=== PATIENT | male | born 1990 | race Caucasian/White ===

== ENCOUNTER 2021-07-21 06:19 | Inpatient (IN) | payer OTHER ==
[2021-07-21 06:25] LABS: Glucose,Whole Blood 436 mg/dL (75-99)
[2021-07-21] MEDS ORDERED: ONDANSETRON 4 MG/2 ML VIAL IVP STA (06:31)
[2021-07-21] MEDS ORDERED: diphenhydrAMINE 50 MG/ML 1 ML VIAL IVP STA (06:31)
[2021-07-21] MEDS ORDERED: SODIUM CHLORIDE 0.9% 2,000 ML IV ONE (06:31)
[2021-07-21] MEDS ORDERED: AMPICILLIN-SULBACTAM 3 GM in SODIUM CHLORIDE 0.9% 100 ML IVPB STA (06:37)
--- NOTE | 2021-07-21 06:43 | ED ---
General Adult HPI <Edy Barraza - Last Filed: 07/21/21 08:09> - General Source: patient, family Mode of arrival: EMS Limitations: no limitations <Xochitl Rossi - Last Filed: 07/21/21 08:28> - General Chief complaint: Recheck/Abnormal Lab/Rx Stated complaint: DKA Time Seen by Provider: 07/21/21 06:26 - History of Present Illness Initial comments: 30 year-old male patient with past history significant for Type I diabetes presents for possible DKA. States symptoms started several days ago. States it has been "a long time" since he has had insulin. He reports fatigue, vomiting, and shortness of breath. He was seen a few days ago for facial infection and was started on antibiotics. He has been able to take the medication due to vomiting. He denies any fevers. Patient denies any recent rash, cough, chest pain, abdominal pain, diarrhea, constipation, back pain, numbness, tingling, dizziness, weakness, hematuria, dysuria, urinary urgency, headache, visual changes, or any other complaints. (Xochitl Rossi) - Related Data Previous Rx's Medication Instructions Recorded Cephalexin [Keflex] 500 mg PO QID #40 cap 07/17/21 Sulfamethox-Tmp 800-160Mg [Bactrim 1 tab PO Q12HR #28 tab 07/17/21 DS 800-160 mg] Allergies Allergy/AdvReac Type Severity Reaction Status Date / Time No Known Allergies Allergy Verified 07/17/21 21:18 Review of Systems ROS Other: All systems not noted in ROS Statement are negative. <Edy Barraza - Last Filed: 07/21/21 08:09> ROS Other: All systems not noted in ROS Statement are negative. <Xochitl Rossi - Last Filed: 07/21/21 08:28> ROS Statement: Those systems with pertinent positive or pertinent negative responses have been documented in the HPI. Past Medical History Past Medical History: Diabetes Mellitus Additional Past Medical History / Comment(s): Type 1 DM, childhood asthma History of Any Multi-Drug Resistant Organisms: None Reported Past Surgical History: No Surgical Hx Reported Past Psychological History: Anxiety, Bipolar, Depression, PTSD Smoking Status: Current every day smoker Past Alcohol Use History: None Reported Past Drug Use History: Marijuana <Xochitl Rossi - Last Filed: 07/21/21 08:28> General Exam Limitations: no limitations General appearance: alert, in no apparent distress, other (This is a well- developed, well-nourished adult male in mild distress.) Eye exam: Present: normal appearance, PERRL, EOMI. Absent: scleral icterus, conjunctival injection, periorbital swelling ENT exam: Present: normal oropharynx, mucous membranes moist, other (There is left maxillary facial abscess noted, area is fluctuant with overlying erythema.) Respiratory exam: Present: normal lung sounds bilaterally. Absent: respiratory distress, wheezes, rales, rhonchi, stridor Cardiovascular Exam: Present: normal rhythm, tachycardia, normal heart sounds. Absent: systolic murmur, diastolic murmur, rubs, gallop, clicks GI/Abdominal exam: Present: soft, normal bowel sounds. Absent: distended, tenderness, guarding, rebound, rigid Neurological exam: Present: alert, oriented X3, CN II-XII intact Psychiatric exam: Present: normal affect, normal mood Skin exam: Present: warm, dry, intact, normal color. Absent: rash <Xochitl Rossi M - Last Filed: 07/21/21 08:28> Course Vital Signs 07/21/21 07/21/21 06:20 07:04 Temperature 98.0 F Pulse Rate 134 H 128 H Respiratory 24 18 Rate Blood Pressure 148/100 145/107 O2 Sat by Pulse 100 100 Oximetry Medical Decision Making - Lab Data Result diagrams: 07/21/21 06:42 07/21/21 06:42 <Edy Barraza - Last Filed: 07/21/21 08:09> - Lab Data Result diagrams: 07/21/21 06:42 07/21/21 06:42 <Xochitl Rossi - Last Filed: 07/21/21 08:28> - Medical Decision Making Patient reevaluated and reexamined by myself, Dr. Barraza. Patient resting at bedside. Patient does appear dehydrated. Left-sided facial abscess. Results reviewed. I agree with PA findings. This includes diagnostic interpretation and treatment plan. Patient will need IV fluids and insulin as well as an tibiotics. Dr. León is made aware. (Edy Barraza) 30-year-old male patient with past history significant for type 1 diabetes mellitus presents to the today for evaluation of vomiting possible DKA. Physical saturation revealed soft nontender abdomen. Does have left-sided fa cial abscess. Labs reviewed and did reveal elevated white blood cell count of 16.2, hemoglobin 19.7, ABG shows pH 7.03, pCO2 24, HCO3 6, CO2 in the chemistry is less than 5, anion gap is unreadable. Blood glucose is 456. He was positive for acetone. COVID-19 negative. He did have CT of the face a few days ago which showed cutaneous abscess with no bony distraction, does not seem to be related to dentition. Culture of aspirate fluid was sent and was positive for group B strep. We'll start patient on Unasyn. Started on DKA protocol. Given 2L normal saline. Given nausea medication. Dr. Lezama will consult for evaluation of the abscess. Had been admitted to the ICU. Dr. Ji is accepting. Dr. León was contacted. Patient is agreeable with this plan. My attending is Dr. Barraza. (Xochitl Rossi) - Lab Data Lab Results 07/21/21 07/21/21 07/21/21 Range/Units 06:23 06:42 06:42 WBC 16.2 H (3.8-10.6) k/uL RBC 6.18 H (4.30-5.90) m/uL Hgb 19.7 H* D (13.0-17.5) gm/dL Hct 62.5 H* (39.0-53.0) % MCV 101.0 H D (80.0-100.0) fL MCH 31.9 (25.0-35.0) pg MCHC 31.6 (31.0-37.0) g/dL RDW 12.5 (11.5-15.5) % Plt Count 354 (150-450) k/uL MPV 9.0 Neutrophils % 89 % Lymphocytes % 6 % Monocytes % 3 % Eosinophils % 0 % Basophils % 0 % Neutrophils # 14.5 H (1.3-7.7) k/uL Lymphocytes # 1.0 (1.0-4.8) k/uL Monocytes # 0.5 (0-1.0) k/uL Eosinophils # 0.0 (0-0.7) k/uL Basophils # 0.1 (0-0.2) k/uL Hypochromasia Moderate VBG pH (7.31-7.41) VBG pCO2 (37-51) mmHg VBG HCO3 (24-28) mmol/L Sodium 131 L (137-145) mmol/L Potassium 5.0 (3.5-5.1) mmol/L Chloride 94 L (98-107) mmol/L Carbon Dioxide <5 L* (22-30) mmol/L Anion Gap mmol/L BUN 15 (9-20) mg/dL Creatinine 1.07 (0.66-1.25) mg/dL Est GFR (CKD-EPI)AfAm >90 (>60 ml/min/1.73 sqM) Est GFR (CKD-EPI)NonAf >90 (>60 ml/min/1.73 sqM) Glucose 456 H (74-99) mg/dL POC Glucose (mg/dL) 436 H (75-99) mg/dL POC Glu [employer] ID Allyson, Waldron Plasma Lactic Acid Son (0.7-2.0) mmol/L Calcium 10.5 H (8.4-10.2) mg/dL Phosphorus 5.3 H (2.5-4.5) mg/dL Magnesium 1.8 (1.6-2.3) mg/dL Total Bilirubin 0.7 (0.2-1.3) mg/dL AST 22 (17-59) U/L ALT 21 (4-49) U/L Alkaline Phosphatase 155 H (38-126) U/L Total Protein 9.4 H (6.3-8.2) g/dL Albumin 5.7 H (3.5-5.0) g/dL Acetone, Qual (Negative) Coronavirus (PCR) (Not Detectd) 07/21/21 07/21/21 07/21/21 Range/Units 06:42 06:42 06:42 WBC (3.8-10.6) k/uL RBC (4.30-5.90) m/uL Hgb (13.0-17.5) gm/dL Hct (39.0-53.0) % MCV (80.0-100.0) fL MCH (25.0-35.0) pg MCHC (31.0-37.0) g/dL RDW (11.5-15.5) % Plt Count (150-450) k/uL MPV Neutrophils % % Lymphocytes % % Monocytes % % Eosinophils % % Basophils % % Neutrophils # (1.3-7.7) k/uL Lymphocytes # (1.0-4.8) k/uL Monocytes # (0-1.0) k/uL Eosinophils # (0-0.7) k/uL Basophils # (0-0.2) k/uL Hypochromasia VBG pH 7.03 L* (7.31-7.41) VBG pCO2 24 L (37-51) mmHg VBG HCO3 6 L* (24-28) mmol/L Sodium (137-145) mmol/L Potassium (3.5-5.1) mmol/L Chloride (98-107) mmol/L Carbon Dioxide (22-30) mmol/L Anion Gap mmol/L BUN (9-20) mg/dL Creatinine (0.66-1.25) mg/dL Est GFR (CKD-EPI)AfAm (>60 ml/min/1.73 sqM) Est GFR (CKD-EPI)NonAf (>60 ml/min/1.73 sqM) Glucose (74-99) mg/dL POC Glucose (mg/dL) (75-99) mg/dL POC Glu [employer]amics Machine Operator ID Plasma Lactic Acid Son 2.0 (0.7-2.0) mmol/L Calcium (8.4-10.2) mg/dL Phosphorus (2.5-4.5) mg/dL Magnesium (1.6-2.3) mg/dL Total Bilirubin (0.2-1.3) mg/dL AST (17-59) U/L ALT (4-49) U/L Alkaline Phosphatase (38-126) U/L Total Protein (6.3-8.2) g/dL Albumin (3.5-5.0) g/dL Acetone, Qual (Negative) Coronavirus (PCR) Not Detected (Not Detectd) 07/21/21 Range/Units 06:42 WBC (3.8-10.6) k/uL RBC (4.30-5.90) m/uL Hgb (13.0-17.5) gm/dL Hct (39.0-53.0) % MCV (80.0-100.0) fL MCH (25.0-35.0) pg MCHC (31.0-37.0) g/dL RDW (11.5-15.5) % Plt Count (150-450) k/uL MPV Neutrophils % % Lymphocytes % % Monocytes % % Eosinophils % % Basophils % % Neutrophils # (1.3-7.7) k/uL Lymphocytes # (1.0-4.8) k/uL Monocytes # (0-1.0) k/uL Eosinophils # (0-0.7) k/uL Basophils # (0-0.2) k/uL Hypochromasia VBG pH (7.31-7.41) VBG pCO2 (37-51) mmHg VBG HCO3 (24-28) mmol/L Sodium (137-145) mmol/L Potassium (3.5-5.1) mmol/L Chloride (98-107) mmol/L Carbon Dioxide (22-30) mmol/L Anion Gap mmol/L BUN (9-20) mg/dL Creatinine (0.66-1.25) mg/dL Est GFR (CKD-EPI)AfAm (>60 ml/min/1.73 sqM) Est GFR (CKD-EPI)NonAf (>60 ml/min/1.73 sqM) Glucose (74-99) mg/dL POC Glucose (mg/dL) (75-99) mg/dL POC Glu Ceramics Machine Operator ID Plasma Lactic Acid Son (0.7-2.0) mmol/L Calcium (8.4-10.2) mg/dL Phosphorus (2.5-4.5) mg/dL Magnesium (1.6-2.3) mg/dL Total Bilirubin (0.2-1.3) mg/dL AST (17-59) U/L ALT (4-49) U/L Alkaline Phosphatase (38-126) U/L Total Protein (6.3-8.2) g/dL Albumin (3.5-5.0) g/dL Acetone, Qual Positive (Negative) Coronavirus (PCR) (Not Detectd) Disposition <Edy Barraza - Last Filed: 07/21/21 08:09> Decision to Admit Reason: Admit from EC Decision Date: 07/21/21 Decision Time: 07:44 <Xochitl Rossi - Last Filed: 07/21/21 08:28> Clinical Impression: DKA (diabetic ketoacidosis), Facial abscess Disposition: ADMITTED IP TO THIS [facility] Condition: Serious Referrals: None,Stated [Primary Care Provider] - 1-2 days
[2021-07-21 07:04] LABS: VBG PH 7.03 (7.31-7.41)
[2021-07-21 07:14] LABS: Basophils # (A) 0.1 k/uL (0-0.2); Basophils % (A) 0 %; Eosinophils % (A) 0 %; Hypochromasia Moderate; Lymphocytes % (A) 6 %; MCH 31.9 pg (25.0-35.0); MCHC 31.6 g/dL (31.0-37.0); Monocytes # (A) 0.5 k/uL (0-1.0); Monocytes % (A) 3 %; Neutrophils # (A) 14.5 k/uL (1.3-7.7); Neutrophils % (A) 89 %; Platelet Count 354 k/uL (150-450); RBC 6.18 m/uL (4.30-5.90); RDW 12.5 % (11.5-15.5); WBC 16.2 k/uL (3.8-10.6)
[2021-07-21 07:16] LABS: ALT 21 U/L (4-49); AST 22 U/L (17-59); African American GFR (CKD) >90 (>60 ml/min/1.73 sqM); Albumin 5.7 g/dL (3.5-5.0); Alkaline Phosphatase 155 U/L (38-126); Blood Urea Nitrogen 15 mg/dL (9-20); Calcium 10.5 mg/dL (8.4-10.2); Chloride 94 mmol/L (98-107); Glucose 456 mg/dL (74-99); Magnesium 1.8 mg/dL (1.6-2.3); Non-African American GFR(CKD) >90 (>60 ml/min/1.73 sqM); Phosphorus 5.3 mg/dL (2.5-4.5); Sodium 131 mmol/L (137-145); Total Bilirubin 0.7 mg/dL (0.2-1.3); Total Protein 9.4 g/dL (6.3-8.2)
[2021-07-21 07:18] LABS: Carbon Dioxide <5 mmol/L (22-30)
[2021-07-21 07:20] LABS: HGB 19.7 gm/dL (13.0-17.5)
[2021-07-21 07:21] LABS: HCT 62.5 % (39.0-53.0)
[2021-07-21] MEDS ORDERED: SODIUM CHLORIDE 0.9% 1,000 ML IV ONE ×2 (07:38→16:50)
[2021-07-21] MEDS ORDERED: Magnesium Replacement Protocol 1 EACH MISC MISCELLANE PRN (07:38)
[2021-07-21] MEDS ORDERED: INSULIN REGULAR BOLUS (FROM DRIP BAG) IV ONE (07:38)
[2021-07-21] MEDS ORDERED: Potassium Replacement Protocol 1 EACH MISC MISCELLANE PRN (07:38)
[2021-07-21] MEDS ORDERED: NALOXONE 0.4 MG/ML 1 ML VIAL IV PRN ×2 (08:13→11:14)
[2021-07-21] MEDS ORDERED: ONDANSETRON 4 MG/2 ML VIAL IVP PRN (08:14)
[2021-07-21] MEDS ORDERED: METOCLOPRAMIDE 5 MG/ML 2 ML VIAL IVP STA (08:15)
[2021-07-21] MEDS: INSULIN REGULAR 100 UNIT in SODIUM CHLORIDE 0.9% 100 ML IV SCH ×2 (08:26→23:48)
[2021-07-21] MEDS: SODIUM CHLORIDE 0.9% 1,000 ML IV SCH ×2 (08:32→13:30)
[2021-07-21 08:46] LABS: Glucose,Whole Blood 377 mg/dL (75-99)
--- NOTE | 2021-07-21 09:38 | P.GSCN ---
History of Present Illness Consult date: 07/21/21 Reason for Consult: Facial abscess History of present illness: Patient's a 30-year-old male the emergency department with nausea, vomiting, fatigue and shortness of breath. He was started on oral antibiotics for facial infection several days ago. A CT scan had been performed which showed no evidence of maxillary sinusitis or dental abscess. Because of the nausea and vomiting he hasn't been able to keep the antibiotics down in the infection is worsening. No prior history of MRSA Review of Systems All systems: negative Past Medical History Past Medical History: Diabetes Mellitus Additional Past Medical History / Comment(s): Type 1 DM, childhood asthma History of Any Multi-Drug Resistant Organisms: None Reported Past Surgical History: No Surgical Hx Reported Past Psychological History: Anxiety, Bipolar, Depression, PTSD Smoking Status: Current every day smoker Past Alcohol Use History: None Reported Past Drug Use History: Marijuana Medications and Allergies Home Medications Medication Instructions Recorded Confirmed Type Cephalexin [Keflex] 500 mg PO QID #40 cap 07/17/21 07/21/21 Rx Sulfamethox-Tmp 800-160Mg [Bactrim 1 tab PO Q12HR #28 tab 07/17/21 07/21/21 Rx DS 800-160 mg] Allergies Allergy/AdvReac Type Severity Reaction Status Date / Time No Known Allergies Allergy Verified 07/21/21 08:28 Surgical - Exam Osteopathic Statement: *. No significant issues noted on an osteopathic structural exam other than those noted in the History and Physical/Consult. Vital Signs Temp Pulse Resp BP Pulse Ox 98.0 F 134 H 24 148/100 100 07/21/21 06:20 07/21/21 06:20 07/21/21 06:20 07/21/21 06:20 07/21/21 06:20 - General well developed, well nourished - ENT 5 cm area of erythema, swelling, fluctuance and small eschar over the left maxillary region. - Neck trachea midline - Respiratory normal expansion - Cardiovascular Rhythm: regular Results - Labs 07/21/21 06:42 07/21/21 06:42 Abnormal Lab Results - Last 24 Hours (Table) 07/21/21 07/21/21 07/21/21 Range/Units 06:23 06:42 06:42 WBC 16.2 H (3.8-10.6) k/uL RBC 6.18 H (4.30-5.90) m/uL Hgb 19.7 H* D (13.0-17.5) gm/dL Hct 62.5 H* (39.0-53.0) % MCV 101.0 H D (80.0-100.0) fL Neutrophils # 14.5 H (1.3-7.7) k/uL VBG pH (7.31-7.41) VBG pCO2 (37-51) mmHg VBG HCO3 (24-28) mmol/L Sodium 131 L (137-145) mmol/L Chloride 94 L (98-107) mmol/L Carbon Dioxide <5 L* (22-30) mmol/L Glucose 456 H (74-99) mg/dL POC Glucose (mg/dL) 436 H (75-99) mg/dL Calcium 10.5 H (8.4-10.2) mg/dL Phosphorus 5.3 H (2.5-4.5) mg/dL Alkaline Phosphatase 155 H (38-126) U/L Total Protein 9.4 H (6.3-8.2) g/dL Albumin 5.7 H (3.5-5.0) g/dL 07/21/21 07/21/21 Range/Units 06:42 08:43 WBC (3.8-10.6) k/uL RBC (4.30-5.90) m/uL Hgb (13.0-17.5) gm/dL Hct (39.0-53.0) % MCV (80.0-100.0) fL Neutrophils # (1.3-7.7) k/uL VBG pH 7.03 L* (7.31-7.41) VBG pCO2 24 L (37-51) mmHg VBG HCO3 6 L* (24-28) mmol/L Sodium (137-145) mmol/L Chloride (98-107) mmol/L Carbon Dioxide (22-30) mmol/L Glucose (74-99) mg/dL POC Glucose (mg/dL) 377 H (75-99) mg/dL Calcium (8.4-10.2) mg/dL Phosphorus (2.5-4.5) mg/dL Alkaline Phosphatase (38-126) U/L Total Protein (6.3-8.2) g/dL Albumin (3.5-5.0) g/dL Diabetes panel 07/21/21 Range/Units 06:42 Sodium 131 L (137-145) mmol/L Potassium 5.0 (3.5-5.1) mmol/L Chloride 94 L (98-107) mmol/L Carbon Dioxide <5 L* (22-30) mmol/L BUN 15 (9-20) mg/dL Creatinine 1.07 (0.66-1.25) mg/dL Glucose 456 H (74-99) mg/dL Calcium 10.5 H (8.4-10.2) mg/dL AST 22 (17-59) U/L ALT 21 (4-49) U/L Alkaline Phosphatase 155 H (38-126) U/L Total Protein 9.4 H (6.3-8.2) g/dL Albumin 5.7 H (3.5-5.0) g/dL Calcium panel 07/21/21 Range/Units 06:42 Calcium 10.5 H (8.4-10.2) mg/dL Phosphorus 5.3 H (2.5-4.5) mg/dL Albumin 5.7 H (3.5-5.0) g/dL Pituitary panel 07/21/21 Range/Units 06:42 Sodium 131 L (137-145) mmol/L Potassium 5.0 (3.5-5.1) mmol/L Chloride 94 L (98-107) mmol/L Carbon Dioxide <5 L* (22-30) mmol/L BUN 15 (9-20) mg/dL Creatinine 1.07 (0.66-1.25) mg/dL Glucose 456 H (74-99) mg/dL Calcium 10.5 H (8.4-10.2) mg/dL Adrenal panel 07/21/21 Range/Units 06:42 Sodium 131 L (137-145) mmol/L Potassium 5.0 (3.5-5.1) mmol/L Chloride 94 L (98-107) mmol/L Carbon Dioxide <5 L* (22-30) mmol/L BUN 15 (9-20) mg/dL Creatinine 1.07 (0.66-1.25) mg/dL Glucose 456 H (74-99) mg/dL Calcium 10.5 H (8.4-10.2) mg/dL Total Bilirubin 0.7 (0.2-1.3) mg/dL AST 22 (17-59) U/L ALT 21 (4-49) U/L Alkaline Phosphatase 155 H (38-126) U/L Total Protein 9.4 H (6.3-8.2) g/dL Albumin 5.7 H (3.5-5.0) g/dL Assessment and Plan (1) DKA (diabetic ketoacidosis) Current Visit: Yes Status: Acute Code(s): E11.10 - TYPE 2 DIABETES MELLITUS WITH KETOACIDOSIS WITHOUT COMA SNOMED Code(s): 920909724 (2) Facial abscess Current Visit: Yes Status: Acute Code(s): L02.01 - CUTANEOUS ABSCESS OF FACE SNOMED Code(s): 252482887 Plan: The patient did have some vitamin water this morning which he threw up. Recommend the abscess been excised and drained in the OR. The procedure, risks and complications were discussed. Getting medical care for the DKA
[2021-07-21 09:50] LABS: Glucose,Whole Blood 251 mg/dL (75-99)
[2021-07-21] MEDS ORDERED: IV FLUID CONTINUATION 1,000 ML IV ONE ×2 (09:50)
[2021-07-21] MEDS: D5-0.45% NACL WITH KCL 20MEQ/L 1,000 ML IV SCH ×2 (10:22→18:07)
[2021-07-21] MEDS ORDERED: KETOROLAC 30 MG/ML 1 ML VIAL IVP PRN (11:14)
[2021-07-21] MEDS ORDERED: ACETAMINOPHEN TAB 325 MG TAB PO PRN (11:14)
[2021-07-21] MEDS ORDERED: IBUPROFEN 400 MG TAB PO PRN (11:14)
[2021-07-21 11:28] LABS: African American GFR (CKD) >90 (>60 ml/min/1.73 sqM); Anion Gap 20 mmol/L; Blood Urea Nitrogen 15 mg/dL (9-20); Chloride 107 mmol/L (98-107); Glucose 219 mg/dL (74-99); Non-African American GFR(CKD) >90 (>60 ml/min/1.73 sqM); Phosphorus 2.4 mg/dL (2.5-4.5); Potassium 3.7 mmol/L (3.5-5.1); Sodium 133 mmol/L (137-145)
[2021-07-21 11:30] LABS: Glucose,Whole Blood 180 mg/dL (75-99)
[2021-07-21 11:43] LABS: Carbon Dioxide 6 mmol/L (22-30)
--- NOTE | 2021-07-21 11:52 | P.HPIM ---
History of Present Illness H&P Date: 07/21/21 Chief Complaint: left facial abscess 30 year-old male patient with past history significant for Type I diabetes who has not been on any insulin over the last year. He was diagnosed with type 1 DM on age 15. He presents for worsening swelling on the left side of his jaw. The swelling is painless according to patient. It started with left upper teeth aches and progressed to the jaw swelling. States symptoms started several days ago. He reports fatigue, vomiting, and shortness of breath. He denies any fevers. Patient denies any recent rash, cough, chest pain, abdominal pain, diarrhea, constipation, back pain, numbness, tingling, dizziness, weakness, hematuria, dysuria, urinary urgency, headache, visual changes, or any other complaints. He was seen a few days ago here in the ER for this and was aspirated by the ER staff and was started on antibiotics. He has been unable to take the medication due to vomiting. In the emergency department and was found to have diabetic ketoacidosis with severe hyperglycemia. His pH was low at 7.03. He was started on insulin drip and was admitted for further evaluation and management. Review of Systems Complete review of system performed, pertinent positives per HPI, otherwise negative Past Medical History Past Medical History: Diabetes Mellitus Additional Past Medical History / Comment(s): Type 1 DM, childhood asthma History of Any Multi-Drug Resistant Organisms: None Reported Past Surgical History: No Surgical Hx Reported Past Psychological History: Anxiety, Bipolar, Depression, PTSD Smoking Status: Current every day smoker Past Alcohol Use History: None Reported Past Drug Use History: Marijuana Medications and Allergies Home Medications Medication Instructions Recorded Confirmed Type Cephalexin [Keflex] 500 mg PO QID #40 cap 07/17/21 07/21/21 Rx Sulfamethox-Tmp 800-160Mg [Bactrim 1 tab PO Q12HR #28 tab 07/17/21 07/21/21 Rx DS 800-160 mg] Allergies Allergy/AdvReac Type Severity Reaction Status Date / Time No Known Allergies Allergy Verified 07/21/21 08:28 Physical Exam Vitals: Vital Signs Temp Pulse Resp BP Pulse Ox 07/21/21 10:18 98.2 F 96 22 139/79 98 07/21/21 08:34 110 H 20 139/80 100 07/21/21 07:04 128 H 18 145/107 100 07/21/21 06:20 98.0 F 134 H 24 148/100 100 Intake and Output 07/20/21 07/21/21 07/21/21 22:59 06:59 14:59 Intake Total 19.67 Balance 19.67 Intake: Intake, IV Titration 19.67 Amount Insulin Regular 100 unit 19.67 In Sodium Chloride 0.9% 100 ml @ 0.1 UNITS/KG/HR 6.414 mls/hr IV .[id number] [facility] Rx#:[id number] Other: Weight 63.503 kg Constitutional: No acute distress, conversant, pleasant Eyes:Anicteric sclerae, moist conjunctiva, no lid-lag, PERRLA, ENMT: Left facial swelling, tender to palpation. Oropharynx clear, no erythema, exudates Neck: Supple, FROM, no masses, or JVD, No carotid bruits, No thyromegaly Lungs: Clear to auscultation, Clear to percussion, Normal respiratory effort, no accessory muscle use Cardiovascular: Tachycardic, regular, No murmurs, gallops, or rubs, No peripheral edema Abdominal: Soft, Nontender, no guarding, rebound or rigidity, Normoactive bowel sounds, No hepatomegaly, No splenomegaly, No palpable mass Skin: Normal temperature, tone, texture, turgor, no induration, No subcutaneous nodules, No rash, lesions, No ulcers Extremities: No digital cyanosis, No clubbing, Pedal pulses intact and symmetrical, Radial pulses intact and symmetrical, No calf tenderness Psychiatric: Alert and oriented to person, place and time, appropriate affect, intact judgement Neuro: Muscles Strength 5/5 in all 4 extremities, Sensation to light touch grossly present throughout, Cranial nerves II-XII grossly intact, no focal sensory deficits Results CBC & Chem 7: 07/21/21 06:42 07/21/21 06:42 Labs: Abnormal Lab Results - Last 24 Hours (Table) 07/21/21 07/21/21 07/21/21 Range/Units 06:23 06:42 06:42 WBC 16.2 H (3.8-10.6) k/uL RBC 6.18 H (4.30-5.90) m/uL Hgb 19.7 H* D (13.0-17.5) gm/dL Hct 62.5 H* (39.0-53.0) % MCV 101.0 H D (80.0-100.0) fL Neutrophils # 14.5 H (1.3-7.7) k/uL VBG pH (7.31-7.41) VBG pCO2 (37-51) mmHg VBG HCO3 (24-28) mmol/L Sodium 131 L (137-145) mmol/L Chloride 94 L (98-107) mmol/L Carbon Dioxide <5 L* (22-30) mmol/L Glucose 456 H (74-99) mg/dL POC Glucose (mg/dL) 436 H (75-99) mg/dL Calcium 10.5 H (8.4-10.2) mg/dL Phosphorus 5.3 H (2.5-4.5) mg/dL Alkaline Phosphatase 155 H (38-126) U/L Total Protein 9.4 H (6.3-8.2) g/dL Albumin 5.7 H (3.5-5.0) g/dL 07/21/21 07/21/21 07/21/21 Range/Units 06:42 08:43 09:49 WBC (3.8-10.6) k/uL RBC (4.30-5.90) m/uL Hgb (13.0-17.5) gm/dL Hct (39.0-53.0) % MCV (80.0-100.0) fL Neutrophils # (1.3-7.7) k/uL VBG pH 7.03 L* (7.31-7.41) VBG pCO2 24 L (37-51) mmHg VBG HCO3 6 L* (24-28) mmol/L Sodium (137-145) mmol/L Chloride (98-107) mmol/L Carbon Dioxide (22-30) mmol/L Glucose (74-99) mg/dL POC Glucose (mg/dL) 377 H 251 H (75-99) mg/dL Calcium (8.4-10.2) mg/dL Phosphorus (2.5-4.5) mg/dL Alkaline Phosphatase (38-126) U/L Total Protein (6.3-8.2) g/dL Albumin (3.5-5.0) g/dL 07/21/21 Range/Units 11:29 WBC (3.8-10.6) k/uL RBC (4.30-5.90) m/uL Hgb (13.0-17.5) gm/dL Hct (39.0-53.0) % MCV (80.0-100.0) fL Neutrophils # (1.3-7.7) k/uL VBG pH (7.31-7.41) VBG pCO2 (37-51) mmHg VBG HCO3 (24-28) mmol/L Sodium (137-145) mmol/L Chloride (98-107) mmol/L Carbon Dioxide (22-30) mmol/L Glucose (74-99) mg/dL POC Glucose (mg/dL) 180 H (75-99) mg/dL Calcium (8.4-10.2) mg/dL Phosphorus (2.5-4.5) mg/dL Alkaline Phosphatase (38-126) U/L Total Protein (6.3-8.2) g/dL Albumin (3.5-5.0) g/dL Assessment and Plan Plan: Diabetic ketoacidosis Insulin drip Glucose q 1 hr BMP q 4hrs. IV fluids Left facial abscess Likely the trigger for DKA Unasyn D/w surgery, will go to the OR for drainage, would send the pus for cx. Preoperative clearance D/w surgeon it is preferable to have PH above 7.2 to safely go to surgery Will follow ABG around 2:00PM Leukocytosis and erythrocytosis Likely due to severe dehydration and hemoconcentration. IV fluids as above. Admitted to inpatient expected length of stay more than 2 midnights
[2021-07-21 12:32] LABS: Glucose,Whole Blood 170 mg/dL (75-99)
[2021-07-21] MEDS: AMPICILLIN-SULBACTAM 3 GM in SODIUM CHLORIDE 0.9% 100 ML IVPB SCH ×3 (13:27→23:47)
[2021-07-21 13:42] LABS: Glucose,Whole Blood 172 mg/dL (75-99)
[2021-07-21] MEDS ORDERED: POTASSIUM CHLORIDE ER 20 MEQ TAB.ER PO STA (14:05)
[2021-07-21] MEDS ORDERED: POTASSIUM CHLORIDE 10 MEQ in WATER FOR INJECTION 1 100ML.BAG IVPB STA (14:05)
[2021-07-21 14:21] LABS: ABG Base Excess -13.2 mmol/L; ABG HCO3 13 mmol/L (21-25); ABG Oxygen Saturation 96.5 % (94-97); ABG PCO2 27 mmHg (35-45); ABG PO2 102 mmHg (83-108); ABG TCO2 14 mmol/L (19-24); Allen Test Performed? Yes
[2021-07-21 14:39] LABS: Glucose,Whole Blood 160 mg/dL (75-99)
[2021-07-21 15:13] LABS: African American GFR (CKD) >90 (>60 ml/min/1.73 sqM); Anion Gap 14 mmol/L; Blood Urea Nitrogen 13 mg/dL (9-20); Carbon Dioxide 11 mmol/L (22-30); Chloride 106 mmol/L (98-107); Glucose 174 mg/dL (74-99); Non-African American GFR(CKD) >90 (>60 ml/min/1.73 sqM); Phosphorus 2.4 mg/dL (2.5-4.5); Potassium 4.1 mmol/L (3.5-5.1); Sodium 131 mmol/L (137-145)
[2021-07-21 15:44] LABS: Glucose,Whole Blood 185 mg/dL (75-99)
[2021-07-21] MEDS ORDERED: fentaNYL (PF) 50 MCG/ML 2 ML AMP ONE (15:46)
[2021-07-21] MEDS ORDERED: LIDOCAINE 1% INJ 10MG/ML (20 ML MDV) ONE (15:46)
[2021-07-21] MEDS ORDERED: PROPOFOL 10 MG/ML 20 ML VIAL IV ONE (15:46)
[2021-07-21] MEDS ORDERED: MIDAZOLAM 2 MG/2 ML VIAL ONE (15:46)
[2021-07-21] MEDS ORDERED: SUCCINYLCHOLINE CHLORIDE 100 MG/5 ML SYR IV ONE (15:46)
[2021-07-21] MEDS ORDERED: traMADol 50 MG TAB PO PRN ×2 (16:08)
--- NOTE | 2021-07-21 16:11 | P.OP ---
Date of Procedure: 07/21/21 Preoperative Diagnosis: Abscess left face Postoperative Diagnosis: Abscess left face Procedure(s) Performed: Incision and drainage abscess left face Anesthesia: MELITON Surgeon: Amara Lezama Pathology: none sent Condition: stable Disposition: PACU Indications for Procedure: Patient presents with sepsis and lactic acidosis. There is an abscess on his left face Description of Procedure: Patient's taken the OR where he is prepped and draped in the usual sterile manner under a general endotracheal anesthetic. An incision was made into the abscess with drainage of creamy purulent material. Cultures were obtained. The wound was then irrigated and probed. It tracks superiorly 1.5 cm inferiorly 1 centimeter, medially 1 cm and laterally 1 cm. In the superior lateral position it undermines 2.5 cm. It was packed with Aquacel Ag rope and a dressing was applied. He tolerated the procedure without difficulty and is taken recovery room in satisfactory condition. According to or personnel, WERE correct.
[2021-07-21] MEDS ORDERED: HYDROmorphone 0.5 MG/0.5 ML SYRINGE IVP ONE ×2 (16:25→16:30)
[2021-07-21] MEDS ORDERED: HYDROmorphone 1 MG/ML 1 ML SYRINGE IVP ONE (16:25)
[2021-07-21 16:33] LABS: Glucose,Whole Blood 156 mg/dL (75-99)
[2021-07-21] MEDS: POTAS-SOD-PHOS 278-164-250 MG 1 EACH PACKET PO SCH ×2 (17:04→20:50)
[2021-07-21 17:39] LABS: Glucose,Whole Blood 153 mg/dL (75-99)
[2021-07-21 18:33] LABS: Glucose,Whole Blood 209 mg/dL (75-99)
[2021-07-21 18:54] LABS: African American GFR (CKD) >90 (>60 ml/min/1.73 sqM); Anion Gap 10 mmol/L; Blood Urea Nitrogen 10 mg/dL (9-20); Calcium 8.6 mg/dL (8.4-10.2); Carbon Dioxide 15 mmol/L (22-30); Chloride 106 mmol/L (98-107); Glucose 202 mg/dL (74-99); Non-African American GFR(CKD) >90 (>60 ml/min/1.73 sqM); Phosphorus 2.2 mg/dL (2.5-4.5); Potassium 4.7 mmol/L (3.5-5.1); Sodium 131 mmol/L (137-145)
[2021-07-21 19:35] LABS: Glucose,Whole Blood 231 mg/dL (75-99)
[2021-07-21 20:33] LABS: Glucose,Whole Blood 219 mg/dL (75-99)
[2021-07-21 21:34] LABS: Glucose,Whole Blood 191 mg/dL (75-99)
[2021-07-21 22:26] LABS: Glucose,Whole Blood 143 mg/dL (75-99)
[2021-07-21 23:46] LABS: Glucose,Whole Blood 143 mg/dL (75-99)
[2021-07-22 00:15] LABS: African American GFR (CKD) >90 (>60 ml/min/1.73 sqM); Anion Gap 7 mmol/L; Blood Urea Nitrogen 9 mg/dL (9-20); Calcium 8.4 mg/dL (8.4-10.2); Carbon Dioxide 17 mmol/L (22-30); Chloride 109 mmol/L (98-107); Glucose 128 mg/dL (74-99); Non-African American GFR(CKD) >90 (>60 ml/min/1.73 sqM); Phosphorus 2.2 mg/dL (2.5-4.5); Potassium 3.6 mmol/L (3.5-5.1); Sodium 133 mmol/L (137-145)
[2021-07-22 00:26] LABS: Glucose,Whole Blood 160 mg/dL (75-99)
[2021-07-22] MEDS: D5-0.45% NACL WITH KCL 20MEQ/L 1,000 ML IV SCH ×2 (00:59→06:38)
[2021-07-22] MEDS ORDERED: INSULIN DETEMIR (LEVEMIR) 100 UNIT/ML SYR SQ SCH (01:15)
[2021-07-22 01:55] LABS: Glucose,Whole Blood 161 mg/dL (75-99)
[2021-07-22 06:18] LABS: Glucose,Whole Blood 251 mg/dL (75-99)
[2021-07-22] MEDS: INSULIN ASPART (NovoLOG) 100 UNIT/ML VIAL SQ SCH ×3 (06:42→17:14)
[2021-07-22] MEDS: AMPICILLIN-SULBACTAM 3 GM in SODIUM CHLORIDE 0.9% 100 ML IVPB SCH ×3 (06:42→17:18)
[2021-07-22 08:00] LABS: Basophils % (A) 0 %; Eosinophils # (A) 0.1 k/uL (0-0.7); Eosinophils % (A) 1 %; HCT 41.3 % (39.0-53.0); Lymphocytes # (A) 1.9 k/uL (1.0-4.8); Lymphocytes % (A) 20 %; MCH 31.2 pg (25.0-35.0); MCHC 33.2 g/dL (31.0-37.0); Mean Platelet Volume 8.1; Monocytes # (A) 0.6 k/uL (0-1.0); Monocytes % (A) 7 %; Neutrophils # (A) 6.4 k/uL (1.3-7.7); Neutrophils % (A) 71 %; Platelet Count 257 k/uL (150-450); RDW 12.6 % (11.5-15.5); WBC 9.1 k/uL (3.8-10.6)
[2021-07-22 08:05] LABS: HGB 13.7 gm/dL (13.0-17.5)
[2021-07-22 08:15] LABS: ALT 13 U/L (4-49); AST 19 U/L (17-59); African American GFR (CKD) >90 (>60 ml/min/1.73 sqM); Alkaline Phosphatase 76 U/L (38-126); Anion Gap 7 mmol/L; Blood Urea Nitrogen 6 mg/dL (9-20); Calcium 8.4 mg/dL (8.4-10.2); Carbon Dioxide 20 mmol/L (22-30); Chloride 106 mmol/L (98-107); Glucose 209 mg/dL (74-99); Magnesium 1.7 mg/dL (1.6-2.3); Non-African American GFR(CKD) >90 (>60 ml/min/1.73 sqM); Phosphorus 1.7 mg/dL (2.5-4.5); Potassium 3.7 mmol/L (3.5-5.1); Sodium 133 mmol/L (137-145); Total Bilirubin 0.3 mg/dL (0.2-1.3); Total Protein 5.4 g/dL (6.3-8.2)
[2021-07-22] MEDS: POTAS-SOD-PHOS 278-164-250 MG 1 EACH PACKET PO SCH ×2 (08:59→17:18)
--- NOTE | 2021-07-22 09:34 | P.PN ---
Subjective Progress Note Date: 07/22/21 Is seen on rounds. He is feeling much better today. The pain and pressure he was having in the left cheek is gone. Objective - Vital Signs Vital signs: Vital Signs Temp 98.7 F 07/21/21 23:10 Pulse 96 07/22/21 03:00 Resp 16 07/22/21 03:00 BP 130/75 07/22/21 03:00 Pulse Ox 99 07/22/21 03:00 Intake & Output 07/21/21 07/22/21 07/22/21 18:59 06:59 18:59 Intake Total 419.67 66.706 600 Output Total 2 Balance 417.67 66.706 600 Weight 68.039 kg Intake: IV 400 Intake, IV Titration 19.67 66.706 Amount Insulin Regular 100 unit 19.67 66.706 In Sodium Chloride 0.9% 100 ml @ 0.1 UNITS/KG/HR 6.414 mls/hr IV .[id number] [facility] Rx#:[id number] Oral 600 Output: Estimated Blood Loss 2 Other: Voiding Method Toilet Toilet # Voids 1 - Constitutional General appearance: Present: cooperative, no acute distress - EENT EENT Comment(s): A little bloody drainage on the gauze. Marked improvement in the swelling and e rythema on the left cheek - Labs CBC & Chem 7: 07/22/21 06:44 07/22/21 06:44 Labs: Abnormal Lab Results - Last 24 Hours (Table) 07/21/21 07/21/21 07/21/21 Range/Units 09:49 10:37 11:29 ABG pH (7.35-7.45) ABG pCO2 (35-45) mmHg ABG HCO3 (21-25) mmol/L ABG Total CO2 (19-24) mmol/L Sodium 133 L (137-145) mmol/L Chloride (98-107) mmol/L Carbon Dioxide 6 L* (22-30) mmol/L BUN (9-20) mg/dL Creatinine 0.64 L (0.66-1.25) mg/dL Glucose 219 H (74-99) mg/dL POC Glucose (mg/dL) 251 H 180 H (75-99) mg/dL Hemoglobin A1c (4.0-6.0) % Phosphorus 2.4 L (2.5-4.5) mg/dL Total Protein (6.3-8.2) g/dL Albumin (3.5-5.0) g/dL 07/21/21 07/21/21 07/21/21 Range/Units 12:30 13:39 14:07 ABG pH (7.35-7.45) ABG pCO2 (35-45) mmHg ABG HCO3 (21-25) mmol/L ABG Total CO2 (19-24) mmol/L Sodium 131 L (137-145) mmol/L Chloride (98-107) mmol/L Carbon Dioxide 11 L (22-30) mmol/L BUN (9-20) mg/dL Creatinine 0.52 L (0.66-1.25) mg/dL Glucose 174 H (74-99) mg/dL POC Glucose (mg/dL) 170 H 172 H (75-99) mg/dL Hemoglobin A1c (4.0-6.0) % Phosphorus 2.4 L (2.5-4.5) mg/dL Total Protein (6.3-8.2) g/dL Albumin (3.5-5.0) g/dL 07/21/21 07/21/21 07/21/21 Range/Units 14:17 14:35 15:24 ABG pH 7.30 L (7.35-7.45) ABG pCO2 27 L (35-45) mmHg ABG HCO3 13 L (21-25) mmol/L ABG Total CO2 14 L (19-24) mmol/L Sodium (137-145) mmol/L Chloride (98-107) mmol/L Carbon Dioxide (22-30) mmol/L BUN (9-20) mg/dL Creatinine (0.66-1.25) mg/dL Glucose (74-99) mg/dL POC Glucose (mg/dL) 160 H 185 H (75-99) mg/dL Hemoglobin A1c (4.0-6.0) % Phosphorus (2.5-4.5) mg/dL Total Protein (6.3-8.2) g/dL Albumin (3.5-5.0) g/dL 07/21/21 07/21/21 07/21/21 Range/Units 16:31 17:29 17:57 ABG pH (7.35-7.45) ABG pCO2 (35-45) mmHg ABG HCO3 (21-25) mmol/L ABG Total CO2 (19-24) mmol/L Sodium (137-145) mmol/L Chloride (98-107) mmol/L Carbon Dioxide (22-30) mmol/L BUN (9-20) mg/dL Creatinine (0.66-1.25) mg/dL Glucose (74-99) mg/dL POC Glucose (mg/dL) 156 H 153 H (75-99) mg/dL Hemoglobin A1c 16.9 H (4.0-6.0) % Phosphorus (2.5-4.5) mg/dL Total Protein (6.3-8.2) g/dL Albumin (3.5-5.0) g/dL 07/21/21 07/21/21 07/21/21 Range/Units 17:57 18:30 19:32 ABG pH (7.35-7.45) ABG pCO2 (35-45) mmHg ABG HCO3 (21-25) mmol/L ABG Total CO2 (19-24) mmol/L Sodium 131 L (137-145) mmol/L Chloride (98-107) mmol/L Carbon Dioxide 15 L (22-30) mmol/L BUN (9-20) mg/dL Creatinine 0.54 L (0.66-1.25) mg/dL Glucose 202 H (74-99) mg/dL POC Glucose (mg/dL) 209 H 231 H (75-99) mg/dL Hemoglobin A1c (4.0-6.0) % Phosphorus 2.2 L (2.5-4.5) mg/dL Total Protein (6.3-8.2) g/dL Albumin (3.5-5.0) g/dL 07/21/21 07/21/21 07/21/21 Range/Units 20:32 21:33 22:23 ABG pH (7.35-7.45) ABG pCO2 (35-45) mmHg ABG HCO3 (21-25) mmol/L ABG Total CO2 (19-24) mmol/L Sodium (137-145) mmol/L Chloride (98-107) mmol/L Carbon Dioxide (22-30) mmol/L BUN (9-20) mg/dL Creatinine (0.66-1.25) mg/dL Glucose (74-99) mg/dL POC Glucose (mg/dL) 219 H 191 H 143 H (75-99) mg/dL Hemoglobin A1c (4.0-6.0) % Phosphorus (2.5-4.5) mg/dL Total Protein (6.3-8.2) g/dL Albumin (3.5-5.0) g/dL 07/21/21 07/21/21 07/22/21 Range/Units 22:49 23:34 00:25 ABG pH (7.35-7.45) ABG pCO2 (35-45) mmHg ABG HCO3 (21-25) mmol/L ABG Total CO2 (19-24) mmol/L Sodium 133 L (137-145) mmol/L Chloride 109 H (98-107) mmol/L Carbon Dioxide 17 L (22-30) mmol/L BUN (9-20) mg/dL Creatinine 0.46 L (0.66-1.25) mg/dL Glucose 128 H (74-99) mg/dL POC Glucose (mg/dL) 143 H 160 H (75-99) mg/dL Hemoglobin A1c (4.0-6.0) % Phosphorus 2.2 L (2.5-4.5) mg/dL Total Protein (6.3-8.2) g/dL Albumin (3.5-5.0) g/dL 07/22/21 07/22/21 07/22/21 Range/Units 01:34 05:39 06:44 ABG pH (7.35-7.45) ABG pCO2 (35-45) mmHg ABG HCO3 (21-25) mmol/L ABG Total CO2 (19-24) mmol/L Sodium 133 L (137-145) mmol/L Chloride (98-107) mmol/L Carbon Dioxide 20 L (22-30) mmol/L BUN 6 L (9-20) mg/dL Creatinine 0.50 L (0.66-1.25) mg/dL Glucose 209 H (74-99) mg/dL POC Glucose (mg/dL) 161 H 251 H (75-99) mg/dL Hemoglobin A1c (4.0-6.0) % Phosphorus 1.7 L (2.5-4.5) mg/dL Total Protein 5.4 L (6.3-8.2) g/dL Albumin 3.0 L (3.5-5.0) g/dL Microbiology - Last 24 Hours (Table) 07/21/21 06:45 Blood Culture - Preliminary Blood No Growth after 24 hours 07/21/21 06:32 Blood Culture - Preliminary Blood No Growth after 24 hours 07/21/21 16:00 Gram Stain - Preliminary Face Wound Culture - Preliminary 07/21/21 16:00 Anaerobic Culture - Preliminary Face Assessment and Plan (1) DKA (diabetic ketoacidosis) Current Visit: Yes Status: Acute Code(s): E11.10 - TYPE 2 DIABETES MELLITUS WITH KETOACIDOSIS WITHOUT COMA SNOMED Code(s): 335165132 (2) Facial abscess Current Visit: Yes Status: Acute Code(s): L02.01 - CUTANEOUS ABSCESS OF FACE SNOMED Code(s): 138546860 Plan: Await culture and sensitivity. Local wound care to the left cheek. He can follow-up with me as needed.
[2021-07-22] MEDS ORDERED: SODIUM CHLORIDE 0.45% 1,000 ML IV SCH (10:00)
[2021-07-22 12:24] LABS: Glucose,Whole Blood 189 mg/dL (75-99)
[2021-07-22 14:05] VITALS: BP 129/79; PULSE 78; RESP 18; TEMP 97.8
[2021-07-22 14:37] VITALS: BMI 20.3
--- NOTE | 2021-07-22 17:08 | P.PN ---
Subjective Progress Note Date: 07/22/21 (delayed charting seen at 0945) Principal diagnosis: left facial swelling Patient is a 30-year-old male for history of diabetes mellitus type 1, childhood asthma who presented to the ER with complaints of swelling of the left orbital area. In the ER he underwent extensive evaluation was diagnosed to get A. He was admitted with surgery consult. He was started on insulin drip for DKA protocol. Seen by Dr. Adrien meng underwent I&D. He has been transitioned off of his insulin drip and on to long-acting and sliding scale. Patient seen and examined at bedside. He states he is feeling fine. He denies any pain in his face. We discussed his needs for establishing a PCP, determining where he was given Astrid, needing insulin, as well as need to arrange for a glucometer. He became agitated and states "I know what I need to do" area and we also discussed that glucometer supplies to have an expiration date and test strips will not be accurate if they are be on the expiration date. He also reports he has been having lots of weight loss. General: non toxic, no distress, appears at stated age, thin and gaunt Derm: warm, dry, dressing and paced left infraorbital area with soap through. Eyes: EOMI, no lid lag, anicteric sclera Mouth: no lip lesion, mucus membranes moist Cardiovascular: S1S2 reg, no murmur, positive posterior tibial pulse bilateral, Lungs: CTA bilateral, no rhonchi, no rales , no accessory muscle use Abdominal: soft, nontender to palpation, no guarding, no appreciable organomegaly Ext: + gross muscle atrophy, no edema, no contractures Neuro: CN II-XI grossly intact, no focal neuro deficits Psych: Alert, oriented, appears agitated Assessment/Plan: DKA Diabetes mellitus type 1 Medical noncompliance -Continue with sliding scale insulin and long-acting insulin -Follow blood sugars -Change IV fluids to 0.45 normal saline -hemoglobin A1c 16.9 - establish outpatient PCP as well as insulin and glucometer supplies. Facial abscess status post I&D. -Await cultures -Continue with Unasyn Hypophosphatemia and hypomagnesemia -Replace -Recheck in a.m. Hyponatremia likely due to continued hyperglycemia and dehydration -Careful IV fluids -management of blood sugars After left the room I was informed by nursing that patient no longer wants to see me, Dr. Arora kindly accepted the patient to his service. Objective - Vital Signs Vital signs: Vital Signs Temp 97.8 F 07/22/21 14:05 Pulse 78 07/22/21 14:05 Resp 18 07/22/21 14:05 BP 129/79 07/22/21 14:05 Pulse Ox 86 L 07/22/21 14:05 Intake & Output 07/21/21 07/22/21 07/22/21 18:59 06:59 18:59 Intake Total 419.67 66.706 600 Output Total 2 Balance 417.67 66.706 600 Weight 68.039 kg 68.039 kg Intake: IV 400 Intake, IV Titration 19.67 66.706 Amount Insulin Regular 100 unit 19.67 66.706 In Sodium Chloride 0.9% 100 ml @ 0.1 UNITS/KG/HR 6.414 mls/hr IV .[id number] [facility] Rx#:[id number] Oral 600 Output: Estimated Blood Loss 2 Other: Voiding Method Toilet Toilet # Voids 1 - Labs CBC & Chem 7: 07/22/21 06:44 07/22/21 06:44 Labs: Abnormal Lab Results - Last 24 Hours (Table) 07/21/21 07/21/21 07/21/21 Range/Units 17:29 17:57 17:57 Sodium 131 L (137-145) mmol/L Chloride (98-107) mmol/L Carbon Dioxide 15 L (22-30) mmol/L BUN (9-20) mg/dL Creatinine 0.54 L (0.66-1.25) mg/dL Glucose 202 H (74-99) mg/dL POC Glucose (mg/dL) 153 H (75-99) mg/dL Hemoglobin A1c 16.9 H (4.0-6.0) % Phosphorus 2.2 L (2.5-4.5) mg/dL Total Protein (6.3-8.2) g/dL Albumin (3.5-5.0) g/dL 07/21/21 07/21/21 07/21/21 Range/Units 18:30 19:32 20:32 Sodium (137-145) mmol/L Chloride (98-107) mmol/L Carbon Dioxide (22-30) mmol/L BUN (9-20) mg/dL Creatinine (0.66-1.25) mg/dL Glucose (74-99) mg/dL POC Glucose (mg/dL) 209 H 231 H 219 H (75-99) mg/dL Hemoglobin A1c (4.0-6.0) % Phosphorus (2.5-4.5) mg/dL Total Protein (6.3-8.2) g/dL Albumin (3.5-5.0) g/dL 07/21/21 07/21/21 07/21/21 Range/Units 21:33 22:23 22:49 Sodium 133 L (137-145) mmol/L Chloride 109 H (98-107) mmol/L Carbon Dioxide 17 L (22-30) mmol/L BUN (9-20) mg/dL Creatinine 0.46 L (0.66-1.25) mg/dL Glucose 128 H (74-99) mg/dL POC Glucose (mg/dL) 191 H 143 H (75-99) mg/dL Hemoglobin A1c (4.0-6.0) % Phosphorus 2.2 L (2.5-4.5) mg/dL Total Protein (6.3-8.2) g/dL Albumin (3.5-5.0) g/dL 07/21/21 07/22/21 07/22/21 Range/Units 23:34 00:25 01:34 Sodium (137-145) mmol/L Chloride (98-107) mmol/L Carbon Dioxide (22-30) mmol/L BUN (9-20) mg/dL Creatinine (0.66-1.25) mg/dL Glucose (74-99) mg/dL POC Glucose (mg/dL) 143 H 160 H 161 H (75-99) mg/dL Hemoglobin A1c (4.0-6.0) % Phosphorus (2.5-4.5) mg/dL Total Protein (6.3-8.2) g/dL Albumin (3.5-5.0) g/dL 07/22/21 07/22/21 07/22/21 Range/Units 05:39 06:44 11:53 Sodium 133 L (137-145) mmol/L Chloride (98-107) mmol/L Carbon Dioxide 20 L (22-30) mmol/L BUN 6 L (9-20) mg/dL Creatinine 0.50 L (0.66-1.25) mg/dL Glucose 209 H (74-99) mg/dL POC Glucose (mg/dL) 251 H 189 H (75-99) mg/dL Hemoglobin A1c (4.0-6.0) % Phosphorus 1.7 L (2.5-4.5) mg/dL Total Protein 5.4 L (6.3-8.2) g/dL Albumin 3.0 L (3.5-5.0) g/dL Microbiology - Last 24 Hours (Table) 07/21/21 06:45 Blood Culture - Preliminary Blood No Growth after 24 hours 07/21/21 06:32 Blood Culture - Preliminary Blood No Growth after 24 hours 07/21/21 16:00 Gram Stain - Preliminary Face Wound Culture - Preliminary 07/21/21 16:00 Anaerobic Culture - Preliminary Face
[2021-07-22 17:10] LABS: Glucose,Whole Blood 396 mg/dL (75-99)
== END 2021-07-22 19:13 | disposition left against medical advice (07) | DRG 602 ==
LOC: EC 06:19 → 2SICU 08:13 → 3SCARD 10:59
PROVIDERS: ADMIT Hospitalist; ATTEND Hospitalist
PROC: 0H91XZZ Drainage of Face Skin, External Approach (ICD-10-PCS; principal; 2021-07-21 09:35)
DX: L02.01 Cutaneous abscess of face (principal); E10.10 Type 1 diabetes mellitus with ketoacidosis without coma; E87.1 Hypo-osmolality and hyponatremia; Z20.822 Contact with and (suspected) exposure to COVID-19; D75.1 Secondary polycythemia; E83.39 Other disorders of phosphorus metabolism; E83.42 Hypomagnesemia; E86.0 Dehydration; F17.210 Nicotine dependence, cigarettes, uncomplicated; F31.9 Bipolar disorder, unspecified; F43.10 Post-traumatic stress disorder, unspecified; J45.909 Unspecified asthma, uncomplicated; Z79.4 Long term (current) use of insulin; Z91.19 Patient's noncompliance with other medical treatment and regimen
CPT/HCPCS: 36415; 36600; 80048; 80051; 80053; 82009; 82565; 82803; 82805; 82947; 83036; 83605; 83735; 84100; 84520; 85025; 87040; 87070; 87075; 87205; 87635; 93005; 96365; 96366; 96367; 96375; 99285

== ENCOUNTER 2023-08-07 14:33 | Inpatient (IN) | payer OTHER ==
[2023-08-07] MEDS: SODIUM CHLORIDE 0.9% 500 ML 500 ML IV SCH ×3 (15:00→16:00)
[2023-08-07 15:01] LABS: Glucose,Whole Blood 585 mg/dL (70-110); Glucose,Whole Blood 596 mg/dL (70-110)
[2023-08-07] MEDS ORDERED: VANCOMYCIN IV PER PHARMACY 1 EACH MISC MISCELLANE PRN (15:12)
[2023-08-07] MEDS ORDERED: AMPICILLIN-SULBACTAM 3 GM in SODIUM CHLORIDE 0.9% 100 ML IVPB STA (15:13)
--- NOTE | 2023-08-07 15:17 | ED ---
General Adult HPI - General Chief complaint: Recheck/Abnormal Lab/Rx Stated complaint: hyperglycemic Time Seen by Provider: 08/07/23 14:49 Source: patient, EMS, RN notes reviewed Mode of arrival: EMS Limitations: no limitations - History of Present Illness Initial comments: Patient is a pleasant 32-year-old male presenting to the emergency department [facility] for not feeling well. Patient states he has not been feeling well for the past few days. Patient is a poor historian. Patient reportedly has been noncompliant with his diabetic medication as well as bipolar medication. Patient omits to feeling dry and thirsty. Patient is unclear what his blood sugars were at home. - Related Data Previous Rx's Medication Instructions Recorded INSULIN ASPART (NovoLOG) [NovoLOG 12 unit SQ ACHS 30 Days #6 each 02/10/23 (formulary)] Insulin Detemir (Levemir) [Levemir] 20 unit SQ BID@0700,2100 30 Days 02/10/23 #5 each Allergies Allergy/AdvReac Type Severity Reaction Status Date / Time No Known Allergies Allergy Verified 08/07/23 14:46 Review of Systems ROS Statement: Those systems with pertinent positive or pertinent negative responses have been documented in the HPI. ROS Other: All systems not noted in ROS Statement are negative. Respiratory: Denies: cough, dyspnea Endocrine: Reports: fatigue Gastrointestinal: Denies: vomiting Past Medical History Past Medical History: Diabetes Mellitus Additional Past Medical History / Comment(s): Type 1 DM, childhood asthma, OCD History of Any Multi-Drug Resistant Organisms: None Reported Past Surgical History: No Surgical Hx Reported Past Anesthesia/Blood Transfusion Reactions: Unable to Obtain Past Psychological History: Anxiety, Bipolar, Depression, PTSD Smoking Status: Current every day smoker Past Alcohol Use History: None Reported Past Drug Use History: Marijuana General Exam Limitations: no limitations General appearance: alert, cachectic Head exam: Present: normocephalic Eye exam: Present: normal appearance ENT exam: Present: mucous membranes dry Neck exam: Present: normal inspection Respiratory exam: Present: normal lung sounds bilaterally Cardiovascular Exam: Present: regular rate, normal rhythm GI/Abdominal exam: Present: soft. Absent: tenderness Extremities exam: Present: normal inspection Neurological exam: Present: alert Psychiatric exam: Present: flat affect Skin exam: Present: normal color Course Vital Signs 08/07/23 08/07/23 08/07/23 14:41 16:04 16:24 Temperature 88.7 F L Pulse Rate 80 76 Respiratory 22 20 Rate Blood Pressure 125/75 125/84 O2 Sat by Pulse 100 99 Oximetry EKG Findings - EKG Results: EKG: interpreted by TIMD (Artifact present. Normal QRS. Nonspecific T waves), sinus rhythm, normal axis Medical Decision Making - Medical Decision Making Was pt. sent in by a medical professional or institution (, PA, FEED INSPECTION SUPERVISOR, urgent care, hospital, or [place] health care facility...) When possible be specific @ -No Did you speak to anyone other than the patient for history (EMS, parent, family, police, friend...)? What history was obtained from this source @ -EMS provides history as patient is a poor historian Did you review nursing and triage notes (agree or disagree)? Why? @ -I reviewed and agree with nursing and triage notes Were old charts reviewed (outside hosp., previous admission, EMS record, old EKG, old radiological studies, urgent care reports/EKG's, [place] health care facility records)? Report findings @ -No old charts were reviewed Differential Diagnosis (chest pain, altered mental status, abdominal pain women, abdominal pain men, vaginal bleeding, weakness, fever, dyspnea, syncope, hea dache, dizziness, GI bleed, back pain, seizure, CVA, palpatations, mental health, musculoskeletal)? @ -Differential Weakness: Hypoglycemia, shock, sepsis, hyponatremia, anemia, infection, FL, ETOH, adverse medicine reaction, overdose, stroke, this is not meant to be an all-inclusive list. EKG interpreted by me (3pts min.). @ -As above X-rays interpreted by me (1pt min.). @ -Chest x-ray without acute abnormality. CT interpreted by me (1pt min.). @ -None done U/S interpreted by me (1pt. min.). @ -None done What testing was considered but not performed or refused? (CT, X-rays, U/S, labs)? Why? @ -None What meds were considered but not given or refused? Why? @ -None Did you discuss the management of the patient with other professionals (professionals i.e. , HIMANSHU, FEED INSPECTION SUPERVISOR, lab, RT, psych nurse, social media content specialist, cell tester, teacher, svp chief marketing officer, case management assistant)? Give summary @ -Case was discussed with practitioner Libai Talavera, who will admit coming hospital call. Case also discussed with Dr. steward will accept patient if there is available room. Was smoking cessation discussed for >3mins.? @ -No Was critical care preformed (if so, how long)? @ -33 minutes critical care time Were there social determinants of health that impacted care today? How? (Homelessness, low income, unemployed, alcoholism, drug addiction, transportation, low edu. Level, literacy, decrease access to med. care, [facility], rehab)? @ -No Was there de-escalation of care discussed even if they declined (Discuss DNR or withdrawal of care, Hospice)? DNR status @ -No What co-morbidities impacted this encounter? (DM, HTN, Smoking, COPD, CAD, Cancer, CVA, ARF, Chemo, Hep., AIDS, mental health diagnosis, sleep apnea, morbid obesity)? @ -None Was patient admitted / discharged? Hospital course, mention meds given and route, prescriptions, significant lab abnormalities, going to OR and other pertinent info. @ -Patient presents with DKA and sepsis and mastoiditis. Patient will be admitted with IV antibiotics and DKA protocol. Admission orders written. Undiagnosed new problem with uncertain prognosis? @ -No Drug Therapy requiring intensive monitoring for toxicity (Heparin, Nitro, Insulin, Cardizem)? @ -No Were any procedures done? @ -No Diagnosis/symptom? @ -Sepsis, DKA, mastoiditis Acute, or Chronic, or Acute on Chronic? @ -Acute, acute, acute Uncomplicated (without systemic symptoms) or Complicated (systemic symptoms)? @ -Complicated with hypothermia Side effects of treatment? @ -No Exacerbation, Progression, or Severe Exacerbation? @ -No Poses a threat to life or bodily function? How? (Chest pain, USA, FL, pneumonia, PE, COPD, DKA, ARF, appy, cholecystitis, CVA, Diverticulitis, Homicidal, Suicidal, threat to staff... and all critical care pts) @ -No - Lab Data Result diagrams: 08/07/23 15:15 08/07/23 15:15 Lab Results 08/07/23 08/07/23 08/07/23 Range/Units 14:54 14:54 15:15 WBC 27.6 H (3.8-10.6) k/uL RBC 5.26 (4.30-5.90) m/uL Hgb 16.7 (13.0-17.5) gm/dL Hct 52.4 (39.0-53.0) % MCV 99.6 (80.0-100.0) fL MCH 31.8 (25.0-35.0) pg MCHC 31.9 (31.0-37.0) g/dL RDW 12.8 (11.5-15.5) % Plt Count 380 (150-450) k/uL MPV 10.0 Neutrophils % 86 % Lymphocytes % 6 % Monocytes % 7 % Eosinophils % 0 % Basophils % 1 % Neutrophils # 23.8 H (1.3-7.7) k/uL Lymphocytes # 1.5 (1.0-4.8) k/uL Monocytes # 1.8 H (0-1.0) k/uL Eosinophils # 0.1 (0-0.7) k/uL Basophils # 0.2 (0-0.2) k/uL Manual Slide Review Performed Hypochromasia Marked Sodium (137-145) mmol/L Potassium (3.5-5.1) mmol/L Chloride (98-107) mmol/L Carbon Dioxide (22-30) mmol/L Anion Gap mmol/L BUN (9-20) mg/dL Creatinine (0.66-1.25) mg/dL Est GFR (CKD-EPI)AfAm (>60 ml/min/1.73 sqM) Est GFR (CKD-EPI)NonAf (>60 ml/min/1.73 sqM) Glucose (74-99) mg/dL POC Glucose (mg/dL) 585 H 596 H (70-110) mg/dL POC Glu Manager Database Adriana Quigley Maison Plasma Lactic Acid Son (0.7-2.0) mmol/L Calcium (8.4-10.2) mg/dL Total Bilirubin (0.2-1.3) mg/dL AST (17-59) U/L ALT (4-49) U/L Alkaline Phosphatase (38-126) U/L Total Protein (6.3-8.2) g/dL Albumin (3.5-5.0) g/dL Acetone, Qual (Negative) 08/07/23 08/07/23 Range/Units 15:15 15:15 WBC (3.8-10.6) k/uL RBC (4.30-5.90) m/uL Hgb (13.0-17.5) gm/dL Hct (39.0-53.0) % MCV (80.0-100.0) fL MCH (25.0-35.0) pg MCHC (31.0-37.0) g/dL RDW (11.5-15.5) % Plt Count (150-450) k/uL MPV Neutrophils % % Lymphocytes % % Monocytes % % Eosinophils % % Basophils % % Neutrophils # (1.3-7.7) k/uL Lymphocytes # (1.0-4.8) k/uL Monocytes # (0-1.0) k/uL Eosinophils # (0-0.7) k/uL Basophils # (0-0.2) k/uL Manual Slide Review Hypochromasia Sodium 124 L (137-145) mmol/L Potassium 6.1 H* (3.5-5.1) mmol/L Chloride 91 L (98-107) mmol/L Carbon Dioxide <5 L* (22-30) mmol/L Anion Gap mmol/L BUN 35 H (9-20) mg/dL Creatinine 1.43 H (0.66-1.25) mg/dL Est GFR (CKD-EPI)AfAm 75 (>60 ml/min/1.73 sqM) Est GFR (CKD-EPI)NonAf 65 (>60 ml/min/1.73 sqM) Glucose 623 H* (74-99) mg/dL POC Glucose (mg/dL) (70-110) mg/dL POC Glu Manager Database ID Plasma Lactic Acid Son 1.4 (0.7-2.0) mmol/L Calcium 9.8 (8.4-10.2) mg/dL Total Bilirubin 0.5 (0.2-1.3) mg/dL AST 36 (17-59) U/L ALT 13 (4-49) U/L Alkaline Phosphatase 198 H (38-126) U/L Total Protein 7.0 (6.3-8.2) g/dL Albumin 4.2 (3.5-5.0) g/dL Acetone, Qual Positive (Negative) Critical Care Time Critical Care Time: Yes Total Critical Care Time: 33 Disposition Clinical Impression: DKA (diabetic ketoacidosis), Mastoiditis, Sepsis Disposition: ADMITTED IP TO THIS HOSP Condition: Critical Is patient prescribed a controlled substance at d/c from ED?: No Referrals: None,Stated [Primary Care Provider] - 1-2 days Time of Disposition: 17:00
[2023-08-07] MEDS ORDERED: VANCOMYCIN 1,000 MG in SODIUM CHLORIDE 0.9% 250 ML IVPB STA (15:19)
[2023-08-07 15:54] LABS: ALT 13 U/L (4-49); AST 36 U/L (17-59); African American GFR (CKD) 75 (>60 ml/min/1.73 sqM); Albumin 4.2 g/dL (3.5-5.0); Alkaline Phosphatase 198 U/L (38-126); Blood Urea Nitrogen 35 mg/dL (9-20); Calcium 9.8 mg/dL (8.4-10.2); Chloride 91 mmol/L (98-107); Non-African American GFR(CKD) 65 (>60 ml/min/1.73 sqM); Sodium 124 mmol/L (137-145); Total Bilirubin 0.5 mg/dL (0.2-1.3)
[2023-08-07] MEDS: SODIUM CHLORIDE 0.9% 1,000 ML IV SCH ×4 (16:01→23:10)
[2023-08-07 16:11] LABS: Basophils # (A) 0.2 k/uL (0-0.2); Basophils % (A) 1 %; Eosinophils # (A) 0.1 k/uL (0-0.7); Eosinophils % (A) 0 %; HCT 52.4 % (39.0-53.0); HGB 16.7 gm/dL (13.0-17.5); Hypochromasia Marked; Lymphocytes # (A) 1.5 k/uL (1.0-4.8); Lymphocytes % (A) 6 %; MCH 31.8 pg (25.0-35.0); MCHC 31.9 g/dL (31.0-37.0); MCV 99.6 fL (80.0-100.0); Monocytes # (A) 1.8 k/uL (0-1.0); Monocytes % (A) 7 %; Neutrophils # (A) 23.8 k/uL (1.3-7.7); Neutrophils % (A) 86 %; Platelet Count 380 k/uL (150-450); RBC 5.26 m/uL (4.30-5.90); RDW 12.8 % (11.5-15.5); WBC 27.6 k/uL (3.8-10.6)
[2023-08-07 16:13] LABS: Carbon Dioxide <5 mmol/L (22-30); Glucose 623 mg/dL (74-99); Potassium 6.1 mmol/L (3.5-5.1)
[2023-08-07] MEDS ORDERED: SODIUM CHLORIDE 0.9% 1,000 ML IV ONE (17:00)
[2023-08-07] MEDS ORDERED: INSULIN REGULAR BOLUS (FROM DRIP BAG) IV ONE (17:00)
[2023-08-07 17:07] LABS: Partial Thromboplastin Time 32.4 sec (22.0-30.0); Prothrombin Time 11.2 sec (10.0-12.5)
[2023-08-07 17:08] LABS: Appearance,Urine Cloudy (Clear); Bacteria,Urine Rare /hpf; Bilirubin,Urine Negative (Negative); Blood,Urine Moderate (Negative); Color,Urine Colorless; Glucose,Urine (UA) 4+ (Negative); Hyaline Casts,Urine 1 /lpf (0-2); Leukocyte Esterase,Urine Negative (Negative); Mucus,Urine Rare /hpf; Nitrite,Urine Negative (Negative); Protein,Urine 1+ (Negative); RBC,Urine 1 /hpf (0-5); Specific Gravity,Urine 1.015 (1.001-1.035); Squamous Epithelial Cell,Urine 1 /hpf (0-4); Urobilinogen,Urine <2.0 mg/dL (<2.0); WBC,Urine 4 /hpf (0-5)
[2023-08-07 17:13] LABS: Ketones,Urine 3+ (Negative)
--- NOTE | 2023-08-07 17:16 | XR ---
EXAMINATION TYPE: XR chest 1V portable DATE OF EXAM: 08/07/2023 COMPARISON: 04/16/2011 INDICATION: Fever and altered mental status TECHNIQUE: Single frontal view of the chest is obtained. FINDINGS: The heart size is normal. The pulmonary vasculature is normal. The lungs are clear. IMPRESSION: 1. No acute pulmonary process.
[2023-08-07] MEDS: INSULIN REGULAR 100 UNIT in SODIUM CHLORIDE 0.9% 100 ML IV SCH (17:31)
[2023-08-07 18:51] LABS: Glucose,Whole Blood 452 mg/dL (70-110)
[2023-08-07 19:34] LABS: Glucose,Whole Blood 431 mg/dL (70-110)
[2023-08-07 20:32] LABS: Glucose,Whole Blood 363 mg/dL (70-110)
[2023-08-07 20:42] LABS: African American GFR (CKD) >90 (>60 ml/min/1.73 sqM); Blood Urea Nitrogen 34 mg/dL (9-20); Chloride 102 mmol/L (98-107); Glucose 443 mg/dL (74-99); Non-African American GFR(CKD) >90 (>60 ml/min/1.73 sqM); Potassium 5.1 mmol/L (3.5-5.1); Sodium 128 mmol/L (137-145)
[2023-08-07 20:56] LABS: Carbon Dioxide <5 mmol/L (22-30)
[2023-08-07 21:35] LABS: Glucose,Whole Blood 405 mg/dL (70-110)
[2023-08-07 22:35] LABS: Glucose,Whole Blood 294 mg/dL (70-110)
[2023-08-07] MEDS: D5-0.45% NACL WITH KCL 20MEQ/L 1,000 ML IV SCH (22:49)
[2023-08-07 23:32] LABS: Glucose,Whole Blood 283 mg/dL (70-110)
[2023-08-08 00:37] LABS: Glucose,Whole Blood 250 mg/dL (70-110)
[2023-08-08 00:41] LABS: African American GFR (CKD) >90 (>60 ml/min/1.73 sqM); Blood Urea Nitrogen 33 mg/dL (9-20); Chloride 105 mmol/L (98-107); Glucose 280 mg/dL (74-99); Non-African American GFR(CKD) >90 (>60 ml/min/1.73 sqM); Potassium 4.5 mmol/L (3.5-5.1); Sodium 130 mmol/L (137-145)
[2023-08-08 01:07] LABS: Carbon Dioxide <5 mmol/L (22-30)
[2023-08-08 02:02] LABS: Glucose,Whole Blood 218 mg/dL (70-110)
[2023-08-08] MEDS: SODIUM CHLORIDE 0.9% 1,000 ML IV SCH ×5 (02:30→21:25)
[2023-08-08 02:36] LABS: Glucose,Whole Blood 211 mg/dL (70-110)
[2023-08-08] MEDS: AMPICILLIN-SULBACTAM 1.5 GM in SODIUM CHLORIDE 0.9% 50 ML IVPB SCH ×2 (02:36→05:34)
[2023-08-08 03:40] LABS: Glucose,Whole Blood 221 mg/dL (70-110)
[2023-08-08 04:45] LABS: Glucose,Whole Blood 195 mg/dL (70-110)
[2023-08-08] MEDS: D5-0.45% NACL WITH KCL 20MEQ/L 1,000 ML IV SCH ×3 (04:50→20:34)
[2023-08-08 05:36] LABS: Glucose,Whole Blood 157 mg/dL (70-110)
[2023-08-08 06:33] LABS: Glucose,Whole Blood 137 mg/dL (70-110)
[2023-08-08] MEDS: INSULIN REGULAR 100 UNIT in SODIUM CHLORIDE 0.9% 100 ML IV SCH (06:45)
[2023-08-08 07:57] LABS: Glucose,Whole Blood 136 mg/dL (70-110)
[2023-08-08 09:00] LABS: Glucose,Whole Blood 130 mg/dL (70-110)
[2023-08-08] MEDS ORDERED: VANCOMYCIN 1,000 MG in SODIUM CHLORIDE 0.9% 250 ML IVPB SCH (09:00)
[2023-08-08 09:42] LABS: Basophils # (A) 0.1 k/uL (0-0.2); Basophils % (A) 0 %; Eosinophils % (A) 0 %; HCT 42.3 % (39.0-53.0); HGB 14.6 gm/dL (13.0-17.5); Lymphocytes # (A) 1.1 k/uL (1.0-4.8); Lymphocytes % (A) 6 %; MCHC 34.5 g/dL (31.0-37.0); Mean Platelet Volume 8.6; Monocytes # (A) 1.1 k/uL (0-1.0); Monocytes % (A) 7 %; Neutrophils # (A) 14.6 k/uL (1.3-7.7); Neutrophils % (A) 86 %; Platelet Count 293 k/uL (150-450); RBC 4.88 m/uL (4.30-5.90); RDW 13.4 % (11.5-15.5)
[2023-08-08 09:44] LABS: African American GFR (CKD) >90 (>60 ml/min/1.73 sqM); Anion Gap 13 mmol/L; Blood Urea Nitrogen 27 mg/dL (9-20); Calcium 9.3 mg/dL (8.4-10.2); Carbon Dioxide 11 mmol/L (22-30); Chloride 109 mmol/L (98-107); Glucose 145 mg/dL (74-99); Non-African American GFR(CKD) >90 (>60 ml/min/1.73 sqM); Phosphorus 1.4 mg/dL (2.5-4.5); Potassium 3.8 mmol/L (3.5-5.1); Sodium 133 mmol/L (137-145)
[2023-08-08 09:45] LABS: MCV 86.8 fL (80.0-100.0)
[2023-08-08 11:03] LABS: Glucose,Whole Blood 129 mg/dL (70-110)
--- NOTE | 2023-08-08 11:20 | P.HPIM ---
History of Present Illness This is a pleasant 32 years old male with past medical history of diabetes mellitus Presents because he was not compliant with his diabetes medication for unknown reasons, he was sitting in bed for the last 3 days and not eating well. And patient with evidence of sepsis and mastoiditis with possible ups is behind his right ear. When asked the patient why he was not taking his medication he could not give reason. He declines financial difficulty, he declines depression or suicidal/homicidal ideation or hallucination. However the patient looks withdrawn and their suspicion of bipolar disorder and emergency room staff. Patient was hypothermic on admission were temperature was 9-19.7, currently 98. He is tachycardic with heart rate around 117 and tachypnea, 21 and blood pressure 103/66. Admission patient has leukocytosis of 27,000 came back to 17,000 Carbon dioxide was low less than 5 and creatinine was elevated at 1.07 came down to 0.5. Urine analysis showed concentric is sampled with questionable for glucosuria and ketonuria Chest x-rays negative for acute processes. EKG showing sinus rhythm at [address]-T changes and QTC 407. Patient started on IV vancomycin and Unasyn, is on IV hydration D5 normal saline at 1:30 and insulin drip per protocol. He was admitted with ID and ENT consult Review of Systems Review of systems CONSTITUTIONAL: No fever, no malaise, no fatigue. HEENT: No recent visual problems or hearing problems. Denied any sore throat. CARDIOVASCULAR: No orthopnea, PND, no palpitations, no syncope. PULMONARY: No shortness of breath, no cough, no hemoptysis. GASTROINTESTINAL: No diarrhea, no nausea, no vomiting, no abdominal pain. Normoactive bowel sounds. NEUROLOGICAL: No headaches, no weakness, no numbness. HEMATOLOGICAL: Denies any bleeding or petechiae. GENITOURINARY: Denies any burning micturition, frequency, or urgency. MUSCULOSKELETAL/RHEUMATOLOGICAL: Denies any joint pain, swelling, or any muscle pain. ENDOCRINE: Denies any polyuria or polydipsia. Past Medical History Past Medical History: Diabetes Mellitus Additional Past Medical History / Comment(s): Type 1 DM, childhood asthma, OCD History of Any Multi-Drug Resistant Organisms: None Reported Past Surgical History: No Surgical Hx Reported Past Anesthesia/Blood Transfusion Reactions: Unable to Obtain Past Psychological History: Anxiety, Bipolar, Depression, PTSD Smoking Status: Current every day smoker Past Alcohol Use History: None Reported Past Drug Use History: Marijuana Medications and Allergies Home Medications Medication Instructions Recorded Confirmed Type Mupirocin 2% Oint [Bactroban 2% 1 applic TOPICAL TID 08/07/23 08/07/23 History Oint] Sulfamethox-Tmp 800-160Mg [Bactrim 1 tab PO BID 08/07/23 08/07/23 History DS 800-160 mg] Allergies Allergy/AdvReac Type Severity Reaction Status Date / Time No Known Allergies Allergy Verified 08/07/23 17:37 Physical Exam Vitals: Vital Signs Temp Pulse Resp BP Pulse Ox 08/08/23 09:22 117 H 21 128/75 98 08/08/23 08:16 98.0 F 122 H 19 108/72 99 08/08/23 06:34 99.0 F 123 H 22 116/79 98 08/08/23 05:08 124 H 24 119/81 97 08/08/23 04:02 98.4 F 123 H 22 122/78 98 08/08/23 02:00 97.2 F L 120 H 22 113/74 98 08/07/23 23:00 94.1 F L 106 H 20 103/66 98 08/07/23 22:00 105 H 20 101/66 98 08/07/23 21:00 89 20 107/66 98 08/07/23 20:30 92.3 F L 89 18 107/66 99 08/07/23 19:02 90.7 F L 82 18 110/81 99 08/07/23 17:42 90.1 F L 84 18 131/79 100 08/07/23 16:24 88.7 F L 08/07/23 16:04 76 20 125/84 99 08/07/23 14:41 80 22 125/75 100 Intake and Output 08/07/23 08/08/23 08/08/23 22:59 06:59 14:59 Intake Total 2026.955 57.336 316.716 Output Total 2291 100 Balance -264.045 57.336 216.716 Intake: IV 300 D5-0.45% NaCl with KCl 300 20Meq/l 1,000 ml @ 150 mls/hr IV .Q6H40M [facility] Rx# :[id number] Intake, IV Titration 1826.955 57.336 16.716 Amount Ampicillin-Sulbactam 1.5 50 gm In Sodium Chloride 0.9 % 50 ml @ 100 mls/hr IVPB Q6HR [facility] Rx#:[id number] Insulin Regular 100 unit 26.955 57.336 16.716 In Sodium Chloride 0.9% 100 ml @ 0.1 UNITS/KG/HR 5.268 mls/hr IV .[id number] [facility] Rx#:[id number] Sodium Chloride 0.9% 1, 1000 000 ml @ 500 mls/hr IV . Q2H [facility] Rx#:[id number] Sodium Chloride 0.9% 500 500 ml 500 ml @ 1000 mls/hr IV Q35M [facility] Rx#:[id number] Vancomycin 1,000 mg In 250 Sodium Chloride 0.9% 250 ml @ 125 mls/hr IVPB Q16H [facility] Rx#:[id number] Oral 200 Output: Urine 1500 100 Post Void Residual 791 GENERAL: The patient is alert and oriented x3, not in any acute distress. Well developed, well nourished. -HEENT: Pupils are round and equally reacting to light. EOMI. No scleral icterus. No conjunctival pallor. Normocephalic, atraumatic. No pharyngeal erythema. No thyromegaly. Patient has fluctuant area about 2 x 1.5" in dye metered behind his right ear with dried purulent discharge in the middle CARDIOVASCULAR: S1 and S2 present. No murmurs, rubs, or gallops. PULMONARY: Chest is clear to auscultation, no wheezing , no crackles. ABDOMEN: Soft, nontender, nondistended, normoactive bowel sounds. No palpable organomegaly. MUSCULOSKELETAL: No joint swelling or deformity. EXTREMITIES: No cyanosis, clubbing, or pedal edema. NEUROLOGICAL: Gross neurological examination did not reveal any focal deficits. SKIN: No rashes. no petechiae. Results CBC & Chem 7: 08/08/23 08:45 08/08/23 08:45 Labs: Abnormal Lab Results - Last 24 Hours (Table) 08/07/23 08/07/23 08/07/23 Range/Units 14:54 14:54 15:15 WBC 27.6 H (3.8-10.6) k/uL Neutrophils # 23.8 H (1.3-7.7) k/uL Monocytes # 1.8 H (0-1.0) k/uL APTT (22.0-30.0) sec Sodium (137-145) mmol/L Potassium (3.5-5.1) mmol/L Chloride (98-107) mmol/L Carbon Dioxide (22-30) mmol/L BUN (9-20) mg/dL Creatinine (0.66-1.25) mg/dL Glucose (74-99) mg/dL POC Glucose (mg/dL) 585 H 596 H (70-110) mg/dL Phosphorus (2.5-4.5) mg/dL Alkaline Phosphatase (38-126) U/L Urine Protein (Negative) Urine Glucose (UA) (Negative) Urine Ketones (Negative) Urine Blood (Negative) Urine Bacteria (None) /hpf Urine Mucus (None) /hpf 08/07/23 08/07/23 08/07/23 Range/Units 15:15 15:15 16:24 WBC (3.8-10.6) k/uL Neutrophils # (1.3-7.7) k/uL Monocytes # (0-1.0) k/uL APTT 32.4 H (22.0-30.0) sec Sodium 124 L (137-145) mmol/L Potassium 6.1 H* (3.5-5.1) mmol/L Chloride 91 L (98-107) mmol/L Carbon Dioxide <5 L* (22-30) mmol/L BUN 35 H (9-20) mg/dL Creatinine 1.43 H (0.66-1.25) mg/dL Glucose 623 H* (74-99) mg/dL POC Glucose (mg/dL) (70-110) mg/dL Phosphorus (2.5-4.5) mg/dL Alkaline Phosphatase 198 H (38-126) U/L Urine Protein 1+ H (Negative) Urine Glucose (UA) 4+ H (Negative) Urine Ketones 3+ H (Negative) Urine Blood Moderate H (Negative) Urine Bacteria Rare H (None) /hpf Urine Mucus Rare H (None) /hpf 08/07/23 08/07/23 08/07/23 Range/Units 18:50 19:32 19:53 WBC (3.8-10.6) k/uL Neutrophils # (1.3-7.7) k/uL Monocytes # (0-1.0) k/uL APTT (22.0-30.0) sec Sodium 128 L (137-145) mmol/L Potassium (3.5-5.1) mmol/L Chloride (98-107) mmol/L Carbon Dioxide <5 L* (22-30) mmol/L BUN 34 H (9-20) mg/dL Creatinine (0.66-1.25) mg/dL Glucose 443 H (74-99) mg/dL POC Glucose (mg/dL) 452 H 431 H (70-110) mg/dL Phosphorus (2.5-4.5) mg/dL Alkaline Phosphatase (38-126) U/L Urine Protein (Negative) Urine Glucose (UA) (Negative) Urine Ketones (Negative) Urine Blood (Negative) Urine Bacteria (None) /hpf Urine Mucus (None) /hpf 08/07/23 08/07/23 08/07/23 Range/Units 20:31 21:34 22:34 WBC (3.8-10.6) k/uL Neutrophils # (1.3-7.7) k/uL Monocytes # (0-1.0) k/uL APTT (22.0-30.0) sec Sodium (137-145) mmol/L Potassium (3.5-5.1) mmol/L Chloride (98-107) mmol/L Carbon Dioxide (22-30) mmol/L BUN (9-20) mg/dL Creatinine (0.66-1.25) mg/dL Glucose (74-99) mg/dL POC Glucose (mg/dL) 363 H 405 H 294 H (70-110) mg/dL Phosphorus (2.5-4.5) mg/dL Alkaline Phosphatase (38-126) U/L Urine Protein (Negative) Urine Glucose (UA) (Negative) Urine Ketones (Negative) Urine Blood (Negative) Urine Bacteria (None) /hpf Urine Mucus (None) /hpf 08/07/23 08/07/23 08/08/23 Range/Units 23:30 23:55 00:36 WBC (3.8-10.6) k/uL Neutrophils # (1.3-7.7) k/uL Monocytes # (0-1.0) k/uL APTT (22.0-30.0) sec Sodium 130 L (137-145) mmol/L Potassium (3.5-5.1) mmol/L Chloride (98-107) mmol/L Carbon Dioxide <5 L* (22-30) mmol/L BUN 33 H (9-20) mg/dL Creatinine (0.66-1.25) mg/dL Glucose 280 H (74-99) mg/dL POC Glucose (mg/dL) 283 H 250 H (70-110) mg/dL Phosphorus (2.5-4.5) mg/dL Alkaline Phosphatase (38-126) U/L Urine Protein (Negative) Urine Glucose (UA) (Negative) Urine Ketones (Negative) Urine Blood (Negative) Urine Bacteria (None) /hpf Urine Mucus (None) /hpf 08/08/23 08/08/23 08/08/23 Range/Units 02:00 02:35 03:38 WBC (3.8-10.6) k/uL Neutrophils # (1.3-7.7) k/uL Monocytes # (0-1.0) k/uL APTT (22.0-30.0) sec Sodium (137-145) mmol/L Potassium (3.5-5.1) mmol/L Chloride (98-107) mmol/L Carbon Dioxide (22-30) mmol/L BUN (9-20) mg/dL Creatinine (0.66-1.25) mg/dL Glucose (74-99) mg/dL POC Glucose (mg/dL) 218 H 211 H 221 H (70-110) mg/dL Phosphorus (2.5-4.5) mg/dL Alkaline Phosphatase (38-126) U/L Urine Protein (Negative) Urine Glucose (UA) (Negative) Urine Ketones (Negative) Urine Blood (Negative) Urine Bacteria (None) /hpf Urine Mucus (None) /hpf 08/08/23 08/08/23 08/08/23 Range/Units 04:43 05:35 06:30 WBC (3.8-10.6) k/uL Neutrophils # (1.3-7.7) k/uL Monocytes # (0-1.0) k/uL APTT (22.0-30.0) sec Sodium (137-145) mmol/L Potassium (3.5-5.1) mmol/L Chloride (98-107) mmol/L Carbon Dioxide (22-30) mmol/L BUN (9-20) mg/dL Creatinine (0.66-1.25) mg/dL Glucose (74-99) mg/dL POC Glucose (mg/dL) 195 H 157 H 137 H (70-110) mg/dL Phosphorus (2.5-4.5) mg/dL Alkaline Phosphatase (38-126) U/L Urine Protein (Negative) Urine Glucose (UA) (Negative) Urine Ketones (Negative) Urine Blood (Negative) Urine Bacteria (None) /hpf Urine Mucus (None) /hpf 08/08/23 08/08/23 08/08/23 Range/Units 07:56 08:45 08:45 WBC 17.0 H (3.8-10.6) k/uL Neutrophils # 14.6 H (1.3-7.7) k/uL Monocytes # 1.1 H (0-1.0) k/uL APTT (22.0-30.0) sec Sodium 133 L (137-145) mmol/L Potassium (3.5-5.1) mmol/L Chloride 109 H (98-107) mmol/L Carbon Dioxide 11 L (22-30) mmol/L BUN 27 H (9-20) mg/dL Creatinine 0.53 L (0.66-1.25) mg/dL Glucose 145 H (74-99) mg/dL POC Glucose (mg/dL) 136 H (70-110) mg/dL Phosphorus 1.4 L (2.5-4.5) mg/dL Alkaline Phosphatase (38-126) U/L Urine Protein (Negative) Urine Glucose (UA) (Negative) Urine Ketones (Negative) Urine Blood (Negative) Urine Bacteria (None) /hpf Urine Mucus (None) /hpf 08/08/23 08/08/23 Range/Units 08:59 11:01 WBC (3.8-10.6) k/uL Neutrophils # (1.3-7.7) k/uL Monocytes # (0-1.0) k/uL APTT (22.0-30.0) sec Sodium (137-145) mmol/L Potassium (3.5-5.1) mmol/L Chloride (98-107) mmol/L Carbon Dioxide (22-30) mmol/L BUN (9-20) mg/dL Creatinine (0.66-1.25) mg/dL Glucose (74-99) mg/dL POC Glucose (mg/dL) 130 H 129 H (70-110) mg/dL Phosphorus (2.5-4.5) mg/dL Alkaline Phosphatase (38-126) U/L Urine Protein (Negative) Urine Glucose (UA) (Negative) Urine Ketones (Negative) Urine Blood (Negative) Urine Bacteria (None) /hpf Urine Mucus (None) /hpf Assessment and Plan Assessment: mastoiditis with right post auricular abscess Sepsis, present on admission with hyperthermia, leukocytosis and tachypnea tachycardia None adherent to his medication Diabetic ketoacidosis Diabetes mellitus with hyperglycemiaContinue with IV hydration Plan: Continue with antibiotics Unasyn and IV vancomycin Follow-up culture results Continue with IV hydration Infectious disease consult ENT consult Critical care team consult Consult psychiatrist because patient was not taking medication Labs and medication were reviewed.. Continue same treatment. Continue with symptomatic treatment. Resume home medication. Monitor labs and vitals. DVT and GI prophylaxis. Further recommendations as per clinical course of the patient DVT prophylaxis: Subcutaneous heparin GI Prophylaxis: Pepcid Prognosis is guarded
--- NOTE | 2023-08-08 11:48 | P.CNPUL ---
History of Present Illness Consult date: 08/08/23 Requesting physician: Randal Barker Reason for consult: other (Critical care management) Chief complaint: Generalized weakness, dehydration History of present illness: This is a 32-year-old male patient with a known history of type 1 diabetes mellitus, anxiety/depression, bipolar disorder, PTSD, chronic and ongoing tobacco dependence. He presented here to the emergency room yesterday with a 2- 3 day history of not feeling well. Poor appetite. Feeling dry and thirsty. He admitted to being noncompliant with his diabetes medication as well as his bipolar medications. Presenting labs revealed a white count of 27.6. Sodium 130. Potassium 4.5. Bicarb less than 5. Unable to calculate anion gap. BUN 33. Creatinine 0.85. Glucose 623. Urinalysis with 1+ protein, 4+ glucose, 3+ ketones. Acetone positive. He was admitted to the intensive care unit for diabetic ketoacidosis. He is seen today in consultation. He is somewhat uncooperative. He keeps blanket over his head while talking. He states he does not have a primary care doctor. He states he has not been on insulin or any medications at home. He is currently maintaining good O2 saturations in the 90s on room air. He has D5.45 with 20 of KCl at 150 MLS per hour. Currently on insulin drip at 3.63 units per hour. He is noted to have suspected mastoiditis behind the right ear. He's been initiated on vancomycin and Unasyn. Today's labs reveal a white count of 17.0. Hemoccult 14.6. Platelets 293. Sodium 133. Potassium 3.8. Bicarb 11. Anion gap 13. BUN 27. Creatinine 0.53. Glucose 145. Review of Systems REVIEW OF SYSTEMS: CONSTITUTIONAL: Positive for generalized weakness. Denies any recent significant weight loss or weight gain. EYES: Denies change in vision. EARS, NOSE, MOUTH, THROAT: Denies headaches, denies sore throat. CARDIOVASCULAR: Denies chest pain, palpitations or syncopal episodes. RESPIRATORY: Denies shortness of breath, cough, congestion or hemoptysis. GASTROINTESTINAL: Positive for dryness and feeling thirsty. GENITOURINARY: Denies hematuria, denies infections. MUSKULOSKELETAL: Denies pain, denies swelling. INTEGUMENTARY: Denies rash, denies eczema. NEUROLOGICAL: Denies recent memory loss, no recent seizure activity. PSYCHIATRIC: Denies anxiety, denies depression. HEMATOLOGIC/LYMPHATIC: Denies anemia, denies enlarged lymph nodes. Past Medical History Past Medical History: Diabetes Mellitus Additional Past Medical History / Comment(s): Type 1 DM, childhood asthma, OCD History of Any Multi-Drug Resistant Organisms: None Reported Past Surgical History: No Surgical Hx Reported Past Anesthesia/Blood Transfusion Reactions: Unable to Obtain Past Psychological History: Anxiety, Bipolar, Depression, PTSD Smoking Status: Current every day smoker Past Alcohol Use History: None Reported Past Drug Use History: Marijuana Medications and Allergies Home Medications Medication Instructions Recorded Confirmed Type Mupirocin 2% Oint [Bactroban 2% 1 applic TOPICAL TID 08/07/23 08/07/23 History Oint] Sulfamethox-Tmp 800-160Mg [Bactrim 1 tab PO BID 08/07/23 08/07/23 History DS 800-160 mg] Allergies Allergy/AdvReac Type Severity Reaction Status Date / Time No Known Allergies Allergy Verified 08/07/23 17:37 Physical Exam Vitals: Vital Signs Temp Pulse Resp BP Pulse Ox 08/08/23 09:22 117 H 21 128/75 98 08/08/23 08:16 98.0 F 122 H 19 108/72 99 08/08/23 06:34 99.0 F 123 H 22 116/79 98 08/08/23 05:08 124 H 24 119/81 97 08/08/23 04:02 98.4 F 123 H 22 122/78 98 08/08/23 02:00 97.2 F L 120 H 22 113/74 98 08/07/23 23:00 94.1 F L 106 H 20 103/66 98 08/07/23 22:00 105 H 20 101/66 98 08/07/23 21:00 89 20 107/66 98 08/07/23 20:30 92.3 F L 89 18 107/66 99 08/07/23 19:02 90.7 F L 82 18 110/81 99 08/07/23 17:42 90.1 F L 84 18 131/79 100 08/07/23 16:24 88.7 F L 08/07/23 16:04 76 20 125/84 99 08/07/23 14:41 80 22 125/75 100 Intake and Output 08/07/23 08/08/23 08/08/23 22:59 06:59 14:59 Intake Total 2026.955 57.336 325.680 Output Total 2291 100 Balance -264.045 57.336 225.680 Intake: IV 300 D5-0.45% NaCl with KCl 300 20Meq/l 1,000 ml @ 150 mls/hr IV .Q6H40M [facility] Rx# :[id number] Intake, IV Titration 1826.955 57.336 25.680 Amount Ampicillin-Sulbactam 1.5 50 gm In Sodium Chloride 0.9 % 50 ml @ 100 mls/hr IVPB Q6HR [facility] Rx#:[id number] Insulin Regular 100 unit 26.955 57.336 25.680 In Sodium Chloride 0.9% 100 ml @ 0.1 UNITS/KG/HR 5.268 mls/hr IV .[id number] [facility] Rx#:[id number] Sodium Chloride 0.9% 1, 1000 000 ml @ 500 mls/hr IV . Q2H [facility] Rx#:[id number] Sodium Chloride 0.9% 500 500 ml 500 ml @ 1000 mls/hr IV Q35M [facility] Rx#:[id number] Vancomycin 1,000 mg In 250 Sodium Chloride 0.9% 250 ml @ 125 mls/hr IVPB Q16H [facility] Rx#:[id number] Oral 200 Output: Urine 1500 100 Post Void Residual 791 GENERAL EXAM: Alert, thin, uncooperative 32-year-old male, on room air, in no apparent distress. HEAD: Normocephalic. EYES: Normal reaction of pupils, equal size. NOSE: Clear with pink turbinates. THROAT: No erythema or exudates. NECK: No masses, no JVD. CHEST: No chest wall deformity. LUNGS: Equal air entry with no crackles, wheeze, rhonchi or dullness. CVS: S1 and S2 normal with no audible murmur, regular rhythm. ABDOMEN: No hepatosplenomegaly, normal bowel sounds, no guarding or rigidity. SPINE: No scoliosis or deformity SKIN: No rashes CENTRAL NERVOUS SYSTEM: No focal deficits, tone is normal in all 4 extremities. EXTREMITIES: There is no peripheral edema. No clubbing, no cyanosis. Perip heral pulses are intact. Results - Laboratory Findings CBC and BMP: 08/08/23 08:45 08/08/23 08:45 PT/INR, D-dimer PT 11.2 sec (10.0-12.5) 08/07/23 15:15 INR 1.0 (<1.2) 08/07/23 15:15 Abnormal lab findings: Abnormal Labs 08/07/23 08/07/23 08/07/23 14:54 14:54 15:15 WBC 27.6 H Neutrophils # 23.8 H Monocytes # 1.8 H APTT Sodium Potassium Chloride Carbon Dioxide BUN Creatinine Glucose POC Glucose (mg/dL) 585 H 596 H Phosphorus Alkaline Phosphatase Urine Protein Urine Glucose (UA) Urine Ketones Urine Blood Urine Bacteria Urine Mucus 08/07/23 08/07/23 08/07/23 15:15 15:15 16:24 WBC Neutrophils # Monocytes # APTT 32.4 H Sodium 124 L Potassium 6.1 H* Chloride 91 L Carbon Dioxide <5 L* BUN 35 H Creatinine 1.43 H Glucose 623 H* POC Glucose (mg/dL) Phosphorus Alkaline Phosphatase 198 H Urine Protein 1+ H Urine Glucose (UA) 4+ H Urine Ketones 3+ H Urine Blood Moderate H Urine Bacteria Rare H Urine Mucus Rare H 08/07/23 08/07/23 08/07/23 18:50 19:32 19:53 WBC Neutrophils # Monocytes # APTT Sodium 128 L Potassium Chloride Carbon Dioxide <5 L* BUN 34 H Creatinine Glucose 443 H POC Glucose (mg/dL) 452 H 431 H Phosphorus Alkaline Phosphatase Urine Protein Urine Glucose (UA) Urine Ketones Urine Blood Urine Bacteria Urine Mucus 08/07/23 08/07/23 08/07/23 20:31 21:34 22:34 WBC Neutrophils # Monocytes # APTT Sodium Potassium Chloride Carbon Dioxide BUN Creatinine Glucose POC Glucose (mg/dL) 363 H 405 H 294 H Phosphorus Alkaline Phosphatase Urine Protein Urine Glucose (UA) Urine Ketones Urine Blood Urine Bacteria Urine Mucus 08/07/23 08/07/23 08/08/23 23:30 23:55 00:36 WBC Neutrophils # Monocytes # APTT Sodium 130 L Potassium Chloride Carbon Dioxide <5 L* BUN 33 H Creatinine Glucose 280 H POC Glucose (mg/dL) 283 H 250 H Phosphorus Alkaline Phosphatase Urine Protein Urine Glucose (UA) Urine Ketones Urine Blood Urine Bacteria Urine Mucus 08/08/23 08/08/23 08/08/23 02:00 02:35 03:38 WBC Neutrophils # Monocytes # APTT Sodium Potassium Chloride Carbon Dioxide BUN Creatinine Glucose POC Glucose (mg/dL) 218 H 211 H 221 H Phosphorus Alkaline Phosphatase Urine Protein Urine Glucose (UA) Urine Ketones Urine Blood Urine Bacteria Urine Mucus 08/08/23 08/08/23 08/08/23 04:43 05:35 06:30 WBC Neutrophils # Monocytes # APTT Sodium Potassium Chloride Carbon Dioxide BUN Creatinine Glucose POC Glucose (mg/dL) 195 H 157 H 137 H Phosphorus Alkaline Phosphatase Urine Protein Urine Glucose (UA) Urine Ketones Urine Blood Urine Bacteria Urine Mucus 08/08/23 08/08/23 08/08/23 07:56 08:45 08:45 WBC 17.0 H Neutrophils # 14.6 H Monocytes # 1.1 H APTT Sodium 133 L Potassium Chloride 109 H Carbon Dioxide 11 L BUN 27 H Creatinine 0.53 L Glucose 145 H POC Glucose (mg/dL) 136 H Phosphorus 1.4 L Alkaline Phosphatase Urine Protein Urine Glucose (UA) Urine Ketones Urine Blood Urine Bacteria Urine Mucus 08/08/23 08/08/23 08:59 11:01 WBC Neutrophils # Monocytes # APTT Sodium Potassium Chloride Carbon Dioxide BUN Creatinine Glucose POC Glucose (mg/dL) 130 H 129 H Phosphorus Alkaline Phosphatase Urine Protein Urine Glucose (UA) Urine Ketones Urine Blood Urine Bacteria Urine Mucus - Diagnostic Findings Chest x-ray: image reviewed (No acute pulmonary process) Assessment and Plan Assessment: Acute diabetic ketoacidosis in a patient with a history of medication noncompliance Anion gap metabolic acidosis secondary to above History of bipolar disorder History of anxiety/depression History of posttraumatic stress disorder Previous history of medication noncompliance and DKA-like 2022 Chronic tobacco dependence Plan: The patient was seen and evaluated Chest x-ray, labs and medications reviewed Continue with the DKA protocol Educated regarding the importance of medication compliance Educated regarding the importance of close follow-up with a primary care provider Continue to monitor closely here in the intensive care unit We will continue to follow and make further recommendations based on his clinica l status I have personally seen and examined the patient, performed the documentation and the assessment and plan as written. Number of minutes spent on the visit: 20.
[2023-08-08] MEDS ORDERED: AMPICILLIN-SULBACTAM 3 GM in SODIUM CHLORIDE 0.9% 50 ML IVPB SCH (12:00)
[2023-08-08 13:14] VITALS: BMI 15.1
[2023-08-08 14:44] LABS: African American GFR (CKD) >90 (>60 ml/min/1.73 sqM); Anion Gap 13 mmol/L; Blood Urea Nitrogen 24 mg/dL (9-20); Carbon Dioxide 11 mmol/L (22-30); Chloride 108 mmol/L (98-107); Glucose 191 mg/dL (74-99); Non-African American GFR(CKD) >90 (>60 ml/min/1.73 sqM); Potassium 3.7 mmol/L (3.5-5.1); Sodium 132 mmol/L (137-145)
[2023-08-08 14:50] LABS: Glucose,Whole Blood 247 mg/dL (70-110)
[2023-08-08] MEDS: AMPICILLIN-SULBACTAM 3 GM in SODIUM CHLORIDE 0.9% 100 ML IVPB SCH ×2 (16:53→17:54)
[2023-08-08 16:54] LABS: Glucose,Whole Blood 256 mg/dL (70-110)
[2023-08-08 17:45] LABS: Glucose,Whole Blood 230 mg/dL (70-110)
[2023-08-08 18:31] LABS: African American GFR (CKD) >90 (>60 ml/min/1.73 sqM); Anion Gap 10 mmol/L; Blood Urea Nitrogen 21 mg/dL (9-20); Calcium 8.7 mg/dL (8.4-10.2); Carbon Dioxide 13 mmol/L (22-30); Chloride 108 mmol/L (98-107); Glucose 243 mg/dL (74-99); Non-African American GFR(CKD) >90 (>60 ml/min/1.73 sqM); Potassium 3.8 mmol/L (3.5-5.1); Sodium 131 mmol/L (137-145)
[2023-08-08] MEDS: VANCOMYCIN 1,000 MG in SODIUM CHLORIDE 0.9% 250 ML IVPB SCH (20:35)
[2023-08-08 20:43] LABS: Glucose,Whole Blood 224 mg/dL (70-110)
[2023-08-08] MEDS: HEPARIN SODIUM,PORCINE 5,000 UNIT/ML 1 ML VIAL SQ SCH (21:26)
[2023-08-08] MEDS: FAMOTIDINE 20 MG/2 ML VIAL IV SCH (21:26)
[2023-08-08 21:54] LABS: Glucose,Whole Blood 203 mg/dL (70-110)
[2023-08-08 22:00] LABS: African American GFR (CKD) >90 (>60 ml/min/1.73 sqM); Anion Gap 11 mmol/L; Blood Urea Nitrogen 17 mg/dL (9-20); Calcium 8.6 mg/dL (8.4-10.2); Carbon Dioxide 14 mmol/L (22-30); Chloride 107 mmol/L (98-107); Glucose 227 mg/dL (74-99); Non-African American GFR(CKD) >90 (>60 ml/min/1.73 sqM); Potassium 3.5 mmol/L (3.5-5.1); Sodium 132 mmol/L (137-145)
--- NOTE | 2023-08-08 22:33 | P.CONS ---
History of Present Illness - Reason for Consult Consult date: 08/08/23 Mastoiditis Requesting physician: Edy Barraza - Chief Complaint Not feeling well x few days - History of Present Illness Patient is a 32-year-old male with a past medical history significant for diabetes mellitus OCD anxiety depression PTSD current everyday smoker presenting to the ER yesterday afternoon for evaluation of not feeling well family patient was noncompliant with his diabetic medication and is complaining of feeling dry and thirsty patient also have developed a sore to the right mastoid area behind the right ear that apparently got worse over the last 1 week patient has been complaining of pain to the ear to be throbbing moderate intensity without any radiation with associated swelling redness and did have some drainage culture has been obtained from the area patient has been advised to because of DKA patient was started on vancomycin and Unasyn infectious disease was consulted for further management of antibiotic therapy on arrival to the ER patient was hypothermic and tachycardic but not hypotensive or hypoxic patient did have a white count of 27.6 with a left shift creatinine 0.45 liver exams are normal urine was negative serum restaurant was positive blood cultures obtained chest x-ray no acute pulmonary process Review of Systems Positive point and negatives has been mentioned in the HPI, complete review of systems was performed and all other systems are negative Past Medical History Past Medical History: Diabetes Mellitus Additional Past Medical History / Comment(s): Type 1 DM, childhood asthma, OCD History of Any Multi-Drug Resistant Organisms: None Reported Past Surgical History: No Surgical Hx Reported Past Anesthesia/Blood Transfusion Reactions: Unable to Obtain Past Psychological History: Anxiety, Bipolar, Depression, PTSD Smoking Status: Current every day smoker Past Alcohol Use History: None Reported Past Drug Use History: Marijuana Medications and Allergies Home Medications Medication Instructions Recorded Confirmed Type Mupirocin 2% Oint [Bactroban 2% 1 applic TOPICAL TID 08/07/23 08/07/23 History Oint] Sulfamethox-Tmp 800-160Mg [Bactrim 1 tab PO BID 08/07/23 08/07/23 History DS 800-160 mg] Allergies Allergy/AdvReac Type Severity Reaction Status Date / Time No Known Allergies Allergy Verified 08/07/23 17:37 Physical Exam Vitals: Vital Signs Temp Pulse Resp BP Pulse Ox 08/08/23 09:22 117 H 21 128/75 98 08/08/23 08:16 98.0 F 122 H 19 108/72 99 08/08/23 06:34 99.0 F 123 H 22 116/79 98 08/08/23 05:08 124 H 24 119/81 97 08/08/23 04:02 98.4 F 123 H 22 122/78 98 08/08/23 02:00 97.2 F L 120 H 22 113/74 98 08/07/23 23:00 94.1 F L 106 H 20 103/66 98 08/07/23 22:00 105 H 20 101/66 98 08/07/23 21:00 89 20 107/66 98 08/07/23 20:30 92.3 F L 89 18 107/66 99 08/07/23 19:02 90.7 F L 82 18 110/81 99 08/07/23 17:42 90.1 F L 84 18 131/79 100 08/07/23 16:24 88.7 F L 08/07/23 16:04 76 20 125/84 99 08/07/23 14:41 80 22 125/75 100 Intake and Output 08/07/23 08/08/23 08/08/23 22:59 06:59 14:59 Intake Total 2026.955 57.336 316.716 Output Total 2291 100 Balance -264.045 57.336 216.716 Intake: IV 300 D5-0.45% NaCl with KCl 300 20Meq/l 1,000 ml @ 150 mls/hr IV .Q6H40M [facility] Rx# :[id number] Intake, IV Titration 1826.955 57.336 16.716 Amount Ampicillin-Sulbactam 1.5 50 gm In Sodium Chloride 0.9 % 50 ml @ 100 mls/hr IVPB Q6HR [facility] Rx#:[id number] Insulin Regular 100 unit 26.955 57.336 16.716 In Sodium Chloride 0.9% 100 ml @ 0.1 UNITS/KG/HR 5.268 mls/hr IV .[id number] [facility] Rx#:[id number] Sodium Chloride 0.9% 1, 1000 000 ml @ 500 mls/hr IV . Q2H [facility] Rx#:[id number] Sodium Chloride 0.9% 500 500 ml 500 ml @ 1000 mls/hr IV Q35M [facility] Rx#:[id number] Vancomycin 1,000 mg In 250 Sodium Chloride 0.9% 250 ml @ 125 mls/hr IVPB Q16H [facility] Rx#:[id number] Oral 200 Output: Urine 1500 100 Post Void Residual 791 GENERAL DESCRIPTION: Middle-aged male lying in bed, no distress. No tachypnea or accessory muscle of respiration use. HEENT: Shows Pallor , no scleral icterus. Oral mucous membrane is dry. Patient did have a wound to the right mastoid area behind the ear with some skin necrosis and drainage NECK: Trachea central, no thyromegaly. LUNGS: Unlabored breathing. Clear to auscultation anteriorly. No wheeze or crackle. HEART: S1, S2, regular rate and rhythm. No loud murmur ABDOMEN: Soft, no tenderness , guarding or rigidity, no organomegaly EXTREMITIES: No edema of feet. SKIN: No rash, no masses palpable. NEUROLOGICAL: The patient is awake, alert, oriented x3, mood and affect normal. Results CBC & Chem 7: 08/08/23 08:45 08/08/23 21:32 Labs: Abnormal Lab Results - Last 24 Hours (Table) 08/07/23 08/07/23 08/07/23 Range/Units 14:54 14:54 15:15 WBC 27.6 H (3.8-10.6) k/uL Neutrophils # 23.8 H (1.3-7.7) k/uL Monocytes # 1.8 H (0-1.0) k/uL APTT (22.0-30.0) sec Sodium (137-145) mmol/L Potassium (3.5-5.1) mmol/L Chloride (98-107) mmol/L Carbon Dioxide (22-30) mmol/L BUN (9-20) mg/dL Creatinine (0.66-1.25) mg/dL Glucose (74-99) mg/dL POC Glucose (mg/dL) 585 H 596 H (70-110) mg/dL Phosphorus (2.5-4.5) mg/dL Alkaline Phosphatase (38-126) U/L Urine Protein (Negative) Urine Glucose (UA) (Negative) Urine Ketones (Negative) Urine Blood (Negative) Urine Bacteria (None) /hpf Urine Mucus (None) /hpf 08/07/23 08/07/23 08/07/23 Range/Units 15:15 15:15 16:24 WBC (3.8-10.6) k/uL Neutrophils # (1.3-7.7) k/uL Monocytes # (0-1.0) k/uL APTT 32.4 H (22.0-30.0) sec Sodium 124 L (137-145) mmol/L Potassium 6.1 H* (3.5-5.1) mmol/L Chloride 91 L (98-107) mmol/L Carbon Dioxide <5 L* (22-30) mmol/L BUN 35 H (9-20) mg/dL Creatinine 1.43 H (0.66-1.25) mg/dL Glucose 623 H* (74-99) mg/dL POC Glucose (mg/dL) (70-110) mg/dL Phosphorus (2.5-4.5) mg/dL Alkaline Phosphatase 198 H (38-126) U/L Urine Protein 1+ H (Negative) Urine Glucose (UA) 4+ H (Negative) Urine Ketones 3+ H (Negative) Urine Blood Moderate H (Negative) Urine Bacteria Rare H (None) /hpf Urine Mucus Rare H (None) /hpf 08/07/23 08/07/23 08/07/23 Range/Units 18:50 19:32 19:53 WBC (3.8-10.6) k/uL Neutrophils # (1.3-7.7) k/uL Monocytes # (0-1.0) k/uL APTT (22.0-30.0) sec Sodium 128 L (137-145) mmol/L Potassium (3.5-5.1) mmol/L Chloride (98-107) mmol/L Carbon Dioxide <5 L* (22-30) mmol/L BUN 34 H (9-20) mg/dL Creatinine (0.66-1.25) mg/dL Glucose 443 H (74-99) mg/dL POC Glucose (mg/dL) 452 H 431 H (70-110) mg/dL Phosphorus (2.5-4.5) mg/dL Alkaline Phosphatase (38-126) U/L Urine Protein (Negative) Urine Glucose (UA) (Negative) Urine Ketones (Negative) Urine Blood (Negative) Urine Bacteria (None) /hpf Urine Mucus (None) /hpf 08/07/23 08/07/23 08/07/23 Range/Units 20:31 21:34 22:34 WBC (3.8-10.6) k/uL Neutrophils # (1.3-7.7) k/uL Monocytes # (0-1.0) k/uL APTT (22.0-30.0) sec Sodium (137-145) mmol/L Potassium (3.5-5.1) mmol/L Chloride (98-107) mmol/L Carbon Dioxide (22-30) mmol/L BUN (9-20) mg/dL Creatinine (0.66-1.25) mg/dL Glucose (74-99) mg/dL POC Glucose (mg/dL) 363 H 405 H 294 H (70-110) mg/dL Phosphorus (2.5-4.5) mg/dL Alkaline Phosphatase (38-126) U/L Urine Protein (Negative) Urine Glucose (UA) (Negative) Urine Ketones (Negative) Urine Blood (Negative) Urine Bacteria (None) /hpf Urine Mucus (None) /hpf 08/07/23 08/07/23 08/08/23 Range/Units 23:30 23:55 00:36 WBC (3.8-10.6) k/uL Neutrophils # (1.3-7.7) k/uL Monocytes # (0-1.0) k/uL APTT (22.0-30.0) sec Sodium 130 L (137-145) mmol/L Potassium (3.5-5.1) mmol/L Chloride (98-107) mmol/L Carbon Dioxide <5 L* (22-30) mmol/L BUN 33 H (9-20) mg/dL Creatinine (0.66-1.25) mg/dL Glucose 280 H (74-99) mg/dL POC Glucose (mg/dL) 283 H 250 H (70-110) mg/dL Phosphorus (2.5-4.5) mg/dL Alkaline Phosphatase (38-126) U/L Urine Protein (Negative) Urine Glucose (UA) (Negative) Urine Ketones (Negative) Urine Blood (Negative) Urine Bacteria (None) /hpf Urine Mucus (None) /hpf 08/08/23 08/08/23 08/08/23 Range/Units 02:00 02:35 03:38 WBC (3.8-10.6) k/uL Neutrophils # (1.3-7.7) k/uL Monocytes # (0-1.0) k/uL APTT (22.0-30.0) sec Sodium (137-145) mmol/L Potassium (3.5-5.1) mmol/L Chloride (98-107) mmol/L Carbon Dioxide (22-30) mmol/L BUN (9-20) mg/dL Creatinine (0.66-1.25) mg/dL Glucose (74-99) mg/dL POC Glucose (mg/dL) 218 H 211 H 221 H (70-110) mg/dL Phosphorus (2.5-4.5) mg/dL Alkaline Phosphatase (38-126) U/L Urine Protein (Negative) Urine Glucose (UA) (Negative) Urine Ketones (Negative) Urine Blood (Negative) Urine Bacteria (None) /hpf Urine Mucus (None) /hpf 08/08/23 08/08/23 08/08/23 Range/Units 04:43 05:35 06:30 WBC (3.8-10.6) k/uL Neutrophils # (1.3-7.7) k/uL Monocytes # (0-1.0) k/uL APTT (22.0-30.0) sec Sodium (137-145) mmol/L Potassium (3.5-5.1) mmol/L Chloride (98-107) mmol/L Carbon Dioxide (22-30) mmol/L BUN (9-20) mg/dL Creatinine (0.66-1.25) mg/dL Glucose (74-99) mg/dL POC Glucose (mg/dL) 195 H 157 H 137 H (70-110) mg/dL Phosphorus (2.5-4.5) mg/dL Alkaline Phosphatase (38-126) U/L Urine Protein (Negative) Urine Glucose (UA) (Negative) Urine Ketones (Negative) Urine Blood (Negative) Urine Bacteria (None) /hpf Urine Mucus (None) /hpf 08/08/23 08/08/23 08/08/23 Range/Units 07:56 08:45 08:45 WBC 17.0 H (3.8-10.6) k/uL Neutrophils # 14.6 H (1.3-7.7) k/uL Monocytes # 1.1 H (0-1.0) k/uL APTT (22.0-30.0) sec Sodium 133 L (137-145) mmol/L Potassium (3.5-5.1) mmol/L Chloride 109 H (98-107) mmol/L Carbon Dioxide 11 L (22-30) mmol/L BUN 27 H (9-20) mg/dL Creatinine 0.53 L (0.66-1.25) mg/dL Glucose 145 H (74-99) mg/dL POC Glucose (mg/dL) 136 H (70-110) mg/dL Phosphorus 1.4 L (2.5-4.5) mg/dL Alkaline Phosphatase (38-126) U/L Urine Protein (Negative) Urine Glucose (UA) (Negative) Urine Ketones (Negative) Urine Blood (Negative) Urine Bacteria (None) /hpf Urine Mucus (None) /hpf 08/08/23 Range/Units 08:59 WBC (3.8-10.6) k/uL Neutrophils # (1.3-7.7) k/uL Monocytes # (0-1.0) k/uL APTT (22.0-30.0) sec Sodium (137-145) mmol/L Potassium (3.5-5.1) mmol/L Chloride (98-107) mmol/L Carbon Dioxide (22-30) mmol/L BUN (9-20) mg/dL Creatinine (0.66-1.25) mg/dL Glucose (74-99) mg/dL POC Glucose (mg/dL) 130 H (70-110) mg/dL Phosphorus (2.5-4.5) mg/dL Alkaline Phosphatase (38-126) U/L Urine Protein (Negative) Urine Glucose (UA) (Negative) Urine Ketones (Negative) Urine Blood (Negative) Urine Bacteria (None) /hpf Urine Mucus (None) /hpf Assessment and Plan (1) Sepsis Current Visit: Yes Status: Acute Code(s): A41.9 - SEPSIS, UNSPECIFIED ORGANISM SNOMED Code(s): 51862666 Plan: 1patient was in the hospital with sepsis in this patient who did have hypothermic tachycardia leukocytosis source is likely abscess and cellulitis to the right mastoid area and likely from gram-positive skin solomon underlying gram- negative pressure not entirely excluded because of uncontrolled diabetes mellitus 2-patient would benefit from surgical drainage of the area and deep culture 3 we will continue the patient vancomycin pharmacy to dose while watching his kidney function closely-however adjust the dose of Unasyn to 3 g every 6 hours We will follow on clinical condition and cultures to further adjust medication if needed Thank you for this consultation we will follow the patient along with you Dictation was produced using [employer] dictation software. please excuse any grammatical, word or spelling errors. Time with Patient: Greater than 30
[2023-08-08 23:02] LABS: Glucose,Whole Blood 272 mg/dL (70-110)
[2023-08-09] LABS: Glucose,Whole Blood 217 mg/dL (70-110)
[2023-08-09] MEDS: AMPICILLIN-SULBACTAM 3 GM in SODIUM CHLORIDE 0.9% 100 ML IVPB SCH ×4 (00:36→18:48)
[2023-08-09 01:16] LABS: Glucose,Whole Blood 262 mg/dL (70-110)
[2023-08-09 01:55] LABS: African American GFR (CKD) >90 (>60 ml/min/1.73 sqM); Anion Gap 9 mmol/L; Blood Urea Nitrogen 13 mg/dL (9-20); Calcium 8.4 mg/dL (8.4-10.2); Carbon Dioxide 15 mmol/L (22-30); Chloride 108 mmol/L (98-107); Glucose 241 mg/dL (74-99); Non-African American GFR(CKD) >90 (>60 ml/min/1.73 sqM); Potassium 3.2 mmol/L (3.5-5.1); Sodium 132 mmol/L (137-145)
[2023-08-09 02:22] LABS: Glucose,Whole Blood 232 mg/dL (70-110)
[2023-08-09] MEDS ORDERED: Potassium Replacement Protocol 1 EACH MISC MISCELLANE PRN (02:29)
[2023-08-09] MEDS: D5-0.45% NACL WITH KCL 20MEQ/L 1,000 ML IV SCH ×4 (02:37→15:34)
[2023-08-09] MEDS: POTASSIUM BICARBONATE/CIT AC 20 MEQ TABLET.EFF PO SCH ×2 (02:51→03:58)
[2023-08-09 02:57] LABS: Glucose,Whole Blood 227 mg/dL (70-110)
[2023-08-09] MEDS ORDERED: POTASSIUM CHLORIDE ER 20 MEQ TAB.ER PO SCH (03:00)
[2023-08-09 03:56] LABS: Glucose,Whole Blood 185 mg/dL (70-110)
[2023-08-09] MEDS: VANCOMYCIN 1,000 MG in SODIUM CHLORIDE 0.9% 250 ML IVPB SCH ×2 (03:59→13:39)
[2023-08-09 05:01] LABS: Glucose,Whole Blood 236 mg/dL (70-110)
[2023-08-09] MEDS: SODIUM CHLORIDE 0.9% 1,000 ML IV SCH ×2 (05:18→22:02)
[2023-08-09 05:52] LABS: Glucose,Whole Blood 230 mg/dL (70-110)
[2023-08-09 06:16] LABS: African American GFR (CKD) >90 (>60 ml/min/1.73 sqM); Anion Gap 8 mmol/L; Blood Urea Nitrogen 12 mg/dL (9-20); Calcium 8.2 mg/dL (8.4-10.2); Carbon Dioxide 17 mmol/L (22-30); Chloride 106 mmol/L (98-107); Glucose 233 mg/dL (74-99); Non-African American GFR(CKD) >90 (>60 ml/min/1.73 sqM); Potassium 3.4 mmol/L (3.5-5.1); Sodium 131 mmol/L (137-145)
[2023-08-09 08:01] LABS: Glucose,Whole Blood 168 mg/dL (70-110)
[2023-08-09] MEDS: INSULIN REGULAR 100 UNIT in SODIUM CHLORIDE 0.9% 100 ML IV SCH (08:02)
[2023-08-09] MEDS: FAMOTIDINE 20 MG/2 ML VIAL IV SCH ×2 (08:03→20:58)
[2023-08-09] MEDS: HEPARIN SODIUM,PORCINE 5,000 UNIT/ML 1 ML VIAL SQ SCH ×2 (08:03→20:58)
--- NOTE | 2023-08-09 08:41 | CT ---
EXAMINATION TYPE: CT iac wo/w con DATE OF EXAM: 08/08/2023 COMPARISON: None HISTORY: mastoiditis CT DLP: 470.2 mGycm Automated exposure control for dose reduction was used. Contrast: None Technique: Axial 1.5 mm thick sections. Reconstructed images. FINDINGS: There is near complete opacification of the left maxillary sinus with an air-fluid level. Mild mucosa l thickening is in anterior left ethmoid air cells. Frontal sinuses, sphenoid sinuses and remaining a ir cells are clear. Right and left mastoid air cells appear clear. The middle ears are clear. Incus and malleus normal or ientation. The external auditory canals are normal. Semicircular canals and cochlea are normal. No ex pansion or erosion of the internal auditory canals is evident. IMPRESSION: 1. CLINICAL CORRELATION RECOMMENDED FOR ACUTE LEFT MAXILLARY SINUSITIS. 2. NO SUSPICIOUS MASTOIDITIS
[2023-08-09 09:16] LABS: Glucose,Whole Blood 231 mg/dL (70-110)
[2023-08-09] MEDS ORDERED: VANCOMYCIN TROUGH DUE 1 EACH MISC MISCELLANE ONE (11:00)
[2023-08-09 11:47] LABS: Glucose,Whole Blood 234 mg/dL (70-110)
[2023-08-09] MEDS: INSULIN ASPART (NovoLOG) 100 UNIT/ML VIAL SQ SCH ×3 (12:04→20:57)
[2023-08-09] MEDS: INSULIN DETEMIR (LEVEMIR) 100 UNIT/ML SYR SQ SCH (12:04)
--- NOTE | 2023-08-09 12:04 | P.PN ---
Subjective Progress Note Date: 08/09/23 This is a 32-year-old male patient with a known history of type 1 diabetes mellitus, anxiety/depression, bipolar disorder, PTSD, chronic and ongoing tobacco dependence. He presented here to the emergency room yesterday with a 2- 3 day history of not feeling well. Poor appetite. Feeling dry and thirsty. He admitted to being noncompliant with his diabetes medication as well as his bipolar medications. Presenting labs revealed a white count of 27.6. Sodium 130. Potassium 4.5. Bicarb less than 5. Unable to calculate anion gap. BUN 33. Creatinine 0.85. Glucose 623. Urinalysis with 1+ protein, 4+ glucose, 3+ ketones. Acetone positive. He was admitted to the intensive care unit for diabetic ketoacidosis. He is seen today in consultation. He is somewhat uncooperative. He keeps blanket over his head while talking. He states he does not have a primary care doctor. He states he has not been on insulin or any medications at home. He is currently maintaining good O2 saturations in the 90s on room air. He has D5.45 with 20 of KCl at 150 MLS per hour. Currently on insulin drip at 3.63 units per hour. He is noted to have suspected mastoiditis behind the right ear. He's been initiated on vancomycin and Unasyn. Today's labs reveal a white count of 17.0. Hemoccult 14.6. Platelets 293. Sodium 133. Potassium 3.8. Bicarb 11. Anion gap 13. BUN 27. Creatinine 0.53. Glucose 1 45. The patient is seen today 08/09/2023 in follow-up in the intensive care unit. He is awake and alert in no acute distress. He is maintaining O2 saturations in the 90s on room air. He still has D5.45 normal saline with 20 of KCl at 150 ML's per hour. He is on a insulin drip at 4.8 units per hour. Labs revealed a sodium of 131. Potassium 3.4. Bicarb of 17. Anion gap 8. BUN 12. Creatinine 0.31. Glucose 233. Wound culture from behind the right ear revealed presumptive staph aureus. Computed tomography scan revealed acute left maxillary sinusitis. No suspicious mastoiditis. He is continued on Unasyn and vancomycin per ID services. Heparin for DVT prophylaxis. Objective - Vital Signs Vital signs: Vital Signs Temp 97.9 F 08/09/23 08:00 Pulse 101 H 08/09/23 11:00 Resp 20 08/09/23 11:00 BP 100/84 08/09/23 11:00 Pulse Ox 100 08/09/23 11:00 FiO2 Intake & Output 08/08/23 08/09/23 08/09/23 18:59 06:59 18:59 Intake Total 2935.462 2790.866 1132.515 Output Total 100 300 Balance 2835.462 2490.866 1132.515 Weight 52.163 kg 53.2 kg Intake: IV 1900 2225 600 Ampicillin-Sulbactam 1.5 50 gm In Sodium Chloride 0.9 % 50 ml @ 100 mls/hr IVPB Q6HR [facility] Rx#:[id number] D5-0.45% NaCl with KCl 1650 1800 600 20Meq/l 1,000 ml @ 150 mls/hr IV .Q6H40M [facility] Rx# :[id number] Vancomycin 1,000 mg In 250 375 Sodium Chloride 0.9% 250 ml @ 125 mls/hr IVPB Q8H [facility] Rx#:[id number] Intake, IV Titration 35.462 25.866 32.515 Amount Insulin Regular 100 unit 35.462 25.866 32.515 In Sodium Chloride 0.9% 100 ml @ 0.1 UNITS/KG/HR 5.268 mls/hr IV .[id number] [facility] Rx#:[id number] Oral 1000 540 500 Output: Urine 100 300 Other: Voiding Method Toilet Urinal Urinal # Voids 1 1 1 - Exam GENERAL EXAM: Alert, 32-year-old male, on room air, comfortable in no apparent distress. HEAD: Normocephalic. Redness and tenderness behind the right ear. EYES: Normal reaction of pupils, equal size. NOSE: Clear with pink turbinates. THROAT: No erythema or exudates. NECK: No masses, no JVD. CHEST: No chest wall deformity. LUNGS: Equal air entry with no crackles, wheeze, rhonchi or dullness. CVS: S1 and S2 normal with no audible murmur, regular rhythm. ABDOMEN: No hepatosplenomegaly, normal bowel sounds, no guarding or rigidity. SPINE: No scoliosis or deformity SKIN: No rashes CENTRAL NERVOUS SYSTEM: No focal deficits, tone is normal in all 4 extremities. EXTREMITIES: There is no peripheral edema. No clubbing, no cyanosis. Peripheral pulses are intact. - Labs CBC & Chem 7: 08/08/23 08:45 08/09/23 05:42 Labs: Abnormal Lab Results - Last 24 Hours (Table) 08/08/23 08/08/23 08/08/23 Range/Units 13:38 14:48 16:53 Sodium 132 L (137-145) mmol/L Potassium (3.5-5.1) mmol/L Chloride 108 H (98-107) mmol/L Carbon Dioxide 11 L (22-30) mmol/L BUN 24 H (9-20) mg/dL Creatinine 0.49 L (0.66-1.25) mg/dL Glucose 191 H (74-99) mg/dL POC Glucose (mg/dL) 247 H 256 H (70-110) mg/dL Calcium (8.4-10.2) mg/dL 08/08/23 08/08/23 08/08/23 Range/Units 17:41 17:42 20:41 Sodium 131 L (137-145) mmol/L Potassium (3.5-5.1) mmol/L Chloride 108 H (98-107) mmol/L Carbon Dioxide 13 L (22-30) mmol/L BUN 21 H (9-20) mg/dL Creatinine 0.45 L (0.66-1.25) mg/dL Glucose 243 H (74-99) mg/dL POC Glucose (mg/dL) 230 H 224 H (70-110) mg/dL Calcium (8.4-10.2) mg/dL 08/08/23 08/08/23 08/08/23 Range/Units 21:32 21:52 23:00 Sodium 132 L (137-145) mmol/L Potassium (3.5-5.1) mmol/L Chloride (98-107) mmol/L Carbon Dioxide 14 L (22-30) mmol/L BUN (9-20) mg/dL Creatinine 0.37 L (0.66-1.25) mg/dL Glucose 227 H (74-99) mg/dL POC Glucose (mg/dL) 203 H 272 H (70-110) mg/dL Calcium (8.4-10.2) mg/dL 08/08/23 08/09/23 08/09/23 Range/Units 23:59 01:14 01:25 Sodium 132 L (137-145) mmol/L Potassium 3.2 L (3.5-5.1) mmol/L Chloride 108 H (98-107) mmol/L Carbon Dioxide 15 L (22-30) mmol/L BUN (9-20) mg/dL Creatinine 0.38 L (0.66-1.25) mg/dL Glucose 241 H (74-99) mg/dL POC Glucose (mg/dL) 217 H 262 H (70-110) mg/dL Calcium (8.4-10.2) mg/dL 08/09/23 08/09/23 08/09/23 Range/Units 02:21 02:55 03:52 Sodium (137-145) mmol/L Potassium (3.5-5.1) mmol/L Chloride (98-107) mmol/L Carbon Dioxide (22-30) mmol/L BUN (9-20) mg/dL Creatinine (0.66-1.25) mg/dL Glucose (74-99) mg/dL POC Glucose (mg/dL) 232 H 227 H 185 H (70-110) mg/dL Calcium (8.4-10.2) mg/dL 08/09/23 08/09/23 08/09/23 Range/Units 04:59 05:42 05:50 Sodium 131 L (137-145) mmol/L Potassium 3.4 L (3.5-5.1) mmol/L Chloride (98-107) mmol/L Carbon Dioxide 17 L (22-30) mmol/L BUN (9-20) mg/dL Creatinine 0.31 L (0.66-1.25) mg/dL Glucose 233 H (74-99) mg/dL POC Glucose (mg/dL) 236 H 230 H (70-110) mg/dL Calcium 8.2 L (8.4-10.2) mg/dL 08/09/23 08/09/23 08/09/23 Range/Units 07:59 09:14 11:45 Sodium (137-145) mmol/L Potassium (3.5-5.1) mmol/L Chloride (98-107) mmol/L Carbon Dioxide (22-30) mmol/L BUN (9-20) mg/dL Creatinine (0.66-1.25) mg/dL Glucose (74-99) mg/dL POC Glucose (mg/dL) 168 H 231 H 234 H (70-110) mg/dL Calcium (8.4-10.2) mg/dL Microbiology - Last 24 Hours (Table) 08/07/23 15:15 Gram Stain - Preliminary Head Wound Culture - Preliminary Presumptive Staph aureus 08/07/23 15:15 Blood Culture - Preliminary Blood 08/07/23 15:15 Blood Culture - Preliminary Blood Assessment and Plan Assessment: Acute diabetic ketoacidosis in a patient with a history of medication noncompliance Anion gap metabolic acidosis secondary to above Redness and tenderness behind the right right ear, wound culture with presumptive staph aureus History of bipolar disorder History of anxiety/depression History of posttraumatic stress disorder Previous history of medication noncompliance and DKA-like 2022 Chronic tobacco dependence Plan: The patient was seen and evaluated CT scan, labs and medications reviewed Currently on Unasyn and vancomycin To be transitioned to Levemir and NovoLog scale once labs improve Continue with the DKA protocol Educated regarding the importance of medication compliance Educated regarding the importance of close follow-up with a primary care provider Could be transferred out of the ICU later today We will continue to follow I have personally seen and examined the patient, performed the documentation and the assessment and plan as written. Number of minutes spent on the visit: 10.
[2023-08-09 14:00] LABS: African American GFR (CKD) >90 (>60 ml/min/1.73 sqM); Anion Gap 12 mmol/L; Blood Urea Nitrogen 12 mg/dL (9-20); Calcium 8.5 mg/dL (8.4-10.2); Carbon Dioxide 21 mmol/L (22-30); Chloride 103 mmol/L (98-107); Glucose 354 mg/dL (74-99); Non-African American GFR(CKD) >90 (>60 ml/min/1.73 sqM); Sodium 136 mmol/L (137-145)
--- NOTE | 2023-08-09 16:04 | P.PN ---
Subjective Progress Note Date: 08/09/23 Principal diagnosis: Reason for follow-up with sepsis and right mastoid area abscess Patient is a 32-year-old male with a past medical history significant for diabetes mellitus OCD anxiety depression PTSD current everyday smoker presenting to the ER for evaluation of not feeling well patient was noticed to be in DKA and noticed to have wound behind the right ear with some purulent drainage concerning for abscess and cellulitis. On today's evaluation that is a 08/09/2023, the patient denies having any fever or any chills patient is feeling better he is breathing comfortably on room air still have some pain to the right side of the scalp behind the ear with minimal purulent drainage no chest pain shortness of the cough no abdominal pain no diarrhea. Patient did have a white count of 17,000 as of yesterday no CBC was done today creatinine 0.38 blood culture negative local culture growing Staph aureus Objective - Vital Signs Vital signs: Vital Signs Temp 97.9 F 08/09/23 08:00 Pulse 101 H 08/09/23 14:00 Resp 15 08/09/23 14:00 BP 133/83 08/09/23 13:00 Pulse Ox 99 08/09/23 12:00 FiO2 Intake & Output 08/08/23 08/09/23 08/09/23 18:59 06:59 18:59 Intake Total 2935.462 2790.866 1482.515 Output Total 100 300 Balance 2835.462 2490.866 1482.515 Weight 52.163 kg 53.2 kg Intake: IV 1900 2225 950 Ampicillin-Sulbactam 1.5 50 gm In Sodium Chloride 0.9 % 50 ml @ 100 mls/hr IVPB Q6HR [facility] Rx#:[id number] Ampicillin-Sulbactam 3 gm 100 In Sodium Chloride 0.9% 100 ml @ 200 mls/hr IVPB Q6HR [facility] Rx#:[id number] D5-0.45% NaCl with KCl 1650 1800 600 20Meq/l 1,000 ml @ 150 mls/hr IV .Q6H40M [facility] Rx# :[id number] Vancomycin 1,000 mg In 250 375 250 Sodium Chloride 0.9% 250 ml @ 125 mls/hr IVPB Q8H [facility] Rx#:[id number] Intake, IV Titration 35.462 25.866 32.515 Amount Insulin Regular 100 unit 35.462 25.866 32.515 In Sodium Chloride 0.9% 100 ml @ 0.1 UNITS/KG/HR 5.268 mls/hr IV .[id number] [facility] Rx#:[id number] Oral 1000 540 500 Output: Urine 100 300 Other: Voiding Method Toilet Urinal Toilet Urinal # Voids 1 1 1 - Exam GENERAL DESCRIPTION: Middle-age male lying in bed in no distress. HEENT: Right mastoid area did have a wound with some skin necrosis and purulent drainage RESPIRATORY SYSTEM: Unlabored breathing , decreased breath sounds at bases HEART: S1 S2 regular rate and rhythm , ABDOMEN: Soft , no tenderness EXTREMITIES: No edema feet - Labs CBC & Chem 7: 08/08/23 08:45 08/09/23 12:35 Labs: Abnormal Lab Results - Last 24 Hours (Table) 08/08/23 08/08/23 08/08/23 Range/Units 16:53 17:41 17:42 Sodium 131 L (137-145) mmol/L Potassium (3.5-5.1) mmol/L Chloride 108 H (98-107) mmol/L Carbon Dioxide 13 L (22-30) mmol/L BUN 21 H (9-20) mg/dL Creatinine 0.45 L (0.66-1.25) mg/dL Glucose 243 H (74-99) mg/dL POC Glucose (mg/dL) 256 H 230 H (70-110) mg/dL Calcium (8.4-10.2) mg/dL 08/08/23 08/08/23 08/08/23 Range/Units 20:41 21:32 21:52 Sodium 132 L (137-145) mmol/L Potassium (3.5-5.1) mmol/L Chloride (98-107) mmol/L Carbon Dioxide 14 L (22-30) mmol/L BUN (9-20) mg/dL Creatinine 0.37 L (0.66-1.25) mg/dL Glucose 227 H (74-99) mg/dL POC Glucose (mg/dL) 224 H 203 H (70-110) mg/dL Calcium (8.4-10.2) mg/dL 08/08/23 08/08/23 08/09/23 Range/Units 23:00 23:59 01:14 Sodium (137-145) mmol/L Potassium (3.5-5.1) mmol/L Chloride (98-107) mmol/L Carbon Dioxide (22-30) mmol/L BUN (9-20) mg/dL Creatinine (0.66-1.25) mg/dL Glucose (74-99) mg/dL POC Glucose (mg/dL) 272 H 217 H 262 H (70-110) mg/dL Calcium (8.4-10.2) mg/dL 08/09/23 08/09/23 08/09/23 Range/Units 01:25 02:21 02:55 Sodium 132 L (137-145) mmol/L Potassium 3.2 L (3.5-5.1) mmol/L Chloride 108 H (98-107) mmol/L Carbon Dioxide 15 L (22-30) mmol/L BUN (9-20) mg/dL Creatinine 0.38 L (0.66-1.25) mg/dL Glucose 241 H (74-99) mg/dL POC Glucose (mg/dL) 232 H 227 H (70-110) mg/dL Calcium (8.4-10.2) mg/dL 08/09/23 08/09/23 08/09/23 Range/Units 03:52 04:59 05:42 Sodium 131 L (137-145) mmol/L Potassium 3.4 L (3.5-5.1) mmol/L Chloride (98-107) mmol/L Carbon Dioxide 17 L (22-30) mmol/L BUN (9-20) mg/dL Creatinine 0.31 L (0.66-1.25) mg/dL Glucose 233 H (74-99) mg/dL POC Glucose (mg/dL) 185 H 236 H (70-110) mg/dL Calcium 8.2 L (8.4-10.2) mg/dL 08/09/23 08/09/23 08/09/23 Range/Units 05:50 07:59 09:14 Sodium (137-145) mmol/L Potassium (3.5-5.1) mmol/L Chloride (98-107) mmol/L Carbon Dioxide (22-30) mmol/L BUN (9-20) mg/dL Creatinine (0.66-1.25) mg/dL Glucose (74-99) mg/dL POC Glucose (mg/dL) 230 H 168 H 231 H (70-110) mg/dL Calcium (8.4-10.2) mg/dL 08/09/23 08/09/23 Range/Units 11:45 12:35 Sodium 136 L (137-145) mmol/L Potassium (3.5-5.1) mmol/L Chloride (98-107) mmol/L Carbon Dioxide 21 L (22-30) mmol/L BUN (9-20) mg/dL Creatinine 0.38 L (0.66-1.25) mg/dL Glucose 354 H (74-99) mg/dL POC Glucose (mg/dL) 234 H (70-110) mg/dL Calcium (8.4-10.2) mg/dL Microbiology - Last 24 Hours (Table) 08/07/23 15:15 Gram Stain - Preliminary Head Wound Culture - Preliminary Presumptive Staph aureus 08/07/23 15:15 Blood Culture - Preliminary Blood 08/07/23 15:15 Blood Culture - Preliminary Blood Assessment and Plan (1) Sepsis Current Visit: Yes Status: Acute Code(s): A41.9 - SEPSIS, UNSPECIFIED ORGANISM SNOMED Code(s): 42719988 (2) Scalp abscess Current Visit: Yes Status: Acute Code(s): L02.811 - CUTANEOUS ABSCESS OF HEAD [ANY PART, EXCEPT FACE] SNOMED Code(s): 00542923 Plan: 1patient was in the hospital with sepsis in this patient who did have h ypothermic tachycardia leukocytosis source is likely abscess and cellulitis to the right mastoid area and likely from gram-positive skin solomon underlying gram- negative pressure not entirely excluded because of uncontrolled diabetes mellitus 2-patient would benefit from surgical drainage of the area and deep culture for which general surgery has been consulted 3 local culture growing Staph aureus sensitivities pending patient to continue with Unasyn and vancomycin while waiting for the culture to finalize Dictation was produced using [employer] dictation software. please excuse any grammatical, word or spelling errors. Time with Patient: Less than 30
[2023-08-09 16:28] LABS: Glucose,Whole Blood 252 mg/dL (70-110)
[2023-08-09] MEDS: CIPROFLOXACIN-DEXAMETH 0.3-0.1% DROPS 7.5 ML BTL RIGHT EAR SCH ×2 (17:38→20:58)
[2023-08-09] MEDS: VANCOMYCIN 1,250 MG in SODIUM CHLORIDE 0.9% 250 ML IVPB SCH (20:58)
[2023-08-09 20:59] LABS: Glucose,Whole Blood 93 mg/dL (70-110)
--- NOTE | 2023-08-09 23:59 | P.PN ---
Subjective This is a pleasant 32 years old male with past medical history of diabetes mellitus Presents because he was not compliant with his diabetes medication for unknown reasons, he was sitting in bed for the last 3 days and not eating well. And patient with evidence of sepsis and mastoiditis with possible ups is behind his right ear. When asked the patient why he was not taking his medication he could not give reason. He declines financial difficulty, he declines depression or suicidal/homicidal ideation or hallucination. However the patient looks withdrawn and their suspicion of bipolar disorder and emergency room staff. Patient was hypothermic on admission were temperature was 9-19.7, currently 98. He is tachycardic with heart rate around 117 and tachypnea, 21 and blood pressure 103/66. Admission patient has leukocytosis of 27,000 came back to 17,000 Carbon dioxide was low less than 5 and creatinine was elevated at 1.07 came down to 0.5. Urine analysis showed concentric is sampled with questionable for glucosuria and ketonuria Chest x-rays negative for acute processes. EKG showing sinus rhythm at [address]-T changes and QTC 407. Patient started on IV vancomycin and Unasyn, is on IV hydration D5 normal saline at 1:30 and insulin drip per protocol. He was admitted with ID and ENT consult 08/09/2023 Patient will continue his room freely. We can oriented, no other new complaint Patient states that he was not taking his insulin medication because he was not on any medication he was treated his sugar with sporadic medication from different sources. He denies depression or source either homicidal ideation, no obvious induration or delusions. As some purulent discharge from behind his right ear, CAT scan was not suspici ous for ENT source therefore general surgery consult was placed BMP reviewed Patient remains on Unasyn IV vancomycin with infectious the case recommendation Wound culture is covering MSSA Review of systems CONSTITUTIONAL: No fever, no malaise, no fatigue. HEENT: No recent visual problems or hearing problems. Denied any sore throat. CARDIOVASCULAR: No orthopnea, PND, no palpitations, no syncope. PULMONARY: No shortness of breath, no cough, no hemoptysis. GASTROINTESTINAL: No diarrhea, no nausea, no vomiting, no abdominal pain. Normoactive bowel sounds. NEUROLOGICAL: No headaches, no weakness, no numbness. Active Medications Generic Name Dose Route Start Last Admin Trade Name Freq PRN Reason Stop Dose Admin Ciprofloxacin/Dexamethasone 4 drops 08/09/23 16:00 08/09/23 20:58 Ciprofloxacin-Dexameth 0.3-0.1% Drops 7.5 Ml Btl RIGHT EAR 4 drops TID [facility] Administration Famotidine 20 mg 08/08/23 21:00 08/09/23 20:58 Famotidine 20 Mg/2 Ml Vial IV 20 mg Q12HR [facility] Administration Heparin Sodium (Porcine) 5,000 unit 08/08/23 21:00 08/09/23 20:58 Heparin Sodium,Porcine 5,000 Unit/Ml 1 Ml Vial SQ 5,000 unit Q12HR [facility] Administration Ampicillin Sodium/Sulbactam 100 mls @ 200 mls/hr 08/08/23 12:00 08/09/23 18:48 Sodium 3 gm/ Sodium Chloride IVPB Not Given Q6HR [facility] Vancomycin HCl 1,250 mg/ 250 mls @ 125 mls/hr 08/09/23 20:00 08/09/23 20:58 Sodium Chloride IVPB 125 mls/hr Q8H [facility] Administration Insulin Aspart 0 unit 08/09/23 12:30 08/09/23 20:57 Insulin Aspart (Novolog) 100 Unit/Ml Vial SQ Not Given ACHS [facility] Protocol Insulin Detemir 8 unit 08/09/23 11:00 08/09/23 12:04 Insulin Detemir (Levemir) 100 Unit/Ml Syr 0.15 unit/kg (8 unit) 8 unit SQ Administration DAILY@0700 [facility] Miscellaneous Information 1 each 08/09/23 02:29 Potassium Replacement Protocol 1 Each Misc MISCELLANE DAILY PRN Per Protocol Protocol Objective - Vital Signs Vital signs: Vital Signs Temp 97.9 F 08/09/23 08:00 Pulse 110 H 08/09/23 12:00 Resp 13 08/09/23 12:00 BP 132/94 08/09/23 12:00 Pulse Ox 99 08/09/23 12:00 FiO2 Intake & Output 08/08/23 08/09/23 08/09/23 18:59 06:59 18:59 Intake Total 2935.462 2790.866 1232.515 Output Total 100 300 Balance 2835.462 2490.866 1232.515 Weight 52.163 kg 53.2 kg Intake: IV 1900 2225 700 Ampicillin-Sulbactam 1.5 50 gm In Sodium Chloride 0.9 % 50 ml @ 100 mls/hr IVPB Q6HR [facility] Rx#:[id number] Ampicillin-Sulbactam 3 gm 100 In Sodium Chloride 0.9% 100 ml @ 200 mls/hr IVPB Q6HR [facility] Rx#:[id number] D5-0.45% NaCl with KCl 1650 1800 600 20Meq/l 1,000 ml @ 150 mls/hr IV .Q6H40M [facility] Rx# :[id number] Vancomycin 1,000 mg In 250 375 Sodium Chloride 0.9% 250 ml @ 125 mls/hr IVPB Q8H [facility] Rx#:[id number] Intake, IV Titration 35.462 25.866 32.515 Amount Insulin Regular 100 unit 35.462 25.866 32.515 In Sodium Chloride 0.9% 100 ml @ 0.1 UNITS/KG/HR 5.268 mls/hr IV .[id number] [facility] Rx#:[id number] Oral 1000 540 500 Output: Urine 100 300 Other: Voiding Method Toilet Urinal Toilet Urinal # Voids 1 1 1 - Exam GENERAL: The patient is alert and oriented x3, not in any acute distress. Well developed, well nourished. -HEENT: Pupils are round and equally reacting to light. EOMI. No scleral icterus. No conjunctival pallor. Normocephalic, atraumatic. No pharyngeal erythema. No thyromegaly. Area of purulent discharge behind -the right auricle CARDIOVASCULAR: S1 and S2 present. No murmurs, rubs, or gallops. PULMONARY: Chest is clear to auscultation, no wheezing , no crackles. ABDOMEN: Soft, nontender, nondistended, normoactive bowel sounds. No palpable organomegaly. MUSCULOSKELETAL: No joint swelling or deformity. EXTREMITIES: No cyanosis, clubbing, or pedal edema. NEUROLOGICAL: Gross neurological examination did not reveal any focal deficits. SKIN: No rashes. no petechiae. - Labs CBC & Chem 7: 08/08/23 08:45 08/09/23 12:35 Labs: Abnormal Lab Results - Last 24 Hours (Table) 08/08/23 08/08/23 08/08/23 Range/Units 13:38 14:48 16:53 Sodium 132 L (137-145) mmol/L Potassium (3.5-5.1) mmol/L Chloride 108 H (98-107) mmol/L Carbon Dioxide 11 L (22-30) mmol/L BUN 24 H (9-20) mg/dL Creatinine 0.49 L (0.66-1.25) mg/dL Glucose 191 H (74-99) mg/dL POC Glucose (mg/dL) 247 H 256 H (70-110) mg/dL Calcium (8.4-10.2) mg/dL 08/08/23 08/08/23 08/08/23 Range/Units 17:41 17:42 20:41 Sodium 131 L (137-145) mmol/L Potassium (3.5-5.1) mmol/L Chloride 108 H (98-107) mmol/L Carbon Dioxide 13 L (22-30) mmol/L BUN 21 H (9-20) mg/dL Creatinine 0.45 L (0.66-1.25) mg/dL Glucose 243 H (74-99) mg/dL POC Glucose (mg/dL) 230 H 224 H (70-110) mg/dL Calcium (8.4-10.2) mg/dL 08/08/23 08/08/23 08/08/23 Range/Units 21:32 21:52 23:00 Sodium 132 L (137-145) mmol/L Potassium (3.5-5.1) mmol/L Chloride (98-107) mmol/L Carbon Dioxide 14 L (22-30) mmol/L BUN (9-20) mg/dL Creatinine 0.37 L (0.66-1.25) mg/dL Glucose 227 H (74-99) mg/dL POC Glucose (mg/dL) 203 H 272 H (70-110) mg/dL Calcium (8.4-10.2) mg/dL 08/08/23 08/09/23 08/09/23 Range/Units 23:59 01:14 01:25 Sodium 132 L (137-145) mmol/L Potassium 3.2 L (3.5-5.1) mmol/L Chloride 108 H (98-107) mmol/L Carbon Dioxide 15 L (22-30) mmol/L BUN (9-20) mg/dL Creatinine 0.38 L (0.66-1.25) mg/dL Glucose 241 H (74-99) mg/dL POC Glucose (mg/dL) 217 H 262 H (70-110) mg/dL Calcium (8.4-10.2) mg/dL 08/09/23 08/09/23 08/09/23 Range/Units 02:21 02:55 03:52 Sodium (137-145) mmol/L Potassium (3.5-5.1) mmol/L Chloride (98-107) mmol/L Carbon Dioxide (22-30) mmol/L BUN (9-20) mg/dL Creatinine (0.66-1.25) mg/dL Glucose (74-99) mg/dL POC Glucose (mg/dL) 232 H 227 H 185 H (70-110) mg/dL Calcium (8.4-10.2) mg/dL 08/09/23 08/09/23 08/09/23 Range/Units 04:59 05:42 05:50 Sodium 131 L (137-145) mmol/L Potassium 3.4 L (3.5-5.1) mmol/L Chloride (98-107) mmol/L Carbon Dioxide 17 L (22-30) mmol/L BUN (9-20) mg/dL Creatinine 0.31 L (0.66-1.25) mg/dL Glucose 233 H (74-99) mg/dL POC Glucose (mg/dL) 236 H 230 H (70-110) mg/dL Calcium 8.2 L (8.4-10.2) mg/dL 08/09/23 08/09/23 08/09/23 Range/Units 07:59 09:14 11:45 Sodium (137-145) mmol/L Potassium (3.5-5.1) mmol/L Chloride (98-107) mmol/L Carbon Dioxide (22-30) mmol/L BUN (9-20) mg/dL Creatinine (0.66-1.25) mg/dL Glucose (74-99) mg/dL POC Glucose (mg/dL) 168 H 231 H 234 H (70-110) mg/dL Calcium (8.4-10.2) mg/dL Microbiology - Last 24 Hours (Table) 08/07/23 15:15 Gram Stain - Preliminary Head Wound Culture - Preliminary Presumptive Staph aureus 08/07/23 15:15 Blood Culture - Preliminary Blood 08/07/23 15:15 Blood Culture - Preliminary Blood Assessment and Plan Assessment: mastoiditis with right post auricular abscess Sepsis, present on admission with hyperthermia, leukocytosis and tachypnea tachycardia None adherent to his medication Diabetic ketoacidosis Diabetes mellitus with hyperglycemiaContinue with IV hydration Plan: Continue with antibiotics Unasyn and IV vancomycin Follow-up culture results Continue with IV hydration Infectious disease consult General surgery consult Critical care team consult Consult psychiatrist because patient was not taking medication Labs and medication were reviewed.. Continue same treatment. Continue with symptomatic treatment. Resume home medication. Monitor labs and vitals. DVT and GI prophylaxis. Further recommendations as per clinical course of the patient DVT prophylaxis: Subcutaneous heparin GI Prophylaxis: Pepcid Prognosis is guarded
[2023-08-10] MEDS: AMPICILLIN-SULBACTAM 3 GM in SODIUM CHLORIDE 0.9% 100 ML IVPB SCH ×2 (00:31→06:19)
[2023-08-10 02:04] VITALS: RESP 16
--- NOTE | 2023-08-10 03:49 | CONS ---
CONSULTATION REASON FOR CONSULTATION: Right mastoiditis. HISTORY OF PRESENT ILLNESS: The patient is a pleasant 32-year-old male who was originally seen in the [facility] Emergency Room with complaints of weakness and some confusion. The patient is a non-compliant diabetic and does not check his blood sugars and probably does not use his insulin on a regular basis. He states that he has issues with OCD, manic depression, bipolar, anxiety, etc. He apparently feels that he has reactions to many of the medications that they have tried him on for psychiatric disorders. In addition to this, he is not currently seeing a psychiatrist nor does he have a primary care doctor. He relates that he has had issues with the area behind his right ear off and on for more than a year. In the past, he had developed an abscess behind the right ear, and this was drained. The patient relates that he unfortunately has tendency to continuously scratch the skin both of his face, ears, etc., and elsewhere. I advised him that certainly this could initiate a skin infection/cellulitis that could lead to soft tissue abscess formation. His current issue with regard to the right ear started approximately 1 week prior to his coming to [facility] Emergency Room. He states that the area behind the right ear was tender and swollen. He felt that it was beginning of a pimple, and therefore, he squeezed it, but nothing came out. Subsequently, the area began to swell even more, and he subsequently also developed drainage/pain from his right ear. He relates that he has a tendency to scratch the skin around both ears, and he does not quite understand the reason why he is constantly engaging in this activity. At the time that he was seen in the emergency room it was because of the fact that the right ear was draining and he had the swelling behind the ear. He was diagnosed with right mastoiditis and right postauricular abscess. At the time that I saw the patient, there was drainage coming from his right ear, but he was not complaining of any pain or tenderness. A CT scan of the IACs was ordered. I reviewed the CT scan personally and did not see any evidence of a mastoiditis. The mastoid was well aerated. There was evidence of a left maxillary fluid level suggesting sinusitis. Both of the patient's middle ear spaces were clear bilaterally. There did not appear to be evidence of any type of middle ear infection or middle ear effusion. PAST MEDICAL HISTORY: Reveals the patient has no known allergies. MEDICATIONS: Include insulin. REVIEW OF SYSTEMS: Positive with respect to metabolic and endocrine system in that the patient is a known noncompliant diabetic. PHYSICAL EXAMINATION: GENERAL: The patient is a pleasant 32-year-old, anorexic/malnourished appearing/who is alert and cooperative and is in no acute distress at this time. He is a good historian. HEENT: The patient is normocephalic. Examination of left ear is unremarkable. Examination of the right ear reveals that there is drainage from the right external auditory canal. Examination with the otoscope reveals that the canal skin is quite swollen, and the ear is somewhat tender to insertion of the speculum. His right tympanic membrane appears to be unremarkable and intact. The right postauricular area is slightly swollen, but there is actual purulent drainage coming from the right postauricular area where the previous postauricular abscess has apparently self- drained. Pupils are equal, round, and reactive to light and accommodation. Extraocular movements within normal limits. Intranasal examination reveals moderate septal deviation with compensatory hypertrophy of the inferior turbinates bilaterally and a moderate amount of mucus which is clear and draining down the posterior pharynx. Palpation of the neck and the remainder of the head and neck exam are unremarkable. CHEST/CARDIOVASCULAR: Both lung bryan are clear. The patient is in normal sinus rhythm. S1 and S2 are present without any murmurs. Peripheral pulses are bilaterally symmetrical. ABDOMEN: There is no evidence of any masses, megaly, or tenderness. The abdomen is soft. The remainder of physical exam is unremarkable. IMPRESS: 1. self draining right postauricular abscess. 2. right otorrhea. 3. Right adnexal otitis. PLAN: I reviewed the patient's CT scan of the IACs, and there was absolutely no evidence of a mastoiditis. Therefore, for the right external auditory canal drainage (right external otitis) I will start this patient on Ciprodex otic suspension, 4 drops in the right ear 3 times daily, to be used while the patient is in the hospital and to be continued once he is discharged until the medication is completely gone. I suspect that the cause of the right postauricular abscess was the patient most likely traumatized the skin by scratching and developed an infection which eventually evolved into a small soft tissue abscess. There is absolutely no connection between this patient's right postauricular abscess and the patient's mastoid. It is interesting to note that mastoiditis is actually quite rare in adults and is more common in young children. Fluid present in the mastoid air cells does not mean that the patient necessarily has a mastoiditis. Any middle ear infection (acute otitis media) may cause fluid in the middle ear space, which eventually will involve the mastoid air cells. This is normal. I suggested to the nurses after they try and place this patient in contact with both the primary care physician and also a psychiatrist, so that his psychiatric issues can be resolved. He certainly is quite thin, he weighs 115 pounds or less, and appears almost anorexic. Although he states he lives with his parents, I am not sure that this patient is getting appropriate diabetic care at home. Certainly, he cannot continue to lose weight. Although it is outside my specialty, I would wonder if this patient would benefit from an insulin pump. This might eliminate his need to check his blood sugars or even to self-administer insulin shots. The nursing staff has been instructed to give the patient any remaining Ciprodex to take home and use. I will at this time sign off on this case, and I will not need to see this patient in my office. I would like to take this opportunity to thank you for allowing me to assist in the care of your patient. If I could be of any further assistance, please feel free to call my office. SUNNI / DANIEL: [id number] / REY
[2023-08-10] MEDS: VANCOMYCIN 1,250 MG in SODIUM CHLORIDE 0.9% 250 ML IVPB SCH (04:01)
[2023-08-10] MEDS: INSULIN DETEMIR (LEVEMIR) 100 UNIT/ML SYR SQ SCH (06:20)
[2023-08-10 06:24] LABS: Glucose,Whole Blood 242 mg/dL (70-110)
[2023-08-10] MEDS: INSULIN ASPART (NovoLOG) 100 UNIT/ML VIAL SQ SCH ×4 (06:25→12:18)
[2023-08-10 08:40] LABS: Basophils % (A) 0 %; Eosinophils % (A) 0 %; HCT 40.3 % (39.0-53.0); HGB 13.2 gm/dL (13.0-17.5); Lymphocytes # (A) 2.1 k/uL (1.0-4.8); Lymphocytes % (A) 24 %; MCHC 32.8 g/dL (31.0-37.0); MCV 88.6 fL (80.0-100.0); Mean Platelet Volume 8.2; Monocytes # (A) 0.4 k/uL (0-1.0); Monocytes % (A) 5 %; Neutrophils # (A) 6.1 k/uL (1.3-7.7); Neutrophils % (A) 70 %; Platelet Count 278 k/uL (150-450); RBC 4.55 m/uL (4.30-5.90); RDW 14.2 % (11.5-15.5); WBC 8.7 k/uL (3.8-10.6)
--- NOTE | 2023-08-10 09:10 | P.PN ---
Subjective Progress Note Date: 08/10/23 08/10/2023, the patient is being seen for a follow-up. 33-year-old male patient hospitalized for acute DKA. The patient was treatment insulin drip and IV fluids. Anion gap closed and the patient was transitioned to long-acting insulin. Patient is type I diabetic. The patient also has history of anxie ty/depression, bipolar disorder and PTSD. Is a chronic smoker. He presented to us with severe dehydration and anion gap metabolic acidosis. CAT scan of the brain showed an acute left maxillary sinusitis. No mastoiditis. The patient also has a wound culture from the right ear revealing presumptive Staph aureus. Patient is currently on IV Unasyn. He was also given vancomycin. In terms of his cultures, there is presumptive Staph aureus from the left ear. Blood cultures are negative. In terms of insulin, the patient will transition to Levemir insulin along with NovoLog sliding scale coverage. He is receiving Ciprodex ear solution also. The patient was also seen by ENT regarding the w ound behind the right ear. There is a wound/abscess in the right posterior auricular area with evidence of some right otitis externa and the wound is approximately 2 inches in size with and there is a central ulceration. There is also crusting. No active drainage was noted. This is thought to be related to traumatic scratching with subsequent wound formation/ulceration and abscess formation. No connection between this wound and skin abscesses and the patient's mastoids. The patient was seen and evaluated by ENT. Wound debridement to be done at the later stage. Currently is on broad-spectrum antibiotics. In terms of his DKA, the patient's gap has closed in the morning blood sugar was at 242. His CBC is essentially within normal limits. His wounds culture finalized as MSSA. Infectious disease also on the case. The patient is on room air oxygen. The patient is afebrile. The patient is currently on Levemir insulin 8 units along with NovoLog 3 units with meals plus a sliding scale coverage. Objective - Vital Signs Vital signs: Vital Signs Temp 98.5 F 08/09/23 20:00 Pulse 94 08/10/23 01:53 Resp 16 08/10/23 01:53 BP 146/95 08/10/23 01:53 Pulse Ox 100 08/10/23 01:53 FiO2 Intake & Output 08/09/23 08/10/23 08/10/23 18:59 06:59 18:59 Intake Total 1982.515 900 Balance 1982.515 900 Intake: IV 950 Ampicillin-Sulbactam 3 gm 100 In Sodium Chloride 0.9% 100 ml @ 200 mls/hr IVPB Q6HR [facility] Rx#:[id number] D5-0.45% NaCl with KCl 600 20Meq/l 1,000 ml @ 150 mls/hr IV .Q6H40M [facility] Rx# :[id number] Vancomycin 1,000 mg In 250 Sodium Chloride 0.9% 250 ml @ 125 mls/hr IVPB Q8H [facility] Rx#:[id number] Intake, IV Titration 32.515 Amount Insulin Regular 100 unit 32.515 In Sodium Chloride 0.9% 100 ml @ 0.1 UNITS/KG/HR 5.268 mls/hr IV .[id number] [facility] Rx#:[id number] Oral 1000 900 Other: Voiding Method Toilet Toilet Toilet Urinal # Voids 2 2 - Exam GENERAL EXAM: Alert, 32-year-old male, on room air, comfortable in no apparent distress. HEAD: Normocephalic. Redness and tenderness behind the right ear. EYES: Normal reaction of pupils, equal size. NOSE: Clear with pink turbinates. THROAT: No erythema or exudates. NECK: No masses, no JVD., Wound measuring approximately 2 cm in size, edges are raised and the central is quite ulcerated and that is crusting and the area is erythematous and irregular without active drainage. CHEST: No chest wall deformity. LUNGS: Equal air entry with no crackles, wheeze, rhonchi or dullness. CVS: S1 and S2 normal with no audible murmur, regular rhythm. ABDOMEN: No hepatosplenomegaly, normal bowel sounds, no guarding or rigidity. SPINE: No scoliosis or deformity SKIN: No rashes CENTRAL NERVOUS SYSTEM: No focal deficits, tone is normal in all 4 extremities. EXTREMITIES: There is no peripheral edema. No clubbing, no cyanosis. Peripheral pulses are intact. - Labs CBC & Chem 7: 08/10/23 07:59 08/09/23 12:35 Labs: Abnormal Lab Results - Last 24 Hours (Table) 08/09/23 08/09/23 08/09/23 Range/Units 09:14 11:45 12:35 Sodium 136 L (137-145) mmol/L Carbon Dioxide 21 L (22-30) mmol/L Creatinine 0.38 L (0.66-1.25) mg/dL Glucose 354 H (74-99) mg/dL POC Glucose (mg/dL) 231 H 234 H (70-110) mg/dL Hemoglobin A1c (<=6.0) % 08/09/23 08/09/23 08/10/23 Range/Units 12:35 16:26 06:22 Sodium (137-145) mmol/L Carbon Dioxide (22-30) mmol/L Creatinine (0.66-1.25) mg/dL Glucose (74-99) mg/dL POC Glucose (mg/dL) 252 H 242 H (70-110) mg/dL Hemoglobin A1c 15.0 H (<=6.0) % Microbiology - Last 24 Hours (Table) 08/07/23 15:15 Blood Culture - Preliminary Blood 08/07/23 15:15 Blood Culture - Preliminary Blood 08/07/23 15:15 Gram Stain - Final Head Wound Culture - Final Staphylococcus aureus Assessment and Plan Plan: Acute diabetic ketoacidosis in a patient with a history of medication noncompliance, recovered and the patient is on Levemir insulin and Novolog SS Anion gap metabolic acidosis secondary to above, recovered Right posterior auricular wound with central ulceration and drainage and the culture showing MSSA. There is also Redness and tenderness behind the right right ear, suggestive of otitis externa. No evidence of any mastoiditis. History of bipolar disorder History of anxiety/depression History of posttraumatic stress disorder Previous history of medication noncompliance and DKA-like 2022 Chronic tobacco dependence Plan: Currently on Unasyn Vancomycin can be discontinued This will be coordinated with infectious disease Continue Levemir and NovoLog scale once labs improve Educated regarding the importance of medication compliance Educated regarding the importance of close follow-up with a primary care provider Could be transferred out of the ICU later today We will continue to follow
[2023-08-10 09:27] LABS: African American GFR (CKD) >90 (>60 ml/min/1.73 sqM); Anion Gap 10 mmol/L; Blood Urea Nitrogen 12 mg/dL (9-20); Calcium 9.2 mg/dL (8.4-10.2); Carbon Dioxide 22 mmol/L (22-30); Chloride 108 mmol/L (98-107); Glucose 145 mg/dL (74-99); Non-African American GFR(CKD) >90 (>60 ml/min/1.73 sqM); Potassium 3.7 mmol/L (3.5-5.1); Sodium 140 mmol/L (137-145)
[2023-08-10] MEDS: FAMOTIDINE 20 MG/2 ML VIAL IV SCH (09:28)
[2023-08-10] MEDS: HEPARIN SODIUM,PORCINE 5,000 UNIT/ML 1 ML VIAL SQ SCH (09:29)
[2023-08-10] MEDS: CIPROFLOXACIN-DEXAMETH 0.3-0.1% DROPS 7.5 ML BTL RIGHT EAR SCH (09:29)
[2023-08-10 10:01] VITALS: BP 132/88; PULSE 98; TEMP 98.3
[2023-08-10 11:16] LABS: Glucose,Whole Blood 143 mg/dL (70-110)
--- NOTE | 2023-08-10 15:35 | P.GSCN ---
History of Present Illness Consult date: 08/10/23 History of present illness: CHIEF COMPLAINT: Hyperglycemia HISTORY OF PRESENT ILLNESS: This is a 32-year-old male who presented to the hospital not feeling well and elevated blood sugars. He is found to be in DKA. Also had evidence of a postauricular abscess that is actively draining. Patient was seen by ENT service with no further recommendations on the abscess. Patient reports that he is feeling better. Abscess is getting smaller. Afebrile. White count has normalized. Patient has a known history of diabetes. PAST MEDICAL HISTORY: See below PAST SURGICAL HISTORY: See below MEDICATIONS: See below ALLERGIES: See below SOCIAL HISTORY: No illicit drug use. REVIEW OF SYSTEMS: CONSTITUTIONAL: Denies fever or chills. HEENT: Denies blurred vision, vision changes, or eye pain. Denies hemoptysis CARDIOVASCULAR: Denies chest pain or pressure. RESPIRATORY: No shortness of breath. GASTROINTESTINAL: See HPI for pertinent findings HEMATOLOGIC: Denies bleeding disorders. GENITOURINARY: Denies any blood in urine or increased urinary frequency. SKIN: Denies pruitis. Denies rash. PHYSICAL EXAM: VITAL SIGNS: Reviewed GENERAL: Well-developed in no acute distress. HEENT: Abscess behind the right ear with scabbing and purulent drainage. ABDOMEN: Soft. Nondistended. Nontender NEUROLOGIC: Alert and oriented. Cranial nerves II through XII grossly intact. LABORATORY DATA: WBC 17 down to 8.7 Hgb 13.2 Sodium 140 potassium 3.7 creatinine 0.40 IMAGING: ASSESSMENT: 1. Abscess behind the right ear with active drainage PLAN: -No surgical intervention planned -Patient can be discharged from surgical standpoint -Continue antibiotics per infectious disease Thank you for this consultation Physician Salvage Worker note has been reviewed by physician. Signing provider agrees with the documented findings, assessment, and plan of care. Past Medical History Past Medical History: Diabetes Mellitus Additional Past Medical History / Comment(s): Type 1 DM, childhood asthma, OCD History of Any Multi-Drug Resistant Organisms: None Reported Past Surgical History: No Surgical Hx Reported Additional Past Surgical History / Comment(s): Abcess drained on left face in 2020 Past Anesthesia/Blood Transfusion Reactions: Unable to Obtain Past Psychological History: Anxiety, Bipolar, Depression, PTSD Smoking Status: Current every day smoker Past Alcohol Use History: None Reported Past Drug Use History: Marijuana Medications and Allergies Home Medications Medication Instructions Recorded Confirmed Type Mupirocin 2% Oint [Bactroban 2% 1 applic TOPICAL TID 08/07/23 08/07/23 History Oint] Cephalexin [Keflex] 500 mg PO Q6HR 14 Days #56 cap 08/10/23 Rx Ciprofloxacin-Dexameth [Ciprodex 4 drops RIGHT EAR TID ml 08/10/23 Rx Otic Susp] INSULIN ASPART (NovoLOG) [NovoLOG 3 unit SQ AC-TID #3 pen 08/10/23 Rx (formulary)] Insulin Detemir (Levemir) [Levemir] 8 unit SQ DAILY@0700 #3 pen 08/10/23 Rx Allergies Allergy/AdvReac Type Severity Reaction Status Date / Time No Known Allergies Allergy Verified 08/07/23 17:37 Surgical - Exam Vital Signs Pulse Resp BP Pulse Ox 80 22 125/75 100 08/07/23 14:41 08/07/23 14:41 08/07/23 14:41 08/07/23 14:41 Results - Labs 08/10/23 07:59 08/10/23 07:59 Abnormal Lab Results - Last 24 Hours (Table) 08/09/23 08/09/23 08/09/23 Range/Units 12:35 12:35 16:26 Sodium 136 L (137-145) mmol/L Chloride (98-107) mmol/L Carbon Dioxide 21 L (22-30) mmol/L Creatinine 0.38 L (0.66-1.25) mg/dL Glucose 354 H (74-99) mg/dL POC Glucose (mg/dL) 252 H (70-110) mg/dL Hemoglobin A1c 15.0 H (<=6.0) % 08/10/23 08/10/23 08/10/23 Range/Units 06:22 07:59 11:14 Sodium (137-145) mmol/L Chloride 108 H (98-107) mmol/L Carbon Dioxide (22-30) mmol/L Creatinine 0.40 L (0.66-1.25) mg/dL Glucose 145 H (74-99) mg/dL POC Glucose (mg/dL) 242 H 143 H (70-110) mg/dL Hemoglobin A1c (<=6.0) % Microbiology - Last 24 Hours (Table) 08/07/23 15:15 Blood Culture - Preliminary Blood 08/07/23 15:15 Blood Culture - Preliminary Blood 08/07/23 15:15 Gram Stain - Final Head Wound Culture - Final Staphylococcus aureus Diabetes panel 08/09/23 08/09/23 08/10/23 Range/Units 12:35 12:35 07:59 Sodium 136 L 140 (137-145) mmol/L Potassium 4.0 3.7 (3.5-5.1) mmol/L Chloride 103 108 H (98-107) mmol/L Carbon Dioxide 21 L 22 (22-30) mmol/L BUN 12 12 (9-20) mg/dL Creatinine 0.38 L 0.40 L (0.66-1.25) mg/dL Glucose 354 H 145 H (74-99) mg/dL Hemoglobin A1c 15.0 H (<=6.0) % Calcium 8.5 9.2 (8.4-10.2) mg/dL Calcium panel 08/09/23 08/10/23 Range/Units 12:35 07:59 Calcium 8.5 9.2 (8.4-10.2) mg/dL Pituitary panel 08/09/23 08/10/23 Range/Units 12:35 07:59 Sodium 136 L 140 (137-145) mmol/L Potassium 4.0 3.7 (3.5-5.1) mmol/L Chloride 103 108 H (98-107) mmol/L Carbon Dioxide 21 L 22 (22-30) mmol/L BUN 12 12 (9-20) mg/dL Creatinine 0.38 L 0.40 L (0.66-1.25) mg/dL Glucose 354 H 145 H (74-99) mg/dL Calcium 8.5 9.2 (8.4-10.2) mg/dL Adrenal panel 08/09/23 08/10/23 Range/Units 12:35 07:59 Sodium 136 L 140 (137-145) mmol/L Potassium 4.0 3.7 (3.5-5.1) mmol/L Chloride 103 108 H (98-107) mmol/L Carbon Dioxide 21 L 22 (22-30) mmol/L BUN 12 12 (9-20) mg/dL Creatinine 0.38 L 0.40 L (0.66-1.25) mg/dL Glucose 354 H 145 H (74-99) mg/dL Calcium 8.5 9.2 (8.4-10.2) mg/dL
[2023-08-11] MEDS ORDERED: VANCOMYCIN TROUGH DUE 1 EACH MISC MISCELLANE ONE (11:00)
--- NOTE | 2023-08-12 17:05 | CDI ---
Documentation Clarification Form Date: 08/12/2023 04:50:13 PM From: Reina Grigsby Phone: Admit Date: 08/07/2023 05:01:00 PM Patient Name: Macho Johansen Visit Number: [id number] Discharge Date: 08/10/2023 05:25:00 PM ATTENTION: The Clinical Documentation Specialists (CDI) and [facility] Coding Staff appreciate your assistance in clarifying documentation. Please respond to the clarification below the line at the bottom and electronically sign. The CDI & [facility] Coding staff will review the response and follow-up if needed. Please note: Queries are made part of the Legal Health Record. If you have any questions, please contact the author of this message via ITS. Dr. Ware E Sheet The patients principal diagnosis the diagnosis that was chiefly responsible for the admission - has not been clearly identified and clarification is requested. The patient presented with the following: DKAandSepsis History/Risk factors: DMI in DKA, MSSA sepsis, Rt posterior auricularwoundwith centralulcerationanddrainage, BPD, anxiety, PTSD, recurrent medication/Tx noncompliance, smoker Clinical Indicators: His wounds culture finalized asMSSA. Glucose: 08/07 623-858 08/08 130- 623 Hemoglobin A1C 15.0 Treatment: Levemir insulin and Novolog SS; IV hydration Currently on Unasyn. Vancomycin can be discontinued. Educated regarding the importance of Rx compliance Educated regarding the importance ofclosefollow- upwith a PCP. In your professional opinion, can you please clarify which diagnosis, after study, was the reason chiefly responsible for the admission? [ ] MSSA Sepsis [ ] DKA [ ] Other, please specify [ ] Unable to determine (Template Last Revised: September 2020) mssa cellulitis DKA ,Present on admission , resolved MTDD
--- NOTE | 2023-08-13 11:37 | P.DS ---
Providers Date of admission: 08/07/23 17:01 Attending physician: Randal Barker Consults: 08/07/23 18:21 Consult Physician Urgent Consulting Provider: Alex Marie Consult Reason/Comments: Mastoiditis Do you want consulting provider notified?: Yes Consult Physician Urgent Consulting Provider: Phoenix Chavez Consult Reason/Comments: Mastoiditis Do you want consulting provider notified?: Yes 08/08/23 08:12 Consult Physician Routine Consulting Provider: Vidal Hurt Consult Reason/Comments: ICU management Do you want consulting provider notified?: Yes, Notify in am 08/09/23 15:40 Consult Physician Urgent Consulting Provider: Honey East Consult Reason/Comments: scalp asbcess Do you want consulting provider notified?: Yes Primary care physician: Stated None Hospital Course: Diagnoses: mastoiditis with right post auricular abscess Sepsis, present on admission with hyperthermia, leukocytosis and tachypnea tachycardia None adherent to his medication Diabetic ketoacidosis Diabetes mellitus with hyperglycemiaContinue with IV hydration Hospital course: This is a pleasant 32 years old male with past medical history of diabetes mellitus Presents because he was not compliant with his diabetes medication, he was sitting in bed for the last 3 days and not eating well. Patient was found to have cellulitis and skin abscess behind the right ear with active drainage. Patient was admitted to the hospital and treated with IV antibiotic, culture was growing MSSA, patient evaluated by surgical team ENT and general surgery team and patient did not was not found prior surgical intervention and patient was treated with antibiotic. Infectious disease team guidance, This has been stabilized and patient was cleared for discharge by all consultants including infectious disease team ENT, general surgery team as well as pulmonary/critical care team. patient will be discharged with outpatient course of oral antibiotics with Keflex for 2 weeks per recommendation of infectious disease team and prescription was sent to the pharmacy. Also patient will be discharged on ear drops antibiotics per recommendation of ENT physician and also sent to the pharmacy electronically upon patient request On admission patient was in diabetic ketoacidosis, was not compliant with his diabetes medication. His hemoglobin A1c was 15%, patient instructed to start insulin and he agrees. Patient states he knew how to inject insulin as he got before as well as he has insulin prescription at home as his brother is also diabetic. Nevertheless patient was treated with Levemir and short acting NovoLog with meals and his sugar stabilized. Patient was asymptomatic and medically stable and cleared for discharge today from this perspective. An insulin prescription was sent to the pharmacy electronically as well and patient told me he is going to pick him up On admission patient was not taking medication for unknown reason before psychiatry consult was requested. However at all from the psychiatrist malorie Mg stating she does not know why she was consulted and that she does not think she needs to see the pt , that day i discussed the case with the pt and then he denied to me any history of psychiastric illness and pt has no records of admission to the psych uint to this hospital and consult was cancelled upon her request. on the day of discharge pt told me he has history of PTSD, bipolar and OCD disease , however pt denies active signs or symptoms of depression . he is not overtly manic or psychotic. He denies any delusions or hallucinations to me. Besides he was able to imbricate appropriately and he confirmed to me on several occasions over several days his intention to take his medication and take care of his health as instructed. Also patient told me his intention to follow-up with CME in 1 week after discharge and that he has their contact information. Based upon my evaluation patient has capacity to make medical decision and medical team can not hold him against his will Patient was medically clear for discharge and he was cleared by all consultants. Patient denies any new complaint Retractors bedside nurse, patient was about to be discharged pending bed side nurse check in with his [facility] pharmacy to ensure his co-pay Patient refused to wait for this purpose and just left. Please refer to nursing for more details. as per bed side nurse javon Patient states he has a glucometer at home and he knows how to check his sugar although he was not compliant. To hospitalization. Patient agrees to monitor his sugar at least 4 times a day as for the first week after discharge and follow-up with PCP. a list of PCP's is provided for him by the insurance case manager. Also patient was instructed to follow up with his medical insurance provider to find a nearby PCP, primary care doctor and to call and make appointment in 1 week. another option is provided for him is [facility] and contact info is provided Problems and management plan were discussed with the patient and he verbalized understanding and acceptance Patient was found stable and can be discharged home in guarded prognosis however he needs follow-up as an outpatient. Patient was instructed to follow up with PCP within one week and patient agrees as above Patient was instructed to follow up with infectious disease doctor deangelo 1 week after discharge and general surgery Dr. Estrada in 1 week after discharge and he agrees to call and make his own appointments. Patient was instructed to follow up with Dr. Marie from ENT in 1-2 week after discharge and he agrees Physical exam -Gen: patient is a AAOx3, no distress. Small abscess behind right ear, with active draining, minimal purulent discharge on the dressing. Dressing is in a Place. No significant surrounding cellulitis CVS: S1-S2, RRR, no murmur Lungs: B/L CTA, no wheezing Abdomen: soft, no distention, no tenderness, positive bowel sounds Extremity: no leg edema or induration Time spent more than 35 minutes Patient Condition at Discharge: Critical Plan - Discharge Summary Discharge Rx Participant: Yes New Discharge Prescriptions: New RX: Ciprofloxacin-Dexameth [Ciprodex Otic Susp] 4 drops RIGHT EAR TID ml Cephalexin [Keflex] 500 mg PO Q6HR 14 Days #56 cap Insulin Detemir (Levemir) [Levemir] 8 unit SQ DAILY 30 Days #10 ml Insulin Aspart [NovoLOG] 0 units SQ AC-TID #10 ml Continue RX: Mupirocin 2% Oint [Bactroban 2% Oint] 1 applic TOPICAL TID Discontinued Sulfamethox-Tmp 800-160Mg [Bactrim DS 800-160 mg] 1 tab PO BID Discharge Medication List RX: Mupirocin 2% Oint [Bactroban 2% Oint] 1 applic TOPICAL TID 08/07/23 [History] Cephalexin [Keflex] 500 mg PO Q6HR 14 Days #56 cap 08/10/23 [Rx] Insulin Aspart [NovoLOG] 0 units SQ AC-TID #10 ml 08/10/23 [Rx] Insulin Detemir (Levemir) [Levemir] 8 unit SQ DAILY 30 Days #10 ml 08/10/23 [Rx] RX: Ciprofloxacin-Dexameth [Ciprodex Otic Susp] 4 drops RIGHT EAR TID ml 08/10/23 [Rx] Follow up Appointment(s)/Referral(s): None,Stated [Primary Care Provider] - 1-2 days [facility] [NON-STAFF] - 1 Week Alex Marie MD [STAFF PHYSICIAN] - 2 Weeks (ear doctor) Denise Sam [STAFF PHYSICIAN] - 2 Weeks (daibetes doctor ) Phoenix Chavez MD [STAFF PHYSICIAN] - 1 Week Freeman Estrada MD [STAFF PHYSICIAN] - 1 Week Activity/Diet/Wound Care/Special Instructions: heart healthy low carbohydrate diet Activity is restricted till you see your doctor we recommend to check her glucose 4 times a day, before each meal and at be [facility], gave the results in a log book and bring the results to her doctor on your appointment date If her glucose less than 70 or more than 400 then call 911 and come to emergency room We recommend to contact your health insurance provider to find a nearby primary care doctor, please call to make an appointment in 1 week Otherwise we recommend he follow[facility]up with [facility] and to call and make appointment in 1 week. please follow up with your [facility] office for your PTST, Bipolar and OCD, call to make appointment in one week Please call 911 on come to emergency room if your infection behind the ear get worse, more headache, more purulent discharge, more pain bleeding or more fever. Or any other worsening symptoms Discharge Disposition: HOME SELF-CARE
== END 2023-08-10 17:25 | disposition home or self-care (01) | DRG 720 ==
LOC: EC 14:33 → 2SICU 17:01
PROVIDERS: ADMIT Hospitalist; ATTEND Hospitalist
DX: A41.01 Sepsis due to Methicillin susceptible Staphylococcus aureus (principal); E10.10 Type 1 diabetes mellitus with ketoacidosis without coma; B95.61 Methicillin susceptible Staphylococcus aureus infection as the cause of diseases classified elsewhere; R64 Cachexia; I96 Gangrene, not elsewhere classified; L02.811 Cutaneous abscess of head [any part, except face]; F31.30 Bipolar disorder, current episode depressed, mild or moderate severity, unspecified; E86.0 Dehydration; L98.499 Non-pressure chronic ulcer of skin of other sites with unspecified severity; F17.210 Nicotine dependence, cigarettes, uncomplicated; T43.506A Underdosing of unspecified antipsychotics and neuroleptics, initial encounter; T38.3X6A Underdosing of insulin and oral hypoglycemic [antidiabetic] drugs, initial encounter; J01.00 Acute maxillary sinusitis, unspecified; F42.9 Obsessive-compulsive disorder, unspecified; F43.10 Post-traumatic stress disorder, unspecified; H60.91 Unspecified otitis externa, right ear; Z79.4 Long term (current) use of insulin; Z68.1 Body mass index [BMI] 19.9 or less, adult; Z91.148 Patient's other noncompliance with medication regimen for other reason; Z91.198 Patient's noncompliance with other medical treatment and regimen for other reason
CPT/HCPCS: 36415; 51798; 70482; 71045; 80048; 80051; 80053; 80202; 81001; 82009; 82565; 82947; 83036; 83605; 84100; 84520; 85025; 85610; 85730; 87040; 87070; 87077; 87186; 87205; 93005; 96361; 96365; 96366; 96367; 96368; 99291

== ENCOUNTER 2023-11-29 14:45 | Inpatient (IN) | payer OTHER ==
[2023-11-29 15:28] LABS: Glucose,Whole Blood 446 mg/dL (70-110)
--- NOTE | 2023-11-29 15:29 | ED ---
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 Patient is obsessed with police officers and has difficult time providing much history. Patient states he was at [facility] and then later states he was at [facility]. Patient later states he was on the bus. Patient states he did ask a friend for help however is unclear why he needed help. Patient does admit to having history of bipolar. Patient states he has been taking his medications. Patient does not feel like he is manic. Patient denies suicidal thoughts. Patient tries to elope during the conversation. - Related Data Home Medications Medication Instructions Recorded Confirmed No Known Home Medications 11/30/23 11/30/23 Allergies Allergy/AdvReac Type Severity Reaction Status Date / Time No Known Allergies Allergy Verified 11/30/23 09:36 Review of Systems ROS Statement: Those systems with pertinent positive or pertinent negative responses have been documented in the HPI. ROS Other: All systems not noted in ROS Statement are negative. Constitutional: Denies: fever Eyes: Denies: eye pain Psychiatric: Reports: as per HPI Past Medical History Past Medical History: Diabetes Mellitus Additional Past Medical History / Comment(s): Type 1 DM, childhood asthma, OCD History of Any Multi-Drug Resistant Organisms: None Reported Past Surgical History: No Surgical Hx Reported Additional Past Surgical History / Comment(s): Abcess drained on left face in 2020 Past Anesthesia/Blood Transfusion Reactions: Unable to Obtain Past Psychological History: Anxiety, Bipolar, Depression, PTSD Smoking Status: Current every day smoker Past Alcohol Use History: None Reported Past Drug Use History: Marijuana General Exam Limitations: no limitations General appearance: alert Head exam: Present: normocephalic Eye exam: Present: normal appearance ENT exam: Present: mucous membranes dry Neck exam: Present: normal inspection Respiratory exam: Present: normal lung sounds bilaterally Cardiovascular Exam: Present: regular rate, normal rhythm GI/Abdominal exam: Present: soft. Absent: tenderness Extremities exam: Present: normal inspection Neurological exam: Present: alert Psychiatric exam: Present: manic Expanded Focused psych exam: Present: restlessness, flight of ideas Skin exam: Present: normal color Course Vital Signs 11/29/23 11/29/23 11/29/23 14:48 18:00 19:00 Temperature 98.7 F Pulse Rate 87 91 Pulse Rate [ Candle Wrapping Machine Operator ] Respiratory 16 20 15 Rate Blood Pressure 151/85 146/81 Blood Pressure [Right Arm] O2 Sat by Pulse 98 98 Oximetry 11/30/23 11/30/23 11/30/23 04:00 05:00 05:51 Temperature Pulse Rate Pulse Rate [ Candle Wrapping Machine Operator ] Respiratory 20 20 20 Rate Blood Pressure Blood Pressure [Right Arm] O2 Sat by Pulse Oximetry 11/30/23 11/30/23 11/30/23 07:38 12:00 15:00 Temperature 97.5 F L Pulse Rate 110 H 100 100 Pulse Rate [ Candle Wrapping Machine Operator ] Respiratory 20 20 20 Rate Blood Pressure 128/84 120/86 140/68 Blood Pressure [Right Arm] O2 Sat by Pulse 100 98 98 Oximetry 11/30/23 11/30/23 11/30/23 17:47 21:52 22:11 Temperature 97.1 F L Pulse Rate 89 107 H Pulse Rate [ 114 H Candle Wrapping Machine Operator ] Respiratory 20 18 20 Rate Blood Pressure 140/86 117/66 Blood Pressure 131/77 [Right Arm] O2 Sat by Pulse 98 98 99 Oximetry Procedures - Restraint - Face to Face Restraint Occurrence 1 Patient's Immediate Situation: Endangers self safety Patient's Reaction to the Intervention: Uncooperative Patient's Medical & Behavioral Condition: Awake Need to Continue or Terminate Restraint or Seclusion: Continue Face to Face Eval of Restraint Date: 11/29/23 Face to Face Eval of Restraint Time: 15:50 Medical Decision Making - Medical Decision Making Was pt. sent in by a medical professional or institution (, PA, SEAT INSTALLER, urgent care, hospital, or fpc...) When possible be specific @ -No Did you speak to anyone other than the patient for history (EMS, parent, family, police, friend...)? What history was obtained from this source @ -officers help provide history as patient is reluctant Did you review nursing and triage notes (agree or disagree)? Why? @ -I reviewed and agree with nursing and triage notes Were old charts reviewed (outside hosp., previous admission, EMS record, old EKG, old radiological studies, urgent care reports/EKG's, fpc records)? Report findings @ -No old charts were reviewed Differential Diagnosis (chest pain, altered mental status, abdominal pain women, abdominal pain men, vaginal bleeding, weakness, fever, dyspnea, syncope, headache, dizziness, GI bleed, back pain, seizure, CVA, palpatations, mental h ealth, musculoskeletal)? @ -Differential Mental Health Depression, anxiety, bipolar, psychosis, schizophrenia, borderline personality, situational depression, adjustment disorder, behavioral disorder, brain tumor, malingering, substance abuse, encephalopathy, medication reaction, dementia, hypothyroidism, degenerative neurologic disorder, lupus.... This is not meant to be all-inclusive list EKG interpreted by me (3pts min.). @ -As above X-rays interpreted by me (1pt min.). @ -None done CT interpreted by me (1pt min.). @ -None done U/S interpreted by me (1pt. min.). @ -None done What testing was considered but not performed or refused? (CT, X-rays, U/S, labs)? Why? @ -None What meds were considered but not given or refused? Why? @ -None Did you discuss the management of the patient with other professionals (professionals i.e. , PA, SEAT INSTALLER, lab, RT, psych nurse, social service manager, swing saw operator, teacher, aeronautical engineering officer, medical case manager)? Give summary @ -Mental health nurse who will come evaluate Was smoking cessation discussed for >3mins.? @ -No Was critical care preformed (if so, how long)? @ -No Were there social determinants of health that impacted care today? How? (Homelessness, low income, unemployed, alcoholism, drug addiction, transportation, low edu. Level, literacy, decrease access to med. care, [facility], rehab)? @ -No Was there de-escalation of care discussed even if they declined (Discuss DNR or withdrawal of care, Hospice)? DNR status @ -No What co-morbidities impacted this encounter? (DM, HTN, Smoking, COPD, CAD, Cancer, CVA, ARF, Chemo, Hep., AIDS, mental health diagnosis, sleep apnea, morbid obesity)? @ -None Was patient admitted / discharged? Hospital course, mention meds given and route, prescriptions, significant lab abnormalities, going to OR and other perti nent info. @ -Patient presents manic. Patient is reluctant to be seen and does try to elope. Patient is held for mental health evaluation. Undiagnosed new problem with uncertain prognosis? @ -No Drug Therapy requiring intensive monitoring for toxicity (Heparin, Nitro, Insulin, Cardizem)? @ -No Were any procedures done? @ -No Diagnosis/symptom? @ -[Yvonne Acute, or Chronic, or Acute on Chronic? @ -Acute Uncomplicated (without systemic symptoms) or Complicated (systemic symptoms)? @ -Default Side effects of treatment? @ -No Exacerbation, Progression, or Severe Exacerbation? @ -No Poses a threat to life or bodily function? How? (Chest pain, [place], [place], pneumonia, PE, COPD, DKA, ARF, appy, cholecystitis, CVA, Diverticulitis, Homicidal, Suicidal, threat to staff... and all critical care pts) @ -No Patient was seen by mental health services with plans for admission. - Lab Data Result diagrams: 11/29/23 15:22 11/29/23 15:22 Lab Results 11/29/23 11/29/23 11/29/23 Range/Units 15:17 15:22 15:22 WBC 8.8 (3.8-10.6) k/uL RBC 4.75 (4.30-5.90) m/uL Hgb 13.9 (13.0-17.5) gm/dL Hct 43.4 (39.0-53.0) % MCV 91.5 (80.0-100.0) fL MCH 29.3 (25.0-35.0) pg MCHC 32.0 (31.0-37.0) g/dL RDW 13.7 (11.5-15.5) % Plt Count 313 (150-450) k/uL MPV 8.7 Neutrophils % 67 % Lymphocytes % 24 % Monocytes % 5 % Eosinophils % 2 % Basophils % 1 % Neutrophils # 5.9 (1.3-7.7) k/uL Lymphocytes # 2.1 (1.0-4.8) k/uL Monocytes # 0.4 (0-1.0) k/uL Eosinophils # 0.2 (0-0.7) k/uL Basophils # 0.1 (0-0.2) k/uL Sodium 133 L (137-145) mmol/L Potassium 4.0 (3.5-5.1) mmol/L Chloride 101 (98-107) mmol/L Carbon Dioxide 21 L (22-30) mmol/L Anion Gap 11 mmol/L BUN 12 (9-20) mg/dL Creatinine 0.40 L (0.66-1.25) mg/dL Est GFR (CKD-EPI)AfAm >90 (>60 ml/min/1.73 sqM) Est GFR (CKD-EPI)NonAf >90 (>60 ml/min/1.73 sqM) Glucose 430 H (74-99) mg/dL POC Glucose (mg/dL) 446 H (70-110) mg/dL POC Glu Display Artist ID Yanira Gracía [address] Glu mg/dL mg/dL Hemoglobin A1c (<=6.0) % Calcium 9.3 (8.4-10.2) mg/dL Total Bilirubin 0.5 (0.2-1.3) mg/dL AST 19 (17-59) U/L ALT 17 (4-49) U/L Alkaline Phosphatase 164 H (38-126) U/L Total Protein 6.6 (6.3-8.2) g/dL Albumin 4.2 (3.5-5.0) g/dL Urine Opiates Screen (NotDetected) Ur Oxycodone Screen (NotDetected) Urine Methadone Screen (NotDetected) Ur Barbiturates Screen (NotDetected) U Tricyclic Antidepress (NotDetected) Ur Phencyclidine Scrn (NotDetected) Ur Amphetamines Screen (NotDetected) U Methamphetamines Scrn (NotDetected) U Benzodiazepines Scrn (NotDetected) Urine Cocaine Screen (NotDetected) U Marijuana (THC) Screen (NotDetected) Serum Alcohol <10 mg/dL Acetone, Qual Negative (Negative) SARS-CoV-2 (PCR) (Not Detectd) 11/29/23 11/29/23 11/29/23 Range/Units 16:19 17:05 23:40 WBC (3.8-10.6) k/uL RBC (4.30-5.90) m/uL Hgb (13.0-17.5) gm/dL Hct (39.0-53.0) % MCV (80.0-100.0) fL MCH (25.0-35.0) pg MCHC (31.0-37.0) g/dL RDW (11.5-15.5) % Plt Count (150-450) k/uL MPV Neutrophils % % Lymphocytes % % Monocytes % % Eosinophils % % Basophils % % Neutrophils # (1.3-7.7) k/uL Lymphocytes # (1.0-4.8) k/uL Monocytes # (0-1.0) k/uL Eosinophils # (0-0.7) k/uL Basophils # (0-0.2) k/uL Sodium (137-145) mmol/L Potassium (3.5-5.1) mmol/L Chloride (98-107) mmol/L Carbon Dioxide (22-30) mmol/L Anion Gap mmol/L BUN (9-20) mg/dL Creatinine (0.66-1.25) mg/dL Est GFR (CKD-EPI)AfAm (>60 ml/min/1.73 sqM) Est GFR (CKD-EPI)NonAf (>60 ml/min/1.73 sqM) Glucose (74-99) mg/dL POC Glucose (mg/dL) 349 H 351 H 140 H (70-110) mg/dL POC Glu Display Artist ALEXYS Ayala, Ceasar Ayala, Ceasar Wallis, Adrienne [address] Glu mg/dL mg/dL Hemoglobin A1c (<=6.0) % Calcium (8.4-10.2) mg/dL Total Bilirubin (0.2-1.3) mg/dL AST (17-59) U/L ALT (4-49) U/L Alkaline Phosphatase (38-126) U/L Total Protein (6.3-8.2) g/dL Albumin (3.5-5.0) g/dL Urine Opiates Screen (NotDetected) Ur Oxycodone Screen (NotDetected) Urine Methadone Screen (NotDetected) Ur Barbiturates Screen (NotDetected) U Tricyclic Antidepress (NotDetected) Ur Phencyclidine Scrn (NotDetected) Ur Amphetamines Screen (NotDetected) U Methamphetamines Scrn (NotDetected) U Benzodiazepines Scrn (NotDetected) Urine Cocaine Screen (NotDetected) U Marijuana (THC) Screen (NotDetected) Serum Alcohol mg/dL Acetone, Qual (Negative) SARS-CoV-2 (PCR) (Not Detectd) 11/30/23 11/30/23 11/30/23 Range/Units 04:12 04:15 07:00 WBC (3.8-10.6) k/uL RBC (4.30-5.90) m/uL Hgb (13.0-17.5) gm/dL Hct (39.0-53.0) % MCV (80.0-100.0) fL MCH (25.0-35.0) pg MCHC (31.0-37.0) g/dL RDW (11.5-15.5) % Plt Count (150-450) k/uL MPV Neutrophils % % Lymphocytes % % Monocytes % % Eosinophils % % Basophils % % Neutrophils # (1.3-7.7) k/uL Lymphocytes # (1.0-4.8) k/uL Monocytes # (0-1.0) k/uL Eosinophils # (0-0.7) k/uL Basophils # (0-0.2) k/uL Sodium (137-145) mmol/L Potassium (3.5-5.1) mmol/L Chloride (98-107) mmol/L Carbon Dioxide (22-30) mmol/L Anion Gap mmol/L BUN (9-20) mg/dL Creatinine (0.66-1.25) mg/dL Est GFR (CKD-EPI)AfAm (>60 ml/min/1.73 sqM) Est GFR (CKD-EPI)NonAf (>60 ml/min/1.73 sqM) Glucose (74-99) mg/dL POC Glucose (mg/dL) (70-110) mg/dL POC Glu Display Artist ID Estimated Ave Glu mg/dL 441 mg/dL Hemoglobin A1c 17.0 H (<=6.0) % Calcium (8.4-10.2) mg/dL Total Bilirubin (0.2-1.3) mg/dL AST (17-59) U/L ALT (4-49) U/L Alkaline Phosphatase (38-126) U/L Total Protein (6.3-8.2) g/dL Albumin (3.5-5.0) g/dL Urine Opiates Screen Not Detected (NotDetected) Ur Oxycodone Screen Not Detected (NotDetected) Urine Methadone Screen Not Detected (NotDetected) Ur Barbiturates Screen Not Detected (NotDetected) U Tricyclic Antidepress Not Detected (NotDetected) Ur Phencyclidine Scrn Not Detected (NotDetected) Ur Amphetamines Screen Not Detected (NotDetected) U Methamphetamines Scrn Not Detected (NotDetected) U Benzodiazepines Scrn Detected H (NotDetected) Urine Cocaine Screen Not Detected (NotDetected) U Marijuana (THC) Screen Detected H (NotDetected) Serum Alcohol mg/dL Acetone, Qual (Negative) SARS-CoV-2 (PCR) Not Detected (Not Detectd) 11/30/23 11/30/23 11/30/23 Range/Units 13:58 15:21 16:46 WBC (3.8-10.6) k/uL RBC (4.30-5.90) m/uL Hgb (13.0-17.5) gm/dL Hct (39.0-53.0) % MCV (80.0-100.0) fL MCH (25.0-35.0) pg MCHC (31.0-37.0) g/dL RDW (11.5-15.5) % Plt Count (150-450) k/uL MPV Neutrophils % % Lymphocytes % % Monocytes % % Eosinophils % % Basophils % % Neutrophils # (1.3-7.7) k/uL Lymphocytes # (1.0-4.8) k/uL Monocytes # (0-1.0) k/uL Eosinophils # (0-0.7) k/uL Basophils # (0-0.2) k/uL Sodium (137-145) mmol/L Potassium (3.5-5.1) mmol/L Chloride (98-107) mmol/L Carbon Dioxide (22-30) mmol/L Anion Gap mmol/L BUN (9-20) mg/dL Creatinine (0.66-1.25) mg/dL Est GFR (CKD-EPI)AfAm (>60 ml/min/1.73 sqM) Est GFR (CKD-EPI)NonAf (>60 ml/min/1.73 sqM) Glucose (74-99) mg/dL POC Glucose (mg/dL) 541 H 386 H 385 H (70-110) mg/dL POC Glu Display Artist Shalonda Segura, Shalonda Aricniega [address] Glu mg/dL mg/dL Hemoglobin A1c (<=6.0) % Calcium (8.4-10.2) mg/dL Total Bilirubin (0.2-1.3) mg/dL AST (17-59) U/L ALT (4-49) U/L Alkaline Phosphatase (38-126) U/L Total Protein (6.3-8.2) g/dL Albumin (3.5-5.0) g/dL Urine Opiates Screen (NotDetected) Ur Oxycodone Screen (NotDetected) Urine Methadone Screen (NotDetected) Ur Barbiturates Screen (NotDetected) U Tricyclic Antidepress (NotDetected) Ur Phencyclidine Scrn (NotDetected) Ur Amphetamines Screen (NotDetected) U Methamphetamines Scrn (NotDetected) U Benzodiazepines Scrn (NotDetected) Urine Cocaine Screen (NotDetected) U Marijuana (THC) Screen (NotDetected) Serum Alcohol mg/dL Acetone, Qual (Negative) SARS-CoV-2 (PCR) (Not Detectd) 11/30/23 Range/Units 18:55 WBC (3.8-10.6) k/uL RBC (4.30-5.90) m/uL Hgb (13.0-17.5) gm/dL Hct (39.0-53.0) % MCV (80.0-100.0) fL MCH (25.0-35.0) pg MCHC (31.0-37.0) g/dL RDW (11.5-15.5) % Plt Count (150-450) k/uL MPV Neutrophils % % Lymphocytes % % Monocytes % % Eosinophils % % Basophils % % Neutrophils # (1.3-7.7) k/uL Lymphocytes # (1.0-4.8) k/uL Monocytes # (0-1.0) k/uL Eosinophils # (0-0.7) k/uL Basophils # (0-0.2) k/uL Sodium (137-145) mmol/L Potassium (3.5-5.1) mmol/L Chloride (98-107) mmol/L Carbon Dioxide (22-30) mmol/L Anion Gap mmol/L BUN (9-20) mg/dL Creatinine (0.66-1.25) mg/dL Est GFR (CKD-EPI)AfAm (>60 ml/min/1.73 sqM) Est GFR (CKD-EPI)NonAf (>60 ml/min/1.73 sqM) Glucose (74-99) mg/dL POC Glucose (mg/dL) 298 H (70-110) mg/dL POC Glu Display Artist ID Shalonda Foley [address] Glu mg/dL mg/dL Hemoglobin A1c (<=6.0) % Calcium (8.4-10.2) mg/dL Total Bilirubin (0.2-1.3) mg/dL AST (17-59) U/L ALT (4-49) U/L Alkaline Phosphatase (38-126) U/L Total Protein (6.3-8.2) g/dL Albumin (3.5-5.0) g/dL Urine Opiates Screen (NotDetected) Ur Oxycodone Screen (NotDetected) Urine Methadone Screen (NotDetected) Ur Barbiturates Screen (NotDetected) U Tricyclic Antidepress (NotDetected) Ur Phencyclidine Scrn (NotDetected) Ur Amphetamines Screen (NotDetected) U Methamphetamines Scrn (NotDetected) U Benzodiazepines Scrn (NotDetected) Urine Cocaine Screen (NotDetected) U Marijuana (THC) Screen (NotDetected) Serum Alcohol mg/dL Acetone, Qual (Negative) SARS-CoV-2 (PCR) (Not Detectd) Disposition Clinical Impression: Manic behavior Disposition: TRANSFER TO PSYCH HOSP/UNIT Is patient prescribed a controlled substance at d/c from ED?: No
[2023-11-29 15:32] LABS: Basophils # (A) 0.1 k/uL (0-0.2); Basophils % (A) 1 %; Eosinophils # (A) 0.2 k/uL (0-0.7); Eosinophils % (A) 2 %; HCT 43.4 % (39.0-53.0); HGB 13.9 gm/dL (13.0-17.5); Lymphocytes # (A) 2.1 k/uL (1.0-4.8); Lymphocytes % (A) 24 %; MCH 29.3 pg (25.0-35.0); MCV 91.5 fL (80.0-100.0); Mean Platelet Volume 8.7; Monocytes # (A) 0.4 k/uL (0-1.0); Monocytes % (A) 5 %; Neutrophils # (A) 5.9 k/uL (1.3-7.7); Neutrophils % (A) 67 %; Platelet Count 313 k/uL (150-450); RBC 4.75 m/uL (4.30-5.90); RDW 13.7 % (11.5-15.5); WBC 8.8 k/uL (3.8-10.6)
[2023-11-29] MEDS: ZIPRASIDONE 20 MG VIAL IM STA (15:37)
[2023-11-29] MEDS: LORazepam 2 MG/ML INJ IM STA (15:37)
[2023-11-29 15:44] LABS: ALT 17 U/L (4-49); AST 19 U/L (17-59); African American GFR (CKD) >90 (>60 ml/min/1.73 sqM); Albumin 4.2 g/dL (3.5-5.0); Alcohol <10 mg/dL; Alkaline Phosphatase 164 U/L (38-126); Anion Gap 11 mmol/L; Blood Urea Nitrogen 12 mg/dL (9-20); Calcium 9.3 mg/dL (8.4-10.2); Carbon Dioxide 21 mmol/L (22-30); Chloride 101 mmol/L (98-107); Glucose 430 mg/dL (74-99); Non-African American GFR(CKD) >90 (>60 ml/min/1.73 sqM); Sodium 133 mmol/L (137-145); Total Bilirubin 0.5 mg/dL (0.2-1.3); Total Protein 6.6 g/dL (6.3-8.2)
[2023-11-29 16:21] LABS: Glucose,Whole Blood 349 mg/dL (70-110)
[2023-11-29] MEDS: INSULIN REGULAR 100 UNIT/ML VIAL (IM/SQ) SQ ONE (16:26)
[2023-11-29 17:07] LABS: Glucose,Whole Blood 351 mg/dL (70-110)
[2023-11-29] MEDS ORDERED: DEXTROSE 50% SYRINGE 50 ML IVP PRN ×2 (20:45)
[2023-11-29 23:42] LABS: Glucose,Whole Blood 140 mg/dL (70-110)
[2023-11-30] MEDS: INSULIN ASPART (NovoLOG) 100 UNIT/ML VIAL SQ SCH (04:53)
[2023-11-30 05:34] LABS: Amphetamine Screen,Urine Not Detected (NotDetected); Barbiturate Screen,Urine Not Detected (NotDetected); Benzodiazepines Screen,Urine Detected (NotDetected); Cocaine Screen,Urine Not Detected (NotDetected); Methadone Screen, Urine Not Detected (NotDetected); Opiate Screen,Urine Not Detected (NotDetected); Oxycodone Screen, Urine Not Detected (NotDetected); Phencyclidine Screen,Urine Not Detected (NotDetected); Tricyclic Antidepressant,Urine Not Detected (NotDetected); Urn Cannabinoid Scrn Detected (NotDetected)
[2023-11-30 14:01] LABS: Glucose,Whole Blood 541 mg/dL (70-110)
[2023-11-30 15:24] LABS: Glucose,Whole Blood 386 mg/dL (70-110)
[2023-11-30 16:47] LABS: Glucose,Whole Blood 385 mg/dL (70-110)
[2023-11-30 18:58] LABS: Glucose,Whole Blood 298 mg/dL (70-110)
[2023-11-30] MEDS ORDERED: LORazepam 2 MG/ML INJ IM PRN (21:54)
[2023-11-30] MEDS ORDERED: haloperidoL 5 MG TAB PO PRN (21:54)
[2023-11-30] MEDS ORDERED: IBUPROFEN 600 MG TAB PO PRN (21:54)
[2023-11-30] MEDS ORDERED: MAGNESIUM HYDROXIDE 2,400 MG/30 ML CUP PO PRN (21:54)
[2023-11-30] MEDS ORDERED: LORazepam 1 MG TAB PO PRN (21:54)
[2023-11-30] MEDS ORDERED: ACETAMINOPHEN TAB 325 MG TAB PO PRN (21:54)
[2023-11-30] MEDS ORDERED: OLANZapine 10 MG VIAL IM PRN (21:54)
[2023-11-30] MEDS ORDERED: MAG HYDROX/AL HYDROX/SIMETH 355 ML BOTTLE PO PRN (21:54)
[2023-12-01] MEDS: NICOTINE 14MG/24HR PATCH TRANSDERM SCH (08:22)
[2023-12-01 08:23] LABS: Glucose,Whole Blood 365 mg/dL (70-110)
[2023-12-01 09:31] LABS: Chol/HDL Ratio 3.92 Ratio; LDL Cholesterol,Calculated 98.5 mg/dL (0.0-131.0)
[2023-12-01 12:53] LABS: Glucose,Whole Blood 367 mg/dL (70-110)
[2023-12-01] MEDS: INSULIN DETEMIR (LEVEMIR) 100 UNIT/ML SYR SQ ONE (14:20)
[2023-12-01 15:14] VITALS: BMI 15.8
[2023-12-01] MEDS ORDERED: LORazepam 2 MG/ML INJ IM PRN (16:16)
--- NOTE | 2023-12-01 16:25 | P.HP ---
Psychiatric H&P - . H&P Date: 12/01/23 History & Physical: Allergies Allergy/AdvReac Type Severity Reaction Status Date / Time No Known Allergies Allergy Verified 11/30/23 09:36 Vital Signs Temp 97.1 F L 11/30/23 21:52 Pulse 118 H 12/01/23 08:21 Resp 20 11/30/23 22:11 BP 127/75 12/01/23 08:21 Pulse Ox 99 11/30/23 22:11 FiO2 Intake & Output 11/30/23 12/01/23 12/01/23 18:59 06:59 18:59 Output Total 700 Balance -700 Weight 54.6 kg 54.6 kg Output: Urine 700 Laboratory Last Values WBC 8.8 k/uL (3.8-10.6) 11/29/23 15: RBC 4.75 m/uL (4.30-5.90) 11/29/23 15:22 Hgb 13.9 gm/dL (13.0-17.5) 11/29/23 15:22 Hct 43.4 % (39.0-53.0) 11/29/23 15:22 MCV 91.5 fL (80.0-100.0) 11/29/23 15:22 MCH 29.3 pg (25.0-35.0) 11/29/23 15:22 MCHC 32.0 g/dL (31.0-37.0) 11/29/23 15:22 RDW 13.7 % (11.5-15.5) 11/29/23 15:22 Plt Count 313 k/uL (150-450) 11/29/23 15:22 MPV 8.7 11/29/23 15:22 Neutrophils % 67 % 11/29/23 15:22 Lymphocytes % 24 % 11/29/23 15:22 Monocytes % 5 % 11/29/23 15:22 Eosinophils % 2 % 11/29/23 15:22 Basophils % 1 % 11/29/23 15:22 Neutrophils # 5.9 k/uL (1.3-7.7) 11/29/23 15:22 Lymphocytes # 2.1 k/uL (1.0-4.8) 11/29/23 15:22 Monocytes # 0.4 k/uL (0-1.0) 11/29/23 15:22 Eosinophils # 0.2 k/uL (0-0.7) 11/29/23 15:22 Basophils # 0.1 k/uL (0-0.2) 11/29/23 15:22 Sodium 133 mmol/L (137-145) L 11/29/23 15:22 Potassium 4.0 mmol/L (3.5-5.1) 11/29/23 15:22 Chloride 101 mmol/L (98-107) 11/29/23 15:22 Carbon Dioxide 21 mmol/L (22-30) L 11/29/23 15:22 Anion Gap 11 mmol/L 11/29/23 15:22 BUN 12 mg/dL (9-20) 11/29/23 15:22 Creatinine 0.40 mg/dL (0.66-1.25) L 11/29/23 15:22 Est GFR (CKD-EPI)AfAm >90 (>60 ml/min/1.73 sqM) 11/29/23 15:22 Est GFR (CKD-EPI)NonAf >90 (>60 ml/min/1.73 sqM) 11/29/23 15:22 Glucose 430 mg/dL (74-99) H 11/29/23 15:22 POC Glucose (mg/dL) 367 mg/dL (70-110) H 12/01/23 12:47 POC Glu Service Plumber ID Jeni Le 12/01/23 12:[address] Glu mg/dL 441 mg/dL 11/30/23 07:00 Hemoglobin A1c 17.0 % (<=6.0) H 11/30/23 07:00 Calcium 9.3 mg/dL (8.4-10.2) 11/29/23 15:22 Total Bilirubin 0.5 mg/dL (0.2-1.3) 11/29/23 15:22 AST 19 U/L (17-59) 11/29/23 15:22 ALT 17 U/L (4-49) 11/29/23 15:22 Alkaline Phosphatase 164 U/L (38-126) H 11/29/23 15:22 Total Protein 6.6 g/dL (6.3-8.2) 11/29/23 15:22 Albumin 4.2 g/dL (3.5-5.0) 11/29/23 15:22 Triglycerides 122.00 mg/dL (0.00-149.00) 11/29/23 15:22 Cholesterol 165.00 mg/dL (0.00-200.00) 11/29/23 15:22 LDL Cholesterol, Calc 98.5 mg/dL (0.0-131.0) 11/29/23 15:22 VLDL Cholesterol, Calc 24.40 mg/dL (5.00-40.00) 11/29/23 15:22 HDL Cholesterol 42.10 mg/dL (40.00-60.00) 11/29/23 15:22 Cholesterol/HDL Ratio 3.92 Ratio 11/29/23 15:22 TSH 0.582 mIU/L (0.465-4.680) 11/29/23 15:22 Urine Opiates Screen Not Detected (NotDetected) 11/30/23 04:15 Ur Oxycodone Screen Not Detected (NotDetected) 11/30/23 04:15 Urine Methadone Screen Not Detected (NotDetected) 11/30/23 04:15 Ur Barbiturates Screen Not Detected (NotDetected) 11/30/23 04:15 U Tricyclic Antidepress Not Detected (NotDetected) 11/30/23 04:15 Ur Phencyclidine Scrn Not Detected (NotDetected) 11/30/23 04:15 Ur Amphetamines Screen Not Detected (NotDetected) 11/30/23 04:15 U Methamphetamines Scrn Not Detected (NotDetected) 11/30/23 04:15 U Benzodiazepines Scrn Detected (NotDetected) H 11/30/23 04:15 Urine Cocaine Screen Not Detected (NotDetected) 11/30/23 04:15 U Marijuana (THC) Screen Detected (NotDetected) H 11/30/23 04:15 Serum Alcohol <10 mg/dL 11/29/23 15:22 Acetone, Qual Negative (Negative) 11/29/23 15:22 SARS-CoV-2 (PCR) Not Detected (Not Detectd) 11/30/23 04:12 12/01/23 16:24 Psychiatric Evaluation Identifying Data: Mr. Johansen is a 31 years old, single, WM, who lives in [place], [place] in an apartment by himself Chief Complaint: I just had an anxiety attack and bleeding form from the ear History of Psychiatric Illness- The patient noted that he had an anxiety attack seeing some blood coming from the ear. He called EMS and then police arrived. The patient noted that police misunderstood me. I might have been slightly confused. The said that he needed physical help not mental but things got misunderstood. The patient noted that he was agitated, distressed, and confused in the ER and resisted the police off icers. He noted being placed in restraints. He was moved to the MHU after that. The patient noted that he was last hospitalized to a psychiatric unit in 2009. He was diagnosed with bipolar disorder. He was hospitalized in this hospital. He was in the hospital for 1-2 week. He was discharged on Geodon 60 mg. He has taken this medication off and on since then. He was prescribed his medication by a psychiatrist in [place]. He lived in [place] before. He did not follow- up with any psychiatrist since he moved here 1-2 years ago. The patient is not under any psychiatric treatment for past 1-2 years. He has been off his medications for 1-2 years. Past Psychiatric History: As stated above. He has no history of any hospitalization or out patient treatment prior to . He has no history melba cidal or homicidal ideations or behavior. Past Medication History: Vraylar. Leading questions: The patient denied /admitted to Depression and Anxiety. Denied SI or HI. Denied symptoms consistent with psychosis Drugs and alcohol history: None. Tobacco use: One pack a day. Past Medical history: Juvenile Diabetic. Family History of Psychiatric Disorder: Social History and Family History: The patient denied. The patient was born and raised in [place], [place]. He grew up with two siblings. He finished [employer]. He has bachelors in Finance. 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 OTC: None. Allergies: None, Objective: MSE: Alert and attentive. Orientation times three Dressed and Groomed: Appropriately. Pleasant and cooperative. Psychomotor Activity: Normal. Speech: Normal in tone, quality, and quantity. Mood: Good. Affect: Appropriate to mood. SI or HI: None. Perceptual disturbance: None. Thought Content: No paranoia or other delusional thinking noted. Thought Process: Normal. Cognition: Intact Judgment and Insight: Good AIMS: Normal Labs: Reviewed Diagnosis: Adjustment disorder with mixed emotional disturbance. Plan and Recommendations: Reinstate Geodon 2o mg daily. Monitor MS and side effects of medications and adjust medications accordingly. Provide supportive psychotherapy and psychoeducation. Smoke cessation therapy. The patient to see a therapist on a regular basis once a week/ attend [facility]. Medication Consent with explanation of risk/benefits and side effects: Explained and obtained.
[2023-12-01 17:59] LABS: Glucose,Whole Blood 335 mg/dL (70-110)
[2023-12-01 20:24] LABS: Glucose,Whole Blood 392 mg/dL (70-110)
--- NOTE | 2023-12-02 01:46 | P.CONS ---
History of Present Illness - Reason for Consult Consult date: 12/02/23 - History of Present Illness The patient is a 33-year-old male with a PMH of type I DM, PTSD and tobacco abuse who was brought into the emergency room due to a manic episode and being uncooperative. The patient was admitted to the mental health unit where he was seen and evaluated. The patient reports that he was at [facility] and that somebody called 911 as he was not acting right. The patient reports that he has not been able to take his insulin at home due to an insurance issue. He denies any additional complaints at the time of interview. Denied experiencing chest discomfort, shortness of breath, fever, chills, cough, nausea, vomiting, abdominal pain, diarrhea. Review of systems: Pertinent positives and negatives as discussed in HPI, a complete review of systems was performed and all other systems are negative. Physical examination: General: non toxic, no distress, appears at stated age, thin Derm: no unusual rashes/lesions, no unusual ecchymoses, warm, dry Head: atraumatic, normocephalic, symmetric Eyes: EOMI, no lid lag, anicteric sclera ENT: Nose and ears atraumatic, no thrush, no pharyngeal erythema Neck: trachea midline, supple Mouth: no lip lesion, mucus membranes moist Cardiovascular: S1S2 reg, no murmur, no edema Lungs: CTA bilateral, no rhonchi, no rales , no accessory muscle use Abdominal: soft, nontender to palpation, no guarding Ext: no gross muscle atrophy, no contractures, Neuro: No gross focal neuro deficits noted Psych: Alert, oriented, pressured speech and flight of ideas Assessment: Type I DM with hyperglycemia Bipolar disorder Marijuana abuse Imaging: None performed Data Review: Laboratory evaluation was reviewed with glucose 430, urine toxicology positive for marijuana, sodium 133, and CO2 21 with A1c 17 Plan: Continue with insulin sliding scale with blood glucose monitoring and Levemir 10 units nightly Advised on the importance of cessation from marijuana use Defer management of bipolar disorder to primary psychiatry service Thank you for allowing us to participate in the care of this patient. We will follow peripherally. Do not hesitate to contact us with questions. Someone can be reached from the [facility][Note 3] hospitalist group at all hours of the day at [phone]. Past Medical History Past Medical History: Diabetes Mellitus Additional Past Medical History / Comment(s): Type 1 DM, childhood asthma, OCD History of Any Multi-Drug Resistant Organisms: None Reported Past Surgical History: No Surgical Hx Reported Additional Past Surgical History / Comment(s): Abcess drained on left face in 2020 Past Anesthesia/Blood Transfusion Reactions: Unable to Obtain Past Psychological History: Anxiety, Bipolar, Depression, PTSD Smoking Status: Current every day smoker Past Alcohol Use History: None Reported Past Drug Use History: Marijuana Medications and Allergies Home Medications Medication Instructions Recorded Confirmed Type No Known Home Medications 11/30/23 11/30/23 History Allergies Allergy/AdvReac Type Severity Reaction Status Date / Time No Known Allergies Allergy Verified 11/30/23 09:36 Physical Exam Vitals: Vital Signs Pulse BP 12/01/23 08:21 118 H 127/75 Intake and Output 12/01/23 12/01/23 12/02/23 14:59 22:59 06:59 Other: Weight 54.6 kg Results CBC & Chem 7: 11/29/23 15:22 11/29/23 15:22 Labs: Abnormal Lab Results - Last 24 Hours (Table) 12/01/23 12/01/23 12/01/23 Range/Units 08:22 12:47 17:56 POC Glucose (mg/dL) 365 H 367 H 335 H (70-110) mg/dL 12/01/23 Range/Units 20:22 POC Glucose (mg/dL) 392 H (70-110) mg/dL
[2023-12-02 04:09] LABS: Glucose,Whole Blood 424 mg/dL (70-110)
[2023-12-02 04:33] VITALS: BP 116/62; PULSE 115; RESP 14; TEMP 97.5
[2023-12-02] MEDS: INSULIN ASPART (NovoLOG) 100 UNIT/ML VIAL SQ ONE (04:35)
[2023-12-02 07:42] LABS: Glucose,Whole Blood 137 mg/dL (70-110)
[2023-12-02] MEDS: ZIPRASIDONE 20 MG CAP PO SCH (09:09)
[2023-12-02 12:45] LABS: Glucose,Whole Blood 510 mg/dL (70-110)
[2023-12-02 12:45] LABS: Glucose,Whole Blood 505 mg/dL (70-110)
[2023-12-02 14:50] LABS: African American GFR (CKD) >90 (>60 ml/min/1.73 sqM); Anion Gap 9 mmol/L; Blood Urea Nitrogen 22 mg/dL (9-20); Carbon Dioxide 26 mmol/L (22-30); Chloride 104 mmol/L (98-107); Glucose 235 mg/dL (74-99); Non-African American GFR(CKD) >90 (>60 ml/min/1.73 sqM); Potassium 3.8 mmol/L (3.5-5.1); Sodium 139 mmol/L (137-145)
--- NOTE | 2023-12-02 15:07 | P.PN ---
Progress Note - Text Progress Note Date: 12/02/23 BMP unremarkable. Patient has diabetes supplies and insulin at home. Continue levemir 10 at night. Check sugars 4 times a day. Needs close PCP follow up. Medically stable.
--- NOTE | 2023-12-02 17:14 | P.DS ---
Providers Date of admission: 11/30/23 21:42 Expected date of discharge: 12/02/23 Attending physician: Jr Paige MD Consults: 11/30/23 21:54 Consult Physician Routine Consulting Provider: Jimy Cage Consult Reason/Comments: medical management Do you want consulting provider notified?: Yes Primary care physician: Stated None - Discharge Diagnosis(es) (1) Adjustment disorder with emotional disturbance Current Visit: Yes Status: Acute Priority: Medium Hospital Course: Discharge Summary HPI: Psychiatric Evaluation Identifying Data: Mr. Johansen is 31 years old, single, WM, who lives in [place], [place] in an apartment by himself Chief Complaint: I just had an anxiety attack and bleeding from the ear History of Psychiatric Illness- The patient noted that he had an anxiety attack seeing some blood coming from the ear. He called EMS and then police arrived. The patient noted that police misunderstood me. I might have been slightly confused. The said that he needed physical help not mental but things got misunderstood. The patient noted that he was agitated, distressed, and confused in the ER and resisted the police officers. He noted being placed in restraints. He was moved to the MHU after that. The patient noted that he was last hospitalized to a psychiatric unit in 2009. He was diagnosed with bipolar disorder. He was hospitalized in this hospital. He was in the hospital for 1-2 week. He was discharged on Geodon 60 mg. He has taken this medication off and on since then. He was prescribed his medication by a psychiatrist in [place]. He lived in [place] before. He did not follow-up with any psychiatrist since he moved here 1-2 years ago. The patient is not under any psychiatric treatment for past 1-2 years. He has been off his medications for 1-2 years. Past Psychiatric History: As stated above. He has no history of any hospitalization or outpatient treatment prior to 2009. He has no history suicidal or homicidal ideations or behavior. No family h/o suicide or homicide. Past Medication History: Vraylar Leading questions: The patient denied /admitted to Depression and Anxiety. Denied SI or HI. Denied symptoms consistent with psychosis Drugs and alcohol history: None. Tobacco use: One pack a day. Hospital Course: After admission, the patient was provided pharmacotherapy, sanz milieu, and individual psychotherapy. The patient rapidly improved. He was reinstated on Geodon 20 mg. His dose was titrated to 40 mg daily. He participated in sanz milieu. He attended all the group meetings. He interacted with staff and peers well. He did not show any decline in his MS. He stayed in a stable condition since he came to the unit. No suicidal or Homicidal ideations were expressed or observed. No behavioral issues were noted. His stay remained uneventful. The patient was considered stable to be discharge to out-pt. The will resume care with psychiatrist on the out-pt. Social work to arrange for it. MSE: Alert and attentive. Orientation times three Dressed and Groomed: Appropriately. Pleasant and cooperative. Psychomotor Activity: Normal. Speech: Normal in tone, quality, and quantity. Mood: Good. Affect: Appropriate to mood. SI or HI: None. Perceptual disturbance: None. Thought Content: No paranoia or other delusional thinking noted. Thought Process: Normal. Cognition: Intact Judgment and Insight: Good Diagnosis: Adjustment disorder with mixed emotional disturbance. Hospital Course: MSE: Impression: Plan: The patient to be discharged today. The patient has attained good improvement since admission. He is stable to be followed as an outpatient. The patient is not suicidal or Homicidal. He does not pose any harm to self or others. The patient remains at a greater risk of self-harm or harm to others than general population on a chronic basis due to psychiatric illness and substance abuse. The patient will continue taking following medication post discharge. The importance of medication compliance and maintaining regular appointments at psychiatric out-pt and PCP clinic was explained and encouraged. tar pot worker to arrange for and conduct family meeting to ensure safety upon discharge and answer any questions. The social service coordinator to arrange for patients follow-up appointments at [facility] for psychiatric care along with follow-up with PCP. The patient provided psychoeducation. Advised to call 911 or go to nearest ED or call this hospital in case of acute worsening of symptomatology, severe side effects or having suicidal, homicidal thoughts and feeling unsafe at home. Health Concerns: BMP unremarkable. Patient has diabetes supplies and insulin at home. Continue levemir 10 at night. Check sugars 4 times a day. Need close PCP follow up. Medically stable. Patient Condition at Discharge: Stable Plan - Discharge Summary Discharge Rx Participant: Yes New Discharge Prescriptions: New Insulin Aspart [Insulin Aspart Flexpen] 3 unit SQ AC-TID #7 each Insulin Detemir [Levemir Flexpen] 10 units SQ DAILY #7 each Ziprasidone [Geodon] 40 mg PO AC-BRKFST 15 Days #15 cap INSULIN ASPART (NovoLOG) [NovoLOG (formulary)] 0 unit SQ ACHS each Insulin Detemir (Levemir) [Levemir] 10 unit SQ HS each Discharge Medication List INSULIN ASPART (NovoLOG) [NovoLOG (formulary)] 0 unit SQ ACHS each 12/02/23 [Rx] Insulin Aspart [Insulin Aspart Flexpen] 3 unit SQ AC-TID #7 each 12/02/23 [Rx] Insulin Detemir (Levemir) [Levemir] 10 unit SQ HS each 12/02/23 [Rx] Insulin Detemir [Levemir Flexpen] 10 units SQ DAILY #7 each 12/02/23 [Rx] Ziprasidone [Geodon] 40 mg PO AC-BRKFST 15 Days #15 cap 12/02/23 [Rx] Follow up Appointment(s)/Referral(s): [facility] [Outside] - 12/03/23 11:00 am (12/03/2023 11:00AM - 12:00PM VIVEK HAHN 12/08/2023 12:30PM - 1:30PM ANDREW HERRMANN ) [facility] [NON-STAFF] - 1 Week Patient Instructions/Handouts: Mood Disorders (DC) Activity/Diet/Wound Care/Special Instructions: Activity and diet as tolerated. Avoid the use of street drugs and alcohol. Take all medications as prescribed. When you need refills on your medications, please contact your medical provider and/or outpatient psychiatrist to have this done. Please go to scheduled outpatient appointment for aftercare treatment. If symptoms return or become worse, call the crisis line at and/or go to the nearest emergency room for evaluation. Pt given discharge instructions, copies of after care, Pt v/u of information. In stable condition. Aware of resources. Belongings returned to patient at discharge, see Personal Property Sheet. Discharge instructions given with verbal understanding, papers signed and copies given in discharge folder. Patient verbalized ready for discharge denying suicidal and homicidal thoughts, verbalized intent to follow up at scheduled psychiatric appointments and take prescribed medications as ordered. Please check your blood sugar 4 times a day, and take your insulin everyday. Please see a PCP. Discharge Disposition: HOME SELF-CARE
[2023-12-02] MEDS ORDERED: INSULIN DETEMIR (LEVEMIR) 100 UNIT/ML SYR SQ SCH (21:00)
[2023-12-03] MEDS ORDERED: ZIPRASIDONE 20 MG CAP PO SCH (07:30)
== END 2023-12-02 16:51 | disposition home or self-care (01) | DRG 882 ==
LOC: EC 14:45 → 3MHU 11-30 21:42
PROVIDERS: ADMIT Psychiatry & Neurology Psychiatry; ATTEND Psychiatry & Neurology Psychiatry
DX: F43.23 Adjustment disorder with mixed anxiety and depressed mood (principal); F41.0 Panic disorder [episodic paroxysmal anxiety]; H92.20 Otorrhagia, unspecified ear; F43.10 Post-traumatic stress disorder, unspecified; F31.9 Bipolar disorder, unspecified; F17.210 Nicotine dependence, cigarettes, uncomplicated; F12.10 Cannabis abuse, uncomplicated; R45.1 Restlessness and agitation; E10.65 Type 1 diabetes mellitus with hyperglycemia; F42.9 Obsessive-compulsive disorder, unspecified; J45.909 Unspecified asthma, uncomplicated; Z79.4 Long term (current) use of insulin; Z78.1 Physical restraint status; Z71.6 Tobacco abuse counseling; Z28.310 Unvaccinated for COVID-19; Z11.52 Encounter for screening for COVID-19
CPT/HCPCS: 36415; 80048; 80053; 80061; 80306; 80320; 82009; 83036; 84443; 85025; 87635; 96372; 99285

== ENCOUNTER 2024-06-10 04:53 | Inpatient (IN) | payer OTHER ==
--- NOTE | 2024-06-10 05:00 | ED ---
Lower Extremity Injury HPI <Christiano Mills - Last Filed: 06/10/24 08:58> - General Source: patient, RN notes reviewed, old records reviewed Mode of arrival: wheelchair Limitations: no limitations - History of Present Illness MD Complaint: leg injury, ankle injury, foot injury, fall -: hour(s) Injury: Ankle: Right, Foot: Right Type of Injury: blunt, inversion Place: home Severity: moderate Severity scale (1-10): 4 Improves With: nothing Worsens With: weight bearing Context: fall Associated Symptoms: swelling Treatments Prior to Arrival: other (0) <Christiano Fernández - Last Filed: 06/10/24 21:15> - General Chief Complaint: Extremity Injury, Lower Stated Complaint: Fall, R Leg Injury Time Seen by Provider: 06/10/24 04:58 - History of Present Illness Initial Comments: This is a 33-year-old male to the ER for evaluation of significant right ankle pain right foot pain, this occurred after a fall. Patient also feels week with significantly uncontrolled BS at home. (Christiano Fernández) - Related Data Home Medications Medication Instructions Recorded Confirmed No Known Home Medications 06/10/24 06/10/24 Allergies Allergy/AdvReac Type Severity Reaction Status Date / Time No Known Allergies Allergy Verified 06/10/24 09:53 Review of Systems ROS Other: All systems not noted in ROS Statement are negative. <Christiano Mills - Last Filed: 06/10/24 08:58> ROS Other: All systems not noted in ROS Statement are negative. <Christiano Fernández - Last Filed: 06/10/24 21:15> ROS Statement: Those systems with pertinent positive or pertinent negative responses have been documented in the HPI. Past Medical History Past Medical History: Diabetes Mellitus Additional Past Medical History / Comment(s): Type 1 DM, childhood asthma, OCD History of Any Multi-Drug Resistant Organisms: None Reported Past Surgical History: No Surgical Hx Reported Additional Past Surgical History / Comment(s): Abcess drained on left face in 2 021 Past Anesthesia/Blood Transfusion Reactions: Unable to Obtain Past Psychological History: Anxiety, Bipolar, Depression, PTSD Smoking Status: Current every day smoker, Vaper Past Alcohol Use History: None Reported Past Drug Use History: Marijuana <Christiano Fernández - Last Filed: 06/10/24 21:15> General Exam General appearance: alert, in no apparent distress Head exam: Present: atraumatic, normocephalic, normal inspection Eye exam: Present: normal appearance, PERRL, EOMI. Absent: scleral icterus, conjunctival injection, periorbital swelling ENT exam: Present: normal exam, mucous membranes moist Neck exam: Present: normal inspection. Absent: tenderness, meningismus, lymphadenopathy Respiratory exam: Present: normal lung sounds bilaterally. Absent: respiratory distress, wheezes, rales, rhonchi, stridor Cardiovascular Exam: Present: regular rate, normal rhythm, normal heart sounds. Absent: systolic murmur, diastolic murmur, rubs, gallop, clicks GI/Abdominal exam: Present: soft, normal bowel sounds. Absent: distended, tenderness, guarding, rebound, rigid Extremities exam: Present: normal inspection, full ROM, normal capillary refill. Absent: tenderness, pedal edema, joint swelling, calf tenderness Back exam: Present: normal inspection Neurological exam: Present: alert, oriented X3, CN II-XII intact Psychiatric exam: Present: normal affect, normal mood Skin exam: Present: warm, dry, intact, normal color. Absent: rash <Christiano Fernández - Last Filed: 06/10/24 21:15> Course <Christiano Fernández - Last Filed: 06/10/24 21:15> Vital Signs 06/10/24 06/10/24 06/10/24 04:55 07:37 08:00 Temperature 97.9 F Pulse Rate 104 H 96 98 Respiratory 18 18 17 Rate Blood Pressure 156/95 151/97 151/97 O2 Sat by Pulse 97 100 96 Oximetry 06/10/24 06/10/24 06/10/24 10:00 11:00 12:00 Temperature Pulse Rate 82 82 90 Respiratory 18 18 16 Rate Blood Pressure 148/96 151/99 144/83 O2 Sat by Pulse 96 96 96 Oximetry 06/10/24 06/10/24 13:00 13:44 Temperature Pulse Rate 87 98 Respiratory 18 18 Rate Blood Pressure 141/96 159/102 O2 Sat by Pulse 96 98 Oximetry - Reevaluation(s) Reevaluation #1: 06/10/24 04:59 Medical records reviewed (Christiano Fernández) Reevaluation #2: 06/10/24 BS continues to improve, pain controlled feeling improved (Christiano Fernández) Reevaluation #3: 06/10/24 patient informed of results and questions answered (Christiano Fernández) Reevaluation #4: Was pt. sent in by a medical professional or institution (, PA, CHIEF GROWTH OFFICER, urgent care, hospital, or longterm...) When possible be specific @ -no Did you speak to anyone other than the patient for history (EMS, parent, family, police, friend...)? What history was obtained from this source @ -no Did you review nursing and triage notes (agree or disagree)? Why? @ -agree Are old charts reviewed (outside hosp., previous admission, EMS record, old EKG, old radiological studies, urgent care reports/EKG's, longterm records)? Report findings @ -yes Differential Diagnosis (chest pain, altered mental status, abdominal pain women, abdominal pain men, vaginal bleeding, weakness, fever, dyspnea, syncope, headache, dizziness, GI bleed, back pain, seizure, CVA, palpatations, mental health, musculoskeletal)? @ -prior EKG interpreted by me (3pts min.). @ -yes X-rays interpreted by me (1pt min.). @ -yes negative for acute disease Undiagnosed new problem with uncertain prognosis? @ -no Drug Therapy requiring intensive monitoring for toxicity (Heparin, Nitro, Insulin, Cardizem)? @ -no Were any procedures done? @ -no Diagnosis/symptom? @ -HH,DKA, uncontrolled hyperglycemia, ankle sprain Acute, or Chronic, or Acute on Chronic? @ -Acute Uncomplicated (without systemic symptoms) or Complicated (systemic symptoms)? @ -Complicated Side effects of treatment? @ -no Exacerbation, Progression, or Severe Exacerbation? @ -exacerbation Poses a threat to life or bodily function? How? (Chest pain, USA, DC, pneumonia, PE, COPD, DKA, ARF, appy, cholecystitis, CVA, Diverticulitis, Homicidal, Suicidal, threat to staff... and all critical care pts) @ -yes DKA hyperglycemia (Christiano Fernández) Medical Decision Making - Lab Data Result diagrams: 06/10/24 05:36 11/15/24 05:36 <Christiano Mills - Last Filed: 06/10/24 08:58> - Lab Data Result diagrams: 06/10/24 05:36 06/10/24 19:45 - EKG Data -: EKG Interpreted by Me (EKG is sinus 94 NV 143 QRS 112 QTc 407) <Christiano Fernández - Last Filed: 06/10/24 21:15> - Medical Decision Making Was patient admitted / discharged? Hospital course, mention meds given and rou te, prescriptions, significant lab abnormalities, going to OR and other pertinent info. @ -Patient was signed out to me at 7 AM. Patient's sugar came back close at 900. Patient also had an elevated creatinine. Patient will receive fluids and insulin drip and the patient will be admitted to [facility] hospitalist who I spoke with. Undiagnosed new problem with uncertain prognosis? @ -No Drug Therapy requiring intensive monitoring for toxicity (Heparin, Nitro, Insulin, Cardizem)? @ -No Were any procedures done? @ -No Diagnosis/symptom? @ -Hyperosmolar glycemic state Acute, or Chronic, or Acute on Chronic? @ -Acute Uncomplicated (without systemic symptoms) or Complicated (systemic symptoms)? @ -Complicated Side effects of treatment? @ -No Exacerbation, Progression, or Severe Exacerbation? @ -No Poses a threat to life or bodily function? How? (Chest pain, USA, DC, pneumonia, PE, COPD, DKA, ARF, appy, cholecystitis, CVA, Diverticulitis, Homicidal, Suicidal, threat to staff... and all critical care pts) @ -Yes this can lead to severe dehydration and hypoperfusion with endorgan dy sfunction Diagnosis/symptom? @ -Renal insufficiency Acute, or Chronic, or Acute on Chronic? @ -Acute Uncomplicated (without systemic symptoms) or Complicated (systemic symptoms)? @ -Complicated Side effects of treatment? @ -None Exacerbation, Progression, or Severe Exacerbation] @ -No Poses a threat to life or bodily function? @ -No (Christiano Mills) - Lab Data Lab Results 06/10/24 06/10/24 06/10/24 Range/Units 05:15 05:30 05:36 WBC 7.5 (3.8-10.6) k/uL RBC 3.53 L (4.30-5.90) m/uL Hgb 10.2 L (13.0-17.5) gm/dL Hct 31.4 L (39.0-53.0) % MCV 89.0 (80.0-100.0) fL MCH 29.0 (25.0-35.0) pg MCHC 32.6 (31.0-37.0) g/dL RDW 12.8 (11.5-15.5) % Plt Count 307 (150-450) k/uL MPV 8.6 Neutrophils % 73 % Lymphocytes % 19 % Monocytes % 4 % Eosinophils % 2 % Basophils % 1 % Neutrophils # 5.5 (1.3-7.7) k/uL Lymphocytes # 1.4 (1.0-4.8) k/uL Monocytes # 0.3 (0-1.0) k/uL Eosinophils # 0.2 (0-0.7) k/uL Basophils # 0.0 (0-0.2) k/uL VBG pH (7.31-7.41) VBG pCO2 (37-51) mmHg VBG HCO3 (24-28) mmol/L Sodium (137-145) mmol/L Potassium (3.5-5.1) mmol/L Chloride (98-107) mmol/L Carbon Dioxide (22-30) mmol/L Anion Gap mmol/L BUN (9-20) mg/dL Creatinine (0.66-1.25) mg/dL Est GFR (CKD-EPI)AfAm (>60 ml/min/1.73 sqM) Est GFR (CKD-EPI)NonAf (>60 ml/min/1.73 sqM) Glucose (74-99) mg/dL POC Glucose (mg/dL) >600 H* (70-110) mg/dL POC Glu Pharmacy Resource Tech ID [place] Calcium (8.4-10.2) mg/dL Phosphorus (2.5-4.5) mg/dL Magnesium (1.6-2.3) mg/dL Total Bilirubin (0.2-1.3) mg/dL AST (17-59) U/L ALT (4-49) U/L Alkaline Phosphatase (38-126) U/L Total Protein (6.3-8.2) g/dL Albumin (3.5-5.0) g/dL Lipase (23-300) U/L Urine Color Colorless Urine Appearance Clear (Clear) Urine pH 5.0 (5.0-8.0) Ur Specific [place] 1.013 (1.001-1.035) Urine Protein Negative (Negative) Urine Glucose (UA) 4+ H (Negative) Urine Ketones Negative (Negative) Urine Blood Negative (Negative) Urine Nitrite Negative (Negative) Urine Bilirubin Negative (Negative) Urine Urobilinogen <2.0 (<2.0) mg/dL Ur Leukocyte Esterase Negative (Negative) Urine RBC 1 (0-5) /hpf Urine WBC <1 (0-5) /hpf Ur Squamous Epith Cells <1 (0-4) /hpf Urine Mucus Rare H (None) /hpf Serum Alcohol mg/dL Acetone, Qual (Negative) 06/10/24 06/10/24 06/10/24 Range/Units 05:36 05:36 08:10 WBC (3.8-10.6) k/uL RBC (4.30-5.90) m/uL Hgb (13.0-17.5) gm/dL Hct (39.0-53.0) % MCV (80.0-100.0) fL MCH (25.0-35.0) pg MCHC (31.0-37.0) g/dL RDW (11.5-15.5) % Plt Count (150-450) k/uL MPV Neutrophils % % Lymphocytes % % Monocytes % % Eosinophils % % Basophils % % Neutrophils # (1.3-7.7) k/uL Lymphocytes # (1.0-4.8) k/uL Monocytes # (0-1.0) k/uL Eosinophils # (0-0.7) k/uL Basophils # (0-0.2) k/uL VBG pH 7.25 L (7.31-7.41) VBG pCO2 45 (37-51) mmHg VBG HCO3 20 L (24-28) mmol/L Sodium 122 L (137-145) mmol/L Potassium 4.2 (3.5-5.1) mmol/L Chloride 92 L (98-107) mmol/L Carbon Dioxide 19 L (22-30) mmol/L Anion Gap 11 mmol/L BUN 39 H (9-20) mg/dL Creatinine 2.07 H (0.66-1.25) mg/dL Est GFR (CKD-EPI)AfAm 47 (>60 ml/min/1.73 sqM) Est GFR (CKD-EPI)NonAf 41 (>60 ml/min/1.73 sqM) Glucose 872 H* (74-99) mg/dL POC Glucose (mg/dL) (70-110) mg/dL POC Glu Pharmacy Resource Tech ID Calcium 8.4 (8.4-10.2) mg/dL Phosphorus 4.9 H (2.5-4.5) mg/dL Magnesium 1.7 (1.6-2.3) mg/dL Total Bilirubin 0.3 (0.2-1.3) mg/dL AST 18 (17-59) U/L ALT 13 (4-49) U/L Alkaline Phosphatase 350 H (38-126) U/L Total Protein 6.3 (6.3-8.2) g/dL Albumin 3.7 (3.5-5.0) g/dL Lipase 203 (23-300) U/L Urine Color Urine Appearance (Clear) Urine pH (5.0-8.0) Ur Specific [place] (1.001-1.035) Urine Protein (Negative) Urine Glucose (UA) (Negative) Urine Ketones (Negative) Urine Blood (Negative) Urine Nitrite (Negative) Urine Bilirubin (Negative) Urine Urobilinogen (<2.0) mg/dL Ur Leukocyte Esterase (Negative) Urine RBC (0-5) /hpf Urine WBC (0-5) /hpf Ur Squamous Epith Cells (0-4) /hpf Urine Mucus (None) /hpf Serum Alcohol <10 mg/dL Acetone, Qual Negative (Negative) Critical Care Time Critical Care Time: Yes Total Critical Care Time: 35 <Christiano Mills - Last Filed: 06/10/24 08:58> Disposition <Christiano Mills - Last Filed: 06/10/24 08:58> Is patient prescribed a controlled substance at d/c from ED?: No Time of Disposition: 06:30 <Christiano Fernández - Last Filed: 06/10/24 21:15> Clinical Impression: Right ankle sprain, Hyperosmolar hyperglycemic state (HHS), Hyponatremia, Hyperglycemia, Manic behavior Disposition: ADMITTED IP TO THIS HOSP Condition: Fair
[2024-06-10 05:18] LABS: Glucose,Whole Blood >600 mg/dL (70-110)
[2024-06-10] MEDS: ACETAMINOPHEN TAB 500 MG TAB PO STA (05:39)
[2024-06-10] MEDS: IBUPROFEN 600 MG TAB PO STA (05:39)
[2024-06-10] MEDS: SODIUM CHLORIDE 0.9% 1,000 ML IV STA ×2 (05:42→06:34)
[2024-06-10 06:16] LABS: Basophils % (A) 1 %; Eosinophils # (A) 0.2 k/uL (0-0.7); Eosinophils % (A) 2 %; HCT 31.4 % (39.0-53.0); HGB 10.2 gm/dL (13.0-17.5); Lymphocytes # (A) 1.4 k/uL (1.0-4.8); Lymphocytes % (A) 19 %; MCHC 32.6 g/dL (31.0-37.0); Mean Platelet Volume 8.6; Monocytes # (A) 0.3 k/uL (0-1.0); Monocytes % (A) 4 %; Neutrophils # (A) 5.5 k/uL (1.3-7.7); Neutrophils % (A) 73 %; Platelet Count 307 k/uL (150-450); RBC 3.53 m/uL (4.30-5.90); RDW 12.8 % (11.5-15.5); WBC 7.5 k/uL (3.8-10.6)
[2024-06-10] MEDS: INSULIN REGULAR 100 UNIT/ML VIAL (IV) IV ONE (06:40)
[2024-06-10 07:20] LABS: Appearance,Urine Clear (Clear); Bilirubin,Urine Negative (Negative); Blood,Urine Negative (Negative); Color,Urine Colorless; Glucose,Urine (UA) 4+ (Negative); Ketones,Urine Negative (Negative); Leukocyte Esterase,Urine Negative (Negative); Mucus,Urine Rare /hpf; Nitrite,Urine Negative (Negative); Protein,Urine Negative (Negative); RBC,Urine 1 /hpf (0-5); Specific Gravity,Urine 1.013 (1.001-1.035); Squamous Epithelial Cell,Urine <1 /hpf (0-4); Urobilinogen,Urine <2.0 mg/dL (<2.0); WBC,Urine <1 /hpf (0-5)
--- NOTE | 2024-06-10 07:34 | XR ---
EXAMINATION TYPE: XR ankle complete RT DATE OF EXAM: 06/10/2024 5:26 AM COMPARISON: None. CLINICAL INDICATION: Male, 33 years old with history of pain, fall TECHNIQUE: 3 view(s) obtained. FINDINGS: Ankle mortise is intact. Soft tissues are normal. No acute fracture or dislocation is evident. Follow up exams can be performed 7-10 days from acute trauma for continued pain. IMPRESSION: 1. No acute osseous abnormality right ankle [facility] Joao Rogel, , 06/10/2024 7:32 AM
[2024-06-10 08:12] LABS: ALT 13 U/L (4-49); AST 18 U/L (17-59); African American GFR (CKD) 47 (>60 ml/min/1.73 sqM); Albumin 3.7 g/dL (3.5-5.0); Alcohol <10 mg/dL; Alkaline Phosphatase 350 U/L (38-126); Anion Gap 11 mmol/L; Blood Urea Nitrogen 39 mg/dL (9-20); Calcium 8.4 mg/dL (8.4-10.2); Carbon Dioxide 19 mmol/L (22-30); Chloride 92 mmol/L (98-107); Magnesium 1.7 mg/dL (1.6-2.3); Non-African American GFR(CKD) 41 (>60 ml/min/1.73 sqM); Phosphorus 4.9 mg/dL (2.5-4.5); Potassium 4.2 mmol/L (3.5-5.1); Sodium 122 mmol/L (137-145); Total Bilirubin 0.3 mg/dL (0.2-1.3); Total Protein 6.3 g/dL (6.3-8.2)
[2024-06-10 08:29] LABS: Glucose 872 mg/dL (74-99)
[2024-06-10] MEDS: INSULIN REGULAR 100 UNIT/ML VIAL (IM/SQ) SQ ONE (08:55)
[2024-06-10 09:02] LABS: VBG PH 7.25 (7.31-7.41)
[2024-06-10] MEDS: SODIUM CHLORIDE 0.9% 1,000 ML IV SCH (09:28)
[2024-06-10] MEDS: INSULIN REGULAR 100 UNIT in SODIUM CHLORIDE 0.9% 100 ML IV SCH (09:30)
[2024-06-10] MEDS ORDERED: ACETAMINOPHEN TAB 325 MG TAB PO PRN (09:51)
[2024-06-10] MEDS ORDERED: ONDANSETRON 4 MG/2 ML VIAL IVP PRN (09:51)
[2024-06-10 10:04] LABS: Glucose,Whole Blood 576 mg/dL (70-110)
[2024-06-10] MEDS ORDERED: Magnesium Replacement Protocol 1 EACH MISC MISCELLANE PRN (10:43)
[2024-06-10] MEDS ORDERED: Phosphorus Replacement Protoco 1 EACH MISC MISCELLANE PRN (10:43)
[2024-06-10] MEDS ORDERED: Potassium Replacement Protocol 1 EACH MISC MISCELLANE PRN (10:43)
[2024-06-10 11:12] LABS: Glucose,Whole Blood 368 mg/dL (70-110)
--- NOTE | 2024-06-10 11:26 | CT ---
EXAMINATION TYPE: CT abdomen pelvis wo con DATE OF EXAM: 06/10/2024 COMPARISON: None CLINICAL INDICATION: Male, 33 years old with history of Nausea vomiting abdominal pain; PHH, diarrhea /vomiting TECHNIQUE: CT scan of the abdomen and pelvis is performed without oral or IV contrast. CT DLP: 406.[address] CTDI: mGy Automated exposure control for dose reduction was used. FINDINGS: Within the limitations of a non-contrast study, the following observations are made. The lungs are clear. The stomach is markedly distended with fluid and particulate matter region in qu estion gastric outlet obstruction. The bowel loops are nondilated. There is no free intraperitoneal a ir or fluid. Gallbladder is normal and there is no gallstone, wall thickening, pericholecystic fluid or distention . There is no organomegaly of the liver, pancreas, spleen or adrenal glands. There are no renal calcifications but there is marked bilateral hydronephrosis and hydroureter withou t evidence of radiopaque calculus or obstructing mass. There is marked distention of the urinary blad teddy raising the question of bladder outlet obstruction. There are prosthetic calcifications but the p rostate gland is not enlarged. The caliber of the abdominal aorta is normal and there is no retroperitoneal adenopathy or hemorrhage . There are scattered borderline superficial inguinal lymph nodes but they're not enlarged by CT criter ia. The osseous structures and soft tissues are unremarkable. IMPRESSION: 1. Limited study due to lack of contrast. 2. Markedly distended stomach raises the question of gastric outlet obstruction 3. Marked bilateral hydronephrosis and hydroureter without renal or ureteral calcification. 4. Markedly distended urinary bladder raising the question of bladder outlet obstruction. 5. No bowel obstruction, free intraperitoneal air or fluid. [facility], , 06/10/2024 11:23 AM
--- NOTE | 2024-06-10 11:49 | P.HPIM ---
History of Present Illness H&P Date: 06/10/24 History of present illness: 33-year-old male patient with past medical history significant for type 1 diabetes mellitus, PTSD, tobacco use, history of bipolar disorder who presented to ER with a complaint of left ankle pain, progressive generalized weakness, was not taking his insulin for the last 2 weeks, has his mother has a legal guardian. Patient's left ankle x-ray was negative in the ED. Patient denied any fever, chills, sore throat, productive cough, chest pain, palpitations, dysuria urgency frequency. Patient is a poor historian. Patient stated that he is progressively getting weaker, uses a walker to walk at home, had a fall and started to have left ankle pain. Patient also noted to have lower extremity edema bilaterally. Chest x-ray was negative for acute process. Patient was complaining of nausea and vomiting for the last few days along with abdominal pain. Patient complains of poor appetite. In the ED patient was afebrile, was initially tachycardic 104, respiratory rate 18, blood pressure 156/95, saturating 100% on room air. Left ankle x-ray was negative for any acute process WBCs 7.5, hemoglobin 10.2, platelet 307. ABG showed pH 7.25, pCO2 45, HCO3 20. Sodium 122 with blood sugars of 872. BUN 39, creatinine 2.07. GFR 41. AST ALT and bilirubin was unremarkable, alkaline phosphatase was elevated 350. UA was positive for glucose, negative for ketones. Serum alcohol level was negative. REVIEW OF SYSTEMS: CONSTITUTIONAL: Generalized weakness Difficult falls. HEENT: No recent visual problems or hearing problems. Denied any sore throat. CARDIOVASCULAR: No chest pain, orthopnea, PND, no palpitations, no syncope. PULMONARY: No shortness of breath, no cough, no hemoptysis. GASTROINTESTINAL: Nausea vomiting and abdominal pain. NEUROLOGICAL: No headaches, no weakness, no numbness. HEMATOLOGICAL: Denies any bleeding or petechiae. GENITOURINARY: Denies any burning micturition, frequency, or urgency. MUSCULOSKELETAL/RHEUMATOLOGICAL: Denies any joint pain, swelling, or any muscle pain. ENDOCRINE: Denies any polyuria or polydipsia. The rest of the 14-point review of systems is negative. PHYSICAL EXAMINATION: GENERAL: The patient is A&O x3, NAD HEENT: EOMI, Sclerae anicteric, Moist Mucous membranes Neck: Supple, Non tender, No JVD PULMONARY: Equal breath souds B/L, No wheezing, No crackles. CARDIOVASCULAR: S1, S2 present. No murmurs, rubs, or gallops. ABDOMEN: Soft, distended, voluntary guarding. Normoactive bowel sounds. No guarding or rebound tenderness. MUSCULOSKELETAL: ++ edema, No cyanosis. No clubbing. Normal ROM. Intact pe ripheral pulses. NEUROLOGICAL: CN 2-12 grossly intact. No FND Assessment and plan: HHS: Type 1 diabetes mellitus: Dehydration: Acute kidney injury: Urinary retention Distended stomach: Gastroparesis versus gastric outlet obstruction Nausea vomiting abdominal pain Lower extremity edema Deconditioning Falls Mood disorder: Noncompliant with medications per guardian Plan Aggressive IV fluids Continue IV fluids, insulin drip, Accu-Cheks every hour per [facility] protocol Switch IV fluids to D5 normal saline once blood sugar less than 300 Monitor electrolytes every 4 hours Replace electrolytes per protocol Per previous records patient was on Lantus 10 units twice daily +3 units 3 times daily plus scale, was not taking his insulin for last 2 weeks Ultrasound venous lower extremity for further evaluation of lower extremity edema Echocardiogram CT abdomen pelvis without contrast--- showed distended stomach concerning for gastric outlet obstruction, distended urinary bladder with bilateral hydro ure ter nephrosis General Surgery consult Urology consult Nephrology consult Psychiatry consulted for further evaluation of mood disorder with noncompliance with medications. Monitor BMP, avoid nephrotoxin PT/OT evaluation Fall precautions MRI lumbar spine DVT prophylaxis Subcutaneous heparin Monitor vital signs and labs Labs and medication were reviewed. Continue same treatment. Further recommendations as per clinical course of the patient Dictation was produced using [employer] dictation software. please excuse any grammatical, word or spelling errors. Past Medical History Past Medical History: Diabetes Mellitus Additional Past Medical History / Comment(s): Type 1 DM, childhood asthma, OCD History of Any Multi-Drug Resistant Organisms: None Reported Past Surgical History: No Surgical Hx Reported Additional Past Surgical History / Comment(s): Abcess drained on left face in 2020 Past Anesthesia/Blood Transfusion Reactions: Unable to Obtain Past Psychological History: Anxiety, Bipolar, Depression, PTSD Smoking Status: Current every day smoker, Vaper Past Alcohol Use History: None Reported Past Drug Use History: Marijuana Medications and Allergies Home Medications Medication Instructions Recorded Confirmed Type No Known Home Medications 06/10/24 06/10/24 History Allergies Allergy/AdvReac Type Severity Reaction Status Date / Time No Known Allergies Allergy Verified 06/10/24 09:53 Physical Exam Vitals: Vital Signs Temp Pulse Resp BP Pulse Ox 06/10/24 07:37 96 18 151/97 100 06/10/24 04:55 97.9 F 104 H 18 156/95 97 Intake and Output 06/09/24 06/10/24 06/10/24 22:59 06:59 14:59 Other: Weight 65.771 kg Results CBC & Chem 7: 06/10/24 05:36 06/10/24 11:53 Labs: Abnormal Lab Results - Last 24 Hours (Table) 06/10/24 06/10/24 06/10/24 Range/Units 05:15 05:30 05:36 RBC 3.53 L (4.30-5.90) m/uL Hgb 10.2 L (13.0-17.5) gm/dL Hct 31.4 L (39.0-53.0) % VBG pH (7.31-7.41) VBG HCO3 (24-28) mmol/L Sodium (137-145) mmol/L Chloride (98-107) mmol/L Carbon Dioxide (22-30) mmol/L BUN (9-20) mg/dL Creatinine (0.66-1.25) mg/dL Glucose (74-99) mg/dL POC Glucose (mg/dL) >600 H* (70-110) mg/dL Phosphorus (2.5-4.5) mg/dL Alkaline Phosphatase (38-126) U/L Urine Glucose (UA) 4+ H (Negative) Urine Mucus Rare H (None) /hpf 06/10/24 06/10/24 06/10/24 Range/Units 05:36 08:10 10:02 RBC (4.30-5.90) m/uL Hgb (13.0-17.5) gm/dL Hct (39.0-53.0) % VBG pH 7.25 L (7.31-7.41) VBG HCO3 20 L (24-28) mmol/L Sodium 122 L (137-145) mmol/L Chloride 92 L (98-107) mmol/L Carbon Dioxide 19 L (22-30) mmol/L BUN 39 H (9-20) mg/dL Creatinine 2.07 H (0.66-1.25) mg/dL Glucose 872 H* (74-99) mg/dL POC Glucose (mg/dL) 576 H* (70-110) mg/dL Phosphorus 4.9 H (2.5-4.5) mg/dL Alkaline Phosphatase 350 H (38-126) U/L Urine Glucose (UA) (Negative) Urine Mucus (None) /hpf
--- NOTE | 2024-06-10 12:18 | US ---
EXAMINATION TYPE: US venous doppler duplex LE BI DATE OF EXAM: 06/10/2024 11:56 AM COMPARISON: NONE CLINICAL INDICATION: Male, 33 years old with history of Edema; edema and fall, TECHNIQUE: The lower extremity deep venous system is examined utilizing real time linear array sonog curt with graded compression, color doppler sonography, and spectral doppler. SIDE PERFORMED: Bilateral FINDINGS: VESSELS IMAGED: Common Femoral Vein Deep Femoral Vein Greater Saphenous Vein * Femoral Vein Popliteal Vein Small Saphenous Vein * Proximal Calf Veins (* superficial vessels) Right Leg: Negative for DVT, Color Doppler imaging shows patency of the vessels. Spectral waveforms are within normal limits. Left Leg: Negative for DVT, Color Doppler imaging shows patency of the vessels. Spectral waveforms a re within normal limits. limited by patient positioning and edema IMPRESSION: 1. Bilateral lower extremity ultrasound negative for deep venous stenosis [facility], , 06/10/2024 12:16 PM
[2024-06-10 12:47] LABS: African American GFR (CKD) 48 (>60 ml/min/1.73 sqM); Anion Gap 12 mmol/L; Blood Urea Nitrogen 34 mg/dL (9-20); Carbon Dioxide 21 mmol/L (22-30); Chloride 102 mmol/L (98-107); Glucose 260 mg/dL (74-99); Non-African American GFR(CKD) 42 (>60 ml/min/1.73 sqM); Potassium 3.7 mmol/L (3.5-5.1); Sodium 135 mmol/L (137-145)
[2024-06-10 13:02] LABS: Glucose,Whole Blood 203 mg/dL (70-110)
[2024-06-10] MEDS: D5-0.45% NACL WITH KCL 20MEQ/L 1,000 ML IV SCH (13:57)
[2024-06-10 14:14] LABS: Glucose,Whole Blood 113 mg/dL (70-110)
--- NOTE | 2024-06-10 14:23 | P.GSCN ---
History of Present Illness Consult date: 06/10/24 History of present illness: CHIEF COMPLAINT: Fall and weakness HISTORY OF PRESENT ILLNESS: This is a 33-year-old male who presented to the hospital after a fall and pain in his right ankle with weakness. Patient has been noncompliant with his insulin. Blood sugars are in the 800s on admission. Patient denies any abdominal pain. He does report feeling like there is a balloon in between his hips. He had significant distention in the lower abdomen and was found to have bilateral hydronephrosis with concern for bladder outlet obstruction. CAT scan had also reported markedly distended stomach and sick concern for gastric outlet obstruction. He is getting a Rueda catheter placed. Patient denies any nausea or vomiting. He reports eating a regular diet today with eggs and sausage. He reports having loose stool this morning. Patient having urinary and stool incontinence. PAST MEDICAL HISTORY: Type 1 diabetes mellitus, OCD, anxiety, bipolar, depression, PTSD PAST SURGICAL HISTORY: No abdominal surgeries, abscess drained from face MEDICATIONS: See below ALLERGIES: See below SOCIAL HISTORY: No illicit drug use. REVIEW OF SYSTEMS: CONSTITUTIONAL: Denies fever or chills. HEENT: Denies blurred vision, vision changes, or eye pain. Denies hemoptysis CARDIOVASCULAR: Denies chest pain or pressure. RESPIRATORY: No shortness of breath. GASTROINTESTINAL: See HPI for pertinent findings HEMATOLOGIC: Denies bleeding disorders. GENITOURINARY: Denies any blood in urine or increased urinary frequency. SKIN: Denies pruitis. Denies rash. PHYSICAL EXAM: VITAL SIGNS: Reviewed GENERAL: Well-developed in no acute distress. HEENT: No sclera icterus. Extraocular movements grossly intact. Moist buccal mucosa. Head is atraumatic, normocephalic. No nasal drainage. ABDOMEN: Soft. No tenderness to palpation of upper abdomen. Lower abdomen di stended in the suprapubic area. Patient reports mild discomfort with palpation. NEUROLOGIC: Alert and oriented. Cranial nerves II through XII grossly intact. LABORATORY DATA: WBC 7.5 Hgb 10.2 platelets 307 Sodium 135 potassium 3.7 creatinine 2.05 Blood sugar 872 on admission Acetone negative IMAGING: CT scan abdomen pelvis reports markedly distended stomach raises question of gastric outlet obstruction. Markedly bilateral hydronephrosis and hydroureter with out renal or ureteral calcification. Markedly distended urinary bladder raising question of bladder outlet obstruction. No bowel obstruction free intraperitoneal air or fluid ASSESSMENT: 1. Markedly distended stomach with possible gastric outlet obstruction noted on CAT scan 2. Markedly bilateral hydronephrosis and hydroureter and distended urinary bladder with acute kidney injury 3. Diabetes mellitus type 1 with uncontrolled blood sugars 4. Possible gastroparesis PLAN: -CAT scan results and exam findings reviewed with Dr. Estrada -Place NG tube for decompression of the distended stomach -Keep patient n.p.o. -Agree with urology consult and Rueda catheter placement for distended bladder and bilateral hydronephrosis -Recommend blood sugar control -Continue to monitor Physician Bottle Capper note has been reviewed by physician. Signing provider agrees with the documented findings, assessment, and plan of care. Past Medical History Past Medical History: Diabetes Mellitus Additional Past Medical History / Comment(s): Type 1 DM, childhood asthma, OCD History of Any Multi-Drug Resistant Organisms: None Reported Past Surgical History: No Surgical Hx Reported Additional Past Surgical History / Comment(s): Abcess drained on left face in 2020 Past Anesthesia/Blood Transfusion Reactions: Unable to Obtain Past Psychological History: Anxiety, Bipolar, Depression, PTSD Smoking Status: Current every day smoker, Vaper Past Alcohol Use History: None Reported Past Drug Use History: Marijuana Medications and Allergies Home Medications Medication Instructions Recorded Confirmed Type No Known Home Medications 06/10/24 06/10/24 History Allergies Allergy/AdvReac Type Severity Reaction Status Date / Time No Known Allergies Allergy Verified 06/10/24 09:53 Surgical - Exam Vital Signs Temp Pulse Resp BP Pulse Ox 97.9 F 104 H 18 156/95 97 06/10/24 04:55 06/10/24 04:55 06/10/24 04:55 06/10/24 04:55 06/10/24 04:55 Results - Labs 06/10/24 05:36 06/10/24 11:53 Abnormal Lab Results - Last 24 Hours (Table) 06/10/24 06/10/24 06/10/24 Range/Units 05:15 05:30 05:36 RBC 3.53 L (4.30-5.90) m/uL Hgb 10.2 L (13.0-17.5) gm/dL Hct 31.4 L (39.0-53.0) % VBG pH (7.31-7.41) VBG HCO3 (24-28) mmol/L Sodium (137-145) mmol/L Chloride (98-107) mmol/L Carbon Dioxide (22-30) mmol/L BUN (9-20) mg/dL Creatinine (0.66-1.25) mg/dL Glucose (74-99) mg/dL POC Glucose (mg/dL) >600 H* (70-110) mg/dL Phosphorus (2.5-4.5) mg/dL Alkaline Phosphatase (38-126) U/L Urine Glucose (UA) 4+ H (Negative) Urine Mucus Rare H (None) /hpf 06/10/24 06/10/24 06/10/24 Range/Units 05:36 08:10 10:02 RBC (4.30-5.90) m/uL Hgb (13.0-17.5) gm/dL Hct (39.0-53.0) % VBG pH 7.25 L (7.31-7.41) VBG HCO3 20 L (24-28) mmol/L Sodium 122 L (137-145) mmol/L Chloride 92 L (98-107) mmol/L Carbon Dioxide 19 L (22-30) mmol/L BUN 39 H (9-20) mg/dL Creatinine 2.07 H (0.66-1.25) mg/dL Glucose 872 H* (74-99) mg/dL POC Glucose (mg/dL) 576 H* (70-110) mg/dL Phosphorus 4.9 H (2.5-4.5) mg/dL Alkaline Phosphatase 350 H (38-126) U/L Urine Glucose (UA) (Negative) Urine Mucus (None) /hpf 06/10/24 06/10/24 06/10/24 Range/Units 11:11 11:53 11:53 RBC (4.30-5.90) m/uL Hgb (13.0-17.5) gm/dL Hct (39.0-53.0) % VBG pH (7.31-7.41) VBG HCO3 (24-28) mmol/L Sodium 135 L (137-145) mmol/L Chloride (98-107) mmol/L Carbon Dioxide 21 L (22-30) mmol/L BUN 34 H (9-20) mg/dL Creatinine 2.05 H (0.66-1.25) mg/dL Glucose 260 H (74-99) mg/dL POC Glucose (mg/dL) 368 H (70-110) mg/dL Phosphorus 4.7 H (2.5-4.5) mg/dL Alkaline Phosphatase (38-126) U/L Urine Glucose (UA) (Negative) Urine Mucus (None) /hpf 06/10/24 Range/Units 13:00 RBC (4.30-5.90) m/uL Hgb (13.0-17.5) gm/dL Hct (39.0-53.0) % VBG pH (7.31-7.41) VBG HCO3 (24-28) mmol/L Sodium (137-145) mmol/L Chloride (98-107) mmol/L Carbon Dioxide (22-30) mmol/L BUN (9-20) mg/dL Creatinine (0.66-1.25) mg/dL Glucose (74-99) mg/dL POC Glucose (mg/dL) 203 H (70-110) mg/dL Phosphorus (2.5-4.5) mg/dL Alkaline Phosphatase (38-126) U/L Urine Glucose (UA) (Negative) Urine Mucus (None) /hpf Diabetes panel 06/10/24 06/10/24 Range/Units 05:36 11:53 Sodium 122 L 135 L (137-145) mmol/L Potassium 4.2 3.7 (3.5-5.1) mmol/L Chloride 92 L 102 (98-107) mmol/L Carbon Dioxide 19 L 21 L (22-30) mmol/L BUN 39 H 34 H (9-20) mg/dL Creatinine 2.07 H 2.05 H (0.66-1.25) mg/dL Glucose 872 H* 260 H (74-99) mg/dL Calcium 8.4 (8.4-10.2) mg/dL AST 18 (17-59) U/L ALT 13 (4-49) U/L Alkaline Phosphatase 350 H (38-126) U/L Total Protein 6.3 (6.3-8.2) g/dL Albumin 3.7 (3.5-5.0) g/dL Calcium panel 06/10/24 06/10/24 Range/Units 05:36 11:53 Calcium 8.4 (8.4-10.2) mg/dL Phosphorus 4.9 H 4.7 H (2.5-4.5) mg/dL Albumin 3.7 (3.5-5.0) g/dL Pituitary panel 06/10/24 06/10/24 Range/Units 05:36 11:53 Sodium 122 L 135 L (137-145) mmol/L Potassium 4.2 3.7 (3.5-5.1) mmol/L Chloride 92 L 102 (98-107) mmol/L Carbon Dioxide 19 L 21 L (22-30) mmol/L BUN 39 H 34 H (9-20) mg/dL Creatinine 2.07 H 2.05 H (0.66-1.25) mg/dL Glucose 872 H* 260 H (74-99) mg/dL Calcium 8.4 (8.4-10.2) mg/dL Adrenal panel 06/10/24 06/10/24 Range/Units 05:36 11:53 Sodium 122 L 135 L (137-145) mmol/L Potassium 4.2 3.7 (3.5-5.1) mmol/L Chloride 92 L 102 (98-107) mmol/L Carbon Dioxide 19 L 21 L (22-30) mmol/L BUN 39 H 34 H (9-20) mg/dL Creatinine 2.07 H 2.05 H (0.66-1.25) mg/dL Glucose 872 H* 260 H (74-99) mg/dL Calcium 8.4 (8.4-10.2) mg/dL Total Bilirubin 0.3 (0.2-1.3) mg/dL AST 18 (17-59) U/L ALT 13 (4-49) U/L Alkaline Phosphatase 350 H (38-126) U/L Total Protein 6.3 (6.3-8.2) g/dL Albumin 3.7 (3.5-5.0) g/dL
[2024-06-10] MEDS ORDERED: traZODone HCL 50 MG TAB PO PRN (14:53)
--- NOTE | 2024-06-10 14:59 | P.CN ---
Psychiatric Consult - . Consult date: 06/10/24 Consult:: 06/10/24 14:15 IDENTIFYING DATA: This patient is a 33-year-old male, currently is single, he lives with his mother and father in a house. She is he has no kids, he collects Social Security disability. Patient claims that his mother is his guardian REASON FOR REFERRAL: Psychiatry was consulted for noncompliance with psychiatric treatment HISTORY OF PRESENT ILLNESS: The patient presented to the hospital initially on 06/10 after a leg injury in the fall, having ankle pain. Patient's blood sugars were significantly elevated at 872 on admission, BUN and creatinine were elevated as well. Patient was seen laying in bed agreeable to speak to customs entry writer, he was fairly pleasant during interaction. Rambling at times however was logical. He states that he was walking with his walker and essentially tripped and his leg bent at his ankle. Claims that he was taken to the hospital. He was somewhat minimizing that he was not feeling well previously. He did admit to poor compliance with diabetic medications insulin, states that he has had type 1 diabetes since he was 17 years old. He states that "it is complicated" and described being kicked off of Medicaid and states that it was difficult for him to get insulin and treatment. He also claims that he was discharged from the mental health unit in November on Geodon and states that he did not take it once he was discharged and did not follow-up at [facility]. He did claim that he was previously diagnosed with bipolar disorder however did not describe a specific manic episode. He denies any depression at this time, claims that he is "hopeful" about his conditions". He did deny any depression denies any anxiety at this time, claims that his sleep has been on and off appetite has been fair. At this time patient denies any suicidal or homical ideations, intent or plan. P atient denies any auditory, visual hallucinations and denies any paranoia or delusions. Patients admits to using occasional marijuana, denies any other recreational drug use PAST PSYCHIATRIC HISTORY: Patient has a a history of adjustment disorder documented in the last discharge note. Patient was previously on Geodon 40 mg daily for mood stabilization. He has not been taking any medication since his previous discharge from the mental health unit in November 2023. Patient denies any psychiatric outpatient follow-up. Patient denies any history of suicide attempts in the past. Past Medical History: Diabetes Mellitus Additional Past Medical History / Comment(s): Type 1 DM, childhood asthma, OCD History of Any Multi-Drug Resistant Organisms: None Reported Past Surgical History: No Surgical Hx Reported Additional Past Surgical History / Comment(s): Abcess drained on left face in 2020 Past Anesthesia/Blood Transfusion Reactions: Unable to Obtain Past Psychological History: Anxiety, Bipolar, Depression, PTSD Smoking Status: Current every day smoker, Vaper Past Alcohol Use History: None Reported Past Drug Use History: Marijuana ALLERGIES: as per EMR. CHEMICAL DEPENDENCY HISTORY: as per HPI. FAMILY PSYCHIATRIC/SUBSTANCE USE HISTORY: Denies SOCIAL HISTORY: Patient was born and raised in [place], claims that he completed his bachelor's degree in school. She denied any legal history. States that he is currently single he has no kids, he lives with his mother and father in a house. He collect Social Security disability. Apparently his mother is his guardian. MENTAL STATUS EXAM: General Appearance: Patient appears to be thin, poor dentition, stated age is alert, temps to be cooperative. Patient appears to have fair hygiene and grooming wearing hospital gown with poor eye contact. Behavior: Patient is calmly lying in bed without any agitated behavior. Attempts to cooperate, pleasant, somewhat superficial Speech: Patient's speech is fluent and nonpressured. Was at time rambles at times Mood/Affect: Patient reports their mood is "fine", affect is congruent Suicidality/Homicidality: Patient denies having any suicidal or homicidal ideation intent or plan. Perceptions: Patient denies any visual hallucinations and denies any auditory hallucinations Though content/process: There is no evidence of any delusional thought content and thought process is linear and goal-directed. Rambles at times Memory and concentration: AOX3, grossly intact for the purposes of this session. Can spell "WORLD" backwards Judgment and insight: Limited IMPRESSIONS: Mood disorder unspecified Noncompliance with medical treatment Cannabis use disorder mild Diabetes mellitus PLAN: -At this time patient DOES NOT meet criteria for inpatient psychiatric admission. -Would recommend the following medication changes/additions: Start Depakote 500 mg nightly for mood stabilization, trazodone 50 mg nightly as needed for insomnia -cargo station worker to provide patient with outpatient mental health/psychiatry resources for appropriate follow up upon discharge -Skein Straightener spoke with patient about substance abuse and the harmful effects on medical and mental health, patient verbally understood and agreed. -Communicated plan to patient's nurse -Psychiatry will sign off at this time -Please contact with any questions. 06/10/24 14:53
[2024-06-10 15:30] LABS: Glucose,Whole Blood 153 mg/dL (70-110)
[2024-06-10 16:06] LABS: Glucose,Whole Blood 176 mg/dL (70-110)
[2024-06-10 16:20] LABS: African American GFR (CKD) 58 (>60 ml/min/1.73 sqM); Anion Gap 7 mmol/L; Blood Urea Nitrogen 32 mg/dL (9-20); Carbon Dioxide 20 mmol/L (22-30); Chloride 108 mmol/L (98-107); Glucose 110 mg/dL (74-99); Non-African American GFR(CKD) 50 (>60 ml/min/1.73 sqM); Potassium 3.6 mmol/L (3.5-5.1); Sodium 135 mmol/L (137-145)
--- NOTE | 2024-06-10 16:45 | XR ---
EXAMINATION TYPE: XR chest 1V DATE OF EXAM: 06/10/2024 4:35 PM COMPARISON: None. CLINICAL INDICATION: Male, 33 years old with history of NG placement verification, TECHNIQUE: XR chest 1V view(s) obtained. FINDINGS: The heart size is normal. The pulmonary vasculature is normal. The lungs are clear. Nasogastric tube is in place with the tip in the distal esophagus. This could be advanced 10 cm zoey r positioning. IMPRESSION: 1. No acute pulmonary process. 2. Nasogastric tube tip in distal esophagus. This should be advanced 10 cm [facility], , 06/10/2024 4:43 PM
[2024-06-10 17:07] LABS: Glucose,Whole Blood 118 mg/dL (70-110)
--- NOTE | 2024-06-10 17:17 | P.GSCN ---
History of Present Illness Consult date: 06/10/24 Reason for Consult: Bilateral hydronephrosis Requesting physician: Nawaf Boyle History of present illness: The patient is a 33-year-old white male who presented to the ER with left ankle pain and generalized weakness. His medical history is significant for type 1 diabetes mellitus and PTSD. He reports a long history of difficulty voiding. He denies any prior history of UTIs or urolithiasis. However, he has ex perienced urinary incontinence, day and night, since this summer which requires the use of depends. CT scan showed bladder distention up to the level of the umbilicus. A Rueda catheter was placed, with return of 2 L of urine. Review of Systems - Genitourinary Reports as per HPI Past Medical History Past Medical History: Diabetes Mellitus Additional Past Medical History / Comment(s): Type 1 DM, childhood asthma, OCD History of Any Multi-Drug Resistant Organisms: None Reported Past Surgical History: No Surgical Hx Reported Additional Past Surgical History / Comment(s): Abcess drained on left face in 2020 Past Anesthesia/Blood Transfusion Reactions: Unable to Obtain Past Psychological History: Anxiety, Bipolar, Depression, PTSD Smoking Status: Current every day smoker, Vaper Past Alcohol Use History: None Reported Past Drug Use History: Marijuana Medications and Allergies Home Medications Medication Instructions Recorded Confirmed Type No Known Home Medications 06/10/24 06/10/24 History Allergies Allergy/AdvReac Type Severity Reaction Status Date / Time No Known Allergies Allergy Verified 06/10/24 09:53 Surgical - Exam Vital Signs Temp Pulse Resp BP Pulse Ox 97.9 F 104 H 18 156/95 97 06/10/24 04:55 06/10/24 04:55 06/10/24 04:55 06/10/24 04:55 06/10/24 04:55 - General well developed, well nourished, no distress - Respiratory normal respiratory effort - Abdomen Abdomen: soft, non tender, no guarding, no rigid, no rebound - Genitourinary normal penis with no external lesions, testicles non-tender - Rectum Rectum: normal sphincter tone, no masses, other (Prostate normal in size and consistency) - Psychiatric oriented to time, oriented to person, oriented to place, speech is normal, memory intact Results - Labs 06/10/24 05:36 06/10/24 15:38 Abnormal Lab Results - Last 24 Hours (Table) 06/10/24 06/10/24 06/10/24 Range/Units 05:15 05:30 05:36 RBC 3.53 L (4.30-5.90) m/uL Hgb 10.2 L (13.0-17.5) gm/dL Hct 31.4 L (39.0-53.0) % VBG pH (7.31-7.41) VBG HCO3 (24-28) mmol/L Sodium (137-145) mmol/L Chloride (98-107) mmol/L Carbon Dioxide (22-30) mmol/L BUN (9-20) mg/dL Creatinine (0.66-1.25) mg/dL Glucose (74-99) mg/dL POC Glucose (mg/dL) >600 H* (70-110) mg/dL Phosphorus (2.5-4.5) mg/dL Alkaline Phosphatase (38-126) U/L Urine Glucose (UA) 4+ H (Negative) Urine Mucus Rare H (None) /hpf 06/10/24 06/10/24 06/10/24 Range/Units 05:36 08:10 10:02 RBC (4.30-5.90) m/uL Hgb (13.0-17.5) gm/dL Hct (39.0-53.0) % VBG pH 7.25 L (7.31-7.41) VBG HCO3 20 L (24-28) mmol/L Sodium 122 L (137-145) mmol/L Chloride 92 L (98-107) mmol/L Carbon Dioxide 19 L (22-30) mmol/L BUN 39 H (9-20) mg/dL Creatinine 2.07 H (0.66-1.25) mg/dL Glucose 872 H* (74-99) mg/dL POC Glucose (mg/dL) 576 H* (70-110) mg/dL Phosphorus 4.9 H (2.5-4.5) mg/dL Alkaline Phosphatase 350 H (38-126) U/L Urine Glucose (UA) (Negative) Urine Mucus (None) /hpf 06/10/24 06/10/24 06/10/24 Range/Units 11:11 11:53 11:53 RBC (4.30-5.90) m/uL Hgb (13.0-17.5) gm/dL Hct (39.0-53.0) % VBG pH (7.31-7.41) VBG HCO3 (24-28) mmol/L Sodium 135 L (137-145) mmol/L Chloride (98-107) mmol/L Carbon Dioxide 21 L (22-30) mmol/L BUN 34 H (9-20) mg/dL Creatinine 2.05 H (0.66-1.25) mg/dL Glucose 260 H (74-99) mg/dL POC Glucose (mg/dL) 368 H (70-110) mg/dL Phosphorus 4.7 H (2.5-4.5) mg/dL Alkaline Phosphatase (38-126) U/L Urine Glucose (UA) (Negative) Urine Mucus (None) /hpf Diabetes panel 06/10/24 06/10/24 Range/Units 05:36 11:53 Sodium 122 L 135 L (137-145) mmol/L Potassium 4.2 3.7 (3.5-5.1) mmol/L Chloride 92 L 102 (98-107) mmol/L Carbon Dioxide 19 L 21 L (22-30) mmol/L BUN 39 H 34 H (9-20) mg/dL Creatinine 2.07 H 2.05 H (0.66-1.25) mg/dL Glucose 872 H* 260 H (74-99) mg/dL Calcium 8.4 (8.4-10.2) mg/dL AST 18 (17-59) U/L ALT 13 (4-49) U/L Alkaline Phosphatase 350 H (38-126) U/L Total Protein 6.3 (6.3-8.2) g/dL Albumin 3.7 (3.5-5.0) g/dL Calcium panel 06/10/24 06/10/24 Range/Units 05:36 11:53 Calcium 8.4 (8.4-10.2) mg/dL Phosphorus 4.9 H 4.7 H (2.5-4.5) mg/dL Albumin 3.7 (3.5-5.0) g/dL Pituitary panel 06/10/24 06/10/24 Range/Units 05:36 11:53 Sodium 122 L 135 L (137-145) mmol/L Potassium 4.2 3.7 (3.5-5.1) mmol/L Chloride 92 L 102 (98-107) mmol/L Carbon Dioxide 19 L 21 L (22-30) mmol/L BUN 39 H 34 H (9-20) mg/dL Creatinine 2.07 H 2.05 H (0.66-1.25) mg/dL Glucose 872 H* 260 H (74-99) mg/dL Calcium 8.4 (8.4-10.2) mg/dL Adrenal panel 06/10/24 06/10/24 Range/Units 05:36 11:53 Sodium 122 L 135 L (137-145) mmol/L Potassium 4.2 3.7 (3.5-5.1) mmol/L Chloride 92 L 102 (98-107) mmol/L Carbon Dioxide 19 L 21 L (22-30) mmol/L BUN 39 H 34 H (9-20) mg/dL Creatinine 2.07 H 2.05 H (0.66-1.25) mg/dL Glucose 872 H* 260 H (74-99) mg/dL Calcium 8.4 (8.4-10.2) mg/dL Total Bilirubin 0.3 (0.2-1.3) mg/dL AST 18 (17-59) U/L ALT 13 (4-49) U/L Alkaline Phosphatase 350 H (38-126) U/L Total Protein 6.3 (6.3-8.2) g/dL Albumin 3.7 (3.5-5.0) g/dL - Imaging CT scan - abdomen: report reviewed, image reviewed Assessment and Plan (1) Unspecified hydronephrosis Current Visit: Yes Status: Acute Code(s): N13.30 - UNSPECIFIED HYDRONEPHROSIS SNOMED Code(s): 87463297 (2) Retention of urine, unspecified Current Visit: Yes Status: Acute Code(s): R33.9 - RETENTION OF URINE, UNSPECIFIED SNOMED Code(s): 649631576 Plan: I had a lengthy discussion with Macho and his mother. I explained to them that longstanding diabetes mellitus can cause detrusor weakness, which is almost certainly the cause of his urinary retention. For now, I would suggest that the Rueda catheter remain in place and that he be discharged with the Rueda catheter . He will follow-up with me in our office, at which time the catheter will be removed and he will be taught to perform intermittent self-catheterization. I believe he will need to do this indefinitely. I reassured him that self- catheterization should eliminate the urinary incontinence and also preserve renal function. Time with Patient: Greater than 30
[2024-06-10 17:59] LABS: Glucose,Whole Blood 144 mg/dL (70-110)
--- NOTE | 2024-06-10 18:46 | XR ---
EXAMINATION TYPE: XR chest 1V DATE OF EXAM: 06/10/2024 5:12 PM COMPARISON: None. CLINICAL INDICATION: Male, 33 years old with history of NG tube advancement, TECHNIQUE: XR chest 1V view(s) obtained. FINDINGS: The heart size is normal. The pulmonary vasculature is normal. The lungs are clear. Is a gastric tube is been advanced and is in good position in the left upper quadrant. IMPRESSION: 1. No acute pulmonary process. 2. Nasogastric tube tip within the left upper quadrant abdomen. [facility], , 06/10/2024 6:43 PM
[2024-06-10 19:01] LABS: Glucose,Whole Blood 146 mg/dL (70-110)
--- NOTE | 2024-06-10 19:17 | CA ---
Transthoracic Echo Report Name: Macho Johansen Age: 33 Gender: M : 1990 Exam Date: 06/10/2024 14:52 Exam Location: [place] [facility] Ht (in): 73 Wt (lb): 145 Ordering Physician: Nawaf Boyle MD Attending/Referring Phys: Financial Reporting Consultant Chaya Ortiz RDCS Procedure CPT: Indications: edema Cardiac Hx: Technical Quality: Fair Contrast 1: Total Dose (mL): Contrast 2: Total Dose (mL): MEASUREMENTS (Male / Female) Normal Values 2D ECHO LV Diastolic Diameter PLAX 4.5 cm 4.2 - 5.9 / 3.9 - 5.3 cm LV Systolic Diameter PLAX 3.3 cm IVS Diastolic Thickness 0.9 cm 0.6 - 1.0 / 0.6 - 0.9 cm LVPW Diastolic Thickness 1.0 cm 0.6 - 1.0 / 0.6 - 0.9 cm LV Relative Wall Thickness 0.4 LVOT Diameter 2.1 cm LA Volume 29.6 cm??? 18 - 58 / 22 - 52 cm??? LA Volume Index 16.2 cm???/m??? 16 - 28 cm???/m??? DOPPLER AV Peak Velocity 86.8 cm/s AV Peak Gradient 3.0 mmHg AV Mean Velocity 58.6 cm/s AV Mean Gradient 1.5 mmHg AV Velocity Time Integral 14.2 cm LVOT Peak Velocity 78.4 cm/s LVOT Peak Gradient 2.5 mmHg LVOT Velocity Time Integral 13.4 cm LVOT Stroke Volume 47.7 cm??? LVOT Stroke Volume Index 25.4 ml/m??? LVOT Cardiac Index 2374.1 cm???/min???m??? AV Area Cont Eq vti 3.4 cm??? AV Area Cont Eq pk 3.2 cm??? MV Area PHT 7.1 cm??? Mitral E Point Velocity 73.0 cm/s Mitral A Point Velocity 49.8 cm/s Mitral E to A Ratio 1.5 MV Deceleration Time 107.0 ms PV Peak Velocity 99.6 cm/s PV Peak Gradient 4.0 mmHg FINDINGS Left Ventricle Left ventricular ejection fraction is estimated at 55-60 %. Left ventricular cavity size normal. Left ventricular wall thickness normal. No obvious regional wall motion abnormalities. Right Ventricle Normal right ventricular size and function. Unable to estimate the right ventricular systolic pressure. Right Atrium Normal right atrial size. Left Atrium Normal left atrial size. Mitral Valve Structurally normal mitral valve. No mitral stenosis, regurgitation or prolapse. Aortic Valve Trileaflet aortic valve. No aortic valve stenosis or regurgitation. Tricuspid Valve Structurally normal tricuspid valve. No tricuspid stenosis, regurgitation or prolapse. Pulmonic Valve Structurally normal pulmonic valve. No pulmonic stenosis. No pulmonic regurgitation. Pericardium Small circumferential pericardial effusion. Aorta Normal size aortic root and proximal ascending aorta. CONCLUSIONS Normal biventricular systolic function No significant valvular abnormalities The pulmonary artery systolic pressure could not be calculated Small circumferential pericardial effusion Previewed by: Dr. Santosh Tate MD (Electronically Signed) Final Date: 10 June 2024 19:16
[2024-06-10 20:02] LABS: Glucose,Whole Blood 189 mg/dL (70-110)
[2024-06-10 20:22] LABS: African American GFR (CKD) 61 (>60 ml/min/1.73 sqM); Anion Gap 6 mmol/L; Blood Urea Nitrogen 29 mg/dL (9-20); Calcium 9.3 mg/dL (8.4-10.2); Carbon Dioxide 21 mmol/L (22-30); Chloride 109 mmol/L (98-107); Glucose 137 mg/dL (74-99); Non-African American GFR(CKD) 52 (>60 ml/min/1.73 sqM); Phosphorus 3.6 mg/dL (2.5-4.5); Potassium 3.8 mmol/L (3.5-5.1); Sodium 136 mmol/L (137-145)
[2024-06-10] MEDS: DIVALPROEX ER 500 MG TAB.ER.24H PO SCH (20:54)
[2024-06-10] MEDS: HEPARIN SODIUM,PORCINE 5,000 UNIT/ML 1 ML VIAL SQ SCH (20:54)
[2024-06-10 20:59] LABS: Glucose,Whole Blood 168 mg/dL (70-110)
[2024-06-10 22:02] LABS: Glucose,Whole Blood 145 mg/dL (70-110)
[2024-06-10 23:02] LABS: Glucose,Whole Blood 186 mg/dL (70-110)
[2024-06-11 00:02] LABS: Glucose,Whole Blood 207 mg/dL (70-110)
[2024-06-11 00:37] LABS: African American GFR (CKD) 64 (>60 ml/min/1.73 sqM); Anion Gap 5 mmol/L; Blood Urea Nitrogen 28 mg/dL (9-20); Calcium 9.3 mg/dL (8.4-10.2); Carbon Dioxide 20 mmol/L (22-30); Chloride 111 mmol/L (98-107); Glucose 203 mg/dL (74-99); Non-African American GFR(CKD) 55 (>60 ml/min/1.73 sqM); Phosphorus 3.5 mg/dL (2.5-4.5); Potassium 3.9 mmol/L (3.5-5.1); Sodium 136 mmol/L (137-145)
[2024-06-11 01:01] LABS: Glucose,Whole Blood 251 mg/dL (70-110)
[2024-06-11 02:00] LABS: Glucose,Whole Blood 259 mg/dL (70-110)
[2024-06-11 03:01] LABS: Glucose,Whole Blood 200 mg/dL (70-110)
[2024-06-11 04:06] LABS: Glucose,Whole Blood 224 mg/dL (70-110)
[2024-06-11 05:02] LABS: Glucose,Whole Blood 220 mg/dL (70-110)
[2024-06-11 06:03] LABS: Glucose,Whole Blood 223 mg/dL (70-110)
[2024-06-11 07:07] LABS: Glucose,Whole Blood 202 mg/dL (70-110)
[2024-06-11 08:02] LABS: Glucose,Whole Blood 205 mg/dL (70-110)
[2024-06-11 08:06] VITALS: RESP 16
[2024-06-11 08:12] LABS: HCT 35.4 % (39.0-53.0); HGB 11.5 gm/dL (13.0-17.5); MCH 28.4 pg (25.0-35.0); MCHC 32.7 g/dL (31.0-37.0); MCV 86.9 fL (80.0-100.0); Mean Platelet Volume 8.2; Platelet Count 354 k/uL (150-450); RBC 4.07 m/uL (4.30-5.90); WBC 11.4 k/uL (3.8-10.6)
[2024-06-11 08:25] LABS: ALT 10 U/L (4-49); AST 15 U/L (17-59); African American GFR (CKD) 67 (>60 ml/min/1.73 sqM); Albumin 3.2 g/dL (3.5-5.0); Alkaline Phosphatase 112 U/L (38-126); Anion Gap 8 mmol/L; Blood Urea Nitrogen 24 mg/dL (9-20); Calcium 9.2 mg/dL (8.4-10.2); Carbon Dioxide 19 mmol/L (22-30); Chloride 108 mmol/L (98-107); Glucose 184 mg/dL (74-99); Magnesium 1.4 mg/dL (1.6-2.3); Non-African American GFR(CKD) 58 (>60 ml/min/1.73 sqM); Phosphorus 3.3 mg/dL (2.5-4.5); Sodium 135 mmol/L (137-145); Total Bilirubin 0.2 mg/dL (0.2-1.3); Total Protein 5.9 g/dL (6.3-8.2)
[2024-06-11 09:07] LABS: Glucose,Whole Blood 218 mg/dL (70-110)
--- NOTE | 2024-06-11 10:06 | P.PN ---
Subjective 33-year-old male patient with past medical history significant for type 1 diabetes mellitus, PTSD, tobacco use, history of bipolar disorder who presented to ER with a complaint of left ankle pain, progressive generalized weakness, was not taking his insulin for the last 2 weeks, has his mother has a legal guardian. Patient's left ankle x-ray was negative in the ED. Patient denied any fever, chills, sore throat, productive cough, chest pain, palpitations, dysuria urgency frequency. Patient is a poor historian. Patient stated that he is progressively getting weaker, uses a walker to walk at home, had a fall and started to have left ankle pain. Patient also noted to have lower extremity edema bilaterally. Chest x-ray was negative for acute process. Patient was complaining of nausea and vomiting for the last few days along with abdominal pain. Patient complains of poor appetite. In the ED patient was afebrile, was initially tachycardic 104, respiratory rate 18, blood pressure 156/95, saturating 100% on room air. Left ankle x-ray was negative for any acute process WBCs 7.5, hemoglobin 10.2, platelet 307. ABG showed pH 7.25, pCO2 45, HCO3 20. Sodium 122 with blood sugars of 872. BUN 39, creatinine 2.07. GFR 41. AST ALT and bilirubin was unremarkable, alkaline phosphatase was elevated 350. UA was positive for glucose, negative for ketones. Serum alcohol level was negative. 06/11 Patient is awake and alert. He was admitted for suspected gastric outlet obstruction and possible obstructive uropathy. Currently on Rueda catheter. Patient last night asked his NG tube to be pulled out. His abdomen is not distended this morning, no abdominal pain or epigastric tenderness. Patient states that he feels hungry and he wants to eat. He denies chest pain or dyspnea. Currently he is kept on insulin drip. He says he was supposed to be taking insulin at home, this was been on and off for him, patient did not want to tell me why he was not adherent to treatment but he states is not financial issue. He states that this problem is resolved now. Also patient with no vomiting this morning Patient also getting IV fluid REVIEW OF SYSTEMS: CONSTITUTIONAL: (+)Generalized weakness HEENT: No recent visual problems or hearing problems. Denied any sore throat. CARDIOVASCULAR: No chest pain, orthopnea, PND, no palpitations, no syncope. PULMONARY: No shortness of breath, no cough, no hemoptysis. GASTROINTESTINAL: Nausea vomiting and abdominal pain. NEUROLOGICAL: No headaches, no weakness, no numbness. GENITOURINARY: Denies any burning micturition, frequency, or urgency. Active Medications Generic Name Dose Route Start Last Admin Trade Name Freq PRN Reason Stop Dose Admin Acetaminophen 650 mg 06/10/24 09:51 Acetaminophen Tab 325 Mg Tab PO Q6HR PRN Fever and/ or Pain Divalproex Sodium 500 mg 06/10/24 21:00 06/10/24 20:54 Divalproex Er 500 Mg Tab.Er.24h PO Not Given HS HESHAM Heparin Sodium (Porcine) 5,000 unit 06/10/24 21:00 06/11/24 07:50 Heparin Sodium,Porcine 5,000 Unit/Ml 1 Ml Vial SQ Not Given Q12HR HESHAM Insulin Human Regular 100 unit 101 mls @ 6.643 mls/hr 06/10/24 09:00 06/11/24 09:05 / Sodium Chloride IV 0.02 units/kg/hr .[id number] HESHAM 1.329 mls/hr Titration Protocol 0.1 UNITS/KG/HR Potassium Chloride/Dextrose/Sod Cl 1,000 mls @ 100 mls/hr 06/10/24 13:15 06/11/24 07:45 D5%-1/2ns-Kcl 20 Meq/L Iv Solution IV 100 mls/hr .Q10H HESHAM Administration Miscellaneous Information 1 each 06/10/24 10:43 Potassium Replacement Protocol 1 Each Misc MISCELLANE DAILY PRN Per Protocol Protocol Miscellaneous Information 1 each 06/10/24 10:43 Magnesium Replacement Protocol 1 Each Misc MISCELLANE DAILY PRN Per Protocol Protocol Miscellaneous Information 1 each 06/10/24 10:43 Phosphorus Replacement Protoco 1 Each Misc MISCELLANE DAILY PRN Per Protocol Protocol Ondansetron HCl 4 mg 06/10/24 09:51 Ondansetron 4 Mg/2 Ml Vial IVP Q6HR PRN Nausea And Vomiting Trazodone HCl 50 mg 06/10/24 14:53 Trazodone Hcl 50 Mg Tab PO HS PRN Insomnia Objective - Vital Signs Vital signs: Vital Signs Temp 97.9 F 06/11/24 08:02 Pulse 99 06/11/24 08:02 Resp 16 06/11/24 08:02 BP 132/84 06/11/24 08:02 Pulse Ox 99 06/11/24 08:02 FiO2 Intake & Output 06/10/24 06/11/24 06/11/24 18:59 06:59 18:59 Intake Total 643.372 3.978 9.212 Output Total 2900 4875 525 Balance -2256.628 -4871.022 -515.788 Weight 65.771 kg 62 kg Intake: Intake, IV Titration 643.372 3.978 9.212 Amount D5-0.45% NaCl with KCl 600 20Meq/l 1,000 ml @ 100 mls/hr IV .Q10H HESHAM Rx#: [id number] Insulin Regular 100 unit 43.372 3.978 9.212 In Sodium Chloride 0.9% 100 ml @ 0.1 UNITS/KG/HR 6.643 mls/hr IV .[id number] HESHAM Rx#:[id number] Output: Urine 2900 4875 525 Straight 2000 525 Other: Voiding Method Indwelling Catheter Indwelling Catheter Indwelling Catheter - Exam GENERAL: The patient is alert and oriented x3, not in any acute distress. Well developed, well nourished. HEENT: Pupils are round and equally reacting to light. EOMI. No scleral icterus. No conjunctival pallor. Normocephalic, atraumatic. No pharyngeal erythema. No thyromegaly. CARDIOVASCULAR: S1 and S2 present. No murmurs, rubs, or gallops. PULMONARY: Chest is clear to auscultation, no wheezing , no crackles. -ABDOMEN: Soft, nontender, nondistended, normoactive bowel sounds. No palpable organomegaly. Rueda catheter in place MUSCULOSKELETAL: No joint swelling or deformity. EXTREMITIES: No cyanosis, clubbing, or pedal edema. NEUROLOGICAL: Gross neurological examination did not reveal any focal deficits. SKIN: No rashes. no petechiae. - Labs CBC & Chem 7: 06/11/24 07:26 06/11/24 07:26 Labs: Abnormal Lab Results - Last 24 Hours (Table) 06/10/24 06/10/24 06/10/24 Range/Units 10:02 11:11 11:53 WBC (3.8-10.6) k/uL RBC (4.30-5.90) m/uL Hgb (13.0-17.5) gm/dL Hct (39.0-53.0) % Sodium (137-145) mmol/L Chloride (98-107) mmol/L Carbon Dioxide (22-30) mmol/L BUN (9-20) mg/dL Creatinine (0.66-1.25) mg/dL Glucose (74-99) mg/dL POC Glucose (mg/dL) 576 H* 368 H (70-110) mg/dL Phosphorus 4.7 H (2.5-4.5) mg/dL Magnesium (1.6-2.3) mg/dL AST (17-59) U/L Total Protein (6.3-8.2) g/dL Albumin (3.5-5.0) g/dL 06/10/24 06/10/24 06/10/24 Range/Units 11:53 13:00 14:10 WBC (3.8-10.6) k/uL RBC (4.30-5.90) m/uL Hgb (13.0-17.5) gm/dL Hct (39.0-53.0) % Sodium 135 L (137-145) mmol/L Chloride (98-107) mmol/L Carbon Dioxide 21 L (22-30) mmol/L BUN 34 H (9-20) mg/dL Creatinine 2.05 H (0.66-1.25) mg/dL Glucose 260 H (74-99) mg/dL POC Glucose (mg/dL) 203 H 113 H (70-110) mg/dL Phosphorus (2.5-4.5) mg/dL Magnesium (1.6-2.3) mg/dL AST (17-59) U/L Total Protein (6.3-8.2) g/dL Albumin (3.5-5.0) g/dL 06/10/24 06/10/24 06/10/24 Range/Units 15:03 15:38 16:02 WBC (3.8-10.6) k/uL RBC (4.30-5.90) m/uL Hgb (13.0-17.5) gm/dL Hct (39.0-53.0) % Sodium 135 L (137-145) mmol/L Chloride 108 H (98-107) mmol/L Carbon Dioxide 20 L (22-30) mmol/L BUN 32 H (9-20) mg/dL Creatinine 1.75 H (0.66-1.25) mg/dL Glucose 110 H (74-99) mg/dL POC Glucose (mg/dL) 153 H 176 H (70-110) mg/dL Phosphorus (2.5-4.5) mg/dL Magnesium (1.6-2.3) mg/dL AST (17-59) U/L Total Protein (6.3-8.2) g/dL Albumin (3.5-5.0) g/dL 06/10/24 06/10/24 06/10/24 Range/Units 17:06 17:58 18:59 WBC (3.8-10.6) k/uL RBC (4.30-5.90) m/uL Hgb (13.0-17.5) gm/dL Hct (39.0-53.0) % Sodium (137-145) mmol/L Chloride (98-107) mmol/L Carbon Dioxide (22-30) mmol/L BUN (9-20) mg/dL Creatinine (0.66-1.25) mg/dL Glucose (74-99) mg/dL POC Glucose (mg/dL) 118 H 144 H 146 H (70-110) mg/dL Phosphorus (2.5-4.5) mg/dL Magnesium (1.6-2.3) mg/dL AST (17-59) U/L Total Protein (6.3-8.2) g/dL Albumin (3.5-5.0) g/dL 06/10/24 06/10/24 06/10/24 Range/Units 19:45 19:59 20:58 WBC (3.8-10.6) k/uL RBC (4.30-5.90) m/uL Hgb (13.0-17.5) gm/dL Hct (39.0-53.0) % Sodium 136 L (137-145) mmol/L Chloride 109 H (98-107) mmol/L Carbon Dioxide 21 L (22-30) mmol/L BUN 29 H (9-20) mg/dL Creatinine 1.69 H (0.66-1.25) mg/dL Glucose 137 H (74-99) mg/dL POC Glucose (mg/dL) 189 H 168 H (70-110) mg/dL Phosphorus (2.5-4.5) mg/dL Magnesium (1.6-2.3) mg/dL AST (17-59) U/L Total Protein (6.3-8.2) g/dL Albumin (3.5-5.0) g/dL 06/10/24 06/10/24 06/11/24 Range/Units 22:00 23:00 00:00 WBC (3.8-10.6) k/uL RBC (4.30-5.90) m/uL Hgb (13.0-17.5) gm/dL Hct (39.0-53.0) % Sodium (137-145) mmol/L Chloride (98-107) mmol/L Carbon Dioxide (22-30) mmol/L BUN (9-20) mg/dL Creatinine (0.66-1.25) mg/dL Glucose (74-99) mg/dL POC Glucose (mg/dL) 145 H 186 H 207 H (70-110) mg/dL Phosphorus (2.5-4.5) mg/dL Magnesium (1.6-2.3) mg/dL AST (17-59) U/L Total Protein (6.3-8.2) g/dL Albumin (3.5-5.0) g/dL 06/11/24 06/11/24 06/11/24 Range/Units 00:08 00:59 01:58 WBC (3.8-10.6) k/uL RBC (4.30-5.90) m/uL Hgb (13.0-17.5) gm/dL Hct (39.0-53.0) % Sodium 136 L (137-145) mmol/L Chloride 111 H (98-107) mmol/L Carbon Dioxide 20 L (22-30) mmol/L BUN 28 H (9-20) mg/dL Creatinine 1.62 H (0.66-1.25) mg/dL Glucose 203 H (74-99) mg/dL POC Glucose (mg/dL) 251 H 259 H (70-110) mg/dL Phosphorus (2.5-4.5) mg/dL Magnesium (1.6-2.3) mg/dL AST (17-59) U/L Total Protein (6.3-8.2) g/dL Albumin (3.5-5.0) g/dL 06/11/24 06/11/24 06/11/24 Range/Units 03:00 04:02 05:00 WBC (3.8-10.6) k/uL RBC (4.30-5.90) m/uL Hgb (13.0-17.5) gm/dL Hct (39.0-53.0) % Sodium (137-145) mmol/L Chloride (98-107) mmol/L Carbon Dioxide (22-30) mmol/L BUN (9-20) mg/dL Creatinine (0.66-1.25) mg/dL Glucose (74-99) mg/dL POC Glucose (mg/dL) 200 H 224 H 220 H (70-110) mg/dL Phosphorus (2.5-4.5) mg/dL Magnesium (1.6-2.3) mg/dL AST (17-59) U/L Total Protein (6.3-8.2) g/dL Albumin (3.5-5.0) g/dL 06/11/24 06/11/24 06/11/24 Range/Units 05:59 07:05 07:26 WBC 11.4 H (3.8-10.6) k/uL RBC 4.07 L (4.30-5.90) m/uL Hgb 11.5 L (13.0-17.5) gm/dL Hct 35.4 L (39.0-53.0) % Sodium (137-145) mmol/L Chloride (98-107) mmol/L Carbon Dioxide (22-30) mmol/L BUN (9-20) mg/dL Creatinine (0.66-1.25) mg/dL Glucose (74-99) mg/dL POC Glucose (mg/dL) 223 H 202 H (70-110) mg/dL Phosphorus (2.5-4.5) mg/dL Magnesium (1.6-2.3) mg/dL AST (17-59) U/L Total Protein (6.3-8.2) g/dL Albumin (3.5-5.0) g/dL 06/11/24 06/11/24 06/11/24 Range/Units 07:26 08:00 09:05 WBC (3.8-10.6) k/uL RBC (4.30-5.90) m/uL Hgb (13.0-17.5) gm/dL Hct (39.0-53.0) % Sodium 135 L (137-145) mmol/L Chloride 108 H (98-107) mmol/L Carbon Dioxide 19 L (22-30) mmol/L BUN 24 H (9-20) mg/dL Creatinine 1.56 H (0.66-1.25) mg/dL Glucose 184 H (74-99) mg/dL POC Glucose (mg/dL) 205 H 218 H (70-110) mg/dL Phosphorus (2.5-4.5) mg/dL Magnesium 1.4 L (1.6-2.3) mg/dL AST 15 L (17-59) U/L Total Protein 5.9 L (6.3-8.2) g/dL Albumin 3.2 L (3.5-5.0) g/dL Assessment and Plan Assessment: Possible gastric outlet obstruction Acute kidney injury, improving Bilateral hydronephrosis and hydroureter, thought secondary to destressor muscle dysfunction secondary to uncontrolled diabetes Diabetes mellitus with hyperglycemia Noncompliance with medication including diabetes medication Mood disorder Acute anemia, mild and currently hemoglobin stable Moderate calorie protein malnutrition Plan: Patient currently continued with insulin drip, monitor glucose closely which is currently controlled Patient encouraged to adherence to medication including his insulin upon discharge and he agrees Surgery team following closely for suspected gastric outlet obstruction. Patient pulled out his NG tube last night Continue with Rueda catheter with recommendation to follow-up as an outpatient with urologist Dr. Morejon in 1 to 2 weeks after discharge, patient informed and he agrees. Urology and surgery team consult Psychiatric team consult Nephrology consult Labs and medication were reviewed.. Continue same treatment. Continue with symptomatic treatment. Resume home medication. Monitor labs and vitals. DVT and GI prophylaxis. Further recommendations as per clinical course of the patient DVT prophylaxis: Subcutaneous heparin GI Prophylaxis: P Protonix PT/OT: Pending Prognosis is guarded
[2024-06-11 10:07] LABS: Glucose,Whole Blood 223 mg/dL (70-110)
[2024-06-11 11:13] LABS: Glucose,Whole Blood 234 mg/dL (70-110)
--- NOTE | 2024-06-11 12:42 | MR ---
EXAMINATION TYPE: MR lumbar spine wo/w con DATE OF EXAM: 06/11/2024 12:23 PM COMPARISON: None. CLINICAL INDICATION: Male, 33 years old with history of LE weakness, falls, LE weakness, falls TECHNIQUE: Multiplanar, multisequence images of the lumbar spine were acquired. IV Contrast: 6.5 mL Gadavist (None, if empty) FINDINGS: Cord ends at the L1 L5-S1: Disc desiccation is present. Mild disc space narrowing may be present. No focal disc herniatio n or significant disc bulge evident. No spinal canal stenosis or neural foraminal stenosis L4-L5: No focal disc herniation or significant disc bulge. No spinal canal stenosis. Neural foramen are patent. L3-L4: No focal disc herniation or significant disc bulge. No spinal canal stenosis. Neural foramen are patent. L2-L3: No focal disc herniation or significant disc bulge. No spinal canal stenosis. Neural foramen are patent. L1-L2: No focal disc herniation or significant disc bulge. No spinal canal stenosis. Neural foramen are patent. T12-L1: No focal disc herniation or significant disc bulge. No spinal canal stenosis. Neural forame n are patent. Note is made of dilated renal collecting systems and prominent ureters. Additional workup recommended IMPRESSION: 1. Mild disc desiccation and mild disc space narrowing L5-S1. 2. Remaining MRI lumbar spine appears unremarkable. 3. There is prominent renal collecting systems with dilated renal pelves and hydroureters. Additional workup of this finding is recommended [facility], , 06/11/2024 12:40 PM
--- NOTE | 2024-06-11 12:54 | P.NPCON ---
History of Present Illness - Reason for Consult Consult date: 06/11/24 - Chief Complaint Weakness - History of Present Illness 33-year-old male patient presented to ER with a complaint of left ankle pain, progressive generalized weakness, was not taking his insulin for the last 2 weeks, has his mother has a legal guardian. Patient stated that he is progressively getting weaker, uses a walker to walk at home, had a fall and started to have left ankle pain. Per mother he has been diabetic since age 16 and typically took good care of his health until past 4 years. GENERAL: The patient is A&O x3, NAD HEENT: EOMI, Sclerae anicteric, Moist Mucous membranes Neck: Supple, Non tender, No JVD PULMONARY: Equal breath souds B/L, No wheezing, No crackles. CARDIOVASCULAR: S1, S2 present. No murmurs, rubs, or gallops. ABDOMEN: Soft, distended, voluntary guarding. Normoactive bowel sounds. No guarding or rebound tenderness. NEUROLOGICAL: CN 2-12 grossly intact. Review of Systems Constitutional: Reports as per HPI Past Medical History Past Medical History: Diabetes Mellitus Additional Past Medical History / Comment(s): Type 1 DM, childhood asthma, OCD History of Any Multi-Drug Resistant Organisms: None Reported Past Surgical History: No Surgical Hx Reported Additional Past Surgical History / Comment(s): Abcess drained on left face in 2020 Past Anesthesia/Blood Transfusion Reactions: Unable to Obtain Past Psychological History: Anxiety, Bipolar, Depression, PTSD Smoking Status: Current every day smoker, Vaper Past Alcohol Use History: None Reported Past Drug Use History: Marijuana Medications and Allergies Home Medications Medication Instructions Recorded Confirmed Type No Known Home Medications 06/10/24 06/10/24 History Allergies Allergy/AdvReac Type Severity Reaction Status Date / Time No Known Allergies Allergy Verified 06/10/24 09:53 Physical Exam Vitals: Vital Signs Temp Pulse Pulse Resp BP BP Pulse Ox 06/11/24 08:02 97.9 F 99 16 132/84 99 06/11/24 04:00 96 14 144/86 98 06/11/24 02:00 88 16 06/10/24 23:22 92 14 137/81 99 06/10/24 19:55 97.9 F 88 14 144/97 98 06/10/24 19:46 88 16 06/10/24 15:49 98.6 F 100 16 150/87 99 06/10/24 14:21 98.6 F 96 16 142/94 98 06/10/24 13:44 98 18 159/102 98 06/10/24 13:00 87 18 141/96 96 06/10/24 12:00 90 16 144/83 96 Intake and Output 06/10/24 06/11/24 06/11/24 22:59 06:59 14:59 Intake Total 13.133 3.106 10.565 Output Total 2300 3475 525 Balance -2286.867 -3471.894 -514.435 Intake: Intake, IV Titration 13.133 3.106 10.565 Amount Insulin Regular 100 unit 13.133 3.106 10.565 In Sodium Chloride 0.9% 100 ml @ 0.1 UNITS/KG/HR 6.643 mls/hr IV .[id number] [facility] Rx#:[id number] Output: Urine 2300 3475 525 Straight 525 Other: Voiding Method Indwelling Catheter Indwelling Catheter Indwelling Catheter Weight 62 kg Results - Lab Results Most recent lab results Calcium 9.2 mg/dL (8.4-10.2) 06/11/24 07:26 Phosphorus 3.3 mg/dL (2.5-4.5) 06/11/24 07:26 Magnesium 1.4 mg/dL (1.6-2.3) L 06/11/24 07:26 06/11/24 07:26 06/11/24 07:26 Assessment and Plan Assessment: 1. Non-oliguric Prerenal SOFIA due to hyperglycemia and volume depletion and urinary retention. Baseline creatinine 0.4 mg/dL. Presented 2.1-->1.5 with IVF. UA showed glucose. Straight cath 2L now with Rueda. 2. Type 1 DM with uncontrolled with insulin non-compliance. 3. Urinary Retention s/p Rueda 4. Pseudohyponatremia related to hyperglycemia Plan: Continue with IVF No further work-up, renal function improving Maintain Rueda, urology following
[2024-06-11 13:13] LABS: Glucose,Whole Blood 257 mg/dL (70-110)
--- NOTE | 2024-06-11 13:17 | XR ---
EXAMINATION TYPE: XR KUB DATE OF EXAM: 06/11/2024 1:08 PM COMPARISON: None. CLINICAL INDICATION: Male, 33 years old with history of Gastric outlet obstruction, TECHNIQUE: XR KUB view(s) obtained. FINDINGS: Nonspecific bowel gas is present with air-filled small bowel loops within the midabdomen appear nonsp ecific. There is present within the colon. No mass effect is evident. Psoas margins are normal. No organomegaly is present. Osseous structures are unremarkable IMPRESSION: 1. Nonspecific gas pattern [facility], , 06/11/2024 1:15 PM
[2024-06-11 14:11] VITALS: BMI 18.0
[2024-06-11] MEDS ORDERED: DEXTROSE 50% SYRINGE 50 ML IVP PRN ×2 (14:26)
[2024-06-11] MEDS ORDERED: INSULN ASP PRT/INSULIN ASPART 100 UNIT/ML 10 ML VIAL SQ SCH (14:30)
--- NOTE | 2024-06-11 14:33 | P.PN ---
Subjective Progress Note Date: 06/11/24 No acute events overnight. No nausea or emesis after NG tube was removed by patient. No abdominal pain. No fever or chills. No shortness of breath or chest pain. Admits to flatus and vomiting overnight. Rueda catheter was inserted due to urinary retention by nursing staff overnight. Objective - Vital Signs Vital signs: Vital Signs Temp 98.3 F 06/11/24 11:07 Pulse 96 06/11/24 11:07 Resp 16 06/11/24 11:07 BP 121/80 06/11/24 11:07 Pulse Ox 99 06/11/24 11:07 FiO2 Intake & Output 06/10/24 06/11/24 06/11/24 18:59 06:59 18:59 Intake Total 643.372 3.978 1212.892 Output Total 2900 4875 1250 Balance -2256.628 -4871.022 -37.108 Weight 65.771 kg 62 kg 62 kg Intake: Intake, IV Titration 643.372 3.978 1212.892 Amount D5-0.45% NaCl with KCl 600 1200 20Meq/l 1,000 ml @ 100 mls/hr IV .Q10H [facility] Rx#: [id number] Insulin Regular 100 unit 43.372 3.978 12.892 In Sodium Chloride 0.9% 100 ml @ 0.1 UNITS/KG/HR 6.643 mls/hr IV .[id number] [facility] Rx#:[id number] Output: Urine 2900 4875 1250 Straight 2000 1250 Other: Voiding Method Indwelling Catheter Indwelling Catheter Indwelling Catheter - Exam Gen: AxO, NAD Pulm: non-labored respirations Abd: soft, non-tender, non-distended. No guarding/rebound/rigidity Extrem: no edema seen - Labs CBC & Chem 7: 06/11/24 07:26 06/11/24 07:26 Labs: Abnormal Lab Results - Last 24 Hours (Table) 06/10/24 06/10/24 06/10/24 Range/Units 15:03 15:38 16:02 WBC (3.8-10.6) k/uL RBC (4.30-5.90) m/uL Hgb (13.0-17.5) gm/dL Hct (39.0-53.0) % Sodium 135 L (137-145) mmol/L Chloride 108 H (98-107) mmol/L Carbon Dioxide 20 L (22-30) mmol/L BUN 32 H (9-20) mg/dL Creatinine 1.75 H (0.66-1.25) mg/dL Glucose 110 H (74-99) mg/dL POC Glucose (mg/dL) 153 H 176 H (70-110) mg/dL Magnesium (1.6-2.3) mg/dL AST (17-59) U/L Total Protein (6.3-8.2) g/dL Albumin (3.5-5.0) g/dL 06/10/24 06/10/24 06/10/24 Range/Units 17:06 17:58 18:59 WBC (3.8-10.6) k/uL RBC (4.30-5.90) m/uL Hgb (13.0-17.5) gm/dL Hct (39.0-53.0) % Sodium (137-145) mmol/L Chloride (98-107) mmol/L Carbon Dioxide (22-30) mmol/L BUN (9-20) mg/dL Creatinine (0.66-1.25) mg/dL Glucose (74-99) mg/dL POC Glucose (mg/dL) 118 H 144 H 146 H (70-110) mg/dL Magnesium (1.6-2.3) mg/dL AST (17-59) U/L Total Protein (6.3-8.2) g/dL Albumin (3.5-5.0) g/dL 06/10/24 06/10/24 06/10/24 Range/Units 19:45 19:59 20:58 WBC (3.8-10.6) k/uL RBC (4.30-5.90) m/uL Hgb (13.0-17.5) gm/dL Hct (39.0-53.0) % Sodium 136 L (137-145) mmol/L Chloride 109 H (98-107) mmol/L Carbon Dioxide 21 L (22-30) mmol/L BUN 29 H (9-20) mg/dL Creatinine 1.69 H (0.66-1.25) mg/dL Glucose 137 H (74-99) mg/dL POC Glucose (mg/dL) 189 H 168 H (70-110) mg/dL Magnesium (1.6-2.3) mg/dL AST (17-59) U/L Total Protein (6.3-8.2) g/dL Albumin (3.5-5.0) g/dL 06/10/24 06/10/24 06/11/24 Range/Units 22:00 23:00 00:00 WBC (3.8-10.6) k/uL RBC (4.30-5.90) m/uL Hgb (13.0-17.5) gm/dL Hct (39.0-53.0) % Sodium (137-145) mmol/L Chloride (98-107) mmol/L Carbon Dioxide (22-30) mmol/L BUN (9-20) mg/dL Creatinine (0.66-1.25) mg/dL Glucose (74-99) mg/dL POC Glucose (mg/dL) 145 H 186 H 207 H (70-110) mg/dL Magnesium (1.6-2.3) mg/dL AST (17-59) U/L Total Protein (6.3-8.2) g/dL Albumin (3.5-5.0) g/dL 06/11/24 06/11/24 06/11/24 Range/Units 00:08 00:59 01:58 WBC (3.8-10.6) k/uL RBC (4.30-5.90) m/uL Hgb (13.0-17.5) gm/dL Hct (39.0-53.0) % Sodium 136 L (137-145) mmol/L Chloride 111 H (98-107) mmol/L Carbon Dioxide 20 L (22-30) mmol/L BUN 28 H (9-20) mg/dL Creatinine 1.62 H (0.66-1.25) mg/dL Glucose 203 H (74-99) mg/dL POC Glucose (mg/dL) 251 H 259 H (70-110) mg/dL Magnesium (1.6-2.3) mg/dL AST (17-59) U/L Total Protein (6.3-8.2) g/dL Albumin (3.5-5.0) g/dL 06/11/24 06/11/24 06/11/24 Range/Units 03:00 04:02 05:00 WBC (3.8-10.6) k/uL RBC (4.30-5.90) m/uL Hgb (13.0-17.5) gm/dL Hct (39.0-53.0) % Sodium (137-145) mmol/L Chloride (98-107) mmol/L Carbon Dioxide (22-30) mmol/L BUN (9-20) mg/dL Creatinine (0.66-1.25) mg/dL Glucose (74-99) mg/dL POC Glucose (mg/dL) 200 H 224 H 220 H (70-110) mg/dL Magnesium (1.6-2.3) mg/dL AST (17-59) U/L Total Protein (6.3-8.2) g/dL Albumin (3.5-5.0) g/dL 06/11/24 06/11/24 06/11/24 Range/Units 05:59 07:05 07:26 WBC 11.4 H (3.8-10.6) k/uL RBC 4.07 L (4.30-5.90) m/uL Hgb 11.5 L (13.0-17.5) gm/dL Hct 35.4 L (39.0-53.0) % Sodium (137-145) mmol/L Chloride (98-107) mmol/L Carbon Dioxide (22-30) mmol/L BUN (9-20) mg/dL Creatinine (0.66-1.25) mg/dL Glucose (74-99) mg/dL POC Glucose (mg/dL) 223 H 202 H (70-110) mg/dL Magnesium (1.6-2.3) mg/dL AST (17-59) U/L Total Protein (6.3-8.2) g/dL Albumin (3.5-5.0) g/dL 06/11/24 06/11/24 06/11/24 Range/Units 07:26 08:00 09:05 WBC (3.8-10.6) k/uL RBC (4.30-5.90) m/uL Hgb (13.0-17.5) gm/dL Hct (39.0-53.0) % Sodium 135 L (137-145) mmol/L Chloride 108 H (98-107) mmol/L Carbon Dioxide 19 L (22-30) mmol/L BUN 24 H (9-20) mg/dL Creatinine 1.56 H (0.66-1.25) mg/dL Glucose 184 H (74-99) mg/dL POC Glucose (mg/dL) 205 H 218 H (70-110) mg/dL Magnesium 1.4 L (1.6-2.3) mg/dL AST 15 L (17-59) U/L Total Protein 5.9 L (6.3-8.2) g/dL Albumin 3.2 L (3.5-5.0) g/dL 06/11/24 06/11/24 06/11/24 Range/Units 10:04 11:11 13:11 WBC (3.8-10.6) k/uL RBC (4.30-5.90) m/uL Hgb (13.0-17.5) gm/dL Hct (39.0-53.0) % Sodium (137-145) mmol/L Chloride (98-107) mmol/L Carbon Dioxide (22-30) mmol/L BUN (9-20) mg/dL Creatinine (0.66-1.25) mg/dL Glucose (74-99) mg/dL POC Glucose (mg/dL) 223 H 234 H 257 H (70-110) mg/dL Magnesium (1.6-2.3) mg/dL AST (17-59) U/L Total Protein (6.3-8.2) g/dL Albumin (3.5-5.0) g/dL Assessment and Plan Assessment: Patient is a 33-year-old male who presents with CT evidence concerning for gastric outlet obstruction. Plan: -Repeat Am ABD XR reviewed; improved gas pattern seen -CLD as tolerated -Will consider NPO and NGT if emesis with CLD -PRN pain and nausea control -Care per primary -Will consider upper endoscopy for further evaluation pending clinical course; -CT findings may be related to diabetic gastroparesis; will consider gastric emptying study Parker Chavez M.D. General Surgery
[2024-06-11 14:59] LABS: Glucose,Whole Blood 337 mg/dL (70-110)
[2024-06-11] MEDS: INSULN ASP PRT/INSULIN ASPART 100 UNIT/ML 10 ML VIAL SQ SCH (14:59)
[2024-06-11] MEDS: PANTOPRAZOLE 40 MG/10 ML VIAL IVP SCH (14:59)
[2024-06-11 16:41] LABS: Glucose,Whole Blood 334 mg/dL (70-110)
[2024-06-11] MEDS: INSULIN ASPART (NovoLOG) 100 UNIT/ML VIAL SQ SCH (17:25)
[2024-06-11 20:25] LABS: Glucose,Whole Blood 190 mg/dL (70-110)
[2024-06-12 05:52] LABS: Glucose,Whole Blood 486 mg/dL (70-110)
[2024-06-12] MEDS: INSULIN ASPART (NovoLOG) 100 UNIT/ML VIAL SQ ONE (06:31)
--- NOTE | 2024-06-12 09:38 | P.PN ---
Subjective 33-year-old male patient with past medical history significant for type 1 diabetes mellitus, PTSD, tobacco use, history of bipolar disorder who presented to ER with a complaint of left ankle pain, progressive generalized weakness, was not taking his insulin for the last 2 weeks, has his mother has a legal guardian. Patient's left ankle x-ray was negative in the ED. Patient denied any fever, chills, sore throat, productive cough, chest pain, palpitations, dysuria urgency frequency. Patient is a poor historian. Patient stated that he is progressively getting weaker, uses a walker to walk at home, had a fall and started to have left ankle pain. Patient also noted to have lower extremity edema bilaterally. Chest x-ray was negative for acute process. Patient was complaining of nausea and vomiting for the last few days along with abdominal pain. Patient complains of poor appetite. In the ED patient was afebrile, was initially tachycardic 104, respiratory rate 18, blood pressure 156/95, saturating 100% on room air. Left ankle x-ray was negative for any acute process WBCs 7.5, hemoglobin 10.2, platelet 307. ABG showed pH 7.25, pCO2 45, HCO3 20. Sodium 122 with blood sugars of 872. BUN 39, creatinine 2.07. GFR 41. AST ALT and bilirubin was unremarkable, alkaline phosphatase was elevated 350. UA was positive for glucose, negative for ketones. Serum alcohol level was negative. 06/11 Patient is awake and alert. He was admitted for suspected gastric outlet obstruction and possible obstructive uropathy. Currently on Rueda catheter. Patient last night asked his NG tube to be pulled out. His abdomen is not distended this morning, no abdominal pain or epigastric tenderness. Patient states that he feels hungry and he wants to eat. He denies chest pain or dyspnea. Currently he is kept on insulin drip. He says he was supposed to be taking insulin at home, this was been on and off for him, patient did not want to tell me why he was not adherent to treatment but he states is not financial issue. He states that this problem is resolved now. Also patient with no vomiting this morning Patient also getting IV fluid 06/12 Patient today is more energetic, he is awake and alert And patient tolerates his oral diet, he was started on liquid diet yesterday. Patient wants to eat more. With patient with no abdominal pain. He has 2 bowel movements which they are loose Patient also with no chest pain or dyspnea Patient still has Rueda catheter with plan to follow-up with urologist as an outpatient upon discharge Patient states that he follow-up with Dr. Collier for his diabetes management and he was placed on Lantus 25 units twice daily because he takes frequent small meals and sandwiches for example every 4 hours. He wants his insulin regimen to be longer acting medicine twice daily, will order the dose to 20 units because he still on liquid diet. Continue with insulin sliding scale as well REVIEW OF SYSTEMS: CONSTITUTIONAL: (+)Generalized weakness HEENT: No recent visual problems or hearing problems. Denied any sore throat. CARDIOVASCULAR: No chest pain, orthopnea, PND, no palpitations, no syncope. PULMONARY: No shortness of breath, no cough, no hemoptysis. GASTROINTESTINAL: Nausea vomiting and abdominal pain. NEUROLOGICAL: No headaches, no weakness, no numbness. GENITOURINARY: Denies any burning micturition, frequency, or urgency. Active Medications Generic Name Dose Route Start Last Admin Trade Name Julio Cesarq PRN Reason Stop Dose Admin Acetaminophen 650 mg 06/10/24 09:51 Acetaminophen Tab 325 Mg Tab PO Q6HR PRN Fever and/ or Pain Dextrose/Water 25 ml 06/11/24 14:26 Dextrose 50% Syringe 50 Ml IVP PER PROTOCOL PRN Hypoglycemia Protocol Dextrose/Water 50 ml 06/11/24 14:26 Dextrose 50% Syringe 50 Ml IVP PER PROTOCOL PRN Hypoglycemia Protocol Divalproex Sodium 500 mg 06/10/24 21:00 06/11/24 21:06 Divalproex Er 500 Mg Tab.Er.24h PO Not Given HS [facility] Heparin Sodium (Porcine) 5,000 unit 06/10/24 21:00 06/12/24 08:17 Heparin Sodium,Porcine 5,000 Unit/Ml 1 Ml Vial SQ Not Given Q12HR [facility] Insulin Aspart 0 unit 06/11/24 17:30 06/12/24 06:32 Insulin Aspart (Novolog) 100 Unit/Ml Vial SQ 6 unit ACHS [facility] Administration Protocol Insulin Detemir 20 unit 06/12/24 21:00 Insulin Detemir (Levemir) 100 Unit/Ml Syr SQ BID [facility] Miscellaneous Information 1 each 06/10/24 10:43 Potassium Replacement Protocol 1 Each Misc MISCELLANE DAILY PRN Per Protocol Protocol Miscellaneous Information 1 each 06/10/24 10:43 Magnesium Replacement Protocol 1 Each [facility] MISCELLANE DAILY PRN Per Protocol Protocol Miscellaneous Information 1 each 06/10/24 10:43 Phosphorus Replacement Protoco 1 Each [facility] MISCELLANE DAILY PRN Per Protocol Protocol Ondansetron HCl 4 mg 06/10/24 09:51 Ondansetron 4 Mg/2 Ml Vial IVP Q6HR PRN Nausea And Vomiting Pantoprazole Sodium 40 mg 06/11/24 10:15 06/11/24 14:59 Pantoprazole 40 Mg/10 Ml Vial IVP 40 mg DAILY [facility] Administration Trazodone HCl 50 mg 06/10/24 14:53 Trazodone Hcl 50 Mg Tab PO HS PRN Insomnia Objective - Vital Signs Vital signs: Vital Signs Temp 98.4 F 06/12/24 08:12 Pulse 103 H 06/12/24 08:12 Resp 16 06/12/24 08:12 BP 144/88 06/12/24 08:12 Pulse Ox 100 06/12/24 08:12 FiO2 Intake & Output 06/11/24 06/12/24 06/12/24 18:59 06:59 18:59 Intake Total 2417.592 Output Total 2850 1999 850 Balance -432.408 -1999 -850 Weight 62 kg 65 kg Intake: Intake, IV Titration 1217.592 Amount D5-0.45% NaCl with KCl 1200 20Meq/l 1,000 ml @ 100 mls/hr IV .Q10H [facility] Rx#: [id number] Insulin Regular 100 unit 17.592 In Sodium Chloride 0.9% 100 ml @ 0.1 UNITS/KG/HR 6.643 mls/hr IV .[id number] [facility] Rx#:[id number] Oral 1200 Output: Urine 2850 1999 850 Straight 2850 850 Other: Voiding Method Indwelling Catheter Indwelling Catheter Indwelling Catheter - Exam GENERAL: The patient is alert and oriented x3, not in any acute distress. Well developed, well nourished. HEENT: Pupils are round and equally reacting to light. EOMI. No scleral icterus. No conjunctival pallor. Normocephalic, atraumatic. No pharyngeal erythema. No thyromegaly. CARDIOVASCULAR: S1 and S2 present. No murmurs, rubs, or gallops. PULMONARY: Chest is clear to auscultation, no wheezing , no crackles. -ABDOMEN: Soft, nontender, nondistended, normoactive bowel sounds. No palpable organomegaly. Rueda catheter in place MUSCULOSKELETAL: No joint swelling or deformity. EXTREMITIES: No cyanosis, clubbing, or pedal edema. NEUROLOGICAL: Gross neurological examination did not reveal any focal deficits. SKIN: No rashes. no petechiae. - Labs CBC & Chem 7: 06/11/24 07:26 06/11/24 07:26 Labs: Abnormal Lab Results - Last 24 Hours (Table) 06/11/24 06/11/24 06/11/24 Range/Units 10:04 11:11 13:11 POC Glucose (mg/dL) 223 H 234 H 257 H (70-110) mg/dL 06/11/24 06/11/24 06/11/24 Range/Units 14:57 16:39 20:24 POC Glucose (mg/dL) 337 H 334 H 190 H (70-110) mg/dL 06/12/24 Range/Units 05:51 POC Glucose (mg/dL) 486 H (70-110) mg/dL Assessment and Plan Assessment: Possible gastric outlet obstruction Acute kidney injury, improving Bilateral hydronephrosis and hydroureter, thought secondary to destressor muscle dysfunction secondary to uncontrolled diabetes Diabetes mellitus with hyperglycemia Noncompliance with medication including diabetes medication Mood disorder Acute anemia, mild and currently hemoglobin stable Moderate calorie protein malnutrition Plan: Patient currently continued with insulin Levemir 20 units twice daily and insulin sliding scale Patient encouraged to adherence to medication including his insulin upon discharge and he agrees continue with liquid diet and advance as tolerated per surgery team recommendation Continue with Rueda catheter with recommendation to follow-up as an outpatient with urologist Dr. Morejon in 1 to 2 weeks after discharge, patient informed and he agrees. Urology and surgery team consult Psychiatric team consult Nephrology consult Labs and medication were reviewed.. Continue same treatment. Continue with symptomatic treatment. Resume home medication. Monitor labs and vitals. DVT and GI prophylaxis. Further recommendations as per clinical course of the patient DVT prophylaxis: Subcutaneous heparin GI Prophylaxis: P Protonix PT/OT: Pending Prognosis is guarded
--- NOTE | 2024-06-12 10:44 | P.PN ---
Subjective Progress Note Date: 06/12/24 Patient seen in follow-up for SOFIA. No new complaints. GENERAL: The patient is A&O x3, NAD HEENT: EOMI, Sclerae anicteric, Moist Mucous membranes Neck: Supple, Non tender, No JVD PULMONARY: Equal breath souds B/L, No wheezing, No crackles. CARDIOVASCULAR: S1, S2 present. No murmurs, rubs, or gallops. ABDOMEN: Soft, distended, voluntary guarding. Normoactive bowel sounds. No guarding or rebound tenderness. NEUROLOGICAL: CN 2-12 grossly intact. Objective - Vital Signs Vital signs: Vital Signs Temp 98.4 F 06/12/24 08:12 Pulse 103 H 06/12/24 08:12 Resp 16 06/12/24 08:12 BP 144/88 06/12/24 08:12 Pulse Ox 100 06/12/24 08:12 FiO2 Intake & Output 06/11/24 06/12/24 06/12/24 18:59 06:59 18:59 Intake Total 2417.592 Output Total 2850 1999 850 Balance -432.408 -2000 -850 Weight 62 kg 65 kg Intake: Intake, IV Titration 1217.592 Amount D5-0.45% NaCl with KCl 1200 20Meq/l 1,000 ml @ 100 mls/hr IV .Q10H [facility] Rx#: [id number] Insulin Regular 100 unit 17.592 In Sodium Chloride 0.9% 100 ml @ 0.1 UNITS/KG/HR 6.643 mls/hr IV .[id number] [facility] Rx#:[id number] Oral 1200 Output: Urine 2850 1999 850 Straight 2850 850 Other: Voiding Method Indwelling Catheter Indwelling Catheter Indwelling Catheter - Labs CBC & Chem 7: 06/11/24 07:26 06/11/24 07:26 Labs: Abnormal Lab Results - Last 24 Hours (Table) 06/11/24 06/11/24 06/11/24 Range/Units 11:11 13:11 14:57 POC Glucose (mg/dL) 234 H 257 H 337 H (70-110) mg/dL 06/11/24 06/11/24 06/12/24 Range/Units 16:39 20:24 05:51 POC Glucose (mg/dL) 334 H 190 H 486 H (70-110) mg/dL Assessment and Plan Assessment: 1. Non-oliguric Prerenal SOFIA due to hyperglycemia and volume depletion and urinary retention. Baseline creatinine 0.4 mg/dL. Presented 2.1-->1.5 with IVF. UA showed glucose. Straight cath 2L now with Rueda. 2. Type 1 DM with uncontrolled with insulin non-compliance. 3. Urinary Retention s/p Rueda 4. Pseudohyponatremia related to hyperglycemia Plan: Continue with IVF No further work-up, renal function improving Maintain Rueda, urology following Repeat labs
[2024-06-12 11:24] LABS: Glucose,Whole Blood 212 mg/dL (70-110)
--- NOTE | 2024-06-12 12:06 | P.PN ---
Subjective Progress Note Date: 06/12/24 Patient feels better. He wants to advance his diet. On exam vital signs appear stable. Abdomen is soft. Patient will be scheduled for EGD in the a.m. Objective - Vital Signs Vital signs: Vital Signs Temp 98.0 F 06/12/24 11:52 Pulse 97 06/12/24 11:52 Resp 16 06/12/24 11:52 BP 138/87 06/12/24 11:52 Pulse Ox 100 06/12/24 11:52 FiO2 Intake & Output 06/11/24 06/12/24 06/12/24 18:59 06:59 18:59 Intake Total 2417.592 Output Total 2850 1999 1725 Balance -432.408 172 Weight 62 kg 65 kg Intake: Intake, IV Titration 1217.592 Amount D5-0.45% NaCl with KCl 1200 20Meq/l 1,000 ml @ 100 mls/hr IV .Q10H [facility] Rx#: [id number] Insulin Regular 100 unit 17.592 In Sodium Chloride 0.9% 100 ml @ 0.1 UNITS/KG/HR 6.643 mls/hr IV .[id number] [facility] Rx#:[id number] Oral 1200 Output: Urine 2850 1999 1725 Straight 2850 1725 Other: Voiding Method Indwelling Catheter Indwelling Catheter Indwelling Catheter - Labs CBC & Chem 7: 06/11/24 07:26 06/11/24 07:26 Labs: Abnormal Lab Results - Last 24 Hours (Table) 06/11/24 06/11/24 06/11/24 Range/Units 13:11 14:57 16:39 POC Glucose (mg/dL) 257 H 337 H 334 H (70-110) mg/dL 06/11/24 06/12/24 06/12/24 Range/Units 20:24 05:51 11:22 POC Glucose (mg/dL) 190 H 486 H 212 H (70-110) mg/dL
[2024-06-12 14:09] LABS: Estimated Average Glucose >470 mg/dL
--- NOTE | 2024-06-12 14:31 | P.PN ---
Subjective Progress Note Date: 06/12/24 Principal diagnosis: Urinary Retention The patient states that he is feeling much better today. The Rueda catheter is draining clear yellow urine. Objective - Vital Signs Vital signs: Vital Signs Temp 97.7 F 06/12/24 03:12 Pulse 105 H 06/12/24 03:12 Resp 16 06/12/24 03:12 BP 132/84 06/12/24 03:12 Pulse Ox 98 06/12/24 03:12 FiO2 Intake & Output 06/11/24 06/12/24 06/12/24 18:59 06:59 18:59 Intake Total 2417.592 Output Total 2850 2000 Balance -432.408 -2000 Weight 62 kg 65 kg Intake: Intake, IV Titration 1217.592 Amount D5-0.45% NaCl with KCl 1200 20Meq/l 1,000 ml @ 100 mls/hr IV .Q10H [facility] Rx#: [id number] Insulin Regular 100 unit 17.592 In Sodium Chloride 0.9% 100 ml @ 0.1 UNITS/KG/HR 6.643 mls/hr IV .[id number] HESHAM Rx#:[id number] Oral 1200 Output: Urine 2850 2000 Straight 2850 Other: Voiding Method Indwelling Catheter Indwelling Catheter - Constitutional General appearance: Present: average body habitus, cooperative, no acute distress - Psychiatric Psychiatric: Present: A&O x's 3 - Labs CBC & Chem 7: 06/11/24 07:26 06/11/24 07:26 Labs: Abnormal Lab Results - Last 24 Hours (Table) 06/11/24 06/11/24 06/11/24 Range/Units 07:26 07:26 08:00 WBC 11.4 H (3.8-10.6) k/uL RBC 4.07 L (4.30-5.90) m/uL Hgb 11.5 L (13.0-17.5) gm/dL Hct 35.4 L (39.0-53.0) % Sodium 135 L (137-145) mmol/L Chloride 108 H (98-107) mmol/L Carbon Dioxide 19 L (22-30) mmol/L BUN 24 H (9-20) mg/dL Creatinine 1.56 H (0.66-1.25) mg/dL Glucose 184 H (74-99) mg/dL POC Glucose (mg/dL) 205 H (70-110) mg/dL Magnesium 1.4 L (1.6-2.3) mg/dL AST 15 L (17-59) U/L Total Protein 5.9 L (6.3-8.2) g/dL Albumin 3.2 L (3.5-5.0) g/dL 06/11/24 06/11/24 06/11/24 Range/Units 09:05 10:04 11:11 WBC (3.8-10.6) k/uL RBC (4.30-5.90) m/uL Hgb (13.0-17.5) gm/dL Hct (39.0-53.0) % Sodium (137-145) mmol/L Chloride (98-107) mmol/L Carbon Dioxide (22-30) mmol/L BUN (9-20) mg/dL Creatinine (0.66-1.25) mg/dL Glucose (74-99) mg/dL POC Glucose (mg/dL) 218 H 223 H 234 H (70-110) mg/dL Magnesium (1.6-2.3) mg/dL AST (17-59) U/L Total Protein (6.3-8.2) g/dL Albumin (3.5-5.0) g/dL 06/11/24 06/11/24 06/11/24 Range/Units 13:11 14:57 16:39 WBC (3.8-10.6) k/uL RBC (4.30-5.90) m/uL Hgb (13.0-17.5) gm/dL Hct (39.0-53.0) % Sodium (137-145) mmol/L Chloride (98-107) mmol/L Carbon Dioxide (22-30) mmol/L BUN (9-20) mg/dL Creatinine (0.66-1.25) mg/dL Glucose (74-99) mg/dL POC Glucose (mg/dL) 257 H 337 H 334 H (70-110) mg/dL Magnesium (1.6-2.3) mg/dL AST (17-59) U/L Total Protein (6.3-8.2) g/dL Albumin (3.5-5.0) g/dL 06/11/24 06/12/24 Range/Units 20:24 05:51 WBC (3.8-10.6) k/uL RBC (4.30-5.90) m/uL Hgb (13.0-17.5) gm/dL Hct (39.0-53.0) % Sodium (137-145) mmol/L Chloride (98-107) mmol/L Carbon Dioxide (22-30) mmol/L BUN (9-20) mg/dL Creatinine (0.66-1.25) mg/dL Glucose (74-99) mg/dL POC Glucose (mg/dL) 190 H 486 H (70-110) mg/dL Magnesium (1.6-2.3) mg/dL AST (17-59) U/L Total Protein (6.3-8.2) g/dL Albumin (3.5-5.0) g/dL Assessment and Plan (1) Unspecified hydronephrosis Current Visit: Yes Status: Acute Code(s): N13.30 - UNSPECIFIED HYDRONEPHROSIS SNOMED Code(s): 64851553 (2) Retention of urine, unspecified Current Visit: Yes Status: Acute Code(s): R33.9 - RETENTION OF URINE, UNSPECIFIED SNOMED Code(s): 552291510 Plan: I would suggest that the Rueda catheter remain in place and that he be discharged with the Rueda catheter. He will follow-up with me in our office, at which time the catheter will be removed and he will be taught to perform intermittent self-catheterization. Please notify me if I can be of any further assistance during this hospitalization.
[2024-06-12 16:43] LABS: Glucose,Whole Blood 180 mg/dL (70-110)
[2024-06-12 19:56] LABS: Glucose,Whole Blood 219 mg/dL (70-110)
[2024-06-12] MEDS: INSULIN DETEMIR (LEVEMIR) 100 UNIT/ML SYR SQ SCH (20:45)
[2024-06-13 05:43] VITALS: TEMP 97.9
[2024-06-13 06:11] LABS: Glucose,Whole Blood 242 mg/dL (70-110)
[2024-06-13 07:58] LABS: African American GFR (CKD) 71 (>60 ml/min/1.73 sqM); Anion Gap 10 mmol/L; Blood Urea Nitrogen 26 mg/dL (9-20); Calcium 8.8 mg/dL (8.4-10.2); Carbon Dioxide 20 mmol/L (22-30); Chloride 107 mmol/L (98-107); Glucose 251 mg/dL (74-99); Non-African American GFR(CKD) 61 (>60 ml/min/1.73 sqM); Potassium 4.1 mmol/L (3.5-5.1); Sodium 137 mmol/L (137-145)
[2024-06-13 08:52] VITALS: PULSE 102
--- NOTE | 2024-06-13 09:18 | P.PN ---
Subjective Patient is seen in follow-up for acute kidney injury. Renal function slightly better. Has Rueda catheter. Nonoliguric. No vomiting or diarrhea. Vital signs are stable. General: No acute distress. HEENT: Head exam is unremarkable. LUNGS: No audible rhonchi or wheezes. HEART: Rate and Rhythm are regular. ABDOMEN: Nontender. EXTREMITITES: No edema. Objective - Vital Signs Vital signs: Vital Signs Temp 97.9 F 06/13/24 04:00 Pulse 102 H 06/13/24 08:49 Resp 16 06/13/24 08:49 BP 130/79 06/13/24 08:49 Pulse Ox 100 06/13/24 08:49 FiO2 Intake & Output 06/12/24 06/13/24 06/13/24 18:59 06:59 18:59 Intake Total 1224 20 Output Total 2625 2500 Balance -1401 -2480 Weight 62.5 kg Intake: IV 20 20 Invasive Line 1 20 20 Oral 1204 Output: Urine 2625 2500 Straight 2625 Other: Voiding Method Indwelling Catheter Indwelling Catheter - Labs CBC & Chem 7: 06/11/24 07:26 06/13/24 06:22 Labs: Abnormal Lab Results - Last 24 Hours (Table) 06/11/24 06/12/24 06/12/24 Range/Units 07:26 11:22 16:40 Carbon Dioxide (22-30) mmol/L BUN (9-20) mg/dL Creatinine (0.66-1.25) mg/dL Glucose (74-99) mg/dL POC Glucose (mg/dL) 212 H 180 H (70-110) mg/dL Hemoglobin A1c >18.0 H (<=6.0) % 06/12/24 06/13/24 06/13/24 Range/Units 19:54 06:09 06:22 Carbon Dioxide 20 L (22-30) mmol/L BUN 26 H (9-20) mg/dL Creatinine 1.49 H (0.66-1.25) mg/dL Glucose 251 H (74-99) mg/dL POC Glucose (mg/dL) 219 H 242 H (70-110) mg/dL Hemoglobin A1c (<=6.0) % Assessment and Plan Plan: Assessment: 1. Acute kidney injury secondary to vasomotor nephropathy from hypovolemia and urinary retention. Baseline creatinine near 0.4-0.5. Creatinine 2.1 on admission and is 1.49 today. No proteinuria on UA. 2. Urinary retention with hydronephrosis. Has Rueda catheter. Patient will be going home with Rueda catheter. Urology following. 3. Hypotonic hyponatremia secondary to hyperglycemia. Improved. 4. Type 1 diabetes mellitus. Plan: Add gentle hydration due to postobstructive diuresis. EGD today. Avoid nephrotoxins.
[2024-06-13] MEDS ORDERED: PROPOFOL 10 MG/ML 20 ML VIAL IV ONE (09:30)
[2024-06-13] MEDS: LACTATED RINGERS 1,000 ML IV ONE ×2 (09:38→09:49)
--- NOTE | 2024-06-13 10:01 | P.OP ---
Date of Procedure: 06/13/24 Preoperative Diagnosis: gastric obstruction Postoperative Diagnosis: Gastroparesis Gastritis Procedure(s) Performed: EGD Anesthesia: MAC Surgeon: Freeman Estrada Pathology: other (Antrum) Condition: stable Disposition: PACU Description of Procedure: Patient was placed on the endoscopy table in the lateral position. He received IV sedation. The gas was placed oropharynx passed in the esophagus and the stomach. Scope was placed through the pylorus. The first and second portion of the duodenum appeared normal. Scope was brought back to the antrum this appeared mildly inflamed. A biopsy performed. The scope was then retroflexed Roxana stomach appeared normal. There was no evidence of gastric L obstruction. The GE junction was at 40 cm. The distal esophagus appeared normal. The proximal esophagus appeared normal. Scope withdrawn patient.
[2024-06-13 10:05] VITALS: BP 117/74
[2024-06-13 11:46] LABS: Glucose,Whole Blood 410 mg/dL (70-110)
[2024-06-13] MEDS: SODIUM CHLORIDE 0.9% 1,000 ML IV SCH (12:21)
--- NOTE | 2024-06-14 10:31 | P.DS ---
Providers Date of admission: 06/10/24 08:58 Expected date of discharge: 06/13/24 Attending physician: Randal Barker Consults: 06/10/24 12:02 Consult Physician Routine Consulting Provider: Freeman Estrada Consult Reason/Comments: Distended stomach , concern for Gastric outlet obstruction Do you want consulting provider notified?: Yes 06/10/24 12:03 Consult Physician Urgent Consulting Provider: Joshua Avina Consult Reason/Comments: SOFIA with B/L Stanley Do you want consulting provider notified?: Yes 06/10/24 12:55 Consult Physician Routine Consulting Provider: Psychiatry - [facility] Psychiatry Consult Reason/Comments: Non compliant with mental health issues Do you want consulting provider notified?: Yes 06/10/24 14:15 Consult Physician Routine Consulting Provider: Colleen Shah Consult Reason/Comments: SOFIA Do you want consulting provider notified?: Yes Primary care physician: Stated None Hospital Course: Final diagnosis Abdominal pain with concerns of possible gastric outlet obstruction, status post EGD showing gastroparesis and mild gastritis of the antrum Acute kidney injury secondary to bilateral hydronephrosis, improving Bilateral hydronephrosis and hydroureter thought secondary to destress or muscle dysfunction secondary to uncontrolled diabetes. Patient will follow-up with urology outpatient and continue indwelling Rueda catheter Diabetes mellitus, uncontrolled with hyperglycemia Noncompliance with medications and treatment plan History of mood disorder Acute anemia, mild Moderate calorie protein malnutrition with a BMI of 18.2 Discharge disposition Patient is being discharged in a stable condition with guarded prognosis to home. Patient will follow-up with Dr. Les Barker in the outpatient setting upon discharge. Patient is to continue with current treatment plan and outpatient follow-up with urology as scheduled. Patient to follow-up with general surgery outpatient as well. Total time taken is greater than 35 minutes. Hospital course This is a 33-year-old male who was recently admitted with initially ankle pain and generalized weakness and noncompliance with medications with extremely uncontrolled blood sugars and hyperglycemia. Patient also having some nausea and vomiting with abdominal pain and poor appetite with concerns discerns of HHS. Patient seen and evaluated by general surgery as well as urology noted to have bilateral hydronephrosis and hydroureter was given an indwelling Rueda catheter recommending outpatient follow-up in the next 1 to 2 weeks at the clinic. Patient's blood sugars are better controlled underwent EGD with some biopsies and has been cleared by general surgery. Patient reports to feeling improved and is ready to discharge. Patient is keen on going home and has contacted his legal guardian already. Please refer to other consultation notes for further HPI. Currently no reports of chest pain, shortness of breath, or palpitations. Patient is afebrile. No reports of nausea or vomiting and patient is tolerating diet. Patient will be discharged home today. Guarded prognosis and high risk for readmissions given patient's significant comorbidities Physical exam: Gen: This is a 33-year-old male who is awake, alert and oriented x 3, well- developed, well-nourished, appears older than stated age HEENT: Head is atraumatic, normocephalic. Pupils equal, round. Sclerae is anict harsh. NECK: Supple. No JVD. No lymphadenopathy. No thyromegaly. LUNGS: Clear to auscultation. No wheezes or rhonchi. No intercostal retractions. HEART: Regular rate and rhythm. No murmur. ABDOMEN: Soft. Bowel sounds are present. No masses. No tenderness. EXTREMITIES: No pedal edema. No calf tenderness. NEUROLOGICAL: Patient is awake, alert and oriented x3. Cranial nerves 2 through 12 are grossly intact. Please refer to medication reconciliation sheet for a list of medications. The impression and plan of care has been dictated by Libia Talavera, Nurse Practitioner as directed. Dr. Mj MD I have performed a history and examination and MDM of this patient, discussed the same with the dictator, and agree with the dictator's assessment and plan as written ,documented as a scribe. Based on total visit time, I have performed more than 50% of the visit. Patient Condition at Discharge: Fair Plan - Discharge Summary Discharge Rx Participant: Yes New Discharge Prescriptions: New Divalproex ER [Depakote ER] 500 mg PO HS #30 tab Acetaminophen Tab [Tylenol] 650 mg PO Q6HR PRN tab PRN Reason: Fever And/ Or Pain traZODone HCL [Desyrel] 50 mg PO HS PRN #20 tab PRN Reason: Insomnia Continue Insulin Lispro [Insulin Lispro Harjeet Kwikpen] 15 units SQ AC-TID Insulin Glargine [Lantus Vial] 25 unit SQ BID Discharge Medication List Insulin Glargine [Lantus Vial] 25 unit SQ BID 06/11/24 [History] Insulin Lispro [Insulin Lispro Harjeet Kwikpen] 15 units SQ AC-TID 06/11/24 [History] Acetaminophen Tab [Tylenol] 650 mg PO Q6HR PRN tab 06/13/24 [Rx] Divalproex ER [Depakote ER] 500 mg PO HS #30 tab 06/13/24 [Rx] traZODone HCL [Desyrel] 50 mg PO HS PRN #20 tab 06/13/24 [Rx] Follow up Appointment(s)/Referral(s): Abdiel Delacruz MD [STAFF PHYSICIAN] - 06/22/24 10:00 am (Thursday) Onelia Flannery MD [STAFF PHYSICIAN] - 1 Week (Message left on voicemail with your phone number. If you don't hear back, please call number provided to schedule an appointment) Patient Instructions/Handouts: Ankle Sprain (ED), Rueda Catheter Placement and Care (DC) Activity/Diet/Wound Care/Special Instructions: Activity limited until follow-up Follow-up with primary care provider on discharge Continue taking medications as prescribed Continue monitoring blood sugars Follow-up and establish with primary care provider Discharge/Stand Alone Forms: Who Do I Call?, Community Resources, Area PCPs Discharge Disposition: HOME SELF-CARE
== END 2024-06-13 16:28 | disposition home or self-care (01) | DRG 380 ==
LOC: EC 04:53 → EEVIPCON 08:58 → 3SCARD 08:58
PROVIDERS: ADMIT Hospitalist; ATTEND Hospitalist
PROC: 0DB78ZX Excision of Stomach, Pylorus, Via Natural or Artificial Opening Endoscopic, Diagnostic (ICD-10-PCS; principal; 2024-06-13 08:00)
DX: K31.1 Adult hypertrophic pyloric stenosis (principal); N17.0 Acute kidney failure with tubular necrosis; E46 Unspecified protein-calorie malnutrition; N13.30 Unspecified hydronephrosis; Z68.1 Body mass index [BMI] 19.9 or less, adult; E87.1 Hypo-osmolality and hyponatremia; K31.84 Gastroparesis; E86.1 Hypovolemia; E86.0 Dehydration; D64.9 Anemia, unspecified; E10.43 Type 1 diabetes mellitus with diabetic autonomic (poly)neuropathy; E10.65 Type 1 diabetes mellitus with hyperglycemia; R33.8 Other retention of urine; F12.10 Cannabis abuse, uncomplicated; F31.9 Bipolar disorder, unspecified; F41.9 Anxiety disorder, unspecified; F42.9 Obsessive-compulsive disorder, unspecified; F43.10 Post-traumatic stress disorder, unspecified; R32 Unspecified urinary incontinence; N32.89 Other specified disorders of bladder; K29.70 Gastritis, unspecified, without bleeding; S93.401A Sprain of unspecified ligament of right ankle, initial encounter; W19.XXXA Unspecified fall, initial encounter; Z79.4 Long term (current) use of insulin; Z91.148 Patient's other noncompliance with medication regimen for other reason
CPT/HCPCS: 36415; 43239; 51701; 51702; 71045; 72158; 74018; 74176; 80048; 80051; 80053; 80320; 81003; 82009; 82565; 82803; 82947; 83036; 83690; 83735; 84100; 84520; 85025; 85027; 88305; 93005; 93306; 93970; 96360; 96361; 99291

== ENCOUNTER 2024-06-28 02:57 | Emergency (ER) | payer SELFPAY ==
[2024-06-28 03:08] VITALS: TEMP 97.7
--- NOTE | 2024-06-28 03:13 | ED ---
Male Urogenital HPI - General Source: patient, family, RN notes reviewed Mode of arrival: wheelchair <Coretta Tripp - Last Filed: 07/01/24 10:54> <Lili Reece - Last Filed: 07/02/24 00:08> - General Chief complaint: Urogenital Stated complaint: Cath issues Time Seen by Provider: 06/28/24 03:12 - History of Present Illness Initial comments: This is a 33-year-old male with type 1 diabetes, on insulin that is poorly controlled, and neurogenic bladder presenting to the emergency department with his mother for chief complaint of urinary catheter difficulties. Patient states that throughout the day he has noticed there has been a decrease in his urinary output from his catheter and endorses suprapubic pain. He is concerned that his catheter is not working appropriately. He also states that he has been having numerous episodes of diarrhea and is concerned that he has been not cleaning himself well that may have caused a urinary tract infection. He denies fevers, chills, nausea, vomiting. patient follows with urology outpatient and is scheduled for removal of his indwelling catheter however was informed he will have to straight catheterize himself at home 4-5 times a day. (Coretta Tripp) - Related Data Home Medications Medication Instructions Recorded Confirmed Insulin Glargine [Lantus Vial] 25 unit SQ BID 06/11/24 06/11/24 Insulin Lispro [Insulin Lispro 15 units SQ AC-TID 06/11/24 06/11/24 Harjeet Mouna] Previous Rx's Medication Instructions Recorded Acetaminophen Tab [Tylenol] 650 mg PO Q6HR PRN tab 06/13/24 Divalproex ER [Depakote ER] 500 mg PO HS #30 tab 06/13/24 traZODone HCL [Desyrel] 50 mg PO HS PRN #20 tab 06/13/24 Sulfamethox-Tmp 800-160Mg [Bactrim 1 each PO Q12HR #14 tab 06/28/24 Ds] Allergies Allergy/AdvReac Type Severity Reaction Status Date / Time No Known Allergies Allergy Verified 06/28/24 03:08 Review of Systems ROS Other: All systems not noted in ROS Statement are negative. <Coretta Tripp - Last Filed: 07/01/24 10:54> ROS Other: All systems not noted in ROS Statement are negative. <Lili Reece - Last Filed: 07/02/24 00:08> ROS Statement: Those systems with pertinent positive or pertinent negative responses have been documented in the HPI. Past Medical History Past Medical History: Diabetes Mellitus Additional Past Medical History / Comment(s): Type 1 DM, childhood asthma, OCD History of Any Multi-Drug Resistant Organisms: None Reported Past Surgical History: No Surgical Hx Reported Additional Past Surgical History / Comment(s): Abcess drained on left face in 2020 Past Anesthesia/Blood Transfusion Reactions: Unable to Obtain Past Psychological History: Anxiety, Bipolar, Depression, PTSD Smoking Status: Current every day smoker, Vaper Past Alcohol Use History: None Reported Past Drug Use History: Marijuana <Coretta Tripp - Last Filed: 07/01/24 10:54> General Exam General appearance: alert, in no apparent distress ENT exam: Present: normal exam, mucous membranes moist Neck exam: Present: normal inspection. Absent: tenderness, meningismus, lymphadenopathy Respiratory exam: Present: normal lung sounds bilaterally. Absent: respiratory distress, wheezes, rales, rhonchi, stridor Cardiovascular Exam: Present: regular rate, normal rhythm, normal heart sounds. Absent: systolic murmur, diastolic murmur, rubs, gallop, clicks GI/Abdominal exam: Present: soft, distended (suprapubic), tenderness, normal bowel sounds. Absent: guarding, rebound, rigid Extremities exam: Present: normal inspection, full ROM, normal capillary refill. Absent: tenderness, pedal edema, joint swelling, calf tenderness Back exam: Present: normal inspection Skin exam: Present: warm, dry, intact, normal color. Absent: rash <Coretta Tripp - Last Filed: 07/01/24 10:54> Course Vital Signs 06/28/24 06/28/24 03:03 06:39 Temperature 97.7 F Pulse Rate 113 H 110 H Respiratory 16 18 Rate Blood Pressure 112/70 133/80 O2 Sat by Pulse 99 99 Oximetry Medical Decision Making <Coretta Tripp - Last Filed: 07/01/24 10:54> <Lili eRece - Last Filed: 07/02/24 00:08> - Medical Decision Making Was pt. sent in by a medical professional or institution ([facility], [employer], urgent care, hospital, or detention...) When possible be specific @ -No Did you speak to anyone other than the patient for history (EMS, parent, family, police, friend...)? What history was obtained from this source @ -No Did you review nursing and triage notes (agree or disagree)? Why? @ -I reviewed and agree with nursing and triage notes Were old charts reviewed (outside hosp., previous admission, EMS record, old EKG, old radiological studies, urgent care reports/EKG's, detention records)? Report findings @ -Patient was recently admited to the hospital 06/10/2024 with [facility] with a 4-day hospital stay Reviewed chart note the patient was diagnosed with hydroureter secondary to possible uncontrolled diabetes. Differential Diagnosis (chest pain, altered mental status, abdominal pain women, abdominal pain men, vaginal bleeding, weakness, fever, dyspnea, syncope, headache, dizziness, GI bleed, back pain, seizure, CVA, palpatations, mental health, musculoskeletal)? @ -Differential Abdominal Pain Men: Appendicitis, cholecystitis, diverticulosis, ischemic bowel, pancreatitis, hepatitis, UTI, gastroenteritis, AAA, incarcerated hernia, bowel obstruction, constipation, inflammatory bowel, hepatitis, peptic ulcer disease, splenic infarction, perforated viscus, testicular torsion, this is not meant to be an all-inclusive list EKG interpreted by me (3pts min.). @ -none X-rays interpreted by me (1pt min.). @ -None done CT interpreted by me (1pt min.). @ -None done U/S interpreted by me (1pt. min.). @ -None done What testing was considered but not performed or refused? (CT, X-rays, U/S, labs)? Why? @ -None What meds were considered but not given or refused? Why? @ -None Did you discuss the management of the patient with other professionals (professionals i.e. [facility], [employer], lab, RT, psych nurse, psychiatric social worker, dough mixer, teacher, sba business development officer, case managers)? Give summary @ -No Was smoking cessation discussed for >3mins.? @ -No Was critical care preformed (if so, how long)? @ -No Were there social determinants of health that impacted care today? How? (Homelessness, low income, unemployed, alcoholism, drug addiction, transportation, low edu. Level, literacy, decrease access to med. care, care home, rehab)? @ -No Was there de-escalation of care discussed even if they declined (Discuss DNR or withdrawal of care, Hospice)? DNR status @ -No What co-morbidities impacted this encounter? (DM, HTN, Smoking, COPD, CAD, Cancer, CVA, ARF, Chemo, Hep., AIDS, mental health diagnosis, sleep apnea, morbid obesity)? @ -None Was patient admitted / discharged? Hospital course, mention meds given and route, prescriptions, significant lab abnormalities, going to OR and other pertinent info. @ -33-year-old male with urinary retention. On evaluation patient noted to have suprapubic tenderness and distention concerning for an appropriate catheter draining. Order placed for replacement of urinary catheter. Mother at bedside is concerned that patient has not been evaluating his blood sugars at home and is requesting a blood sugar check which is elevated at 286. Patient is signed out to my attending, Dr. Reece, pending UA and disposition. Undiagnosed new problem with uncertain prognosis? @ -No Drug Therapy requiring intensive monitoring for toxicity (Heparin, Nitro, Insulin, Cardizem)? @ -No Were any procedures done? @ -No Diagnosis/symptom? @ - Acute, or Chronic, or Acute on Chronic? @ - Uncomplicated (without systemic symptoms) or Complicated (systemic symptoms)? @ -Default Side effects of treatment? @ -No Exacerbation, Progression, or Severe Exacerbation? @ -No Poses a threat to life or bodily function? How? (Chest pain, USA, ID, pneumonia, PE, COPD, DKA, ARF, appy, cholecystitis, CVA, Diverticulitis, Homicidal, Suicidal, threat to staff... and all critical care pts) @ -No (Stieler,Coretta) UA is abnormal. Patient placed on antibiotics. Instructed to follow-up with primary care doctor in 2 to 4 days. Urinalysis must be completed after antibiotics are finished to ensure improvement in infection. Return for any new or worsening symptoms. Mother was agreeable to plan patient was discharged home in stable condition (Lili Reece) - Lab Data Lab Results 06/28/24 06/28/24 Range/Units 03:28 03:56 POC Glucose (mg/dL) 286 H (70-110) mg/dL POC Glu Aircraft Maintenance Supervisor ID Urine Color Colorless Urine Appearance Clear (Clear) Urine pH 5.0 (5.0-8.0) Ur Specific [place] 1.012 (1.001-1.035) Urine Protein Trace H (Negative) Urine Glucose (UA) 4+ H (Negative) Urine Ketones Negative (Negative) Urine Blood Moderate H (Negative) Urine Nitrite Negative (Negative) Urine Bilirubin Negative (Negative) Urine Urobilinogen <2.0 (<2.0) mg/dL Ur Leukocyte Esterase Moderate H (Negative) Urine RBC 103 H (0-5) /hpf Urine WBC 44 H (0-5) /hpf Ur Squamous Epith Cells <1 (0-4) /hpf Urine Bacteria Occasional H (None) /hpf Hyaline Casts 6 H (0-2) /lpf Urine Mucus Rare H (None) /hpf Disposition <Coretta Tripp - Last Filed: 07/01/24 10:54> Is patient prescribed a controlled substance at d/c from ED?: No Time of Disposition: 06:12 <Lili Reece - Last Filed: 07/02/24 00:08> Clinical Impression: Malfunction of Rueda catheter, UTI (urinary tract infection) Disposition: HOME SELF-CARE Condition: Stable Instructions (If sedation given, give patient instructions): Urinary Tract Infection in Men (ED) Additional Instructions: Please take the antibiotics as they are instructed. Follow-up with urologist for Rueda removal. Return for any new or worsening symptoms Prescriptions: Sulfamethox-Tmp 800-160Mg [Bactrim Ds] 1 each PO Q12HR #14 tab Referrals: Onelia Flannery MD [Primary Care Provider] - 1-2 days Abdiel Delacruz MD [STAFF PHYSICIAN] - 1-2 days
[2024-06-28 03:58] LABS: Glucose,Whole Blood 286 mg/dL (70-110)
[2024-06-28 05:40] LABS: Appearance,Urine Clear (Clear); Bacteria,Urine Occasional /hpf; Bilirubin,Urine Negative (Negative); Blood,Urine Moderate (Negative); Color,Urine Colorless; Glucose,Urine (UA) 4+ (Negative); Hyaline Casts,Urine 6 /lpf (0-2); Ketones,Urine Negative (Negative); Leukocyte Esterase,Urine Moderate (Negative); Mucus,Urine Rare /hpf; Nitrite,Urine Negative (Negative); Protein,Urine Trace (Negative); RBC,Urine 103 /hpf (0-5); Specific Gravity,Urine 1.012 (1.001-1.035); Squamous Epithelial Cell,Urine <1 /hpf (0-4); Urobilinogen,Urine <2.0 mg/dL (<2.0); WBC,Urine 44 /hpf (0-5)
[2024-06-28] MEDS ORDERED: cefTRIAXone IN SWFI 1,000 MG/10 ML SYRINGE IVP STA (06:09)
[2024-06-28] MEDS: cefTRIAXone IN SWFI 1,000 MG/10 ML SYRINGE IVP ONE (06:24)
[2024-06-28] MEDS: SULFAMETHOX-TMP 800-160MG 1 EACH TAB PO STA (06:25)
[2024-06-28 06:50] VITALS: BP 133/80; PULSE 110; RESP 18
== END 2024-06-28 06:39 | disposition home or self-care (01) ==
LOC: EC 02:57
DX: N39.0 Urinary tract infection, site not specified (principal); T83.098A Other mechanical complication of other urinary catheter, initial encounter; F17.290 Nicotine dependence, other tobacco product, uncomplicated
CPT/HCPCS: 36415; 51702; 81001; 87077; 87086; 87186; 99283

== ENCOUNTER 2024-07-28 23:41 | Emergency (ER) | payer BC ==
[2024-07-28 23:48] LABS: Glucose,Whole Blood 83 mg/dL (70-110)
[2024-07-29 00:06] LABS: Glucose,Whole Blood 74 mg/dL (70-110)
[2024-07-29] MEDS: SODIUM CHLORIDE 0.9% 500 ML 500 ML IV STA (00:14)
--- NOTE | 2024-07-29 00:23 | ED ---
General Adult HPI - General Chief complaint: Recheck/Abnormal Lab/Rx Stated complaint: Hypoglycemia Time Seen by Provider: 07/28/24 23:49 Source: EMS Mode of arrival: EMS Limitations: no limitations - History of Present Illness Initial comments: Patient is a 33-year-old male with a past medical history of bipolar disorder, type 1 diabetes, chronic indwelling Singleton catheter, presenting today for hypoglycemia. Patient lives at home with his parents and while sitting on the couch this evening began to look shaky and his breathing sounded "gurgly". He had decreased responsiveness and blood sugar was 24. EMS arrived and administered amp of D50 with POC glucose improved to ~200, was brought to the ED for further evaluation. On arrival to the ED BG 86 and mentation improving. Parents state the patient was not caring for himself or his diabetes for a long time up until about 2 months ago when he was hospitalized and started on long acting insulin. Takes Levemir 25 units once in the morning and once in the evening as well as 15 units short acting with meals. Today the patient states he did not have anything to eat until 4:00 and ate "some [place]" but his mother is unsure how much he had to eat. Patient did not have witnessed seizure activity nor does have any history of seizures. He did not fall or hit his head. Did not bite his tongue. Mentation improved with administration of D50. Denies recent fevers, chills, vomiting, nausea, abdominal pain, chest pain, shortness of breath, cough, rashes, diarrhea. Does have a chronic indwelling Singleton catheter. - Related Data Home Medications Medication Instructions Recorded Confirmed Insulin Glargine [Lantus Vial] 25 unit SQ BID 06/11/24 06/11/24 Insulin Lispro [Insulin Lispro 15 units SQ AC-TID 06/11/24 06/11/24 Junior Freire] Previous Rx's Medication Instructions Recorded Acetaminophen Tab [Tylenol] 650 mg PO Q6HR PRN tab 06/13/24 Divalproex ER [Depakote ER] 500 mg PO HS #30 tab 06/13/24 traZODone HCL [Desyrel] 50 mg PO HS PRN #20 tab 06/13/24 Sulfamethox-Tmp 800-160Mg [Bactrim 1 each PO Q12HR #14 tab 06/28/24 Ds] Cephalexin [Keflex] 500 mg PO Q6HR 10 Days #40 cap 07/29/24 Allergies Allergy/AdvReac Type Severity Reaction Status Date / Time No Known Allergies Allergy Verified 06/28/24 03:08 Review of Systems ROS Statement: Those systems with pertinent positive or pertinent negative responses have been documented in the HPI. ROS Other: All systems not noted in ROS Statement are negative. Past Medical History Past Medical History: Diabetes Mellitus Additional Past Medical History / Comment(s): Type 1 DM, childhood asthma, OCD History of Any Multi-Drug Resistant Organisms: None Reported Date of last positivie culture/infection: 06/28/24 MDRO Source:: urine Past Surgical History: No Surgical Hx Reported Additional Past Surgical History / Comment(s): Abcess drained on left face in 2020 Past Anesthesia/Blood Transfusion Reactions: Unable to Obtain Past Psychological History: Anxiety, Bipolar, Depression, PTSD Smoking Status: Current every day smoker, Vaper Past Alcohol Use History: None Reported Past Drug Use History: Marijuana General Exam - General Exam Comments Initial Comments: PE: CONSTITUTIONAL: [no apparent distress, appearing, awake and alert] SKIN: [Cool, dry, no jaundice, hives or petechiae] EYES:[ pupils are equally round, extraocular movements intact without nystagmus, clear conjunctiva, non-icteric sclera] HENT: [normocephalic, atraumatic, moist mucus membranes, oropharynx clear without exudates] NECK: , [Full range of motion, normal appearance, no thyromegaly or lymphadenopathy] PULMONARY: [clear to auscultation without wheezes, rhonchi, or rales, normal excursion, no accessory muscle use and no stridor] CARDIOVASCULAR:[ regular rate, rhythm, normal S1 and S2. No appreciated murmurs, rubs or gallops. Extremities well-perfused. No lower extremity edema] GASTROINTESTINAL: [soft, active bowel sounds throughout, minimal tenderness palpation of the epigastrium, non-distended, no palpable masses, no rebound, slight guarding with palpation of the epigastrium no hepatosplenomegaly] MUSCULOSKELETAL: [Extremities have no gross deformity, no edema, redness, or swelling. No calf swelling ] NEUROLOGIC: [_a/o x 3, GCS 15, slightly confused mentation and speech- repeats some questions during exam, such as "what was my sugar?", but AO x3, able to provide hx, no focal deficits . Moves all extremities x 4 without motor or sensory deficit] PSYCHIATRIC:[ _normal mood and affect, thought process is clear and linear] Limitations: no limitations Course Vital Signs 07/28/24 07/29/24 23:44 01:43 Temperature 97.4 F L Pulse Rate 101 H 72 Respiratory 18 17 Rate Blood Pressure 107/67 119/80 O2 Sat by Pulse 99 99 Oximetry EKG Findings - EKG Comments: EKG Findings:: Sinus rhythm, rate 96 bpm, PA interval 122 ms QT/QTc 373/426 ms normal axis, no STEMI, no ST depressions, compared to EKG performed on 06/11/2024, S wave is slightly broader in lead V2, otherwise no significant ch anges from prior, early repolarization abnormality present Medical Decision Making - Medical Decision Making Was pt. sent in by a medical professional or institution (, PA, SAND MOLDER, urgent care, hospital, or retirement...) When possible be specific @ -[No] Did you speak to anyone other than the patient for history (EMS, parent, family, police, friend...)? What history was obtained from this source @I spoke with patient's parents who assisted in providing history, stating they supply patient's medications, 25 units insulin Levemir twice daily, patient does not take any other diabetes medications aside from insulin with meals Did you review nursing and triage notes (agree or disagree)? Why? @ -[I reviewed and agree with nursing and triage notes] Were old charts reviewed (outside hosp., previous admission, EMS record, old EKG, old radiological studies, urgent care reports/EKG's, retirement records)? Report findings @Medical records reviewedReviewed discharge summary from 06/13/2024 after he was admitted for generalized weakness and hyperglycemia Differential Diagnosis (chest pain, altered mental status, abdominal pain women, abdominal pain men, vaginal bleeding, weakness, fever, dyspnea, syncope, headache, dizziness, GI bleed, back pain, seizure, CVA, palpatations, mental health, musculoskeletal)? Differential diagnose remains broad however top considerations include hypoglycemia secondary to insulin overdose, decreased intake, malnutrition, surreptitious insulin use EKG interpreted by me (3pts min.). @ -[As above] X-rays interpreted by me (1pt min.). @ -[None done] CT interpreted by me (1pt min.). @ -[None done] U/S interpreted by me (1pt. min.). @ -[None done] What testing was considered but not performed or refused? (CT, X-rays, U/S, labs)? Why? @ -[None] What meds were considered but not given or refused? Why? @ -[None] Did you discuss the management of the patient with other professionals (professionals i.e. DrNatalie, PA, SAND MOLDER, lab, RT, psych nurse, social work assistant, tobacco checkout clerk, teacher, chief talent officer, caser shoe parts)? Give summary @ -[No] Was smoking cessation discussed for >3mins.? @ -[No] Was critical care preformed (if so, how long)? @Yes, 35 minutes Were there social determinants of health that impacted care today? How? (Homelessness, low income, unemployed, alcoholism, drug addiction, transportation, low edu. Level, literacy, decrease access to med. care, prison, rehab)? @ -[No] Was there de-escalation of care discussed even if they declined (Discuss DNR or withdrawal of care, Hospice)? @ -[No] What co-morbidities impacted this encounter? (DM, HTN, Smoking, COPD, CAD, Cancer, CVA, ARF, Chemo, Hep., AIDS, mental health diagnosis, sleep apnea, morbid obesity)? @ -[None] Was patient admitted / discharged? Hospital course, mention meds given and route, prescriptions, significant lab abnormalities, going to OR and other pertinent info. @ -[hospital course] patient is a 33-year-old male past medical history type 1 diabetes, previously poorly manage, now managed by his parents who are his legal guardians, coming in today for hypoglycemia after having not eaten throughout the day today. Blood glucose was 24 per EMS, patient received amp D50 on their assessment and reportedly patient's blood sugar increased approximately 200, per patient's parents. On arrival here in the ED blood sugar 86. While I was evaluating patient he stated that he started to feel like his blood sugar was getting lower and did seem somewhat confused, having to ask multiple times what his blood sugar was. On recheck blood sugar was 74 so patient was given a cup of orange juice and additional amp of D50. Will obtain basic labs, patient had mild epigastric tenderness outpatient and otherwise benign abdominal exam so lipase and amylase will be added to CBC, CMP urinalysis Cepheid, EKG. Will recheck patient's blood sugar in 30 to 45 minutes. The patient requires another intervention for hypoglycemia we will start patient on D5 infusion and admit for observation. On recheck patient's blood was approximately 150 about 1 hour status post orange juice and D50. On reassessment 1 hour after that patient's blood sugar 121. Patient's blood sugar remained within acceptable limits for 2 hours. He has returned to baseline. Does have UTI on labs. Will exchange patient's singleton and start him on cephalexin. Patient and parents are agreeable plan of care and comfortable discharge at this point. Undiagnosed new problem with uncertain prognosis? @ -[No] Drug Therapy requiring intensive monitoring for toxicity (Heparin, Nitro, Insulin, Cardizem)? @ -[No] Were any procedures done? @ -[No] Diagnosis/symptom? @ -Hypoglycemia Acute, or Chronic, or Acute on Chronic? @ -Acute Uncomplicated (without systemic symptoms) or Complicated (systemic symptoms)? @ -Complicated Side effects of treatment? @ -[No] Exacerbation, Progression, or Severe Exacerbation? @ -[No] Poses a threat to life or bodily function? How? (Chest pain, USA, PA, pneumonia, PE, COPD, DKA, ARF, appy, cholecystitis, CVA, Diverticulitis, Homicidal, Suicidal, threat to staff... and all critical care pts) @ -[No] - Lab Data Result diagrams: 07/28/24 23:41 07/28/24 23:41 Lab Results 07/28/24 07/28/24 07/28/24 Range/Units 23:41 23:41 23:47 WBC 11.9 H (3.8-10.6) k/uL RBC 3.66 L (4.30-5.90) m/uL Hgb 10.1 L (13.0-17.5) gm/dL Hct 31.8 L (39.0-53.0) % MCV 86.8 (80.0-100.0) fL MCH 27.5 (25.0-35.0) pg MCHC 31.7 (31.0-37.0) g/dL RDW 14.5 (11.5-15.5) % Plt Count 524 H (150-450) k/uL MPV 8.0 Neutrophils % 70 % Lymphocytes % 21 % Monocytes % 6 % Eosinophils % 2 % Basophils % 1 % Neutrophils # 8.3 H (1.3-7.7) k/uL Lymphocytes # 2.5 (1.0-4.8) k/uL Monocytes # 0.7 (0-1.0) k/uL Eosinophils # 0.2 (0-0.7) k/uL Basophils # 0.1 (0-0.2) k/uL Sodium 139 (137-145) mmol/L Potassium 3.8 (3.5-5.1) mmol/L Chloride 105 (98-107) mmol/L Carbon Dioxide 20 L (22-30) mmol/L Anion Gap 14 mmol/L BUN 21 H (9-20) mg/dL Creatinine 1.29 H (0.66-1.25) mg/dL Est GFR (CKD-EPI)AfAm 84 (>60 ml/min/1.73 sqM) Est GFR (CKD-EPI)NonAf 73 (>60 ml/min/1.73 sqM) Glucose 77 (74-99) mg/dL POC Glucose (mg/dL) 83 (70-110) mg/dL POC Glu Atomic Welder ID Ayala Rashaun Calcium 9.6 (8.4-10.2) mg/dL Phosphorus 4.3 (2.5-4.5) mg/dL Magnesium 1.7 (1.6-2.3) mg/dL Total Bilirubin <0.1 L (0.2-1.3) mg/dL AST 15 L (17-59) U/L ALT 14 (4-49) U/L Alkaline Phosphatase 97 (38-126) U/L Total Protein 6.7 (6.3-8.2) g/dL Albumin 3.6 (3.5-5.0) g/dL Amylase 74 (30-110) U/L Lipase 82 (23-300) U/L Urine Color Urine Appearance (Clear) Urine pH (5.0-8.0) Ur Specific [place] (1.001-1.035) Urine Protein (Negative) Urine Glucose (UA) (Negative) Urine Ketones (Negative) Urine Blood (Negative) Urine Nitrite (Negative) Urine Bilirubin (Negative) Urine Urobilinogen (<2.0) mg/dL Ur Leukocyte Esterase (Negative) Urine RBC (0-5) /hpf Urine WBC (0-5) /hpf Urine WBC Clumps (None) /hpf Ur Squamous Epith Cells (0-4) /hpf Urine Bacteria (None) /hpf Urine Mucus (None) /hpf Influenza Type A (PCR) (Not Detectd) Influenza Type B (PCR) (Not Detectd) RSV (PCR) (Not Detectd) SARS-CoV-2 (PCR) (Not Detectd) 07/29/24 07/29/24 07/29/24 Range/Units 00:04 00:19 00:19 WBC (3.8-10.6) k/uL RBC (4.30-5.90) m/uL Hgb (13.0-17.5) gm/dL Hct (39.0-53.0) % MCV (80.0-100.0) fL MCH (25.0-35.0) pg MCHC (31.0-37.0) g/dL RDW (11.5-15.5) % Plt Count (150-450) k/uL MPV Neutrophils % % Lymphocytes % % Monocytes % % Eosinophils % % Basophils % % Neutrophils # (1.3-7.7) k/uL Lymphocytes # (1.0-4.8) k/uL Monocytes # (0-1.0) k/uL Eosinophils # (0-0.7) k/uL Basophils # (0-0.2) k/uL Sodium (137-145) mmol/L Potassium (3.5-5.1) mmol/L Chloride (98-107) mmol/L Carbon Dioxide (22-30) mmol/L Anion Gap mmol/L BUN (9-20) mg/dL Creatinine (0.66-1.25) mg/dL Est GFR (CKD-EPI)AfAm (>60 ml/min/1.73 sqM) Est GFR (CKD-EPI)NonAf (>60 ml/min/1.73 sqM) Glucose (74-99) mg/dL POC Glucose (mg/dL) 74 (70-110) mg/dL POC Glu Atomic Welder ID Buzzard Lisa Calcium (8.4-10.2) mg/dL Phosphorus (2.5-4.5) mg/dL Magnesium (1.6-2.3) mg/dL Total Bilirubin (0.2-1.3) mg/dL AST (17-59) U/L ALT (4-49) U/L Alkaline Phosphatase (38-126) U/L Total Protein (6.3-8.2) g/dL Albumin (3.5-5.0) g/dL Amylase (30-110) U/L Lipase (23-300) U/L Urine Color Colorless Urine Appearance Cloudy (Clear) Urine pH 5.5 (5.0-8.0) Ur Specific [place] 1.009 (1.001-1.035) Urine Protein Trace H (Negative) Urine Glucose (UA) Negative (Negative) Urine Ketones Negative (Negative) Urine Blood Small H (Negative) Urine Nitrite Positive (Negative) Urine Bilirubin Negative (Negative) Urine Urobilinogen <2.0 (<2.0) mg/dL Ur Leukocyte Esterase Large H (Negative) Urine RBC 40 H (0-5) /hpf Urine WBC 120 H (0-5) /hpf Urine WBC Clumps Few H (None) /hpf Ur Squamous Epith Cells 1 (0-4) /hpf Urine Bacteria Many H (None) /hpf Urine Mucus Rare H (None) /hpf Influenza Type A (PCR) Not Detected (Not Detectd) Influenza Type B (PCR) Not Detected (Not Detectd) RSV (PCR) Not Detected (Not Detectd) SARS-CoV-2 (PCR) Not Detected (Not Detectd) 07/29/24 07/29/24 Range/Units 00:39 01:45 WBC (3.8-10.6) k/uL RBC (4.30-5.90) m/uL Hgb (13.0-17.5) gm/dL Hct (39.0-53.0) % MCV (80.0-100.0) fL MCH (25.0-35.0) pg MCHC (31.0-37.0) g/dL RDW (11.5-15.5) % Plt Count (150-450) k/uL MPV Neutrophils % % Lymphocytes % % Monocytes % % Eosinophils % % Basophils % % Neutrophils # (1.3-7.7) k/uL Lymphocytes # (1.0-4.8) k/uL Monocytes # (0-1.0) k/uL Eosinophils # (0-0.7) k/uL Basophils # (0-0.2) k/uL Sodium (137-145) mmol/L Potassium (3.5-5.1) mmol/L Chloride (98-107) mmol/L Carbon Dioxide (22-30) mmol/L Anion Gap mmol/L BUN (9-20) mg/dL Creatinine (0.66-1.25) mg/dL Est GFR (CKD-EPI)AfAm (>60 ml/min/1.73 sqM) Est GFR (CKD-EPI)NonAf (>60 ml/min/1.73 sqM) Glucose (74-99) mg/dL POC Glucose (mg/dL) 150 H 121 H (70-110) mg/dL POC Glu Atomic Welder ID Dorita Segoviaecca Calcium (8.4-10.2) mg/dL Phosphorus (2.5-4.5) mg/dL Magnesium (1.6-2.3) mg/dL Total Bilirubin (0.2-1.3) mg/dL AST (17-59) U/L ALT (4-49) U/L Alkaline Phosphatase (38-126) U/L Total Protein (6.3-8.2) g/dL Albumin (3.5-5.0) g/dL Amylase (30-110) U/L Lipase (23-300) U/L Urine Color Urine Appearance (Clear) Urine pH (5.0-8.0) Ur Specific [place] (1.001-1.035) Urine Protein (Negative) Urine Glucose (UA) (Negative) Urine Ketones (Negative) Urine Blood (Negative) Urine Nitrite (Negative) Urine Bilirubin (Negative) Urine Urobilinogen (<2.0) mg/dL Ur Leukocyte Esterase (Negative) Urine RBC (0-5) /hpf Urine WBC (0-5) /hpf Urine WBC Clumps (None) /hpf Ur Squamous Epith Cells (0-4) /hpf Urine Bacteria (None) /hpf Urine Mucus (None) /hpf Influenza Type A (PCR) (Not Detectd) Influenza Type B (PCR) (Not Detectd) RSV (PCR) (Not Detectd) SARS-CoV-2 (PCR) (Not Detectd) Disposition Clinical Impression: Hypoglycemia, Urinary tract infection Disposition: HOME SELF-CARE Condition: Good Additional Instructions: Every disease is a spectrum and a small chance still exists that a serious condition could develop, for this reason, please monitor yourself closely for new, changing or worsening symptoms, feeling very sweaty, lightheaded, confused , fever, inability to tolerate/keep down fluids or your medications, inability to follow up with outpatient providers as instructed and should you experience these symptoms or should you have any further concerns for your wellbeing please return to the ED or call 911 immediately. Please eat a balanced meal upon returning home and when taking your insulin. PLEASE call your primary care physician as soon as possible to arrange / discuss plan for followup appointment. Appointment in the next 1-3 days is strongly encouraged if possible. PLEASE let us know here before you leave if there is anything further we can do to be of any assistance. Take care and feel Better! Prescriptions: Cephalexin [Keflex] 500 mg PO Q6HR 10 Days #40 cap Is patient prescribed a controlled substance at d/c from ED?: No Referrals: None,Stated [Primary Care Provider] - 1-2 days
[2024-07-29 00:29] LABS: ALT 14 U/L (4-49); AST 15 U/L (17-59); African American GFR (CKD) 84 (>60 ml/min/1.73 sqM); Albumin 3.6 g/dL (3.5-5.0); Alkaline Phosphatase 97 U/L (38-126); Amylase 74 U/L (30-110); Anion Gap 14 mmol/L; Blood Urea Nitrogen 21 mg/dL (9-20); Calcium 9.6 mg/dL (8.4-10.2); Carbon Dioxide 20 mmol/L (22-30); Chloride 105 mmol/L (98-107); Glucose 77 mg/dL (74-99); Lipase 82 U/L (23-300); Magnesium 1.7 mg/dL (1.6-2.3); Non-African American GFR(CKD) 73 (>60 ml/min/1.73 sqM); Phosphorus 4.3 mg/dL (2.5-4.5); Potassium 3.8 mmol/L (3.5-5.1); Sodium 139 mmol/L (137-145); Total Bilirubin <0.1 mg/dL (0.2-1.3); Total Protein 6.7 g/dL (6.3-8.2)
[2024-07-29 00:40] LABS: Glucose,Whole Blood 150 mg/dL (70-110)
[2024-07-29 00:48] LABS: Basophils # (A) 0.1 k/uL (0-0.2); Basophils % (A) 1 %; Eosinophils # (A) 0.2 k/uL (0-0.7); Eosinophils % (A) 2 %; HCT 31.8 % (39.0-53.0); HGB 10.1 gm/dL (13.0-17.5); Lymphocytes # (A) 2.5 k/uL (1.0-4.8); Lymphocytes % (A) 21 %; MCH 27.5 pg (25.0-35.0); MCHC 31.7 g/dL (31.0-37.0); MCV 86.8 fL (80.0-100.0); Monocytes # (A) 0.7 k/uL (0-1.0); Monocytes % (A) 6 %; Neutrophils # (A) 8.3 k/uL (1.3-7.7); Neutrophils % (A) 70 %; Platelet Count 524 k/uL (150-450); RBC 3.66 m/uL (4.30-5.90); RDW 14.5 % (11.5-15.5); WBC 11.9 k/uL (3.8-10.6)
[2024-07-29 01:23] LABS: Appearance,Urine Cloudy (Clear); Bacteria,Urine Many /hpf; Bilirubin,Urine Negative (Negative); Blood,Urine Small (Negative); Color,Urine Colorless; Glucose,Urine (UA) Negative (Negative); Ketones,Urine Negative (Negative); Leukocyte Esterase,Urine Large (Negative); Mucus,Urine Rare /hpf; Nitrite,Urine Positive (Negative); PH, Urine 5.5 (5.0-8.0); Protein,Urine Trace (Negative); RBC,Urine 40 /hpf (0-5); Specific Gravity,Urine 1.009 (1.001-1.035); Squamous Epithelial Cell,Urine 1 /hpf (0-4); Urobilinogen,Urine <2.0 mg/dL (<2.0); WBC,Urine 120 /hpf (0-5)
[2024-07-29 01:47] LABS: Glucose,Whole Blood 121 mg/dL (70-110)
[2024-07-29 01:48] VITALS: BP 119/80; PULSE 72; RESP 17
[2024-07-29] MEDS: CEPHALEXIN 500 MG CAP PO STA (02:33)
[2024-07-29 02:43] VITALS: TEMP 97.6
== END 2024-07-29 02:43 | disposition home or self-care (01) ==
LOC: EC 23:41
DX: E10.649 Type 1 diabetes mellitus with hypoglycemia without coma (principal); N39.0 Urinary tract infection, site not specified; F17.290 Nicotine dependence, other tobacco product, uncomplicated; Z11.52 Encounter for screening for COVID-19
CPT/HCPCS: 36415; 51702; 80053; 81001; 82150; 83690; 83735; 84100; 85025; 87086; 87636; 93005; 99291

== ENCOUNTER 2024-11-16 16:31 | Emergency (ER) | payer BC, OTHER ==
[2024-11-16 16:36] VITALS: RESP 18
--- NOTE | 2024-11-16 16:41 | ED ---
Fall HPI - General Source: patient Mode of arrival: wheelchair <Olaf Finley - Last Filed: 11/16/24 16:40> <Christiano Mills - Last Filed: 11/16/24 18:45> - General Chief Complaint: Fall Stated Complaint: Fall Time Seen by Provider: 11/16/24 16:40 - History of Present Illness Initial Comments: 34-year-old male presenting with chief complaint of right forearm injury. Patient was walking from the bedroom to the bathroom when he tripped and fell injuring his right forearm. He still able to move his fingers. No numbness or tingling. No head injury loss of consciousness or use of blood thinners (Olaf Finley) This is a 34-year-old male who states he fell 2 days ago and landed on his right forearm. Patient complains of mid forearm pain. Patient denies any significant elbow or wrist pain. Patient has any hand pain or finger pain. Patient denies hitting his head or neck. Patient denies any other injuries or problems at this time. (Christiano Mills) - Related Data Home Medications Medication Instructions Recorded Confirmed Insulin Glargine,Hum.rec.anlog 15 units SQ HS 09/01/24 09/01/24 [Lantus Solostar Pen] Insulin Lispro [Insulin Lispro See Protocol SQ TID-W/MEALS 09/01/24 09/01/24 Kwikpen U-100] Previous Rx's Medication Instructions Recorded Cephalexin [Keflex] 500 mg PO Q12H 7 Days #14 cap 09/01/24 Allergies Allergy/AdvReac Type Severity Reaction Status Date / Time No Known Allergies Allergy Verified 09/01/24 14:25 Review of Systems ROS Other: All systems not noted in ROS Statement are negative. <Olaf Finley - Last Filed: 11/16/24 16:40> ROS Other: All systems not noted in ROS Statement are negative. <Chritsiano Mills - Last Filed: 11/16/24 18:45> ROS Statement: Those systems with pertinent positive or pertinent negative responses have been documented in the HPI. Past Medical History Past Medical History: Diabetes Mellitus Additional Past Medical History / Comment(s): Type 1 DM, childhood asthma, OCD History of Any Multi-Drug Resistant Organisms: None Reported Date of last positivie culture/infection: 06/28/24 MDRO Source:: urine Past Surgical History: No Surgical Hx Reported Additional Past Surgical History / Comment(s): Abcess drained on left face in 2020 Past Anesthesia/Blood Transfusion Reactions: Unable to Obtain Past Psychological History: Anxiety, Bipolar, Depression, PTSD Smoking Status: Current every day smoker, Vaper Past Alcohol Use History: None Reported Past Drug Use History: Marijuana <Olaf Finley - Last Filed: 11/16/24 16:40> General Exam Limitations: physical limitation <Olaf Finley - Last Filed: 11/16/24 16:40> <Christiano Mills - Last Filed: 11/16/24 18:45> - General Exam Comments Initial Comments: Visual Physical Exam Vital signs reviewed General: Well-appearing, nontoxic, no acute distress. Head: Normocephalic, atraumatic Eyes: PERRLA, EOMI ENT: Airway patent Chest: Nonlabored breathing Skin: No visual rash, normal skin tone Neuro: Alert and oriented 3 Musculoskeletal: No gross abnormalities (Olaf Finley) GENERAL Patient is well-developed and well-nourished. Patient is in mild distress. EYES Patient's pupils are equal and round. Extraocular motion is intact SKIN Unremarkable NEURO The patient is alert and oriented A&Ox3 PYSCH Patient has normal interpersonal interactions. MUSCULOSKELETAL Patient has tenderness in the proximal third of his forearm but is no tenderness to the elbow or wrist. (Christiano Mills) Course Vital Signs 11/16/24 16:33 Temperature 98.2 F Pulse Rate 103 H Respiratory 18 Rate Blood Pressure 124/80 O2 Sat by Pulse 98 Oximetry Medical Decision Making <Olaf Finley - Last Filed: 11/16/24 16:40> <Christiano Mills - Last Filed: 11/16/24 18:45> - Medical Decision Making I performed the quick note portion of this visit, electronically signed Olaf Finley PA-C (Olaf Finley) Was pt. sent in by a medical professional or institution ([facility], [employer], urgent care, hospital, or senior living...) When possible be specific @ -No Did you speak to anyone other than the patient for history (EMS, parent, family, police, friend...)? What history was obtained from this source @ -No Did you review nursing and triage notes (agree or disagree)? Why? @ -I reviewed and agree with nursing and triage notes Were old charts reviewed (outside hosp., previous admission, EMS record, old EKG, old radiological studies, urgent care reports/EKG's, senior living records)? Report findings @ -No old charts were reviewed Differential Diagnosis? @ -Differential Musculoskeletal Muscular strain, contusion, ligament sprain, fracture, arthritis, septic arthritis, bursitis, cellulitis, muscle spasm, nerve compression, DVT, arterial occlusion, herpes zoster, electrolyte abnormality, tumor.... This is not meant to be in all inclusive list EKG interpreted by me (3pts min.). @ -As above X-rays interpreted by me (1pt min.). @ -X-ray of the elbow and forearm showed no acute injury CT interpreted by me (1pt min.). @ -None done U/S interpreted by me (1pt. min.). @ -None done What testing was considered but not performed or refused? (CT, X-rays, U/S, labs)? Why? @ -None What meds were considered but not given or refused? Why? @ -None Did you discuss the management of the patient with other professionals (professionals i.e. , PA, [employer] WORKER, lab, RT, psych nurse, social work administrator, marine pipe welder, teacher, juvenile probation officer, nurse outreach case manager)? Give summary @ -No Was smoking cessation discussed for >3mins.? @ -No Was critical care preformed (if so, how long)? @ -No Were there social determinants of health that impacted care today? How? (Homelessness, low income, unemployed, alcoholism, drug addiction, transportation, low edu. Level, literacy, decrease access to med. care, care home, rehab)? @ -No Was there de-escalation of care discussed even if they declined (Discuss DNR or withdrawal of care, Hospice)? DNR status @ -No What co-morbidities impacted this encounter? (DM, HTN, Smoking, COPD, CAD, Cancer, CVA, ARF, Chemo, Hep., AIDS, mental health diagnosis, sleep apnea, morbid obesity)? @ -None Was patient admitted / discharged? Hospital course, mention meds given and route, prescriptions, significant lab abnormalities, going to OR and other pertinent info. @ -Radiology mention there might be a subtle fracture I went back and reexamined the patient he had no tenderness in the head of the radius so patient is instructed to follow-up outpatient if the pain continues and for follow-up x- rays in 4 to 5 days which she states he can do Undiagnosed new problem with uncertain prognosis? @ -No Drug Therapy requiring intensive monitoring for toxicity (Heparin, Nitro, Insulin, Cardizem)? @ -No Were any procedures done? @ -No Diagnosis/symptom? @ -Forearm contusion Acute, or Chronic, or Acute on Chronic? @ -Default Uncomplicated (without systemic symptoms) or Complicated (systemic symptoms)? @ -Complicated Side effects of treatment? @ -No Exacerbation, Progression, or Severe Exacerbation? @ -No Poses a threat to life or bodily function? How? (Chest pain, [place], [place], pneumonia, PE, COPD, DKA, ARF, appy, cholecystitis, CVA, Diverticulitis, Homicidal, Suicidal, threat to staff... and all critical care pts) @ -No (Christiano Mills) Disposition <Olaf Finley - Last Filed: 11/16/24 16:40> Is patient prescribed a controlled substance at d/c from ED?: No Time of Disposition: 18:45 <Christiano Mills - Last Filed: 11/16/24 18:45> Clinical Impression: Fall, Forearm contusion Disposition: HOME SELF-CARE Condition: Good Instructions (If sedation given, give patient instructions): Fall Prevention (ED), Contusion in Adults (ED) Additional Instructions: Follow-up in 4 to 5 days for follow-up x-rays or return if any symptoms worsen Referrals: Onelia Flannery MD [Primary Care Provider] - 1-2 days
--- NOTE | 2024-11-16 17:56 | XR ---
EXAMINATION TYPE: XR forearm RT DATE OF EXAM: 11/16/2024 5:34 PM COMPARISON: None CLINICAL INDICATION: Male, 34 years old with history of injury; PHH, pain TECHNIQUE: XR forearm RT; forearm was examined in AP and lateral projections. FINDINGS: There is a lucency through the radial head seen on one view. Osteochondroma suggested in t he distal humerus extending towards the elbow joint. Sclerotic focus in the distal humerus compatible with bone island measuring 7 mm. IMPRESSION: 1. Lucency through the radial head seen on one view suggestive of fracture. Further evaluation with CT recommended. 2. Distal humerus anterior osteochondroma. 3. Bone island in the distal humerus. [facility], , 11/16/2024 5:54 PM
[2024-11-16 19:03] VITALS: BP 121/76; PULSE 98; TEMP 98.4
== END 2024-11-16 19:03 | disposition home or self-care (01) ==
LOC: EC 16:31
DX: S50.11XA Contusion of right forearm, initial encounter (principal); F17.290 Nicotine dependence, other tobacco product, uncomplicated; W01.0XXA Fall on same level from slipping, tripping and stumbling without subsequent striking against object, initial encounter; Y93.01 Activity, walking, marching and hiking
CPT/HCPCS: 99283

== ENCOUNTER 2024-12-08 18:55 | Inpatient (IN) | payer BC, OTHER ==
--- NOTE | 2024-12-08 20:09 | ED ---
Psych HPI - General Chief Complaint: Psychiatric Symptoms Stated Complaint: Mental health Time Seen by Provider: 12/08/24 19:55 Source: patient, family, EMS, RN notes reviewed, old records reviewed Mode of arrival: EMS - History of Present Illness Initial Comments: 34-year-old male presented the ER via EMS escorted by police for evaluation of failure to thrive. Patient is petition by mother for mental health evaluation. Upon my evaluation of patient, patient reports he is a "lucid and responsible human" he can make his own "medical decisions". Patient is refusing blood work, vital signs and requesting food and water. Patient denies any SI, HI, drug or alcohol use. Upon speaking with mother patient is a known bipolar and type I diabetic. Patient has not been taking his insulin for approximately 5 years. His blood sugars typically range from 700-800. He does live with his parents and his mother reports he is "killing himself" and "not taking care of himself". Patient is "always covered in feces" per mother. 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 Delacruz. PCP is Dr. Rousseau. - Related Data Home Medications Medication Instructions Recorded Confirmed Insulin Glargine,Hum.rec.anlog 15 units SQ HS 09/01/24 09/01/24 [Lantus Solostar Pen] Insulin Lispro [Insulin Lispro See Protocol SQ TID-W/MEALS 09/01/24 09/01/24 Kwikpen U-100] Previous Rx's Medication Instructions Recorded Cephalexin [Keflex] 500 mg PO Q12H 7 Days #14 cap 09/01/24 Allergies Allergy/AdvReac Type Severity Reaction Status Date / Time No Known Allergies Allergy Verified 12/08/24 19:07 Review of Systems ROS Statement: Those systems with pertinent positive or pertinent negative responses have been documented in the HPI. ROS Other: All systems not noted in ROS Statement are negative. Past Medical History Past Medical History: Diabetes Mellitus Additional Past Medical History / Comment(s): Type 1 DM, childhood asthma, OCD History of Any Multi-Drug Resistant Organisms: None Reported Date of last positivie culture/infection: 06/28/24 MDRO Source:: urine Past Surgical History: No Surgical Hx Reported Additional Past Surgical History / Comment(s): Abcess drained on left face in 2020 Past Anesthesia/Blood Transfusion Reactions: Unable to Obtain Past Psychological History: Anxiety, Bipolar, Depression, PTSD Smoking Status: Current every day smoker, Vaper Past Alcohol Use History: None Reported Past Drug Use History: Marijuana General Exam Limitations: no limitations General appearance: alert, in no apparent distress ENT exam: Present: normal oropharynx, mucous membranes moist, other (Healing scab to left auricle.) Respiratory exam: Present: normal lung sounds bilaterally. Absent: respiratory distress, wheezes, rales, rhonchi, stridor Cardiovascular Exam: Present: normal rhythm, tachycardia, normal heart sounds. Absent: systolic murmur, diastolic murmur, rubs, gallop, clicks GI/Abdominal exam: Present: soft, normal bowel sounds. Absent: distended, tenderness, guarding, rebound, rigid Extremities exam: Present: normal inspection, full ROM, normal capillary refill. Absent: tenderness, pedal edema, joint swelling, calf tenderness Neurological exam: Present: alert, oriented X3, CN II-XII intact Skin exam: Present: warm, dry, intact, other (Patient is covered in feces and numerous scabs noted.) Course Vital Signs 12/08/24 22:01 Temperature 98.0 F Pulse Rate 82 Respiratory 17 Rate Blood Pressure 176/97 O2 Sat by Pulse 100 Oximetry - Reevaluation(s) Reevaluation #1: 12/08/24 22:23 Case discussed with [facility], , who accepts ICU admission. This was discussed by my attending, Dr. Sloan. Procedures - Restraint - Face to Face Restraint Occurrence 1 Patient's Immediate Situation: Endangers staff safety, Violent behavior Patient's Reaction to the Intervention: Uncooperative, Suspicious, Aggressive, Resistive to care Patient's Medical & Behavioral Condition: Awake, Alert, Agitated, Manic, Bizarre behavior Face to Face Eval of Restraint Date: 12/08/24 Face to Face Eval of Restraint Time: 20:15 Medical Decision Making - Medical Decision Making Was pt. sent in by a medical professional or institution (, PA, [facility], urgent care, hospital, or fci...) When possible be specific @ -Patient petitioned for mental health evaluation. Did you speak to anyone other than the patient for history (EMS, parent, family, police, friend...)? What history was obtained from this source @ -Patient's parents aiding in HPI and past medical history. They state they petitioned patient as he does not take care of himself. He is a diabetic and refuses to take insulin. He also refuses to take mental health medications. Did you review nursing and triage notes (agree or disagree)? Why? @ -I reviewed and agree with nursing and triage notes Were old charts reviewed (outside hosp., previous admission, EMS record, old EKG, old radiological studies, urgent care reports/EKG's, fci records)? Report findings @ - Prior medical records Differential Diagnosis (chest pain, altered mental status, abdominal pain women, abdominal pain men, vaginal bleeding, weakness, fever, dyspnea, syncope, headache, dizziness, GI bleed, back pain, seizure, CVA, palpatations, mental health, musculoskeletal)? @ -Differential Weakness:Hypoglycemia, shock, sepsis, hyponatremia, anemia, infection, CT, ETOH, adverse medicine reaction, overdose, stroke, this is not meant to be an all-inclusive list. EKG interpreted by me (3pts min.). @ -As above X-rays interpreted by me (1pt min.). @ -None done CT interpreted by me (1pt min.). @ -None done U/S interpreted by me (1pt. min.). @ -None done What testing was considered but not performed or refused? (CT, X-rays, U/S, labs)? Why? @ -None What meds were considered but not given or refused? Why? @ -None Did you discuss the management of the patient with other professionals (professionals i.e. , PA, [facility] [employer], lab, RT, psych nurse, social human services assistants, candy cutter hand, teacher, facilities officer, geriatric case manager)? Give summary @ -Yes, Case discussed with Yogi Stuart NP, [facility], who accepts admission. Case also discussed with [facility], Dr. Mancia, by my attending, DR. Sloan, for ICU admission. Was smoking cessation discussed for >3mins.? @ -No Was critical care preformed (if so, how long)? @ -Yes, 31 minutes Were there social determinants of health that impacted care today? How? (Homelessness, low income, unemployed, alcoholism, drug addiction, orona sportation, low edu. Level, literacy, decrease access to med. care, fci, rehab)? @ -Mental health patient is not compliant with medications Was there de-escalation of care discussed even if they declined (Discuss DNR or withdrawal of care, Hospice)? DNR status @ -No What co-morbidities impacted this encounter? (DM, HTN, Smoking, COPD, CAD, Cancer, CVA, ARF, Chemo, Hep., AIDS, mental health diagnosis, sleep apnea, morbid obesity)? @ -Type 1 diabetes, and bipolar Was patient admitted / discharged? Hospital course, mention meds given and route, prescriptions, significant lab abnormalities, going to OR and other pertinent info. @ -Admitted. 34-year-old male presented the ER via EMS petition for mental health evaluation for failure to thrive. Initially patient refusing vital signs. Vital signs taken at 2201 remarkable from hypertensive 176/97 vitals otherwise acceptable limits. Upon my examination, patient is extremely agitated repeating "I am a lucid and responsible human". Patient is repeating himself and appears to be manic. He is weak and ill appearing with numerous scabs noted on patient's skin. Patient is covered in feces as he had a large bowel movement upon arrival. Patient refusing treatment and became aggressive for which IM Ativan ordered and restraints were applied at 2014, see note. Laboratory studies obtained in the ER remarkable for hemoglobin 11.3, sodium 124 (corrected 135), potassium 3.6, anion gap 13. Hyperglycemia 814. Acetone negative. Patient does not appear to be in DKA. pH 7.45, pCO2 22, HCO3 19. Urinalysis with 4+ glucose likely due to diabetes no evidence of infection. UDS positive for THC. Given patient's hyperglycemia and altered state, even though believed to be more of a psychotic state, patient started on [facility] protocol and priscilla jarquin. Patient will be admitted to [facility] this was discussed with Yogi Stuart NP. ICU admission considered for [facility] and discussed by my attending Dr. Sloan with [facility], . Psychiatry on consult. Patient admitted in stable condition for further evaluation and treatment. Case discussed with ED attending, Dr. Sloan. Undiagnosed new problem with uncertain prognosis? @ -No Drug Therapy requiring intensive monitoring for toxicity (Heparin, Nitro, Insulin, Cardizem)? @ -Yes, insulin Were any procedures done? @ -No Diagnosis/symptom? @ -HHS/medication non compliance/encounter for mental health evaluation Acute, or Chronic, or Acute on Chronic? @ -Acute Uncomplicated (without systemic symptoms) or Complicated (systemic symptoms)? @ -Complicated Side effects of treatment? @ -No Exacerbation, Progression, or Severe Exacerbation? @ -No Poses a threat to life or bodily function? How? (Chest pain, USA, CT, pneumonia, PE, COPD, DKA, ARF, appy, cholecystitis, CVA, Diverticulitis, Homicidal, Suicidal, threat to staff... and all critical care pts) @ -Yes, [facility] - Lab Data Result diagrams: 12/08/24 20:42 12/09/24 00:07 Lab Results 12/08/24 12/08/24 12/08/24 Range/Units 20:20 20:42 20:42 WBC 7.80 (4.50-10.00) 10*3/uL RBC 3.98 L (4.40-5.60) 10*6/uL Hgb 11.3 L (13.0-17.0) g/dL Hct 32.3 L (39.6-50.0) % MCV 81.2 (80.0-97.0) fL MCH 28.4 (27.0-32.0) pg MCHC 35.0 (32.0-37.0) g/dL Plt Count 291 (140-440) 10*3/uL MPV 11.1 (9.5-12.2) fL VBG pH (7.31-7.41) VBG pCO2 (37-51) mmHg VBG HCO3 (24-28) mmol/L Sodium 124 L (137-145) mmol/L Potassium 3.6 (3.5-5.1) mmol/L Chloride 93 L (98-107) mmol/L Carbon Dioxide 18 L (22-30) mmol/L Anion Gap 13 mmol/L BUN 29 H (9-20) mg/dL Creatinine 1.15 (0.66-1.25) mg/dL Est GFR (CKD-EPI)AfAm >90 (>60 ml/min/1.73 sqM) Est GFR (CKD-EPI)NonAf 83 (>60 ml/min/1.73 sqM) Glucose 814 H* (74-99) mg/dL POC Glucose (mg/dL) >600 H* (70-110) mg/dL POC Glu Inside Tester ID [place] Plasma Lactic Acid Son (0.7-2.0) mmol/L Calcium 9.6 (8.4-10.2) mg/dL Phosphorus 3.6 (2.5-4.5) mg/dL Magnesium 1.7 (1.6-2.3) mg/dL Total Bilirubin 0.5 (0.2-1.3) mg/dL AST 17 (17-59) U/L ALT 17 (4-49) U/L Alkaline Phosphatase 279 H (38-126) U/L Total Protein 6.7 (6.3-8.2) g/dL Albumin 4.1 (3.5-5.0) g/dL Urine Color Urine Appearance (Clear) Urine pH (5.0-8.0) Ur Specific [place] (1.001-1.035) Urine Protein (Negative) Urine Glucose (UA) (Negative) Urine Ketones (Negative) Urine Blood (Negative) Urine Nitrite (Negative) Urine Bilirubin (Negative) Urine Urobilinogen (<2.0) mg/dL Ur Leukocyte Esterase (Negative) Urine Opiates Screen (NotDetected) Ur Oxycodone Screen (NotDetected) Urine Methadone Screen (NotDetected) Ur Barbiturates Screen (NotDetected) U Tricyclic Antidepress (NotDetected) Ur Phencyclidine Scrn (NotDetected) Ur Amphetamines Screen (NotDetected) U Methamphetamines Scrn (NotDetected) U Benzodiazepines Scrn (NotDetected) Urine Cocaine Screen (NotDetected) U Marijuana (THC) Screen (NotDetected) Acetone, Qual Negative (Negative) 12/08/24 12/08/24 12/08/24 Range/Units 20:42 20:51 21:52 WBC (4.50-10.00) 10*3/uL RBC (4.40-5.60) 10*6/uL Hgb (13.0-17.0) g/dL Hct (39.6-50.0) % MCV (80.0-97.0) fL MCH (27.0-32.0) pg MCHC (32.0-37.0) g/dL Plt Count (140-440) 10*3/uL MPV (9.5-12.2) fL VBG pH 7.54 H (7.31-7.41) VBG pCO2 22 L (37-51) mmHg VBG HCO3 19 L (24-28) mmol/L Sodium (137-145) mmol/L Potassium (3.5-5.1) mmol/L Chloride (98-107) mmol/L Carbon Dioxide (22-30) mmol/L Anion Gap mmol/L BUN (9-20) mg/dL Creatinine (0.66-1.25) mg/dL Est GFR (CKD-EPI)AfAm (>60 ml/min/1.73 sqM) Est GFR (CKD-EPI)NonAf (>60 ml/min/1.73 sqM) Glucose (74-99) mg/dL POC Glucose (mg/dL) (70-110) mg/dL POC Glu Inside Tester ID Plasma Lactic Acid Son 1.8 (0.7-2.0) mmol/L Calcium (8.4-10.2) mg/dL Phosphorus (2.5-4.5) mg/dL Magnesium (1.6-2.3) mg/dL Total Bilirubin (0.2-1.3) mg/dL AST (17-59) U/L ALT (4-49) U/L Alkaline Phosphatase (38-126) U/L Total Protein (6.3-8.2) g/dL Albumin (3.5-5.0) g/dL Urine Color Colorless Urine Appearance Clear (Clear) Urine pH 5.5 (5.0-8.0) Ur Specific [place] 1.016 (1.001-1.035) Urine Protein Negative (Negative) Urine Glucose (UA) 4+ H (Negative) Urine Ketones Negative (Negative) Urine Blood Negative (Negative) Urine Nitrite Negative (Negative) Urine Bilirubin Negative (Negative) Urine Urobilinogen <2.0 (<2.0) mg/dL Ur Leukocyte Esterase Negative (Negative) Urine Opiates Screen (NotDetected) Ur Oxycodone Screen (NotDetected) Urine Methadone Screen (NotDetected) Ur Barbiturates Screen (NotDetected) U Tricyclic Antidepress (NotDetected) Ur Phencyclidine Scrn (NotDetected) Ur Amphetamines Screen (NotDetected) U Methamphetamines Scrn (NotDetected) U Benzodiazepines Scrn (NotDetected) Urine Cocaine Screen (NotDetected) U Marijuana (THC) Screen (NotDetected) Acetone, Qual (Negative) 12/08/24 12/08/24 12/09/24 Range/Units 21:52 23:53 00:07 WBC (4.50-10.00) 10*3/uL RBC (4.40-5.60) 10*6/uL Hgb (13.0-17.0) g/dL Hct (39.6-50.0) % MCV (80.0-97.0) fL MCH (27.0-32.0) pg MCHC (32.0-37.0) g/dL Plt Count (140-440) 10*3/uL MPV (9.5-12.2) fL VBG pH (7.31-7.41) VBG pCO2 (37-51) mmHg VBG HCO3 (24-28) mmol/L Sodium 126 L (137-145) mmol/L Potassium 3.0 L (3.5-5.1) mmol/L Chloride 98 (98-107) mmol/L Carbon Dioxide 19 L (22-30) mmol/L Anion Gap 9 mmol/L BUN 25 H (9-20) mg/dL Creatinine 1.03 (0.66-1.25) mg/dL Est GFR (CKD-EPI)AfAm >90 (>60 ml/min/1.73 sqM) Est GFR (CKD-EPI)NonAf >90 (>60 ml/min/1.73 sqM) Glucose 484 H (74-99) mg/dL POC Glucose (mg/dL) 514 H* (70-110) mg/dL POC Glu Inside Tester ID Rhezie Emie Plasma Lactic Acid Son (0.7-2.0) mmol/L Calcium (8.4-10.2) mg/dL Phosphorus 3.7 (2.5-4.5) mg/dL Magnesium (1.6-2.3) mg/dL Total Bilirubin (0.2-1.3) mg/dL AST (17-59) U/L ALT (4-49) U/L Alkaline Phosphatase (38-126) U/L Total Protein (6.3-8.2) g/dL Albumin (3.5-5.0) g/dL Urine Color Urine Appearance (Clear) Urine pH (5.0-8.0) Ur Specific [place] (1.001-1.035) Urine Protein (Negative) Urine Glucose (UA) (Negative) Urine Ketones (Negative) Urine Blood (Negative) Urine Nitrite (Negative) Urine Bilirubin (Negative) Urine Urobilinogen (<2.0) mg/dL Ur Leukocyte Esterase (Negative) Urine Opiates Screen Not Detected (NotDetected) Ur Oxycodone Screen Not Detected (NotDetected) Urine Methadone Screen Not Detected (NotDetected) Ur Barbiturates Screen Not Detected (NotDetected) U Tricyclic Antidepress Not Detected (NotDetected) Ur Phencyclidine Scrn Not Detected (NotDetected) Ur Amphetamines Screen Not Detected (NotDetected) U Methamphetamines Scrn Not Detected (NotDetected) U Benzodiazepines Scrn Not Detected (NotDetected) Urine Cocaine Screen Not Detected (NotDetected) U Marijuana (THC) Screen Detected H (NotDetected) Acetone, Qual (Negative) - EKG Data -: EKG Interpreted by Me EKG Comments: EKG taken at 20: 26 showing a sinus rhythm. Ventricular rate 91, ME interval 141, QRS duration 100, QT/QTc 353/402. No ST segment elevations or depressions. No T wave inversions. Artifact present. Disposition Clinical Impression: Hyperosmolar hyperglycemic state (HHS), Encounter for psychiatric assessment Disposition: ADMITTED IP TO THIS HOSP Condition: Stable Time of Disposition: 22:23
[2024-12-08 20:22] LABS: Glucose,Whole Blood >600 mg/dL (70-110)
[2024-12-08] MEDS: LORazepam 1 MG/0.5 ML VIAL IM STA (20:28)
[2024-12-08 21:03] LABS: HCT 32.3 % (39.6-50.0); HGB 11.3 g/dL (13.0-17.0); MCH 28.4 pg (27.0-32.0); MCV 81.2 fL (80.0-97.0); Mean Platelet Volume 11.1 fL (9.5-12.2); Platelet Count 291 10*3/uL (140-440); RBC 3.98 10*6/uL (4.40-5.60); RDW 12.9 % (11.5-14.5)
[2024-12-08 21:04] LABS: VBG PH 7.54 (7.31-7.41)
[2024-12-08] MEDS: SODIUM CHLORIDE 0.9% 1,000 ML IV SCH ×2 (21:10→23:02)
[2024-12-08 21:18] LABS: ALT 17 U/L (4-49); AST 17 U/L (17-59); African American GFR (CKD) >90 (>60 ml/min/1.73 sqM); Albumin 4.1 g/dL (3.5-5.0); Alkaline Phosphatase 279 U/L (38-126); Anion Gap 13 mmol/L; Blood Urea Nitrogen 29 mg/dL (9-20); Calcium 9.6 mg/dL (8.4-10.2); Carbon Dioxide 18 mmol/L (22-30); Chloride 93 mmol/L (98-107); Magnesium 1.7 mg/dL (1.6-2.3); Non-African American GFR(CKD) 83 (>60 ml/min/1.73 sqM); Phosphorus 3.6 mg/dL (2.5-4.5); Potassium 3.6 mmol/L (3.5-5.1); Sodium 124 mmol/L (137-145); Total Bilirubin 0.5 mg/dL (0.2-1.3); Total Protein 6.7 g/dL (6.3-8.2)
[2024-12-08 21:31] LABS: Glucose 814 mg/dL (74-99)
[2024-12-08] MEDS ORDERED: DEXTROSE 50% SYRINGE 50 ML IVP PRN ×2 (22:11)
[2024-12-08 22:14] LABS: Appearance,Urine Clear (Clear); Bilirubin,Urine Negative (Negative); Blood,Urine Negative (Negative); Color,Urine Colorless; Glucose,Urine (UA) 4+ (Negative); Ketones,Urine Negative (Negative); Leukocyte Esterase,Urine Negative (Negative); Nitrite,Urine Negative (Negative); PH, Urine 5.5 (5.0-8.0); Protein,Urine Negative (Negative); Specific Gravity,Urine 1.016 (1.001-1.035); Urobilinogen,Urine <2.0 mg/dL (<2.0)
[2024-12-08] MEDS ORDERED: ACETAMINOPHEN TAB 325 MG TAB PO PRN (22:35)
[2024-12-08] MEDS ORDERED: NALOXONE 0.4 MG/ML 1 ML VIAL IV PRN (22:35)
[2024-12-08 22:39] LABS: Amphetamine Screen,Urine Not Detected (NotDetected); Barbiturate Screen,Urine Not Detected (NotDetected); Benzodiazepines Screen,Urine Not Detected (NotDetected); Cocaine Screen,Urine Not Detected (NotDetected); Methadone Screen, Urine Not Detected (NotDetected); Opiate Screen,Urine Not Detected (NotDetected); Oxycodone Screen, Urine Not Detected (NotDetected); Phencyclidine Screen,Urine Not Detected (NotDetected); Tricyclic Antidepressant,Urine Not Detected (NotDetected); Urn Cannabinoid Scrn Detected (NotDetected)
[2024-12-08] MEDS: INSULIN REGULAR BOLUS (FROM DRIP BAG) IV ONE (23:02)
[2024-12-08] MEDS: INSULIN REGULAR 100 UNIT in SODIUM CHLORIDE 0.9% 100 ML IV SCH (23:03)
[2024-12-08 23:54] LABS: Glucose,Whole Blood 514 mg/dL (70-110)
[2024-12-09 00:41] LABS: African American GFR (CKD) >90 (>60 ml/min/1.73 sqM); Anion Gap 9 mmol/L; Blood Urea Nitrogen 25 mg/dL (9-20); Carbon Dioxide 19 mmol/L (22-30); Chloride 98 mmol/L (98-107); Glucose 484 mg/dL (74-99); Non-African American GFR(CKD) >90 (>60 ml/min/1.73 sqM); Phosphorus 3.7 mg/dL (2.5-4.5); Sodium 126 mmol/L (137-145)
[2024-12-09] MEDS ORDERED: Potassium Replacement Protocol 1 EACH MISC MISCELLANE PRN (00:53)
[2024-12-09 01:19] LABS: Glucose,Whole Blood 348 mg/dL (70-110)
[2024-12-09] MEDS: POTASSIUM CHLORIDE ER 20 MEQ TAB.ER PO SCH (01:21)
[2024-12-09] MEDS: POTASSIUM CHLORIDE 10 MEQ in WATER FOR INJECTION 1 100ML.BAG IVPB SCH (01:36)
[2024-12-09] MEDS ORDERED: POTASSIUM CHLORIDE 10 MEQ in WATER FOR INJECTION 1 100ML.BAG IVPB SCH (02:00)
[2024-12-09 02:08] LABS: Glucose,Whole Blood 381 mg/dL (70-110)
[2024-12-09 03:18] LABS: Glucose,Whole Blood 406 mg/dL (70-110)
--- NOTE | 2024-12-09 04:02 | P.CNPUL ---
History of Present Illness Consult date: 12/09/24 Requesting physician: Kathy Sheppard Reason for consult: other ([facility], ICU management) Chief complaint: Petitioned by mother History of present illness: Patient is a 34-year-old male with past medical history significant for type 1 diabetes, bipolar. Brought in by EMS with police escort last night. His mother had petitioned him for mental health evaluation. Apparently, not taking his insulin while at home. Also, not bathing, covered in feces. He was agitated and resistant to care. Labs on admission remarkable for blood glucose of 814. Urine ketone and acetone negative. VBG with a pH of 7.54 and PCO2 of 22. He was started on [facility] protocol. Remaining labs including a CBC with a WBC count of 7.8, hemoglobin 11.3, platelets 291. Most recent BMP with a sodium 126, potassium 3, chloride 98, serum bicarb 19, BUN 25, creatinine 1.03, glucose down to 484. Lactic 1.8. LFTs unremarkable. Urine toxicology screen positive for marijuana. Currently, being evaluated in the emergency department. He was sleeping, does awake to verbal stimulation. Not particular interested or interactive in this interview. Asks "when is this going to stop". Normal saline currently infusing at 200 mL/h. Insulin is on hold. Potassium is being replaced intravenously. Nontachycardic. Blood pressure is 136/89 mmhg. Hemodynamicly stable. Review of Systems Constitutional: Denies chills, Denies fever Ears, nose, mouth and throat: Denies headache, Denies nasal congestion, Denies nasal discharge, Denies post-nasal drip, Denies sinus pain, Denies sinus pressure Respiratory: Denies congestion, Denies cough, Denies dyspnea, Denies respiratory infections Gastrointestinal: Reports diarrhea, Denies abdominal pain, Denies hematemesis, Denies melena, Denies nausea, Denies vomiting Genitourinary: Reports urinary retention, Denies dysuria, Denies flank pain, Denies hematuria Musculoskeletal: Denies limitation of motion Integumentary: Denies rash Neurological: Denies headaches, Denies seizures, Denies visual changes Endocrine: Reports high blood sugars, Reports polydipsia, Reports polyuria Past Medical History Past Medical History: Diabetes Mellitus Additional Past Medical History / Comment(s): Type 1 DM, childhood asthma, OCD History of Any Multi-Drug Resistant Organisms: None Reported Date of last positivie culture/infection: 06/28/24 MDRO Source:: urine Past Surgical History: No Surgical Hx Reported Additional Past Surgical History / Comment(s): Abcess drained on left face in 2020 Past Anesthesia/Blood Transfusion Reactions: Unable to Obtain Past Psychological History: Anxiety, Bipolar, Depression, PTSD Smoking Status: Current every day smoker, Vaper Past Alcohol Use History: None Reported Past Drug Use History: Marijuana Medications and Allergies Home Medications Medication Instructions Recorded Confirmed Type No Known Home Medications 12/09/24 12/09/24 History Allergies Allergy/AdvReac Type Severity Reaction Status Date / Time No Known Allergies Allergy Verified 12/08/24 19:07 Physical Exam Vitals: Vital Signs Temp Pulse Resp BP Pulse Ox 12/08/24 22:01 98.0 F 82 17 176/97 100 Intake and Output 12/08/24 12/08/24 12/09/24 14:59 22:59 06:59 Intake Total 9.545 Output Total 2400 Balance -2390.455 Intake: Intake, IV Titration 9.545 Amount Insulin Regular 100 unit 9.545 In Sodium Chloride 0.9% 100 ml @ 0.1 UNITS/KG/HR 5.727 mls/hr IV .[id number] [facility] Rx#:[id number] Output: Urine 2400 Other: Weight 56.699 kg GENERAL EXAM: Alert, 34-year-old male, frail, resistant to care and interview HEAD: Normocephalic and atraumatic EYES: Normal reaction of pupils, equal size. NOSE: Clear with pink turbinates. THROAT: No erythema or exudates. Dry mucous membranes NECK: No masses, no JVD. CHEST: No chest wall deformity. LUNGS: Equal air entry with no crackles, wheeze, rhonchi or dullness. No conversational dyspnea or accessory muscle use.. CVS: S1 and S2 normal with no audible murmur, regular rhythm. No extra heart sounds ABDOMEN: No hepatosplenomegaly, active bowel sounds, no guarding or rigidity. SPINE: No scoliosis or deformity SKIN: No rashes CENTRAL NERVOUS SYSTEM: No focal deficits, tone is normal in all 4 extremities. EXTREMITIES: There is no peripheral edema, clubbing, or cyanosis. Peripheral pulses are intact. Results - Laboratory Findings CBC and BMP: 12/08/24 20:42 05/16/25 08:18 Abnormal lab findings: Abnormal Labs 12/08/24 12/08/24 12/08/24 20:20 20:42 20:42 RBC 3.98 L Hgb 11.3 L Hct 32.3 L VBG pH VBG pCO2 VBG HCO3 Sodium 124 L Potassium Chloride 93 L Carbon Dioxide 18 L BUN 29 H Glucose 814 H* POC Glucose (mg/dL) >600 H* Alkaline Phosphatase 279 H Urine Glucose (UA) U Marijuana (THC) Screen 12/08/24 12/08/24 12/08/24 20:51 21:52 21:52 RBC Hgb Hct VBG pH 7.54 H VBG pCO2 22 L VBG HCO3 19 L Sodium Potassium Chloride Carbon Dioxide BUN Glucose POC Glucose (mg/dL) Alkaline Phosphatase Urine Glucose (UA) 4+ H U Marijuana (THC) Screen Detected H 12/08/24 12/09/24 12/09/24 23:53 00:07 01:18 RBC Hgb Hct VBG pH VBG pCO2 VBG HCO3 Sodium 126 L Potassium 3.0 L Chloride Carbon Dioxide 19 L BUN 25 H Glucose 484 H POC Glucose (mg/dL) 514 H* 348 H Alkaline Phosphatase Urine Glucose (UA) U Marijuana (THC) Screen 12/09/24 12/09/24 02:07 03:16 RBC Hgb Hct VBG pH VBG pCO2 VBG HCO3 Sodium Potassium Chloride Carbon Dioxide BUN Glucose POC Glucose (mg/dL) 381 H 406 H Alkaline Phosphatase Urine Glucose (UA) U Marijuana (THC) Screen Assessment and Plan Assessment: Hyperglycemic hyperosmolar nonketotic syndrome, secondary to medication noncompliance Pseudohyponatremia, secondary to above Hypokalemia, being replaced per protocol Mild non-anion gap metabolic acidosis Type 1 diabetes mellitus, uncontrolled Neurogenic bladder, with chronic indwelling urinary catheter Petitioned Bipolar disorder Plan: Patient will be admitted to the intensive care unit for treatment of his HHS Hemodynamics are stable Continue IV maintenance fluids, currently normal saline at 200 mL/h Continue insulin per protocol Accu-Cheks per protocol Monitor replace electrolytes Petitioned by mother Psych evaluation pending I have personally seen and examined the patient, performed the documentation and the assessment and plan as written. Number of minutes spent on the visit:20 This is a joint evaluation that was done along with the nurse practitioner. Thi s evaluation was done more than 30 minutes. The patient was seen and evaluated in the emergency department. The patient had improved blood sugar control while being on an insulin drip. The patient will be transition to long-acting insulin and insulin drip is to be discontinued. No evidence of any DKA.The patient was placed on Lantus insulin 20 units and a sliding scale coverage. Awaiting psyc hiatric consultation. No need to admit this patient to the ICU and the patient will be sent to a medical floor. IV fluids also will be To KVO and the patient will be provided a regular diet. Time with Patient: Greater than 30
[2024-12-09 04:39] LABS: Glucose,Whole Blood 410 mg/dL (70-110)
[2024-12-09 04:58] LABS: African American GFR (CKD) >90 (>60 ml/min/1.73 sqM); Anion Gap 8 mmol/L; Blood Urea Nitrogen 22 mg/dL (9-20); Carbon Dioxide 20 mmol/L (22-30); Chloride 101 mmol/L (98-107); Glucose 422 mg/dL (74-99); Non-African American GFR(CKD) >90 (>60 ml/min/1.73 sqM); Phosphorus 4.2 mg/dL (2.5-4.5); Potassium 3.9 mmol/L (3.5-5.1); Sodium 129 mmol/L (137-145)
[2024-12-09 05:01] LABS: Glucose,Whole Blood 397 mg/dL (70-110)
[2024-12-09 06:13] LABS: Glucose,Whole Blood 394 mg/dL (70-110)
[2024-12-09 07:06] LABS: Glucose,Whole Blood 295 mg/dL (70-110)
[2024-12-09] MEDS: D5-0.45% NACL WITH KCL 20MEQ/L 1,000 ML IV SCH (07:44)
[2024-12-09 08:32] LABS: Glucose,Whole Blood 199 mg/dL (70-110)
[2024-12-09 08:50] LABS: African American GFR (CKD) >90 (>60 ml/min/1.73 sqM); Anion Gap 8 mmol/L; Blood Urea Nitrogen 19 mg/dL (9-20); Calcium 8.7 mg/dL (8.4-10.2); Carbon Dioxide 20 mmol/L (22-30); Chloride 108 mmol/L (98-107); Glucose 197 mg/dL (74-99); Non-African American GFR(CKD) >90 (>60 ml/min/1.73 sqM); Potassium 3.4 mmol/L (3.5-5.1); Sodium 136 mmol/L (137-145)
[2024-12-09 09:33] LABS: Glucose,Whole Blood 132 mg/dL (70-110)
[2024-12-09] MEDS ORDERED: DEXTROSE 50% SYRINGE 50 ML IVP PRN ×4 (09:56→17:09)
[2024-12-09 10:38] LABS: Glucose,Whole Blood 107 mg/dL (70-110)
[2024-12-09] MEDS: INSULIN GLARGINE (LANTUS) 100 UNIT/ML SYR SQ ONE (10:45)
[2024-12-09 11:53] LABS: Glucose,Whole Blood 242 mg/dL (70-110)
[2024-12-09] MEDS ORDERED: ALPRAZolam 0.25 MG TAB PO PRN (14:43)
[2024-12-09 16:47] LABS: Estimated Average Glucose >470 mg/dL
[2024-12-09 17:02] LABS: Glucose,Whole Blood 462 mg/dL (70-110)
[2024-12-09] MEDS: INSULIN LISPRO (HumaLOG) 100 UNIT/ML 10 mL VL SQ SCH (17:21)
[2024-12-09 20:34] LABS: Glucose,Whole Blood 159 mg/dL (70-110)
[2024-12-09] MEDS: HEPARIN SODIUM,PORCINE 5,000 UNIT/ML 1 ML VIAL SQ SCH (20:37)
--- NOTE | 2024-12-10 02:42 | HP ---
HISTORY AND PHYSICAL CHIEF COMPLAINT: Weakness, high blood sugars and mental health evaluation. HISTORY OF PRESENT ILLNESS: This 34-year-old gentleman with a past medical history of bipolar, diabetes type 1, who was apparently noncompliant with medications. The sugars were found to be 700 to 800. There is no evidence of ketosis. The patient in hyperosmolar state and the patient started the insulin drip. The patient improved significantly. The patient is closely monitored at this time. There is no history of any fever, rigors, chills at this time. The patient was initially supposed to go to ICU. Currently downgraded to telemetry at this time. PAST MEDICAL HISTORY: Diabetes mellitus type 1, history of bipolar, OCD, anxiety. Rest of the chart is also noted. HOME MEDICATIONS: None. ALLERGIES: None. FAMILY HISTORY: No history of heart disease or stroke. SOCIAL HISTORY: Vaping, marijuana. REVIEW OF SYSTEMS: Fourteen-point review of systems negative except as mentioned earlier. PHYSICAL EXAMINATION: VITAL SIGNS: Pulse 86, blood pressure 127/80, respirations 20. HEENT: Conjunctivae normal. NECK: No jugular venous distention. CARDIOVASCULAR: S1 and S2, muffled. RESPIRATORY: Breath sounds diminished at the bases. Few scattered rhonchi. ABDOMEN: Soft, nontender. EXTREMITIES: Legs, no edema. NERVOUS No focal deficits. LABORATORY DATA: WBC 7, hemoglobin 11. ASSESSMENT: 1. Hyperosmolar diabetic state with noncompliance. 2. Mild acidosis, present on admission. 3. Hyponatremia. 4. Bipolar. 5. Anxiety. 6. History of childhood asthma. 7. Multiple complex medical issues. RECOMMENDATION: This 34-year-old gentleman presented with multiple complex medical issues, we will monitor the patient closely. Continue the current medical condition and current treatment, long-acting insulin has been initiated. I would recommend psychiatric consultation. Prognosis is guarded because of multiple complex medical issues. See orders for details. 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 MMODL / IJN: [id number] /
[2024-12-10 04:14] LABS: African American GFR (CKD) 81 (>60 ml/min/1.73 sqM); Anion Gap 10 mmol/L; Blood Urea Nitrogen 25 mg/dL (9-20); Calcium 8.8 mg/dL (8.4-10.2); Carbon Dioxide 23 mmol/L (22-30); Chloride 98 mmol/L (98-107); Non-African American GFR(CKD) 70 (>60 ml/min/1.73 sqM); Potassium 4.7 mmol/L (3.5-5.1); Sodium 131 mmol/L (137-145)
[2024-12-10 04:23] LABS: Glucose 625 mg/dL (74-99)
[2024-12-10 04:49] LABS: Glucose,Whole Blood >600 mg/dL (70-110)
[2024-12-10 04:55] LABS: Basophils # (A) 0.08 10*3/uL (0.00-0.10); Basophils % (A) 0.9 %; Eosinophils % (A) 3.3 %; HCT 35.9 % (39.6-50.0); HGB 12.1 g/dL (13.0-17.0); Lymphocytes # (A) 1.72 10*3/uL (0.90-5.00); Lymphocytes % (A) 19.1 %; MCH 28.9 pg (27.0-32.0); MCHC 33.7 g/dL (32.0-37.0); MCV 85.7 fL (80.0-97.0); Mean Platelet Volume 11.1 fL (9.5-12.2); Monocytes # (A) 0.54 10*3/uL (0.20-1.00); Neutrophils # (A) 6.32 10*3/uL (1.80-7.70); Neutrophils % (A) 70.1 %; Platelet Count 306 10*3/uL (140-440); RBC 4.19 10*6/uL (4.40-5.60); WBC 9.01 10*3/uL (4.50-10.00)
[2024-12-10] MEDS: PANTOPRAZOLE 40 MG TABLET PO SCH (05:45)
[2024-12-10 06:02] LABS: Glucose,Whole Blood 528 mg/dL (70-110)
[2024-12-10] MEDS: INSULIN GLARGINE (LANTUS) 100 UNIT/ML SYR SQ SCH (06:02)
[2024-12-10 10:01] LABS: Glucose,Whole Blood 174 mg/dL (70-110)
[2024-12-10] MEDS ORDERED: OLANZapine 10 MG VIAL IM PRN (10:09)
[2024-12-10] MEDS ORDERED: OLANZapine 5 MG TAB PO PRN (10:10)
[2024-12-10] MEDS ORDERED: LORazepam 1 MG/0.5 ML VIAL IM PRN (12:10)
[2024-12-10] MEDS ORDERED: HALOPERIDOL LACTATE 5 MG/ML 1 ML VIAL IM PRN (12:10)
[2024-12-10] MEDS ORDERED: haloperidoL 1 MG TAB PO PRN (12:10)
--- NOTE | 2024-12-10 12:15 | P.CN ---
Psychiatric Consult - . Consult date: 12/10/24 Consult:: 12/10/24 10:47 IDENTIFYING DATA: This patient is a 34-year-old male, he is single he has no kids, he lives with his parents he collect Social Security disability REASON FOR REFERRAL: Psychiatry was consulted for attention HISTORY OF PRESENT ILLNESS: The patient presented to the hospital on 12/08 by EMS followed by police escort for failure to thrive according to ER report. Patient apparently was petition by his mother, there was significant concerns about patient not taking his diabetic medications or psychiatric medications for his bipolar disorder. Petition also claims that patient has not been doing any follow-up, has been hospitalized several times for DKA as he has been noncompliant with his diabetes. Patient was seen at the bedside agreeable to speak to writer producer. Patient did have restraints when he came into the hospital for agitation. He appeared to be fairly thin, missing teeth, nails were long and he appeared to be unkept and poor hygiene and grooming. He was fairly superficially pleasant with writer producer, very detail oriented. He claims that was brought in by the Solar Sales Manager and he states that "I have no idea why they brought me in". He claims that "nobody gave me a reason" and claims that there are no issues at all going on at home. Claims that he is very active in managing his diabetes. He claims that his mother is the one that has to give him insulin because he has neuropathy in his hands. He has an indwelling catheter, elevated creatinine and BUN. Patient claims that he is focused on his "wellbeing" and minimizes his psychiatric concerns. He claims that being in the hospital is giving him "PTSD" and he was demanding discharge. He was attending several times already with writer producer and negotiate the terms of his discharge. He appeared to have very poor insight poor judgment poor reality testing. Denies any issues with his mood at this time, does admit to mood swings. He has had several hospitalizations for DKA however was minimizing and states that "I am only human sometimes I forget". Denies any issues with sleep or appetite. At this time patient denies any suicidal or homical ideations, intent or plan. Patient denies any auditory, visual hallucinations and denies any paranoia or delusions. Patients admits to using cigarettes only, denies any other recreational drug use, except for cannabis use. PAST PSYCHIATRIC HISTORY: Patient has a a history of reported bipolar disorder claims that he also has OCD and PTSD. He claims that he has been on psychiatric medications in the past however has stopped taking them for several years. Patient denies any previous psychiatric hospitalizations. Patient denies any psychiatric outpatient follow-up however states that he used to follow-up with a nurse practitioner several years ago however believes that his case has been "closed out". Patient denies any history of suicide attempts in the past. Past Medical History: Diabetes Mellitus Additional Past Medical History / Comment(s): Type 1 DM, childhood asthma, OCD History of Any Multi-Drug Resistant Organisms: None Reported Date of last positivie culture/infection: 06/28/24 MDRO Source:: urine Past Surgical History: No Surgical Hx Reported Additional Past Surgical History / Comment(s): Abcess drained on left face in 2020 Past Anesthesia/Blood Transfusion Reactions: Unable to Obtain Past Psychological History: Anxiety, Bipolar, Depression, PTSD Smoking Status: Current every day smoker, Vaper Past Alcohol Use History: None Reported Past Drug Use History: Marijuana ALLERGIES: as per EMR. CHEMICAL DEPENDENCY HISTORY: as per HPI. FAMILY PSYCHIATRIC/SUBSTANCE USE HISTORY: Denies SOCIAL HISTORY: Patient was born and raised in [place]. Claims that he was also raised in [facility]. Claims that he completed high school did a bachelor's degree in finance. 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 Denies any legal history currently. He states that he is single he has no kids. He currently lives with his parents he collect Social Security disability MENTAL STATUS EXAM: General Appearance: Patient appears to be disheveled, unkempt hair and teeth are missing, unkempt fingernails, stated age is alert, superficially pleasant, not manipulative. Patient appears to have poor hygiene and grooming wearing hospital gown with fair eye contact. Behavior: Patient is calmly lying in bed without any agitated behavior. Becomes argumentative and irritable/agitated Speech: Patient's speech is fluent and nonpressured. Fairly concrete and detail oriented Mood/Affect: Patient reports their mood is "fine", affect is incongruent and labile Suicidality/Homicidality: Patient denies having any suicidal or homicidal ideation intent or plan. Perceptions: Patient denies any visual hallucinations and denies any auditory hallucinations Though content/process: There is no evidence of any delusional thought content and thought process is linear and goal-directed. Fairly detailed oriented, argumentative, focused on discharge and negotiating. Memory and concentration: AOX3, grossly intact for the purposes of this session. Can spell "WORLD" backwards Judgment and insight: Poor IMPRESSIONS: Mood disorder unspecified, rule out bipolar disorder versus depressive disorder Noncompliance with medication regimen and treatment History of OCD History of PTSD cannabis use disorder PLAN: -At this time patient DOES meet criteria for inpatient psychiatric admission to a medical-psych bed as patient has unstable diabetes and an indwelling catheter. Slasher Sawyer completed a clinical certificate after evaluation, together with medical doctor clinical certificate and petition, we will be faxing to probate court to commence involuntary treatment given patients unwillingness to engage with mental health treatment and is an imminent danger to self/and/or others and not taking care of self and has very poor insight poor judgment refusing treatment. -Patient DOES NOT have decision making capacity at this time and is unable to reason through and communicate/appreciate the risks, benefits and alternatives to treatment. Patients mother is his jannettean. -Slasher Sawyer attempted to call patient's guardian/mother Sonya at [phone] however no answer unable to leave voicemail, to discuss the petition, her concerns answer questions and discuss treatment and goals. -Would recommend the following medication changes/additions: Start Geodon 20 mg nightly for mood stabilization/bipolar disorder, Depakene syrup 250 mg p.o. twice daily for mood stabilization/aggression -Continue 1:1 sitter for safety -When medically stable, patient is eligible for transfer to a medical-psych bed when available. -Communicated plan to patient's nurse -Will continue to follow along as needed. -Please contact with any questions. 12/10/24 11:59 12/10/24 12:09 12/10/24 12:12
--- NOTE | 2024-12-10 15:05 | P.PN ---
Subjective Progress Note Date: 12/10/24 Patient is a 34-year-old male with past medical history significant for type 1 diabetes, bipolar. Brought in by EMS with police escort last night. His mother had petitioned him for mental health evaluation. Apparently, not taking his insulin while at home. Also, not bathing, covered in feces. He was agitated and resistant to care. Labs on admission remarkable for blood glucose of 814. Urine ketone and acetone negative. VBG with a pH of 7.54 and PCO2 of 22. He was started on HHS protocol. Remaining labs including a CBC with a WBC count of 7.8, hemoglobin 11.3, platelets 291. Most recent BMP with a sodium 126, potassium 3, chloride 98, serum bicarb 19, BUN 25, creatinine 1.03, glucose down to 484. Lactic 1.8. LFTs unremarkable. Urine toxicology screen positive for marijuana. Currently, being evaluated in the emergency department. He was sleeping, does awake to verbal stimulation. Not particular interested or interactive in this interview. Asks "when is this going to stop". Normal saline currently infusing at 200 mL/h. Insulin is on hold. Potassium is being replaced intravenously. Nontachycardic. Blood pressure is 136/89 mmhg. Hemodynamicly stable. On 12/10/2024, patient is being seen for a follow-up. Patient is doing well. Awake and alert. He is awaiting psychiatric consultation as the patient continues to have pressured speech and some signs of psychosis. Awaiting a psychiatric evaluation. Meanwhile, in terms of his blood sugars, the patient's blood sugar was quite elevated this morning following his breakfast. His most recent blood sugar is down to 174. Gap is at 10, bicarb is at 23, BUN is 25 with a creatinine 1.3. White cell count is at 9 with a hemoglobin of 12.1. Is currently on room air oxygen. No respiratory difficulties. Hemodynamically stable. He is off the insulin drip. He is currently on Lantus insulin 20 units daily and NovoLog sliding scale coverage. Objective - Vital Signs Vital signs: Vital Signs Temp 97.9 F 12/09/24 20:50 Pulse 91 12/09/24 23:51 Resp 16 12/09/24 23:51 BP 145/87 12/09/24 23:51 Pulse Ox 100 12/09/24 23:51 FiO2 Intake & Output 12/09/24 12/10/24 12/10/24 18:59 06:59 18:59 Intake Total 22.192 540 Output Total 3000 400 Balance -2977.808 140 Weight 60.2 kg Intake: Intake, IV Titration 22.192 Amount Insulin Regular 100 unit 22.192 In Sodium Chloride 0.9% 100 ml @ 0.1 UNITS/KG/HR 5.727 mls/hr IV .[id number] HESHAM Rx#:[id number] Oral 540 Output: Urine 3000 400 Other: Voiding Method Indwelling Catheter # Bowel Movements 1 - Exam GENERAL EXAM: Alert, 34-year-old male, f awake and alert and communicating. Body mass index is 17 HEAD: Normocephalic and atraumatic EYES: Normal reaction of pupils, equal size. NOSE: Clear with pink turbinates. THROAT: No erythema or exudates. Dry mucous membranes NECK: No masses, no JVD. CHEST: No chest wall deformity. LUNGS: Equal air entry with no crackles, wheeze, rhonchi or dullness. No conversational dyspnea or accessory muscle use.. CVS: S1 and S2 normal with no audible murmur, regular rhythm. No extra heart sounds ABDOMEN: No hepatosplenomegaly, active bowel sounds, no guarding or rigidity. SPINE: No scoliosis or deformity SKIN: No rashes CENTRAL NERVOUS SYSTEM: No focal deficits, tone is normal in all 4 extremities. EXTREMITIES: There is no peripheral edema, clubbing, or cyanosis. Peripheral pulses are intact. - Labs CBC & Chem 7: 12/10/24 03:39 12/10/24 03:39 Labs: Abnormal Lab Results - Last 24 Hours (Table) 12/09/24 12/09/24 12/09/24 Range/Units 04:04 08:18 11:51 RBC (4.40-5.60) 10*6/uL Hgb (13.0-17.0) g/dL Hct (39.6-50.0) % Immature Gran # (0.00-0.04) 10*3/uL Sodium (137-145) mmol/L BUN (9-20) mg/dL Creatinine (0.66-1.25) mg/dL Glucose (74-99) mg/dL POC Glucose (mg/dL) 242 H (70-110) mg/dL Hemoglobin A1c >18.0 H (<=6.0) % Osmolality 297 H (275-295) mOsm/kg 12/09/24 12/09/24 12/10/24 Range/Units 16:58 20:32 03:39 RBC 4.19 L (4.40-5.60) 10*6/uL Hgb 12.1 L (13.0-17.0) g/dL Hct 35.9 L (39.6-50.0) % Immature Gran # 0.05 H (0.00-0.04) 10*3/uL Sodium (137-145) mmol/L BUN (9-20) mg/dL Creatinine (0.66-1.25) mg/dL Glucose (74-99) mg/dL POC Glucose (mg/dL) 462 H 159 H (70-110) mg/dL Hemoglobin A1c (<=6.0) % Osmolality (275-295) mOsm/kg 12/10/24 12/10/24 12/10/24 Range/Units 03:39 04:48 06:00 RBC (4.40-5.60) 10*6/uL Hgb (13.0-17.0) g/dL Hct (39.6-50.0) % Immature Gran # (0.00-0.04) 10*3/uL Sodium 131 L (137-145) mmol/L BUN 25 H (9-20) mg/dL Creatinine 1.32 H (0.66-1.25) mg/dL Glucose 625 H* (74-99) mg/dL POC Glucose (mg/dL) >600 H* 528 H* (70-110) mg/dL Hemoglobin A1c (<=6.0) % Osmolality (275-295) mOsm/kg 12/10/24 Range/Units 09:49 RBC (4.40-5.60) 10*6/uL Hgb (13.0-17.0) g/dL Hct (39.6-50.0) % Immature Gran # (0.00-0.04) 10*3/uL Sodium (137-145) mmol/L BUN (9-20) mg/dL Creatinine (0.66-1.25) mg/dL Glucose (74-99) mg/dL POC Glucose (mg/dL) 174 H (70-110) mg/dL Hemoglobin A1c (<=6.0) % Osmolality (275-295) mOsm/kg Assessment and Plan Assessment: Hyperglycemic hyperosmolar nonketotic syndrome, secondary to medication noncompliance, recovered and the blood sugar is still being monitored and managed. The patient is currently on long-acting insulin, currently on Lantus 20 units daily and sliding scale coverage. No anion gap. Pseudohyponatremia, secondary to above, recovered Hypokalemia, recovered Mild non-anion gap metabolic acidosis, recovered Type 1 diabetes mellitus, uncontrolled Neurogenic bladder, with chronic indwelling urinary catheter Petitioned Bipolar disorder/psychosis Plan: Continue Lantus 20 units daily and sliding scale coverage Carb consistent diet Hemodynamically stable Monitor blood sugars and Accu-Chek before every meal and at bedtime Insulin drip has been discontinued Awaiting psychiatric evaluation Will follow
[2024-12-10 15:22] VITALS: BMI 17.0
[2024-12-10] MEDS: VALPROIC ACID ORAL SOLN 250 MG/5 ML CUP PO SCH (17:24)
[2024-12-10] MEDS: ZIPRASIDONE 20 MG CAP PO SCH (20:44)
--- NOTE | 2024-12-10 22:49 | PN ---
PROGRESS NOTE DATE OF SERVICE: 12/10/2024 SUBJECTIVE: This 34-year-old gentleman was admitted with high blood sugars, also being evaluated for mood disorder and psychiatry has recommended, possibly inpatient psych. No chest pain. No palpitations. No fever. PHYSICAL EXAMINATION: VITAL SIGNS: Pulse is 105, blood pressure 130/75, respirations 18. CHEST: Clear to auscultation. CARDIOVASCULAR: S1 and S2. ABDOMEN: Soft, nontender. LABORATORY DATA: Glucose 174. Rest of the labs are noted. Serum acetone is negative. ASSESSMENT: 1. Hyperosmolar diabetic state with noncompliance. 2. Mild acidosis, present on admission, improved. 3. Possible mood disorder and psych issues. 4. Hyponatremia. 5. Bipolar. 6. Anxiety. 7. History of childhood asthma. 8. Multiple complex medical issues. RECOMMENDATION: I recommend to continue current management and repeat labs. Monitor blood sugars closely. Once the patient is stable, the patient will be transferred to inpatient psych. The patient is. Further recommendations to follow. MMROLDANL / IJN: [id number] / REY
[2024-12-11 08:58] LABS: Glucose,Whole Blood 400 mg/dL (70-110)
[2024-12-11 11:44] LABS: Glucose,Whole Blood 354 mg/dL (70-110)
--- NOTE | 2024-12-11 12:01 | P.PN ---
Progress Note - Text Progress Note Date: 12/11/24 Interval history: Patient was seen today for psychiatric follow-up. Patient was laying in bed t ending to sleep. He continues to be on a one-to-one sitter. He appeared to have mild improvement in his affect today, claims that he stopped taking his diabetic medications and also the psychiatric medications because he believes that if his blood sugars are elevated then he will not be eligible for a transfer to an outside hospital. We spoke more about his treatment plan and his desires and goals. Patient claims that he is willing to take medications if he is able to stay in this hospital until he is discharged. He somehow believed that display card writer would not sign off on him and keep him "forever". He continues to negotiate, less argumentative today. Reality testing improving mildly. Denies any issues with sleep last night. Denies any auditory or visual hallucinations denies any suicidal or homicidal ideations intent or plan. Nurse claims that patient has not been cooperative with any kind of treatment and refusing all medications. MENTAL STATUS EXAM: General Appearance: Patient appears to be disheveled, unkempt hair and teeth are missing, unkempt fingernails, stated age is alert, superficially pleasant, improving mildly. Patient appears to have poor hygiene and grooming wearing hospital gown with fair eye contact. Behavior: Patient is calmly lying in bed without any agitated behavior. Continues to be argumentative however is more cooperative today Speech: Patient's speech is fluent and nonpressured. Fairly concrete and detail oriented Mood/Affect: Patient reports their mood is "ok", affect is incongruent and labile Suicidality/Homicidality: Patient denies having any suicidal or homicidal ideation intent or plan. Perceptions: Patient denies any visual hallucinations and denies any auditory hallucinations Though content/process: There is no evidence of any delusional thought content and thought process is linear and goal-directed. Fairly detailed oriented, less argumentative, focused on discharge and negotiating. Memory and concentration: AOX3, grossly intact for the purposes of this session. Can spell "WORLD" backwards Judgment and insight: Poor, improving mildly IMPRESSIONS: Mood disorder unspecified, rule out bipolar disorder versus depressive disorder Noncompliance with medication regimen and treatment History of OCD History of PTSD cannabis use disorder PLAN: -At this time patient DOES meet criteria for inpatient psychiatric admission however patient has unstable diabetes and an indwelling catheter there will continue to follow along while patient is on the medical floors. Glass Laminating Operator completed a clinical certificate after evaluation, together with medical doctor clinical certificate and petition, we will be faxing to probate court to commence involuntary treatment given patients unwillingness to engage with mental health treatment and is an imminent danger to self/and/or others and not taking care of self and has very poor insight poor judgment refusing treatment. -Patient DOES NOT have decision making capacity at this time and is unable to reason through and communicate/appreciate the risks, benefits and alternatives to treatment. Patients mother is his beba. -Glass Laminating Operator attempted to call patient's guardian/mother Sonya at [phone] however no answer unable to leave voicemail, to discuss the petition, her concerns answer questions and discuss treatment and goals. -Would recommend the following medication changes/additions: Geodon 20 mg nightly for mood stabilization/bipolar disorder, Depakene syrup 250 mg p.o. twice daily for mood stabilization/aggression -Continue 1:1 sitter for safety -Communicated plan to patient's nurse -Will continue to follow along as needed. -Please contact with any questions. will await hearing and deferral date from probate court.
--- NOTE | 2024-12-11 13:31 | P.PN ---
Subjective Progress Note Date: 12/11/24 Patient is a 34-year-old male with past medical history significant for type 1 diabetes, bipolar. Brought in by EMS with police escort last night. His mother had petitioned him for mental health evaluation. Apparently, not taking his insulin while at home. Also, not bathing, covered in feces. He was agitated and resistant to care. Labs on admission remarkable for blood glucose of 814. Urine ketone and acetone negative. VBG with a pH of 7.54 and PCO2 of 22. He was started on HHS protocol. Remaining labs including a CBC with a WBC count of 7.8, hemoglobin 11.3, platelets 291. Most recent BMP with a sodium 126, potassium 3, chloride 98, serum bicarb 19, BUN 25, creatinine 1.03, glucose down to 484. Lactic 1.8. LFTs unremarkable. Urine toxicology screen positive for marijuana. Currently, being evaluated in the emergency department. He was sleeping, does awake to verbal stimulation. Not particular interested or interactive in this interview. Asks "when is this going to stop". Normal saline currently infusing at 200 mL/h. Insulin is on hold. Potassium is being replaced intravenously. Nontachycardic. Blood pressure is 136/89 mmhg. Hemodynamicly stable. On 12/10/2024, patient is being seen for a follow-up. Patient is doing well. Awake and alert. He is awaiting psychiatric consultation as the patient continues to have pressured speech and some signs of psychosis. Awaiting a psychiatric evaluation. Meanwhile, in terms of his blood sugars, the patient's blood sugar was quite elevated this morning following his breakfast. His most recent blood sugar is down to 174. Gap is at 10, bicarb is at 23, BUN is 25 with a creatinine 1.3. White cell count is at 9 with a hemoglobin of 12.1. Is currently on room air oxygen. No respiratory difficulties. Hemodynamically stable. He is off the insulin drip. He is currently on Lantus insulin 20 units daily and NovoLog sliding scale coverage. On 12/11/2024, the patient seems to be much more calm and comfortable. He is laying down comfortably in bed. He has a sitter at the bedside. He denies having any hallucinations. Denies having any homicidal or suicidal ideation. The patient was seen by psychiatry. The patient is currently on a combination of Geodon 20 mg at bedtime, Depakene syrup to 50 mg p.o. twice daily and Haldol on an as-needed basis. In terms of his blood sugar control, the patient is taking 20 units of Lantus and NovoLog sliding scale coverage. His blood sugars are being further treated by the medical group. No anion gap metabolic acidosis. Electrolytes are all stable. The white cell count is at 9 with a heme of 12.1. Oxygenation is also stable and the patient is currently on room air oxygen. No signs of any significant respiratory distress. Objective - Vital Signs Vital signs: Vital Signs Temp 97.9 F 12/09/24 20:50 Pulse 105 H 12/10/24 13:00 Resp 18 12/10/24 13:00 BP 133/75 12/10/24 13:00 Pulse Ox 99 12/10/24 13:00 FiO2 Intake & Output 12/10/24 12/11/24 12/11/24 18:59 06:59 18:59 Intake Total 680 1080 360 Output Total 3000 2000 Balance -2320 1080 -1640 Weight 60.2 kg 60.2 kg Intake: Oral 680 1080 360 Output: Urine 3000 2000 Other: Voiding Method Indwelling Catheter Indwelling Catheter # Bowel Movements 1 - Exam GENERAL EXAM: Alert, 34-year-old male, f awake and alert and communicating. Body mass index is 17 HEAD: Normocephalic and atraumatic EYES: Normal reaction of pupils, equal size. NOSE: Clear with pink turbinates. THROAT: No erythema or exudates. Dry mucous membranes NECK: No masses, no JVD. CHEST: No chest wall deformity. LUNGS: Equal air entry with no crackles, wheeze, rhonchi or dullness. No conversational dyspnea or accessory muscle use.. CVS: S1 and S2 normal with no audible murmur, regular rhythm. No extra heart sounds ABDOMEN: No hepatosplenomegaly, active bowel sounds, no guarding or rigidity. SPINE: No scoliosis or deformity SKIN: No rashes CENTRAL NERVOUS SYSTEM: No focal deficits, tone is normal in all 4 extremities. EXTREMITIES: There is no peripheral edema, clubbing, or cyanosis. Peripheral pulses are intact. - Labs CBC & Chem 7: 12/10/24 03:39 12/10/24 03:39 Labs: Abnormal Lab Results - Last 24 Hours (Table) 12/10/24 12/11/24 Range/Units 09:49 08:56 POC Glucose (mg/dL) 174 H 400 H (70-110) mg/dL Assessment and Plan Assessment: Hyperglycemic hyperosmolar nonketotic syndrome, secondary to medication noncom pliance, recovered and the blood sugar is still being monitored and managed. The patient is currently on long-acting insulin, currently on Lantus 20 units daily and sliding scale coverage. No anion gap. Further adjustments in the blood sugar management is per the medical group. Pseudohyponatremia, secondary to above, recovered Hypokalemia, recovered Mild non-anion gap metabolic acidosis, recovered Type 1 diabetes mellitus, uncontrolled Neurogenic bladder, with chronic indwelling urinary catheter Petitioned Bipolar disorder/psychosis, improved on the Geodon and Depakene. Plan: Continue Lantus 20 units daily and sliding scale coverage, medicines to manage the blood sugar. Carb consistent diet Hemodynamically stable Monitor blood sugars and Accu-Chek before every meal and at bedtime psychiatric evaluation is appreciated and the patient has a sitter at the bedside No active pulmonary medical issue at this point.
[2024-12-11 16:52] LABS: Glucose,Whole Blood 171 mg/dL (70-110)
[2024-12-11] MEDS: LORazepam 1 MG TAB PO PRN (17:09)
[2024-12-11 19:07] LABS: Glucose,Whole Blood 251 mg/dL (70-110)
[2024-12-11] MEDS: INSULIN GLARGINE (LANTUS) 100 UNIT/ML SYR SQ SCH (20:48)
[2024-12-12 05:41] LABS: Glucose,Whole Blood 383 mg/dL (70-110)
--- NOTE | 2024-12-12 05:45 | PN ---
PROGRESS NOTE DATE OF SERVICE: 12/11/2024 SUBJECTIVE: This 34-year-old gentleman who was admitted with hyperosmolar diabetic state with a history of noncompliance is being closely monitored. Psychiatry is following the patient closely. OBJECTIVE: VITAL SIGNS: Pulse 125, blood pressure 125/80, respirations 20. HEENT: Conjunctivae normal. CARDIOVASCULAR: S1 and S2. ABDOMEN: Soft. EXTREMITIES: Legs, no swelling. LABORATORY DATA: Accu-Cheks are fluctuating. The EKG on 15 showed some sinus tachycardia. ASSESSMENT: 1. Hyperosmolar diabetic state with noncompliance. 2. Mild acidosis, present on admission, improved. 3. Possible mood disorder and psych issues. 4. Hyponatremia. 5. Bipolar anxiety. 6. History of childhood asthma. 7. Multiple complex medical issues. RECOMMENDATIONS: I recommend to continue current management and monitor the blood sugars closely. The patient is currently on 20 Lantus. I would add 10 Lantus at night also. Prognosis guarded. Further recommendations to follow. MMODL / IJN: [id number] /
[2024-12-12 06:39] LABS: Basophils # (A) 0.08 10*3/uL (0.00-0.10); Basophils % (A) 0.9 %; Eosinophils # (A) 0.47 10*3/uL (0.04-0.35); Eosinophils % (A) 5.4 %; HCT 34.4 % (39.6-50.0); HGB 11.4 g/dL (13.0-17.0); Lymphocytes # (A) 2.97 10*3/uL (0.90-5.00); Lymphocytes % (A) 33.9 %; MCH 28.5 pg (27.0-32.0); MCHC 33.1 g/dL (32.0-37.0); Mean Platelet Volume 10.8 fL (9.5-12.2); Monocytes # (A) 0.61 10*3/uL (0.20-1.00); Neutrophils # (A) 4.59 10*3/uL (1.80-7.70); Neutrophils % (A) 52.5 %; Platelet Count 288 10*3/uL (140-440); RDW 13.8 % (11.5-14.5); WBC 8.75 10*3/uL (4.50-10.00)
[2024-12-12 06:51] LABS: African American GFR (CKD) >90 (>60 ml/min/1.73 sqM); Anion Gap 8 mmol/L; Blood Urea Nitrogen 42 mg/dL (9-20); Calcium 9.4 mg/dL (8.4-10.2); Carbon Dioxide 23 mmol/L (22-30); Chloride 102 mmol/L (98-107); Glucose 393 mg/dL (74-99); Non-African American GFR(CKD) 86 (>60 ml/min/1.73 sqM); Potassium 4.8 mmol/L (3.5-5.1); Sodium 133 mmol/L (137-145)
--- NOTE | 2024-12-12 08:05 | XR ---
EXAMINATION TYPE: XR chest 1V portable DATE OF EXAM: 12/12/2024 CLINICAL INDICATION: Male, 34 years old with history of chf, progress study. TECHNIQUE: 2 frontal views of the chest are obtained. COMPARISON: Chest x-ray from June 10, 2024 FINDINGS: Lungs are grossly clear. Cardiac silhouette size stable and within normal limits. Osseous structures are intact. IMPRESSION: No acute cardiopulmonary process. [facility], , 12/12/2024 8:03 AM
[2024-12-12 09:47] LABS: Glucose,Whole Blood >600 mg/dL (70-110)
[2024-12-12 11:23] LABS: Glucose,Whole Blood 189 mg/dL (70-110)
[2024-12-12] MEDS ORDERED: ZOLPIDEM 5 MG TAB PO PRN (13:37)
--- NOTE | 2024-12-12 13:43 | P.PN ---
Progress Note - Text Progress Note Date: 12/12/24 Interval history: Patient was seen today for psychiatric follow-up. Patient was laying in bed, he was agreeable to speak to magnetic tape typewriter operator. He continues to be on a one-to-one sitter. He appeared to have mild improvement in his affect today. He believes that there is a mixup as the medical doctor believes that he was being transferred to the psychiatric unit [address]. today, he remains adamant that he does not want to be transferred and will refuse any medications if he is. He claims that he will hold up his end of the bargain to take p.o. medications mental health and also for diabetes if he believes that he is staying on the medical floors. Claims that his blood sugars have been improving mildly did not let the nurse take them this morning. Claims that he has been eating little better, we spoke more about the court process as he will be meeting with the assistant prosecuting attorney tomorrow for the deferral, before hearing will be on Thursday. Claims that he needed Ativan to sleep last night we spoke about other alternatives to Ativan that will not affect his blood sugar and patient was agreeable to try Ambien as needed. Claims that his mood and anxiety have been improving he is okay to continue taking the Depakene and Geodon. His insight and judgment remain superficial. Denies any auditory or visual hallucinations denies any suicidal or homicidal ideations intent or plan. MENTAL STATUS EXAM: General Appearance: Patient appears to be disheveled, unkempt hair and teeth are missing, unkempt fingernails, stated age is alert, superficially pleasant, improving mildly. Patient appears to have mildly improving hygiene and grooming wearing hospital gown with fair eye contact. Behavior: Patient is calmly lying in bed without any agitated behavior. Mildly more cooperative today Speech: Patient's speech is fluent and nonpressured. Fairly concrete and detail oriented Mood/Affect: Patient reports their mood is "ok", affect is incongruent Suicidality/Homicidality: Patient denies having any suicidal or homicidal ideation intent or plan. Perceptions: Patient denies any visual hallucinations and denies any auditory hallucinations Though content/process: There is no evidence of any delusional thought content and thought process is linear and goal-directed. Fairly detailed oriented, less argumentative, focused on negotiating. Memory and concentration: AOX3, grossly intact for the purposes of this session. Can spell "WORLD" backwards Judgment and insight: Poor, improving mildly IMPRESSIONS: Mood disorder unspecified, rule out bipolar disorder versus depressive disorder Noncompliance with medication regimen and treatment History of OCD History of PTSD cannabis use disorder PLAN: -Patient to remain on the medical floors with psychiatry following. -patient has unstable diabetes and an indwelling catheter there will continue to follow along while patient is on the medical floors. [employer] already completed a clinical certificate after evaluation, together with medical doctor clinical certificate and petition, we will be faxing to probate court to commence involuntary treatment given patients unwillingness to engage with mental health treatment and is an imminent danger to self/and/or others and not taking care of self and has very poor insight poor judgment refusing treatment. will have deferral tomorrow and full hearing scheduled for thursday. -Patient DOES NOT have decision making capacity at this time and is unable to reason through and communicate/appreciate the risks, benefits and alternatives to treatment. Patients mother is his beba. -[employer] attempted to call patient's guardian/mother Sonya at [phone] however no answer unable to leave voicemail, to discuss the petition, her concerns answer questions and discuss treatment and goals. -Would recommend the following medication changes/additions: Geodon 20 mg nightly for mood stabilization/bipolar disorder, Depakene syrup 250 mg p.o. twice daily for mood stabilization/aggression. added ambien 5 mg qhs prn for sleep. -Continue 1:1 sitter for safety -Communicated plan to patient's nurse -Will continue to follow along tomorrow and possible sign off tomorrow. -Please contact with any questions. will await hearing and deferral date from probate court. Will be having the deferral tomorrow with his assistant prosecuting attorney and full court hearing scheduled for Thursday. Patient plans on continuing with treatment and signing the deferral, magnetic tape typewriter operator will likely sign off tomorrow if patient is continuing to be cooperative and taking medications and treatment.
[2024-12-12 16:58] LABS: Glucose,Whole Blood 567 mg/dL (70-110)
[2024-12-12 20:03] LABS: Glucose,Whole Blood 362 mg/dL (70-110)
--- NOTE | 2024-12-13 04:10 | P.PN ---
Subjective Progress Note Date: 12/12/24 This is a 34-year-old male who was recently admitted with hyperosmolar diabetic state with history of noncompliance being closely monitored. Patient also petitioned and being evaluated by psychiatry reporting he meets inpatient criteria for further psychiatric evaluation and care. Patient apparently has a court hearing on Thursday with psychiatry awaiting this to determine if patient will be going to inpatient psych or requiring a psychiatric facility in the outpatient setting. Patient chronically has a Rueda and has had for over 6 months per patient with Dr. Avina outpatient track that he had to continue with indwelling Rueda catheter. Will need to verify if going to psych unit if able to continue with indwelling Rueda catheter. Patient reports tolerating diet with no reports of nausea or vomiting noted. Review of systems: Constitutional: No reports of fatigue, fever, or chills Cardiovascular: No reports of chest pain or palpitations Respiratory: No reports of shortness of breath or cough GI: reports of nausea, no reports of of vomiting, : No reports of dysuria or retention Neurovascular: No reports of generalized weakness All medications have been reviewed PHYSICAL EXAMINATION: GENERAL: The patient is alert and oriented x4, Well developed, thin built HEENT: Pupils are round and equally reacting to light. EOMI. no scleral icterus. No conjunctival pallor. Normocephalic, atraumatic. No pharyngeal erythema. No thyromegaly. CARDIOVASCULAR: S1 and S2 muffled PULMONARY: diminished breath sounds bilaterally with no wheezing or rhonchi noted. ABDOMEN: soft. Nontender on exam. obese. non-distended, normoactive bowel sounds. No palpable organomegaly. MUSCULOSKELETAL: No joint swelling or deformity. EXTREMITIES: No cyanosis, clubbing, or pedal edema. NEUROLOGICAL: Gross neurological examination did not reveal any focal deficits. SKIN: No rashes. Assessment: Hyperosmolar diabetic state with noncompliance On admission, improved Hyponatremia, improving Bipolar/anxiety history History of childhood asthma, not in exacerbation History of OCD/PTSD History of renal insufficiency and urinary retention requiring indwelling Rueda catheter per urology to continue THC use GI prophylaxis DVT prophylaxis Full code Plan: Recommend to continue with current medications and management with psychiatry following. Patient to continue with one-to-one sitter and elopement risk while waiting court hearing on Thursday for noncompliance with medical treatment and may be mandated and currently pending. Patient was petitioned and awaiting this court hearing with psychiatry following likely will sign off Continue monitoring Accu-Cheks AC and at bedtime as well as as needed as patient blood sugars are uncontrolled Patient reports he received an indwelling Rueda catheter last year and has had over 6 months and was told by urology to continue with indwelling Rueda catheter for retention. Will consult urology and appreciate input and recommendations regarding continued catheter. Follow-up on repeat labs Encouraged increase activity as tolerated Consult to dietary Due to multiple complex medical issues, overall prognosis is guarded The impression and plan of care has been dictated by Libia Talavera, nurse practitioner as directed. Dr. Mj MD I have performed a history and examination and MDM of this patient, discussed the same with the dictator, and agree with the dictator's assessment and plan as written ,documented as a scribe. Based on total visit time, I have performed more than 50% of the visit. Any additional findings or plans will be noted. Objective - Vital Signs Vital signs: Vital Signs Temp 97.9 F 12/09/24 20:50 Pulse 96 12/12/24 16:00 Resp 16 12/12/24 16:00 BP 123/73 12/12/24 16:00 Pulse Ox 99 12/12/24 16:00 FiO2 Intake & Output 12/11/24 12/12/24 12/12/24 18:59 06:59 18:59 Intake Total 900 120 720 Output Total 2000 1600 Balance -1100 -1480 720 Weight 60.2 kg Intake: Oral 900 120 720 Output: Urine 2000 1600 Other: Voiding Method Indwelling Catheter Indwelling Catheter Indwelling Catheter # Voids 3 2 - Labs CBC & Chem 7: 12/12/24 06:32 12/12/24 06:32 Labs: Abnormal Lab Results - Last 24 Hours (Table) 12/10/24 12/11/24 12/12/24 Range/Units 02:14 19:05 05:39 RBC (4.40-5.60) 10*6/uL Hgb (13.0-17.0) g/dL Hct (39.6-50.0) % Eosinophils # (0.04-0.35) 10*3/uL Sodium (137-145) mmol/L BUN (9-20) mg/dL Glucose (74-99) mg/dL POC Glucose (mg/dL) >600 H* 251 H 383 H (70-110) mg/dL 12/12/24 12/12/24 12/12/24 Range/Units 06:32 06:32 11:21 RBC 4.00 L (4.40-5.60) 10*6/uL Hgb 11.4 L (13.0-17.0) g/dL Hct 34.4 L (39.6-50.0) % Eosinophils # 0.47 H (0.04-0.35) 10*3/uL Sodium 133 L (137-145) mmol/L BUN 42 H (9-20) mg/dL Glucose 393 H (74-99) mg/dL POC Glucose (mg/dL) 189 H (70-110) mg/dL 12/12/24 Range/Units 16:56 RBC (4.40-5.60) 10*6/uL Hgb (13.0-17.0) g/dL Hct (39.6-50.0) % Eosinophils # (0.04-0.35) 10*3/uL Sodium (137-145) mmol/L BUN (9-20) mg/dL Glucose (74-99) mg/dL POC Glucose (mg/dL) 567 H* (70-110) mg/dL
[2024-12-13 05:59] LABS: Glucose,Whole Blood 357 mg/dL (70-110)
[2024-12-13 07:59] LABS: African American GFR (CKD) 88 (>60 ml/min/1.73 sqM); Anion Gap 9 mmol/L; Blood Urea Nitrogen 46 mg/dL (9-20); Calcium 9.1 mg/dL (8.4-10.2); Carbon Dioxide 22 mmol/L (22-30); Chloride 105 mmol/L (98-107); Glucose 313 mg/dL (74-99); Non-African American GFR(CKD) 76 (>60 ml/min/1.73 sqM); Potassium 4.7 mmol/L (3.5-5.1); Sodium 136 mmol/L (137-145)
--- NOTE | 2024-12-13 08:11 | P.GSCN ---
History of Present Illness Consult date: 12/13/24 History of present illness: 34 yo male admitted to the hospital for diabetes out of control and failure to thrive. He lives with his mother and the police was petitioned and the patient was brought to the hospital. the patient has a chronic indwelling catheter for an apparent hypotonic neurogenic bladder since May last year. He is followed by Dr Delacruz for this. the patient was in the hospital in May of 2024. A ct scan was performed then and showed urine retention with marked bilateral hydronephrosis. Dr. Delacruz attempted to have the patient use i ntermittent catheterization however this failed. He has had an indwelling urethral catheter changed at our office on a monthly basis. He is to have further evaluation by Dr. Delacruz in the near future. The patient has had no problems with the indwelling catheter. There is discussion about converting him to a suprapubic tube. Review of Systems All systems: negative Past Medical History Past Medical History: Diabetes Mellitus Additional Past Medical History / Comment(s): Type 1 DM, childhood asthma, OCD History of Any Multi-Drug Resistant Organisms: None Reported Year Discovered:: 06/28/24 MDRO Source:: urine Past Surgical History: No Surgical Hx Reported Additional Past Surgical History / Comment(s): Abcess drained on left face in 2020 Past Anesthesia/Blood Transfusion Reactions: Unable to Obtain Past Psychological History: Anxiety, Bipolar, Depression, PTSD Additional Psychological History / Comment(s): OCD Smoking Status: Current every day smoker, Vaper Past Alcohol Use History: None Reported Additional Past Alcohol Use History / Comment(s): smokes1/2 to one pack per day Past Drug Use History: Marijuana Medications and Allergies Home Medications Medication Instructions Recorded Confirmed Type No Known Home Medications 12/09/24 12/09/24 History Allergies Allergy/AdvReac Type Severity Reaction Status Date / Time No Known Allergies Allergy Verified 12/08/24 19:07 Surgical - Exam Vital Signs Temp Pulse Resp BP Pulse Ox 98.0 F 82 17 176/97 100 12/08/24 22:01 12/08/24 22:01 12/08/24 22:01 12/08/24 22:01 12/08/24 22:01 - General well developed, well nourished, no distress - Eyes normal ocular movement, no icteric - ENT no hearing loss, no congestion - Neck no masses, trachea midline - Respiratory normal respiratory effort, clear to auscultation - Abdomen Abdomen: soft, non tender, no guarding, no rigid, no rebound - Integumentary no rash, no abnormal pigmentation - Neurologic no disoriented, no combative - Psychiatric oriented to time, oriented to person, oriented to place, speech is normal, memory intact, other (The patient is anxious chronically.) Results - Labs 12/12/24 06:32 12/13/24 05:59 Abnormal Lab Results - Last 24 Hours (Table) 12/10/24 12/12/24 12/12/24 Range/Units 02:14 06:32 06:32 RBC 4.00 L (4.40-5.60) 10*6/uL Hgb 11.4 L (13.0-17.0) g/dL Hct 34.4 L (39.6-50.0) % Eosinophils # 0.47 H (0.04-0.35) 10*3/uL Sodium 133 L (137-145) mmol/L BUN 42 H (9-20) mg/dL Glucose 393 H (74-99) mg/dL POC Glucose (mg/dL) >600 H* (70-110) mg/dL 12/12/24 12/12/24 12/12/24 Range/Units 11:21 16:56 20:02 RBC (4.40-5.60) 10*6/uL Hgb (13.0-17.0) g/dL Hct (39.6-50.0) % Eosinophils # (0.04-0.35) 10*3/uL Sodium (137-145) mmol/L BUN (9-20) mg/dL Glucose (74-99) mg/dL POC Glucose (mg/dL) 189 H 567 H* 362 H (70-110) mg/dL 12/13/24 Range/Units 05:55 RBC (4.40-5.60) 10*6/uL Hgb (13.0-17.0) g/dL Hct (39.6-50.0) % Eosinophils # (0.04-0.35) 10*3/uL Sodium (137-145) mmol/L BUN (9-20) mg/dL Glucose (74-99) mg/dL POC Glucose (mg/dL) 357 H (70-110) mg/dL Diabetes panel 12/12/24 Range/Units 06:32 Sodium 133 L (137-145) mmol/L Potassium 4.8 (3.5-5.1) mmol/L Chloride 102 (98-107) mmol/L Carbon Dioxide 23 (22-30) mmol/L BUN 42 H (9-20) mg/dL Creatinine 1.12 (0.66-1.25) mg/dL Glucose 393 H (74-99) mg/dL Calcium 9.4 (8.4-10.2) mg/dL Calcium panel 12/12/24 Range/Units 06:32 Calcium 9.4 (8.4-10.2) mg/dL Pituitary panel 12/12/24 Range/Units 06:32 Sodium 133 L (137-145) mmol/L Potassium 4.8 (3.5-5.1) mmol/L Chloride 102 (98-107) mmol/L Carbon Dioxide 23 (22-30) mmol/L BUN 42 H (9-20) mg/dL Creatinine 1.12 (0.66-1.25) mg/dL Glucose 393 H (74-99) mg/dL Calcium 9.4 (8.4-10.2) mg/dL Adrenal panel 12/12/24 Range/Units 06:32 Sodium 133 L (137-145) mmol/L Potassium 4.8 (3.5-5.1) mmol/L Chloride 102 (98-107) mmol/L Carbon Dioxide 23 (22-30) mmol/L BUN 42 H (9-20) mg/dL Creatinine 1.12 (0.66-1.25) mg/dL Glucose 393 H (74-99) mg/dL Calcium 9.4 (8.4-10.2) mg/dL Assessment and Plan Assessment: Impression: Chronic urine retention due to hypotonic neurogenic bladder probably secondary to diabetes. Bipolar disorder. Recommendations: The patient should continue with the urethral indwelling catheter. He has a follow-up appointment in the near future, December 16, with Dr. Delacruz to discuss further treatment for his hypotonic neurogenic bladder. I will discuss this with Dr. Delacruz.
[2024-12-13 08:17] LABS: Glucose,Whole Blood 58 mg/dL (70-110)
[2024-12-13 08:39] LABS: Glucose,Whole Blood 56 mg/dL (70-110)
[2024-12-13 08:58] LABS: Glucose,Whole Blood 118 mg/dL (70-110)
[2024-12-13 10:36] VITALS: RESP 18
[2024-12-13 11:23] LABS: Glucose,Whole Blood 345 mg/dL (70-110)
--- NOTE | 2024-12-13 14:11 | P.PN ---
Progress Note - Text Progress Note Date: 12/13/24 Interval history: Patient was seen today for psychiatric follow-up. Patient's nurse claims that patient has been fairly well, no significant issues has been taking medications. Patient was seen today lying in bed agreeable to speak to law writer. Claims that his mood and anxiety have been improving he is okay to continue taking the Depakene and Geodon. Claims that he spoke with the checker loader this morning and signed the deferral agreement he is agreeable to continue on the treatment and also go to [facility]. Claims that his appetite has been improving. Insight and judgment are improving as well. Denies any auditory or visual hallucinations denies any suicidal or homicidal ideations intent or plan. Not reporting any side effects from the medications. MENTAL STATUS EXAM: General Appearance: Patient appears to be improving appearance, he is standing tall, short hair, has a missing tooth, unkempt fingernails, stated age is alert, pleasant, improving mildly. Patient appears to have mildly improving hygiene and grooming wearing hospital gown with fair eye contact. Behavior: Patient is calmly lying in bed without any agitated behavior. more cooperative today Speech: Patient's speech is fluent and nonpressured. Fairly concrete and detail oriented, improving Mood/Affect: Patient reports their mood is "good", affect is incongruent Suicidality/Homicidality: Patient denies having any suicidal or homicidal ideation intent or plan. Perceptions: Patient denies any visual hallucinations and denies any auditory hallucinations Though content/process: There is no evidence of any delusional thought content and thought process is linear and goal-directed. Fairly detailed oriented, more future oriented today Memory and concentration: AOX3, grossly intact for the purposes of this session. Can spell "WORLD" backwards Judgment and insight: improving mildly IMPRESSIONS: Mood disorder unspecified, rule out bipolar disorder versus depressive disorder Noncompliance with medication regimen and treatment History of OCD History of PTSD cannabis use disorder PLAN: -At this time patient does not meet inpatient psychiatric criteria. -Patients mother is his jannettean. -Would recommend the following medication changes/additions: Geodon 20 mg nightly for mood stabilization/bipolar disorder, Depakene syrup 250 mg p.o. twice daily for mood stabilization/aggression. -Can discontinue 1:1 sitter today as patient is leonora for safety not reporting any suicidal homicidal ideations intent or plan -Communicated plan to patient's nurse -At this time psychiatry will sign off. -Patient signed the deferral with his corporate associate attorney today and agreeing to continue on with mental health treatment and also outpatient [facility] follow-up. -Please contact with any questions.
[2024-12-13 16:40] LABS: Glucose,Whole Blood 379 mg/dL (70-110)
[2024-12-13 17:43] VITALS: BP 135/93; PULSE 104; TEMP 97.9
--- NOTE | 2024-12-14 09:50 | P.DS ---
Providers Date of admission: 12/09/24 00:22 Expected date of discharge: 12/13/24 Attending physician: Randal Barker Consults: 12/08/24 22:35 Consult Physician Stat Consulting Provider: Deshaun Mancia Consult Reason/Comments: icu management Do you want consulting provider notified?: Already Contacted Consult Physician Urgent Consulting Provider: Psychiatry - [facility] Psychiatry Consult Reason/Comments: petitioned Do you want consulting provider notified?: Yes 12/13/24 04:10 Consult Physician Urgent Consulting Provider: Joshua Avina Consult Reason/Comments: chronic singleton? retention Do you want consulting provider notified?: Yes [facility] Course: Final diagnosis Hyperosmolar diabetic state with noncompliance On admission, improved Hyponatremia, improving Bipolar/anxiety history History of childhood asthma, not in exacerbation History of OCD/PTSD History of renal insufficiency and urinary retention requiring indwelling Singleton catheter per urology to continue THC use GI prophylaxis DVT prophylaxis Full code Discharge disposition Patient is being discharged in a stable condition with guarded prognosis to home with mother as his legal guardian. Patient has been court ordered to be compliant with [facility] follow-up and medications patient will follow-up with Dr. Les Barker in the outpatient setting upon discharge. Patient is to continue with close follow-up regarding diabetes management and recommend endocrine outpatient as scheduled. Total time taken is greater than 35 minutes. Hospital course This is a 34-year-old male who was recently admitted with hyperosmolar diabetic state with history of noncompliance being closely monitored. Patient also petitioned and being evaluated by psychiatry reporting he meets inpatient criteria for further psychiatric evaluation and care. Patient apparently has a court hearing on Thursday with psychiatry awaiting this to determine if patient will be going to inpatient psych or requiring a psychiatric facility in the outpatient setting. Patient chronically has a Singleton and has had for over 6 months per patient with Dr. Avina outpatient track that he had to continue with indwelling Singleton catheter. Will need to verify if going to psych unit if able to continue with indwelling Singleton catheter. Patient reports tolerating diet with no reports of nausea or vomiting noted. Please did undergo hearing with the court and is agreeable to be compliant with [facility] follow-up and medications as patient was petitioned for noncompliance from his guardian also his mother. Patient has been cleared by psychiatry recommending outpatient follow-up with [facility] this week. Medications have been prescribed and patient will continue monitoring blood sugars with Accu-Cheks AC and at bedtime and as needed and continued insulin. Patient is extremely noncompliant and high risk for readmissions although has been medically cleared and has been cleared by psychiatry. Please refer to other consultation notes for further HPI. Patient will continue with chronic indwelling Singleton catheter and recommend outpatient follow-up with urology Dr. Delacruz as scheduled. Currently no reports of chest pain, shortness of breath, or palpitations. Patient is afebrile. No reports of nausea or vomiting and patient is tolerating diet. Patient will be discharged home. Again guarded prognosis given noncompliance and comorbidities PHYSICAL EXAMINATION: GENERAL: The patient is alert and oriented x4, Well developed, thin built HEENT: Pupils are round and equally reacting to light. EOMI. no scleral icterus. No conjunctival pallor. Normocephalic, atraumatic. No pharyngeal erythema. No thyromegaly. CARDIOVASCULAR: S1 and S2 muffled PULMONARY: diminished breath sounds bilaterally with no wheezing or rhonchi noted. ABDOMEN: soft. Nontender on exam. obese. non-distended, normoactive bowel sounds. No palpable organomegaly. MUSCULOSKELETAL: No joint swelling or deformity. EXTREMITIES: No cyanosis, clubbing, or pedal edema. NEUROLOGICAL: Gross neurological examination did not reveal any focal deficits. SKIN: No rashes. Please refer to medication reconciliation sheet for a list of medications. The impression and plan of care has been dictated by Libia Talavera, Nurse Practitioner as directed. Dr. Barker,, I have performed a history and examination and MDM of this patient, discussed the same with the dictator, and agree with the dictator's assessment and plan as written ,documented as a scribe. Based on total visit time, I have performed more than 50% of the visit. Patient Condition at Discharge: Stable Plan - Discharge Summary Discharge Rx Participant: Yes New Discharge Prescriptions: New INSULIN LISPRO (HumaLOG) [HumaLOG] 12 unit SQ ACHS 30 Days #6 each Insulin Glargine (Lantus) [Lantus Vial] 10 unit SQ HS 30 Days #6 each Insulin Glargine (Lantus) [Lantus Vial] 20 unit SQ DAILY@0700 each Acetaminophen Tab [Tylenol] 650 mg PO Q4HR PRN tab PRN Reason: Fever And/Or Mild Pain Valproic Acid Oral Soln [Depakene Syrup] 250 mg PO BID 30 Days #300 ml Ziprasidone [Geodon] 20 mg PO HS #30 cap Discharge Medication List Acetaminophen Tab [Tylenol] 650 mg PO Q4HR PRN tab 12/13/24 [Rx] INSULIN LISPRO (HumaLOG) [HumaLOG] 12 unit SQ ACHS 30 Days #6 each 12/13/24 [Rx] Insulin Glargine (Lantus) [Lantus Vial] 10 unit SQ HS 30 Days #6 each 12/13/24 [Rx] Insulin Glargine (Lantus) [Lantus Vial] 20 unit SQ DAILY@0700 each 12/13/24 [Rx] Valproic Acid Oral Soln [Depakene Syrup] 250 mg PO BID 30 Days #300 ml 12/13/24 [Rx] Ziprasidone [Geodon] 20 mg PO HS #30 cap 12/13/24 [Rx] Follow up Appointment(s)/Referral(s): Onelia Flannery MD [Primary Care Provider] - 1-2 days [facility] [NON-STAFF] - 1 Week Abdiel Delacruz MD [STAFF PHYSICIAN] - 1 Week Patient Instructions/Handouts: Divalproex (By mouth), Valproic Acid (By mouth) Activity/Diet/Wound Care/Special Instructions: Activity limited until follow-up Follow-up with primary care provider on discharge Follow-up with [facility] outpatient Continue taking medications as prescribed Continue monitoring Accu-Cheks AC and at bedtime and continue with insulin regimen Follow consistent carb high-protein diet Discharge Disposition: HOME SELF-CARE
== END 2024-12-13 18:15 | disposition home or self-care (01) | DRG 638 ==
LOC: EC 18:55 → 2SICU 12-09 00:22 → 3SCARD 12-09 10:22
PROVIDERS: ADMIT Hospitalist; ATTEND Hospitalist
DX: E10.65 Type 1 diabetes mellitus with hyperglycemia (principal); E87.1 Hypo-osmolality and hyponatremia; E87.20 Acidosis, unspecified; R62.7 Adult failure to thrive; F31.9 Bipolar disorder, unspecified; E10.42 Type 1 diabetes mellitus with diabetic polyneuropathy; F12.10 Cannabis abuse, uncomplicated; N13.30 Unspecified hydronephrosis; Z79.4 Long term (current) use of insulin; R45.6 Violent behavior; F17.290 Nicotine dependence, other tobacco product, uncomplicated; T38.3X6A Underdosing of insulin and oral hypoglycemic [antidiabetic] drugs, initial encounter; F41.9 Anxiety disorder, unspecified; F42.9 Obsessive-compulsive disorder, unspecified; F43.10 Post-traumatic stress disorder, unspecified; E87.6 Hypokalemia; N31.9 Neuromuscular dysfunction of bladder, unspecified; Z96.0 Presence of urogenital implants; Z91.148 Patient's other noncompliance with medication regimen for other reason; Z91.128 Patient's intentional underdosing of medication regimen for other reason; Z87.09 Personal history of other diseases of the respiratory system; Z78.1 Physical restraint status
CPT/HCPCS: 36415; 51702; 71045; 80048; 80051; 80053; 80306; 81003; 82009; 82075; 82565; 82803; 82947; 83036; 83605; 83735; 83930; 84100; 84520; 85025; 85027; 93005; 96361; 96365; 96366; 96372; 99291

== ENCOUNTER 2025-01-26 13:51 | Inpatient (IN) | payer BC, OTHER ==
[2025-01-26 14:05] LABS: Glucose,Whole Blood 514 mg/dL (70-110)
[2025-01-26 14:51] LABS: Basophils # (A) 0.08 10*3/uL (0.00-0.10); Basophils % (A) 0.4 %; Eosinophils # (A) 0.03 10*3/uL (0.04-0.35); Eosinophils % (A) 0.2 %; HCT 31.9 % (39.6-50.0); HGB 10.5 g/dL (13.0-17.0); Lymphocytes # (A) 1.26 10*3/uL (0.90-5.00); Lymphocytes % (A) 6.3 %; MCH 27.8 pg (27.0-32.0); MCHC 32.9 g/dL (32.0-37.0); MCV 84.4 fL (80.0-97.0); Monocytes # (A) 1.38 10*3/uL (0.20-1.00); Monocytes % (A) 6.9 %; Neutrophils # (A) 17.04 10*3/uL (1.80-7.70); Neutrophils % (A) 85.6 %; Platelet Count 540 10*3/uL (140-440); RBC 3.78 10*6/uL (4.40-5.60); RDW 13.6 % (11.5-14.5); WBC 19.91 10*3/uL (4.50-10.00)
[2025-01-26 15:23] LABS: ALT 9 U/L (4-49); AST 13 U/L (17-59); African American GFR (CKD) 84 (>60 ml/min/1.73 sqM); Albumin 3.3 g/dL (3.5-5.0); Alkaline Phosphatase 191 U/L (38-126); Anion Gap 16 mmol/L; Blood Urea Nitrogen 22 mg/dL (9-20); Calcium 8.5 mg/dL (8.4-10.2); Carbon Dioxide 22 mmol/L (22-30); Chloride 90 mmol/L (98-107); Non-African American GFR(CKD) 73 (>60 ml/min/1.73 sqM); Potassium 4.6 mmol/L (3.5-5.1); Sodium 128 mmol/L (137-145); Total Protein 6.4 g/dL (6.3-8.2)
--- NOTE | 2025-01-26 15:32 | ED ---
Recheck HPI - General Chief Complaint: Recheck/Abnormal Lab/Rx Stated Complaint: dehydration,left leg pain Time Seen by Provider: 01/26/25 15:09 Source: patient, RN notes reviewed Mode of arrival: wheelchair Limitations: no limitations - History of Present Illness Initial Comments: This is a 34-year-old male who presents to the emergency department for h yperglycemia and left knee pain. Patient states that he fell a couple of weeks ago and injured his left knee and hip. He had x-rays done initially and they did not identify any fractures. However, states that he continues to have pain and feels like his knee is popping in and out of place. States that this is causing him to fall and it is not a safe situation for him. Additionally, he has been struggling with hyperglycemia for quite a while. States that he is working with the [facility] to address this. Believes that his sugars are currently elevated due to having Gatorade this morning. When his laboratory studies returned demonstrating significant leukocytosis, we did not have an initial clear cause. He did then admit to some suprapubic abdominal pain for several days as well as some shortness of breath. - Related Data Home Medications Medication Instructions Recorded Confirmed Insulin Glargine,Hum.rec.anlog 10 units SQ HS 01/26/25 01/26/25 [Lantus Solostar Pen] Insulin Glargine,Hum.rec.anlog 20 units SQ DAILY 01/26/25 01/26/25 [Lantus Solostar Pen] Valproic Acid Oral Soln [Depakene 250 mg PO HS 01/26/25 01/26/25 Syrup] Previous Rx's Medication Instructions Recorded Ziprasidone [Geodon] 20 mg PO HS #30 cap 12/13/24 Allergies Allergy/AdvReac Type Severity Reaction Status Date / Time No Known Allergies Allergy Verified 01/26/25 19:05 Review of Systems ROS Statement: Those systems with pertinent positive or pertinent negative responses have been documented in the HPI. ROS Other: All systems not noted in ROS Statement are negative. Past Medical History Past Medical History: Diabetes Mellitus Additional Past Medical History / Comment(s): Type 1 DM, childhood asthma, OCD History of Any Multi-Drug Resistant Organisms: None Reported Date of last positivie culture/infection: 06/28/24 MDRO Source:: urine Past Surgical History: No Surgical Hx Reported Additional Past Surgical History / Comment(s): Abcess drained on left face in 2020 Past Anesthesia/Blood Transfusion Reactions: Unable to Obtain Past Psychological History: Anxiety, Bipolar, Depression, PTSD Smoking Status: Current every day smoker, Vaper Past Alcohol Use History: None Reported Past Drug Use History: Marijuana General Exam Limitations: no limitations General appearance: alert, in no apparent distress Head exam: Present: atraumatic, normocephalic, normal inspection Respiratory exam: Present: normal lung sounds bilaterally. Absent: respiratory distress, wheezes, rales, rhonchi, stridor Cardiovascular Exam: Present: normal rhythm, tachycardia GI/Abdominal exam: Present: soft, tenderness (Suprapubic). Absent: distended Extremities exam: Present: other (Generalized tenderness and swelling over the left patella. Range of motion limited by pain. No erythema. Mild calf tenderness.) Neurological exam: Present: alert, oriented X3, CN II-XII intact Psychiatric exam: Present: normal affect, normal mood Skin exam: Present: warm, dry, intact, normal color. Absent: rash Course Vital Signs 01/26/25 01/26/25 01/26/25 14:00 17:07 18:50 Temperature 98.4 F Pulse Rate 125 H 102 H 111 H Respiratory 18 19 18 Rate Blood Pressure 112/67 124/77 153/98 O2 Sat by Pulse 99 98 98 Oximetry Medical Decision Making - Medical Decision Making This is a 34-year-old male who presents to the emergency department for left knee pain and hyperglycemia. Was pt. sent in by a medical professional or institution? @ -His PCP Did you speak to anyone other than the patient for history? @ -No Did you review nursing and triage notes? @ -Yes, and I agree, it is accurate with regards to the patient's symptoms. Were old charts reviewed? @ -No Differential Diagnosis? @ -Differential Musculoskeletal Muscular strain, contusion, ligament sprain, fracture, arthritis, septic arthritis, bursitis, cellulitis, muscle spasm, nerve compression, DVT, arterial occlusion, herpes zoster, electrolyte abnormality, tumor.... This is not meant to be in all inclusive list EKG interpreted by me (3pts min.)? @ -EKG interpreted by me demonstrating the following: Sinus rhythm. Ventricular rate 99 bpm, SD interval 125 ms, QRS duration 101 ms, QTc 403 ms. X-rays interpreted by me (1pt min.)? @ -Chest x-ray obtained, my interpretation identifies no localized consolidations or infiltrates. X-ray of the left hip/AP pelvis and left knee obtained. My interpretation identifies no acute fractures CT interpreted by me (1pt min.)? @ -CT scan of the abdomen and pelvis obtained. My interpretation identifies ruptured appendicitis. U/S interpreted by me (1pt. min.)? @ -Duplex ultrasound of the left lower extremity obtained. My interpretation identifies no evidence of a DVT. What testing was considered but not performed? (CT, X-rays, U/S, labs)? Why? @ -None What meds were considered but not given? Why? @ -None Did you discuss the management of the patient with other professionals? @ -Yes, Dr. Bajwa, general surgery, who advised IR consult and admission to medicine. Yogi Stuart with [facility] accepts the patient for admission. Did you reconcile home meds? @ -Yes Was smoking cessation discussed for >3mins.? @ -No Was critical care preformed (if so, how long)? @ -No Were there social determinants of health that impacted care today? How? (Homelessness, low income, unemployed, alcoholism, drug addiction, transportation, low edu. Level, literacy, decrease access to med. care, fdc, rehab)? @ -No Was there de-escalation of care discussed even if they declined? (Discuss DNR or withdrawal of care, Hospice)? @ -No What co-morbidities impacted this encounter? (DM, HTN, Smoking, COPD, CAD, Cancer, CVA, Hep., AIDS, mental health diagnosis, sleep apnea, morbid obesity)? @ -DM, bladder paralysis Was patient admitted / discharged? @ -Admitted. Lab work demonstrates leukocytosis with a white blood cell count of 19.9. He has hyperglycemia with glucose of 546. Anion gap elevated at 16, however bicarb within normal limits at 22 and acetone is negative. Urinalysis has a small elevation in WBCs, however he does also have a chronic Rueda catheter. X-ray of the left knee and left hip/AP pelvis obtained revealing no acute findings. Duplex ultrasound of the left lower extremity obtained as well, revealing no acute process. There was concern of infection regarding the leukocytosis and tachycardia, however, no clear source was identified at that time. Because he was meeting SIRS criteria, blood culture was obtained and he had been given 2 g of ceftriaxone empirically. 1 L of normal saline had also been administered. There was delay in scanning off the ceftriaxone due to imaging and it was actually administered at 1632. When further discussing possible causes with the patient, he did admit to some suprapubic discomfort, however this was primarily only bothersome if the area was palpated. He did als o admit to some shortness of breath for the last several days. We subsequently proceeded with a chest x-ray and CT scan of the abdomen and pelvis. Chest x-ray reveals no acute process. CT scan of the abdomen and pelvis demonstrates perforated appendicitis with abscess. He was then started on Zosyn for management of the infection. He was also given an additional 1.5 L of LR and started on maintenance fluids. Case discussed with general surgery who advised consult to IR and medical admission. Patient admitted to medicine for perforated appendicitis with abscess formation. Consult placed to infectious disease, IR, and general surgery. Case discussed with ED attending Dr. Reece. Undiagnosed new problem with uncertain prognosis? @ -None Drug Therapy requiring intensive monitoring for toxicity (Heparin, Nitro, Insulin, Cardizem)? @ -None Were any procedures done? @ -None Diagnosis/symptom? @ -Perforated appendicitis with abscess, sepsis Acute, or Chronic, or Acute on Chronic? @ -Acute Uncomplicated (without systemic symptoms) or Complicated (systemic symptoms)? @ -Complicated Side effects of treatment? @ -None Exacerbation, Progression, or Severe Exacerbation] @ -Not applicable Poses a threat to life or bodily function? @ -Yes, can lead to septic shock and - Lab Data Result diagrams: 01/26/25 14:44 01/26/25 14:44 Lab Results 01/26/25 01/26/25 01/26/25 Range/Units 14:04 14:44 14:44 WBC 19.91 H (4.50-10.00) 10*3/uL RBC 3.78 L (4.40-5.60) 10*6/uL Hgb 10.5 L (13.0-17.0) g/dL Hct 31.9 L (39.6-50.0) % MCV 84.4 (80.0-97.0) fL MCH 27.8 (27.0-32.0) pg MCHC 32.9 (32.0-37.0) g/dL Plt Count 540 H (140-440) 10*3/uL MPV 10.8 (9.5-12.2) fL Immature Gran % (Auto) 0.6 % Neutrophils % 85.6 % Lymphocytes % 6.3 % Monocytes % 6.9 % Eosinophils % 0.2 % Basophils % 0.4 % Immature Gran # 0.12 H (0.00-0.04) 10*3/uL Neutrophils # 17.04 H (1.80-7.70) 10*3/uL Lymphocytes # 1.26 (0.90-5.00) 10*3/uL Monocytes # 1.38 H (0.20-1.00) 10*3/uL Eosinophils # 0.03 L (0.04-0.35) 10*3/uL Basophils # 0.08 (0.00-0.10) 10*3/uL Sodium 128 L (137-145) mmol/L Potassium 4.6 (3.5-5.1) mmol/L Chloride 90 L (98-107) mmol/L Carbon Dioxide 22 (22-30) mmol/L Anion Gap 16 mmol/L BUN 22 H (9-20) mg/dL Creatinine 1.28 H (0.66-1.25) mg/dL Est GFR (CKD-EPI)AfAm 84 (>60 ml/min/1.73 sqM) Est GFR (CKD-EPI)NonAf 73 (>60 ml/min/1.73 sqM) Glucose 546 H* (74-99) mg/dL POC Glucose (mg/dL) 514 H* (70-110) mg/dL POC Glu Supervisor Sawmill ID Belval Preethi Plasma Lactic Acid Son (0.7-2.0) mmol/L Calcium 8.5 (8.4-10.2) mg/dL Phosphorus (2.5-4.5) mg/dL Magnesium (1.6-2.3) mg/dL Total Bilirubin 0.8 (0.2-1.3) mg/dL AST 13 L (17-59) U/L ALT 9 (4-49) U/L Alkaline Phosphatase 191 H (38-126) U/L Total Protein 6.4 (6.3-8.2) g/dL Albumin 3.3 L (3.5-5.0) g/dL Urine Color Urine Appearance (Clear) Urine pH (5.0-8.0) Ur Specific Anthony (1.001-1.035) Urine Protein (Negative) Urine Glucose (UA) (Negative) Urine Ketones (Negative) Urine Blood (Negative) Urine Nitrite (Negative) Urine Bilirubin (Negative) Urine Urobilinogen (<2.0) mg/dL Ur Leukocyte Esterase (Negative) Urine RBC (0-5) /hpf Urine WBC (0-5) /hpf Urine Bacteria (None) /hpf Urine Mucus (None) /hpf Acetone, Qual (Negative) 01/26/25 01/26/25 01/26/25 Range/Units 15:34 15:37 16:40 WBC (4.50-10.00) 10*3/uL RBC (4.40-5.60) 10*6/uL Hgb (13.0-17.0) g/dL Hct (39.6-50.0) % MCV (80.0-97.0) fL MCH (27.0-32.0) pg MCHC (32.0-37.0) g/dL Plt Count (140-440) 10*3/uL MPV (9.5-12.2) fL Immature Gran % (Auto) % Neutrophils % % Lymphocytes % % Monocytes % % Eosinophils % % Basophils % % Immature Gran # (0.00-0.04) 10*3/uL Neutrophils # (1.80-7.70) 10*3/uL Lymphocytes # (0.90-5.00) 10*3/uL Monocytes # (0.20-1.00) 10*3/uL Eosinophils # (0.04-0.35) 10*3/uL Basophils # (0.00-0.10) 10*3/uL Sodium (137-145) mmol/L Potassium (3.5-5.1) mmol/L Chloride (98-107) mmol/L Carbon Dioxide (22-30) mmol/L Anion Gap mmol/L BUN (9-20) mg/dL Creatinine (0.66-1.25) mg/dL Est GFR (CKD-EPI)AfAm (>60 ml/min/1.73 sqM) Est GFR (CKD-EPI)NonAf (>60 ml/min/1.73 sqM) Glucose (74-99) mg/dL POC Glucose (mg/dL) (70-110) mg/dL POC Glu Supervisor Sawmill ID Plasma Lactic Acid Son 1.5 (0.7-2.0) mmol/L Calcium (8.4-10.2) mg/dL Phosphorus 4.2 (2.5-4.5) mg/dL Magnesium 1.7 (1.6-2.3) mg/dL Total Bilirubin (0.2-1.3) mg/dL AST (17-59) U/L ALT (4-49) U/L Alkaline Phosphatase (38-126) U/L Total Protein (6.3-8.2) g/dL Albumin (3.5-5.0) g/dL Urine Color Colorless Urine Appearance Clear (Clear) Urine pH 5.0 (5.0-8.0) Ur Specific Anthony 1.024 (1.001-1.035) Urine Protein Trace H (Negative) Urine Glucose (UA) 4+ H (Negative) Urine Ketones Trace H (Negative) Urine Blood Negative (Negative) Urine Nitrite Negative (Negative) Urine Bilirubin Negative (Negative) Urine Urobilinogen <2.0 (<2.0) mg/dL Ur Leukocyte Esterase Small H (Negative) Urine RBC 3 (0-5) /hpf Urine WBC 31 H (0-5) /hpf Urine Bacteria Rare H (None) /hpf Urine Mucus Rare H (None) /hpf Acetone, Qual Negative (Negative) 01/26/25 Range/Units 17:42 WBC (4.50-10.00) 10*3/uL RBC (4.40-5.60) 10*6/uL Hgb (13.0-17.0) g/dL Hct (39.6-50.0) % MCV (80.0-97.0) fL MCH (27.0-32.0) pg MCHC (32.0-37.0) g/dL Plt Count (140-440) 10*3/uL MPV (9.5-12.2) fL Immature Gran % (Auto) % Neutrophils % % Lymphocytes % % Monocytes % % Eosinophils % % Basophils % % Immature Gran # (0.00-0.04) 10*3/uL Neutrophils # (1.80-7.70) 10*3/uL Lymphocytes # (0.90-5.00) 10*3/uL Monocytes # (0.20-1.00) 10*3/uL Eosinophils # (0.04-0.35) 10*3/uL Basophils # (0.00-0.10) 10*3/uL Sodium (137-145) mmol/L Potassium (3.5-5.1) mmol/L Chloride (98-107) mmol/L Carbon Dioxide (22-30) mmol/L Anion Gap mmol/L BUN (9-20) mg/dL Creatinine (0.66-1.25) mg/dL Est GFR (CKD-EPI)AfAm (>60 ml/min/1.73 sqM) Est GFR (CKD-EPI)NonAf (>60 ml/min/1.73 sqM) Glucose (74-99) mg/dL POC Glucose (mg/dL) 319 H (70-110) mg/dL POC Glu Supervisor Sawmill ID Kwesi Michele Plasma Lactic Acid Son (0.7-2.0) mmol/L Calcium (8.4-10.2) mg/dL Phosphorus (2.5-4.5) mg/dL Magnesium (1.6-2.3) mg/dL Total Bilirubin (0.2-1.3) mg/dL AST (17-59) U/L ALT (4-49) U/L Alkaline Phosphatase (38-126) U/L Total Protein (6.3-8.2) g/dL Albumin (3.5-5.0) g/dL Urine Color Urine Appearance (Clear) Urine pH (5.0-8.0) Ur Specific Anthony (1.001-1.035) Urine Protein (Negative) Urine Glucose (UA) (Negative) Urine Ketones (Negative) Urine Blood (Negative) Urine Nitrite (Negative) Urine Bilirubin (Negative) Urine Urobilinogen (<2.0) mg/dL Ur Leukocyte Esterase (Negative) Urine RBC (0-5) /hpf Urine WBC (0-5) /hpf Urine Bacteria (None) /hpf Urine Mucus (None) /hpf Acetone, Qual (Negative) - Radiology Data Radiology results: report reviewed, image reviewed Disposition Clinical Impression: Acute perforated appendicitis, Sepsis Disposition: ADMITTED IP TO THIS HOSP
[2025-01-26] MEDS: SODIUM CHLORIDE 0.9% 1,000 ML IV ONE (15:33)
[2025-01-26 15:37] LABS: Glucose 546 mg/dL (74-99)
[2025-01-26] MEDS: INSULIN REGULAR 100 UNIT/ML VIAL (IV) IV ONE (16:01)
--- NOTE | 2025-01-26 16:03 | XR ---
Left knee. HISTORY: Pain COMPARISON: None TECHNIQUE: 3 views left knee were obtained. FINDINGS: There is no fracture, dislocation, intraosseous or intra-articular abnormality. IMPRESSION: No significant abnormality seen. [facility], Workstation: [facility], 01/26/2025 4:00 PM
--- NOTE | 2025-01-26 16:04 | XR ---
EXAMINATION TYPE: XR Hip LT and AP Pelvis DATE OF EXAM: 01/26/2025 COMPARISON: NONE CLINICAL INDICATION: Male, 34 years old with history of Left hip and knee pain; TECHNIQUE: A single AP view of the pelvis is obtained. Two views of the left hip are obtained. FINDINGS: There is no acute fracture/dislocation evident in the pelvis. The hip and sacroiliac join ts appear symmetric and unremarkable. The overlying soft tissue appears unremarkable. Two views of left hip show no acute fracture or dislocation. No focal lytic or sclerotic lesion seen in the proximal left femur. The overlying soft tissue is unremarkable. IMPRESSION: There is no acute fracture or dislocation in the pelvis or left hip. [facility], , 01/26/2025 4:02 PM
[2025-01-26 16:15] LABS: Bacteria,Urine Rare /hpf; Bilirubin,Urine Negative (Negative); Blood,Urine Negative (Negative); Color,Urine Colorless; Glucose,Urine (UA) 4+ (Negative); Ketones,Urine Trace (Negative); Leukocyte Esterase,Urine Small (Negative); Mucus,Urine Rare /hpf; Nitrite,Urine Negative (Negative); PH, Urine 5.0 (5.0-8.0); Protein,Urine Trace (Negative); RBC,Urine 3 /hpf (0-5); Specific Gravity,Urine 1.024 (1.001-1.035); Urobilinogen,Urine <2.0 mg/dL (<2.0); WBC,Urine 31 /hpf (0-5)
[2025-01-26 16:17] LABS: Magnesium 1.7 mg/dL (1.6-2.3)
[2025-01-26] MEDS: KETOROLAC 15 MG/ML 1 ML VIAL IVP STA (16:36)
[2025-01-26] MEDS: MORPHINE SULFATE 4 MG/ML SYRINGE IVP STA (16:36)
--- NOTE | 2025-01-26 16:59 | US ---
EXAMINATION TYPE: US venous doppler duplex LE LT DATE OF EXAM: 01/26/2025 4:40 PM COMPARISON: 06/10/24 CLINICAL INDICATION: Male, 34 years old with history of Left hip and knee pain; left knee and hip tu n after fall, Pain TECHNIQUE: The lower extremity deep venous system is examined utilizing real time linear array sonog curt with graded compression, color doppler sonography, and spectral doppler. SIDE PERFORMED: Left FINDINGS: VESSELS IMAGED: Common Femoral Vein Deep Femoral Vein Greater Saphenous Vein * Femoral Vein Popliteal Vein Small Saphenous Vein * Proximal Calf Veins (* superficial vessels) Left Leg: Negative for DVT, Color Doppler imaging shows patency of the vessels. Spectral waveforms a re within normal limits. exam limited by edema, non visualization of calf veins IMPRESSION: No ultrasound evidence for deep venous thrombosis. [facility], , 01/26/2025 4:57 PM
[2025-01-26] MEDS: LACTATED RINGERS 1,000 ML IV SCH ×2 (17:00)
[2025-01-26] MEDS: cefTRIAXone IN SWFI 1,000 MG/10 ML SYRINGE IVP STA ×2 (17:00→17:02)
--- NOTE | 2025-01-26 17:43 | CT ---
EXAMINATION TYPE: CT abdomen pelvis w con DATE OF EXAM: 01/26/2025 5:33 PM COMPARISON: None. CLINICAL INDICATION: Male, 34 years old with history of Suprapubic pain , TECHNIQUE:CT scan of the abdomen and pelvis is performed without Oral Contrast and with IV Contrast, patient injected with 100 mL of Isovue 300. CT DLP: mGycm, Automated exposure control for dose reduction was used. FINDINGS: LUNG BASES-: No visible nodule. No infiltrate. LIVER/GB: No calcified gallstones. No space occupying hepatic lesion. Biliary tree is of normal ca liber. PANCREAS: No inflammation. No distinct mass. SPLEEN: No splenic enlargement. No lesion seen. ADRENALS: No nodule. No thickening. KIDNEYS/BLADDER: No hydronephrosis. No nephrolithiasis. No distinct renal mass. Rueda catheter is in place. BOWEL: Findings compatible with perforated appendicitis with abscess in the right lower quadrant dylan uring 7.2 x 5.8 x 5.3 cm. There are adjacent bubbles of air. Inflammatory changes present. There is e russell of the adjacent musculature including the psoas and iliacus. Small and large bowel are otherwise unremarkable. Small amount of free fluid within the right paracolic gutter. GENITAL ORGANS: No gross abnormality. LYMPH NODES: No greater than 1cm abdominal or pelvic lymph nodes are appreciated. AORTA: No significant abnormality. OSSEOUS STRUCTURES: No significant abnormality is seen. OTHER: No significant additional abnormality is seen. IMPRESSION: 1. Findings compatible with perforated appendicitis with abscess in the right lower quadrant measurin g 7.2 x 5.8 x 5.3 cm. There are adjacent bubbles of air. Inflammatory changes present. There is edema of the adjacent musculature including the psoas and iliacus. [facility], , 01/26/2025 5:41 PM
[2025-01-26 17:44] LABS: Glucose,Whole Blood 319 mg/dL (70-110)
--- NOTE | 2025-01-26 17:44 | XR ---
EXAMINATION TYPE: XR chest 2V DATE OF EXAM: 01/26/2025 5:36 PM COMPARISON: None. CLINICAL INDICATION: Male, 34 years old with history of MARCELO, Chest pain TECHNIQUE: XR chest 2V views of the chest are obtained. FINDINGS: There is no focal air space opacity. No evidence for pneumothorax. No pleural effusion. The cardiac silhouette size is within normal limits. The osseous structures are grossly intact. IMPRESSION: 1. No acute cardiopulmonary process. [facility], , 01/26/2025 5:41 PM
[2025-01-26] MEDS ORDERED: ONDANSETRON 4 MG/2 ML VIAL IVP PRN (17:54)
[2025-01-26] MEDS ORDERED: NALOXONE 0.4 MG/ML 1 ML VIAL IV PRN (17:54)
[2025-01-26] MEDS ORDERED: ACETAMINOPHEN IV (For NPO) 1,000 MG in EMPTY BAG 1 BAG IVPB PRN (18:12)
[2025-01-26] MEDS: PIPERACILLIN-TAZOBACTAM 3.375 GM in SODIUM CHLORIDE 0.9% 100 ML IVPB SCH (18:43)
[2025-01-26] MEDS ORDERED: DEXTROSE 50% SYRINGE 50 ML IVP PRN ×2 (19:51)
--- NOTE | 2025-01-26 21:18 | P.CON ---
Consult Note - . Consult date: 01/26/25 Assessment/Plan:: This is a 34-year-old male who presents to the emergency department for hyperglycemia and left knee pain. Patient states that he fell a couple of weeks ago and injured his left knee and hip. He had x-rays done initially and they did not identify any fractures. However, states that he continues to have pain and feels like his knee is popping in and out of place. States that this is causing him to fall and it is not a safe situation for him. Additionally, he has been struggling with hyperglycemia for quite a while. His CBC showed a significant leukocytosis. He did then admit to some suprapubic abdominal pain for several days as well as some shortness of breath. He had a CT-AP which showed perforated appendicitis with associated abscess. Review of Systems ROS Statement: Those systems with pertinent positive or pertinent negative responses have been documented in the HPI. ROS Other: All systems not noted in ROS Statement are negative. Past Medical History Past Medical History: Diabetes Mellitus Additional Past Medical History / Comment(s): Type 1 DM, childhood asthma, OCD History of Any Multi-Drug Resistant Organisms: None Reported Date of last positivie culture/infection: 06/28/24 MDRO Source:: urine Past Surgical History: No Surgical Hx Reported Additional Past Surgical History / Comment(s): Abcess drained on left face in 2020 Past Anesthesia/Blood Transfusion Reactions: Unable to Obtain Past Psychological History: Anxiety, Bipolar, Depression, PTSD Smoking Status: Current every day smoker, Vaper Past Alcohol Use History: None Reported Past Drug Use History: Marijuana General Exam Limitations: no limitations General appearance: alert, in no apparent distress Head exam: Present: atraumatic, normocephalic, normal inspection Respiratory exam: Present: normal lung sounds bilaterally. Absent: respiratory distress, wheezes, rales, rhonchi, stridor Cardiovascular Exam: Present: normal rhythm, tachycardia GI/Abdominal exam: Present: soft, tenderness (Suprapubic). Absent: distended Extremities exam: Present: other (Generalized tenderness and swelling over the left patella. Range of motion limited by pain. No erythema. Mild calf tenderness.) Neurological exam: Present: alert, oriented X3, CN II-XII intact Psychiatric exam: Present: normal affect, normal mood Skin exam: Present: warm, dry, intact, normal color. Absent: rash 34 year old male with perforated abscess with associated abscess -NPO -IV fluids -Continue Abx -IR consult for possible drainage -Pain and Nausea Control Joe Bajwa DO [facility] [phone]
[2025-01-26] MEDS: ZIPRASIDONE 20 MG CAP PO SCH (22:24)
[2025-01-26] MEDS: VALPROIC ACID ORAL SOLN 250 MG/5 ML CUP PO SCH (22:24)
[2025-01-26 22:26] LABS: Glucose,Whole Blood 275 mg/dL (70-110)
[2025-01-26] MEDS: INSULIN LISPRO (HumaLOG) 100 UNIT/ML 10 mL VL SQ SCH (22:27)
[2025-01-27] MEDS: HYDROmorphone 1 MG/ML 1 ML SYRINGE IVP PRN (01:44)
[2025-01-27 06:33] LABS: Glucose,Whole Blood 247 mg/dL (70-110)
[2025-01-27] MEDS: PANTOPRAZOLE 40 MG/10 ML VIAL IV SCH (09:08)
[2025-01-27 09:32] LABS: Basophils # (A) 0.09 X 10*3/uL (0.00-0.10); Basophils % (A) 0.5 %; Eosinophils # (A) 0.08 X 10*3/uL (0.04-0.35); Eosinophils % (A) 0.4 %; HCT 28.3 % (39.6-50.0); HGB 8.8 g/dL (13.0-17.0); Immature Grans, Automated 0.60 %; Lymphocytes # (A) 1.67 X 10*3/uL (0.90-5.00); Lymphocytes % (A) 8.8 %; MCH 27.2 pg (27.0-32.0); MCHC 31.1 g/dL (32.0-37.0); MCV 87.3 FL (80.0-97.0); Monocytes # (A) 1.50 X 10*3/uL (0.20-1.00); Monocytes % (A) 7.9 %; NRBC Per 100 WBC 0 X 10*3/uL (0.00-0.01); Neutrophils # (A) 15.55 X 10*3/uL (1.80-7.70); Neutrophils % (A) 81.8 %; Platelet Count 508 X 10*3/uL (140-440); RBC 3.24 X 10*6/uL (4.40-5.60); RDW 13.6 % (11.5-14.5); WBC 19.00 X 10*3/uL (4.50-10.00)
[2025-01-27 09:37] LABS: Anion Gap 13.50 mmol/L (4.00-12.00); BUN/Creat Ratio 10.83 Ratio (12.00-20.00); Blood Urea Nitrogen 13.0 mg/dL (9.0-27.0); Calcium 8.3 mg/dL (8.7-10.3); Carbon Dioxide 23.5 mmol/L (21.6-31.8); Chloride 95 mmol/L (96-109); Glucose 239 mg/dL (70-110); Potassium 4.5 mmol/L (3.5-5.5); Sodium 132 mmol/L (135-145)
[2025-01-27] MEDS: INSULIN GLARGINE (LANTUS) 100 UNIT/ML SYR SQ SCH (10:43)
--- NOTE | 2025-01-27 11:05 | P.PN ---
Subjective Progress Note Date: 01/27/25 Patient seen and examined at bedside. States he feels slightly better today. Still with right lower quadrant abdominal pain. Objective - Vital Signs Vital signs: Vital Signs Temp 99.0 F 01/27/25 07:17 Pulse 96 01/27/25 07:17 Resp 17 01/27/25 07:17 BP 127/74 01/27/25 07:17 Pulse Ox 97 01/27/25 07:17 FiO2 Intake & Output 01/26/25 01/27/25 01/27/25 18:59 06:59 18:59 Output Total 900 650 Balance -900 -650 Weight 56.699 kg 56.699 kg Output: Urine 900 650 Straight 900 - Constitutional General appearance: Present: cooperative - Gastrointestinal Gastrointestinal Comment(s): Soft, tender to palpation in right lower, nondistended - Psychiatric Psychiatric: Present: A&O x's 3 - Labs CBC & Chem 7: 01/27/25 04:35 01/27/25 04:35 Labs: Abnormal Lab Results - Last 24 Hours (Table) 01/26/25 01/26/25 01/26/25 Range/Units 14:04 14:44 14:44 WBC 19.91 H (4.50-10.00) 10*3/uL RBC 3.78 L (4.40-5.60) 10*6/uL Hgb 10.5 L (13.0-17.0) g/dL Hct 31.9 L (39.6-50.0) % MCHC (32.0-37.0) g/dL Plt Count 540 H (140-440) 10*3/uL Immature Gran # 0.12 H (0.00-0.04) 10*3/uL Neutrophils # 17.04 H (1.80-7.70) 10*3/uL Monocytes # 1.38 H (0.20-1.00) 10*3/uL Eosinophils # 0.03 L (0.04-0.35) 10*3/uL Sodium 128 L (137-145) mmol/L Chloride 90 L (98-107) mmol/L Anion Gap (4.00-12.00) mmol/L BUN 22 H (9-20) mg/dL Creatinine 1.28 H (0.66-1.25) mg/dL BUN/Creatinine Ratio (12.00-20.00) Ratio Glucose 546 H* (74-99) mg/dL POC Glucose (mg/dL) 514 H* (70-110) mg/dL Hemoglobin A1c (<=6.0) % Calcium (8.7-10.3) mg/dL AST 13 L (17-59) U/L Alkaline Phosphatase 191 H (38-126) U/L Albumin 3.3 L (3.5-5.0) g/dL Urine Protein (Negative) Urine Glucose (UA) (Negative) Urine Ketones (Negative) Ur Leukocyte Esterase (Negative) Urine WBC (0-5) /hpf Urine Bacteria (None) /hpf Urine Mucus (None) /hpf 01/26/25 01/26/25 01/26/25 Range/Units 15:37 17:42 22:24 WBC (4.50-10.00) 10*3/uL RBC (4.40-5.60) 10*6/uL Hgb (13.0-17.0) g/dL Hct (39.6-50.0) % MCHC (32.0-37.0) g/dL Plt Count (140-440) 10*3/uL Immature Gran # (0.00-0.04) 10*3/uL Neutrophils # (1.80-7.70) 10*3/uL Monocytes # (0.20-1.00) 10*3/uL Eosinophils # (0.04-0.35) 10*3/uL Sodium (137-145) mmol/L Chloride (98-107) mmol/L Anion Gap (4.00-12.00) mmol/L BUN (9-20) mg/dL Creatinine (0.66-1.25) mg/dL BUN/Creatinine Ratio (12.00-20.00) Ratio Glucose (74-99) mg/dL POC Glucose (mg/dL) 319 H 275 H (70-110) mg/dL Hemoglobin A1c (<=6.0) % Calcium (8.7-10.3) mg/dL AST (17-59) U/L Alkaline Phosphatase (38-126) U/L Albumin (3.5-5.0) g/dL Urine Protein Trace H (Negative) Urine Glucose (UA) 4+ H (Negative) Urine Ketones Trace H (Negative) Ur Leukocyte Esterase Small H (Negative) Urine WBC 31 H (0-5) /hpf Urine Bacteria Rare H (None) /hpf Urine Mucus Rare H (None) /hpf 01/27/25 01/27/25 01/27/25 Range/Units 04:35 04:35 04:35 WBC 19.00 H (4.50-10.00) 10*3/uL RBC 3.24 L (4.40-5.60) 10*6/uL Hgb 8.8 L (13.0-17.0) g/dL Hct 28.3 L (39.6-50.0) % MCHC 31.1 L (32.0-37.0) g/dL Plt Count 508 H (140-440) 10*3/uL Immature Gran # 0.11 H (0.00-0.04) 10*3/uL Neutrophils # 15.55 H (1.80-7.70) 10*3/uL Monocytes # 1.50 H (0.20-1.00) 10*3/uL Eosinophils # (0.04-0.35) 10*3/uL Sodium 132 L (137-145) mmol/L Chloride 95 L (98-107) mmol/L Anion Gap 13.50 H (4.00-12.00) mmol/L BUN (9-20) mg/dL Creatinine (0.66-1.25) mg/dL BUN/Creatinine Ratio 10.83 L (12.00-20.00) Ratio Glucose 239 H (74-99) mg/dL POC Glucose (mg/dL) (70-110) mg/dL Hemoglobin A1c 12.5 H (<=6.0) % Calcium 8.3 L (8.7-10.3) mg/dL AST (17-59) U/L Alkaline Phosphatase (38-126) U/L Albumin (3.5-5.0) g/dL Urine Protein (Negative) Urine Glucose (UA) (Negative) Urine Ketones (Negative) Ur Leukocyte Esterase (Negative) Urine WBC (0-5) /hpf Urine Bacteria (None) /hpf Urine Mucus (None) /hpf 01/27/25 Range/Units 06:31 WBC (4.50-10.00) 10*3/uL RBC (4.40-5.60) 10*6/uL Hgb (13.0-17.0) g/dL Hct (39.6-50.0) % MCHC (32.0-37.0) g/dL Plt Count (140-440) 10*3/uL Immature Gran # (0.00-0.04) 10*3/uL Neutrophils # (1.80-7.70) 10*3/uL Monocytes # (0.20-1.00) 10*3/uL Eosinophils # (0.04-0.35) 10*3/uL Sodium (137-145) mmol/L Chloride (98-107) mmol/L Anion Gap (4.00-12.00) mmol/L BUN (9-20) mg/dL Creatinine (0.66-1.25) mg/dL BUN/Creatinine Ratio (12.00-20.00) Ratio Glucose (74-99) mg/dL POC Glucose (mg/dL) 247 H (70-110) mg/dL Hemoglobin A1c (<=6.0) % Calcium (8.7-10.3) mg/dL AST (17-59) U/L Alkaline Phosphatase (38-126) U/L Albumin (3.5-5.0) g/dL Urine Protein (Negative) Urine Glucose (UA) (Negative) Urine Ketones (Negative) Ur Leukocyte Esterase (Negative) Urine WBC (0-5) /hpf Urine Bacteria (None) /hpf Urine Mucus (None) /hpf Assessment and Plan Plan: 34-year-old male with perforated appendicitis with abscess formation. Patient would benefit from IR drainage of the abscess with antibiotic therapy with likely interval appendectomy in the future. Multiple attempts have been made to reach out to interventional radiology at this facility. It is unclear whether they are available based on holiday. I discussed case with admitting team. Should IR not be available at this facility over this holiday weekend, I would recommend transfer to outside facility for IR drainage.
[2025-01-27 11:46] LABS: Glucose,Whole Blood 222 mg/dL (70-110)
[2025-01-27] MEDS: HYDROmorphone 0.5 MG/0.5 ML SYRINGE IVP PRN (14:54)
--- NOTE | 2025-01-27 15:08 | P.DS ---
Providers Date of admission: 01/26/25 18:25 Expected date of discharge: 01/27/25 Attending physician: Randal Barker Consults: 01/26/25 17:54 Consult Physician Urgent Consulting Provider: Phoenix Chavez Consult Reason/Comments: Perforated appendicitis with abscess Do you want consulting provider notified?: Yes Consult Physician Urgent Consulting Provider: Joe Bajwa Consult Reason/Comments: Perforated appendicitis with abscess Do you want consulting provider notified?: Yes Primary care physician: Onelia Flannery Hospital Course: Discharge diagnoses; Sepsis Perforated appendicitis with abscess Hyponatremia Acute kidney injury Hyperglycemia Hospital course; patient is 34-year-old gentleman with past medical history significant for diabetes mellitus, seizure who presented to the hospital because of left knee pain. Patient stated that he fell a couple of weeks ago following that he was having left knee pain. Patient stated he was very unsteady on walking. Patient also admitted to some abdominal pain. There was no complaint nausea or vomiting. Patient denied any fever or chills. There was no complaint of orthopnea or PND. Patient was also having elevated blood sugars at home. Because of the symptoms, patient came to the ER Initial lab work done in the ER showed WBC 19.9, hemoglobin 10.5, platelet count 540, sodium 128, potassium 4.6, BUN 22, creatinine 1.28, glucose 546 AST 13, ALT 918 alk phos 191, UA negative for infection Alcohol level negative EKG done in the ER showed heart rate of 99, no ST segment elevation or depression seen, no T-wave inversions seen. X-ray left knee done showed no abnormality seen X-ray left hip and pelvis showed no acute fractures. Doppler study of left lower extremity done showed no DVT Chest x-ray done in the ER showed acute cardiopulmonary CT abdominal pelvis done showed findings compatible with perforated appendicitis with abscess in the right lower quadrant measuring 7.2 x 5.8 x 5.3 cm. There are adjacent bubbles of air. Inflammatory changes present. There is edema of the adjacent musculature including the psoas and iliac muscle Patient admitted to internal medicine service. Patient was evaluated by surgery, they reviewed CT scan imaging, recommended patient needs transfer to a facility with IR coverage as patient might need an IR drain placement. [facility] was contacted and patient was accepted as a transfer there. Currently stable for discharge to [facility] PHYSICAL EXAMINATION: GENERAL: The patient is alert and oriented x3, not in any acute distress. Illness HEENT: Pupils are round and equally reacting to light. EOMI. No scleral icterus. No conjunctival pallor. Normocephalic, atraumatic. No pharyngeal erythema. No thyromegaly. CARDIOVASCULAR: S1 and S2 present. No murmurs, rubs, or gallops. PULMONARY: Chest is clear to auscultation, no wheezing or crackles. ABDOMEN: Tenderness right lower quadrant. Normoactive bowel sounds. No palpable organomegaly. MUSCULOSKELETAL: No joint swelling or deformity. EXTREMITIES: No cyanosis, clubbing, or pedal edema. NEUROLOGICAL: Gross neurological examination did not reveal any focal deficits. SKIN: No rashes. Dictation was produced using [employer] dictation software. please excuse any grammatical, word or spelling errors. Patient Condition at Discharge: Fair Plan - Discharge Summary Discharge Rx Participant: No New Discharge Prescriptions: Continue Insulin Glargine,Hum.rec.anlog [Lantus Solostar Pen] 10 units SQ HS Valproic Acid Oral Soln [Depakene Syrup] 250 mg PO HS Ziprasidone [Geodon] 20 mg PO HS #30 cap Insulin Glargine,Hum.rec.anlog [Lantus Solostar Pen] 20 units SQ DAILY Discharge Medication List Ziprasidone [Geodon] 20 mg PO HS #30 cap 12/13/24 [Rx] Insulin Glargine,Hum.rec.anlog [Lantus Solostar Pen] 10 units SQ HS 01/26/25 [History] Insulin Glargine,Hum.rec.anlog [Lantus Solostar Pen] 20 units SQ DAILY 01/26/25 [History] Valproic Acid Oral Soln [Depakene Syrup] 250 mg PO HS 01/26/25 [History] Follow up Appointment(s)/Referral(s): Onelia Flannery MD [Primary Care Provider] - 1-2 days Discharge Disposition: OTHER INSTITUTION NOT DEFINED
[2025-01-27 15:29] VITALS: BP 126/74; PULSE 74; RESP 19; TEMP 97.6
== END 2025-01-27 17:14 | disposition short-term general hospital (02) | DRG 871 ==
LOC: EC 13:51 → 4SSUR 18:25
PROVIDERS: ADMIT Hospitalist; ATTEND Hospitalist
DX: A41.9 Sepsis, unspecified organism (principal); K35.33 Acute appendicitis with perforation, localized peritonitis, and gangrene, with abscess; R56.9 Unspecified convulsions; E10.65 Type 1 diabetes mellitus with hyperglycemia; F31.9 Bipolar disorder, unspecified; N17.9 Acute kidney failure, unspecified; E87.1 Hypo-osmolality and hyponatremia; Z79.4 Long term (current) use of insulin; E86.0 Dehydration; F43.10 Post-traumatic stress disorder, unspecified; F42.9 Obsessive-compulsive disorder, unspecified; F41.9 Anxiety disorder, unspecified; M25.562 Pain in left knee; F17.290 Nicotine dependence, other tobacco product, uncomplicated; Z79.899 Other long term (current) drug therapy; Z91.81 History of falling
CPT/HCPCS: 36415; 51701; 71046; 73502; 74177; 80048; 80053; 81001; 82009; 83036; 83605; 83735; 84100; 85025; 87040; 87077; 87086; 87186; 93005; 96361; 96365; 96366; 96375; 99285

== ENCOUNTER → 2025-02-15 | Outpatient (CLI) | payer BC, OTHER ==
--- NOTE | 2025-02-18 02:14 | CT ---
EXAMINATION TYPE: CT knee LT wo con DATE OF EXAM: 02/15/2025 11:42 AM COMPARISON: None. CLINICAL INDICATION: Male, 34 years old with history of LEFT S72.325A NONDISP TRANSVERSE FRACTURE OF SHAFT, left knee pain TECHNIQUE: Contrast used: mL of , (none if empty) Oral contrast used: (none if empty) Axial images at 5 mm thick sections. Reconstructed images in the coronal and sagittal planes. FINDINGS: There is a comminuted distal femoral condylar fracture. The major transverse fracture line extends th rough the distal metaphyseal portion with extension of the more proximal metaphyseal portion. Been re sorption along the fracture lines over the interval. There is joint space narrowing of the medial and lateral compartment joint space. A small joint effus ion is present. IMPRESSION: 1. DISTAL FEMORAL CONDYLAR COMMINUTED FRACTURE [facility], Workstation: [facility], 02/18/2025 2:12 AM
== END | disposition home or self-care (01) ==
LOC: RADCTMAIN 11:05
PROVIDERS: ATTEND Orthopaedic Surgery
DX: S72.325A Nondisplaced transverse fracture of shaft of left femur, initial encounter for closed fracture (principal)